=== PATIENT | male | born 1955 | race Caucasian/White ===

== ENCOUNTER 2019-09-07 09:48 | Outpatient (CLI) | payer MEDICARE, MEDICAID, SELFPAY ==
--- NOTE | ~2019-09-07 | XR_ITS ---
EXAMINATION: XR chest 2V DATE: 09/07/2019 10:15 INDICATION: Chronic obstructive pulmonary disease. Shortness of breath. TECHNIQUE: Frontal and lateral views of the chest were obtained. COMPARISON: Chest 2 views 03/23/2017, chest CT 02/17/2018 FINDINGS: Calcified pulmonary nodules are consistent with old granulomatous disease. There is chronic blunting of the posterior costophrenic angles, likely scarring. There is mild atelectasis in the rig ht mid and lower lung zones and left lower lung zone. No pleural effusion or pneumothorax. The heart size is normal. There is a left chest pacer with leads in right atrium, right ventricle, and coronary sinus. There is chronic height loss of multiple thoracic vertebral bodies. IMPRESSION: 1. Mild atelectasis in right mid and lower lung zones and left lower lung zone. Reviewed, dictated and finalized at location A. 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
[2019-09-07 11:20] LABS: Alanine Aminotransferase 28 U/L (4-50); Albumin Level 3.9 g/dL (3.5-5.1); Alkaline Phosphatase 94 U/L (38-126); Aspartate Amino Transferase 48 U/L (17-59); Bilirubin,Total 0.4 mg/dL (0.2-1.3); Blood Urea Nitrogen 14 mg/dL (9-20); Calcium 9.3 mg/dL (8.4-10.2); Carbon Dioxide 31 mmol/L (22-30); Chloride 95 mmol/L (98-107); Estimated Glomerular Filt Rate > 60; Glucose 122 mg/dL (75-110); Potassium 3.7 mmol/L (3.4-5.0); Sodium 137 mmol/L (137-145)
== END 2019-09-07 09:49 | disposition home or self-care (01) ==
LOC: ANHLAB 09:54
PROVIDERS: PCP Internal Medicine; Visit Provider Internal Medicine
DX: K76.9 Liver disease, unspecified (principal); I10 Essential (primary) hypertension; E03.9 Hypothyroidism, unspecified; J44.9 Chronic obstructive pulmonary disease, unspecified; J98.11 Atelectasis
CPT/HCPCS: 36415; 71046; 80053; 84443

== ENCOUNTER 2019-12-20 22:51 | Emergency (ER) | payer MEDICARE, MEDICAID, SELFPAY ==
--- NOTE | ~2019-12-20 | XR_ITS ---
EXAMINATION: XR chest 1V portable EXAM DATE: 12/20/2019 23:57 INDICATION: Shortness of breath. TECHNIQUE: Portable AP frontal chest x-ray was obtained. Comparison is made to prior examination from 05/08/2020. FINDINGS: There is a dual lead pacemaker/AICD seen with leads projecting over the expected locations of the right atrial appendage and right ventricle. There are some scattered linear right perihilar op acities likely chronic regions of scarring unchanged. No confluent consolidation, pneumothorax or ple ural effusion suspected. Cardiac silhouette is stable in size compared to prior exam. There are mild bony degenerative changes. IMPRESSION: No acute cardiopulmonary findings. Reviewed, dictated and finalized at location G.
--- NOTE | ~2019-12-20 | CT_ITS ---
EXAMINATION: CTA chest PE protocol DATE: 12/21/2019 01:33 INDICATION: Shortness of breath. Fever. Cough. TECHNIQUE: Computed tomography angiography (CTA) of the chest was performed with 100 mL Omnipaque-350 intravenous contrast timed to evaluate the pulmonary arteries. Coronal maximum intensity projection 3D-reconstructions were created by the technologist. Automated exposure control and iterative reconst ruction technique were employed. The dose-length product was 797.99 mGy-cm. COMPARISON: Chest CT 02/17/2018 FINDINGS: There is moderate emphysema. Calcified pulmonary nodules are consistent with old granulomat ous disease. There is mild peripheral atelectasis and scarring in the inferior lungs, worst in right lower lobe. No pleural effusion. There is left atrial enlargement of the heart. There are coronary ar tank calcifications. There is a left chest pacer with leads in right atrium, right ventricle, and cor onary sinus. There is no pulmonary embolus. The liver demonstrates surface nodularity, consistent wit h cirrhosis. There is a small sliding hiatal hernia. There are old healed left rib fractures. Thoraci c kyphosis is noted. There are multiple chronic compression fractures and burst fractures in thoracic spine. IMPRESSION: 1. No pulmonary embolus. 2. Moderate emphysema. Mild atelectasis and scarring in the inferior lungs. 3. Cirrhosis of the liver. Reviewed, dictated and finalized at location A.
[2019-12-20 22:50] VITALS: BP 133/88; PULSE 92; RESP 22; TEMP 37.8; O2SAT 98
--- NOTE | 2019-12-20 23:20 | ECG_ITS ---
Measurements Intervals [place] Rate: 87 P: 20 NE: 137 QRS: -61 QRSD: 82 T: 56 QT: 359 QTc: 434 Interpretive Statements ELECTRONIC VENTRICULAR PACEMAKER NO FURTHER INTERPRETATION IS POSSIBLE ATYPICAL ECG Electronically Signed On 12-21-2019 7:09:59 CDT by Rg Feng D.O.
[2019-12-20 23:54] LABS: Basophils Absolute Auto 0.1 K/mm3 (0.0-0.1); Basophils Percent Auto 0.3 % (0.2-1.2); Eosinophils Percent Auto 0.2 % (0-4.4); Hematocrit 37.6 % (42.0-52.0); Hemoglobin 11.9 g/dL (14.0-18.0); Immature Granulocyte Absolute 0.12 K/mm3 (0.00-0.031); Immature Granulocyte Percent A 0.6 % (0-0.5); Lymphocytes Absolute Auto 1.02 K/mm3 (0.9-3.2); Lymphocytes Percent Auto 5.3 % (18.3-44.2); Mean Corpuscular HGB Conc 31.6 g/dl (32-36); Mean Corpuscular Hemoglobin 27.7 pg (26-34); Mean Corpuscular Volume 87.4 fl (80-100); Mean Platelet Volume 9.5 fl (7.4-10.4); Monocytes Absolute Auto 1.7 K/mm3 (0.1-0.6); Monocytes Percent Auto 8.7 % (2.6-8.5); Neutrophils Absolute Auto 16.3 K/mm3 (1.3-6.7); Neutrophils Percent Auto 84.9 % (45.5-73.1); Platelet Count Result 127 k/mm3 (150-375); Red Cell Distribution Width 15.8 % (11.5-14.5); White Blood Count 19.2 K/mm3 (4.5-10.0)
[2019-12-21] VITALS: BP 138/87; PULSE 85; RESP 19; O2SAT 100
[2019-12-21 00:15] LABS: Blood Urea Nitrogen 19 mg/dL (9-20); Carbon Dioxide 35 mmol/L (22-30); Chloride 94 mmol/L (98-107); Estimated CRCL calculation 120 ml/min; Estimated Glomerular Filt Rate > 60; Glucose 141 mg/dL (75-110); Potassium 3.7 mmol/L (3.4-5.0); Sodium 133 mmol/L (137-145)
--- NOTE | 2019-12-21 00:43 | ED.SOB ---
HPI - SOB/Dyspnea General Chief Complaint: Shortness of Breath/Dyspnea Stated Complaint: flu like sx Time Seen by Provider: 12/21/19 00:42 History of Present Illness HPI Narrative: Patient arrives via EMS from home for increasing shortness of breath. He has known COPD and is on 4 L of oxygen at home. He required 6 L in route. He had pneumonia recently, and was discharged on antibiotics and steroids. He has been staying home since then. Now he has fever, chills and sweats, left chest pain, slightly productive cough, and increasing dyspnea. Related Data Home Medications Medication Instructions Recorded Confirmed albuterol sulfate 90 mcg/actuation 1 inhalation INHALATION Q4H 07/17/19 09/07/19 aerosol inhaler amiodarone 200 mg tablet 200 mg PO DAILY 09/07/19 09/07/19 Allergies Allergy/AdvReac Type Severity Reaction Status Date / Time venom-wasp Allergy Unknown Unknown Verified 12/12/19 10:50 Review of Systems Review of Systems: Narrative: CONSTITUTIONAL: He has fever, chills, and sweats. EYES: Denies visual changes, redness, or discharge. ENT: Denies rhinorrhea, congestion, sore throat, or otalgia. CARDIOVASCULAR: He has chest pain, but no palpitations, or edema. RESPIRATORY: He has cough and dyspnea. GASTROINTESTINAL: Denies abdominal pain, nausea, vomiting, or diarrhea. GENITOURINARY: Denies dysuria or hematuria. SKIN: Denies rash or itching. MUSCULOSKELETAL: Denies back pain, joint pain, or myalgia. NEUROLOGIC: Denies headache, numbness, or weakness. PSYCHIATRIC: Denies anxiety or depression. All systems reviewed & are unremarkable except as noted in HPI and below PMFSH Past Medical History Medical History Acute recurrent sinusitis Acute respiratory failure with hypoxia Chronic liver disease and cirrhosis Chronic respiratory failure, unspecified whether with hypoxia or hypercapnia COPD exacerbation Cor pulmonale (chronic) Essential (primary) hypertension Former tobacco use Hypotension, unspecified Hypoxemia Liver disease, unspecified Oxygen dependent Personal history of other venous thrombosis and embolism Pneumonia due to infectious organism Family History Family History Father Hypertension Family history of diabetes mellitus in first degree relative Family history of chronic obstructive pulmonary disease Sibling Patient's sister is in good health Patient's brother is in good health Mother Patient's mother is Other Family history of arthritis Social History Social History Smoking status: Former smoker (quit 1 month ago) Smoking end date: 08/09/18 Alcohol intake: current Exam Narrative: Exam Narrative: GENERAL: Well-appearing, well-nourished, and in no acute distress. Morbid obesity, poorly stringy long hair, unkempt colon. HEAD: Normocephalic, atraumatic. EYES: PERRLA and EOMI. ENT: Nares clear, no rhinorrhea or epistaxis. Mucous membranes moist. NECK: Supple. CHEST: Normal wheezes, prolonged expiration, no crackles or rales. No retractions. HEART: Regular rate and rhythm. No murmur heard. Normal peripheral pulses. ABDOMEN: Soft, nontender, nondistended, normal active bowel sounds. EXTREMITIES: Normal range of motion. No edema. Missing the tips of a couple of the left hand fingers. SKIN: Warm, dry, no rash. NEURO: No focal deficits. Alert and oriented x3. PSYCH: Normal mood and affect. Course Reevaluation(s) Reevaluation #1: Patient says he does not feel any better, but he has no retractions, his prolonged expirations are better, he has not been coughing, and I keep turning his oxygen down because his saturations are in the 99 to 100% range, and he does not needed to be higher than 95%. He came by ambulance, and does not know how he intends to get home. Told him I would send him home on some more antib
[2019-12-21 01:00] VITALS: BP 142/83; PULSE 93; RESP 20; O2SAT 94
[2019-12-21] MEDS: ALBUTEROL SULFATE (*SP) INHALER 1 PUFF (01:11)
[2019-12-21 01:13] VITALS: PULSE 81; RESP 33
[2019-12-21] MEDS: ACETAMINOPHEN 500 MG TABLET 1000 MG PO (01:13)
[2019-12-21] MEDS: MORPHINE SULFATE 2 MG/ML INJ IV PUSH (01:13)
[2019-12-21] MEDS: methylPREDNISolone SOD SUCC 125 MG VIAL IV PUSH (01:13)
[2019-12-21 01:20] LABS: INR 1.8; Prothrombin Time 20.2 Seconds (11.1-14.7)
[2019-12-21 01:39] LABS: Lactic Acid 1.4 mmol/L (0.7-2.1)
[2019-12-21 02:04] VITALS: BP 110/67; PULSE 80; RESP 19; O2SAT 98
[2019-12-21 02:59] VITALS: BP 110/80; PULSE 74; RESP 22; O2SAT 100
--- NOTE | 2019-12-21 03:35 | PC.NURSE ---
[id number] Called [facility] to transport patient. ETA [phone] [facility] here
[2019-12-21 03:52] VITALS: BP 113/76; PULSE 84; RESP 25; TEMP 37.2; O2SAT 97
== END 2019-12-21 03:53 | disposition home or self-care (01) ==
PROVIDERS: Emergency Provider Emergency Medicine; PCP Internal Medicine
DX: J44.9 Chronic obstructive pulmonary disease, unspecified (principal); D72.829 Elevated white blood cell count, unspecified; D64.9 Anemia, unspecified; E66.01 Morbid (severe) obesity due to excess calories; Z68.41 Body mass index [BMI] 40.0-44.9, adult; D69.6 Thrombocytopenia, unspecified; Z95.0 Presence of cardiac pacemaker; Z99.81 Dependence on supplemental oxygen; K74.60 Unspecified cirrhosis of liver; I10 Essential (primary) hypertension; Z87.891 Personal history of nicotine dependence; Z86.718 Personal history of other venous thrombosis and embolism; Z86.711 Personal history of pulmonary embolism
CPT/HCPCS: 36415; 71045; 71275; 80048; 83605; 85025; 85610; 87040; 87077; 87186; 93005; 96365; 96367; 96375; 99284; A9270; J0456; J0696; J2270; J2930; Q9967

== ENCOUNTER 2020-07-16 11:34 | Outpatient (CLI) | payer MEDICARE, MEDICAID, SELFPAY ==
[2020-07-16 12:09] LABS: Alanine Aminotransferase 18 U/L (4-50); Albumin Level 3.7 g/dL (3.5-5.1); Alkaline Phosphatase 92 U/L (38-126); Anion Gap 6 mmol/L (8-16); Aspartate Amino Transferase 27 U/L (17-59); Bilirubin,Total 0.4 mg/dL (0.2-1.3); Blood Urea Nitrogen 17 mg/dL (9-20); Calcium 9.3 mg/dL (8.4-10.2); Carbon Dioxide 32 mmol/L (22-30); Chloride 99 mmol/L (98-107); Cholesterol 143 mg/dL (0-200); Estimated Glomerular Filt Rate > 60; Glucose 143 mg/dL (75-110); HDL Direct 34 mg/dL; Potassium 4.6 mmol/L (3.4-5.0); Sodium 137 mmol/L (137-145); Triglycerides 94 mg/dL (<150)
[2020-07-16 12:20] LABS: LDL Cholesterol Direct 90 mg/dL
[2020-07-16 13:40] LABS: Free T4 Free Thyroxine 1.38 ng/mL (0.78-2.19)
== END 2020-07-16 11:35 | disposition home or self-care (01) ==
PROVIDERS: PCP Internal Medicine; Visit Provider Internal Medicine
DX: E03.9 Hypothyroidism, unspecified (principal); I10 Essential (primary) hypertension; Z51.81 Encounter for therapeutic drug level monitoring; Z79.899 Other long term (current) drug therapy
CPT/HCPCS: 36415; 80053; 80061; 84439; 84443

== ENCOUNTER 2020-07-17 10:40 | Emergency (ER) | payer MEDICARE, MEDICAID, SELFPAY ==
[2020-07-17] VITALS (17 sets, daily range): BP systolic 128–144; BP diastolic 73–86; PULSE 80–96; RESP 18–27; O2SAT 97–100
--- NOTE | ~2020-07-17 | XR_ITS ---
XR chest 1V portable DATE: 07/17/2020 11:16 INDICATION: Congestive heart failure, shortness of breath TECHNIQUE: Portable AP chest on 07/17/2020 1105 hours COMPARISON: 12/20/2019 portable AP chest 12/21/2019 CT pulmonary scan FINDINGS: There are right mid lung and bibasilar infiltrates and/or atelectasis. Heart size is not optimally evaluated on AP projection because of magnification. Thoracic aortic calc ification and ectasia and tortuosity. Pulmonary vascularity appears within normal limits. There is mi nimal if any pleural effusion. No pneumothorax. Left triple lead pacemaker device with leads overlying right atrium, right ventricle and coronary sin us. Prominent diffuse osteopenia. IMPRESSION: Right mid lung and bibasilar infiltrate and/atelectasis Reviewed, dictated and finalized at location A. 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
--- NOTE | 2020-07-17 10:50 | ECG_ITS ---
Measurements Intervals [place] Rate: 80 P: 242 NV: 203 QRS: -45 QRSD: 93 T: -3 QT: 379 QTc: 438 Interpretive Statements ELECTRONIC ATRIAL PACEMAKER ELECTRONIC VENTRICULAR PACEMAKER FUSION COMPLEXES BASELINE ARTIFACT- I, III, AVL, AVF, V4-V6 NO FURTHER INTERPRETATION IS POSSIBLE ATYPICAL ECG Electronically Signed On 07-17-2020 11:01:10 [facility] [employer] [employer] by Rg Feng D.O.
[2020-07-17 11:06] LABS: Basophils Absolute Auto 0.1 K/mm3 (0.0-0.1); Basophils Percent Auto 0.9 % (0.2-1.2); Eosinophils Absolute Auto 0.2 K/mm3 (0-0.3); Eosinophils Percent Auto 2.7 % (0-4.4); Hematocrit 35.4 % (42.0-52.0); Hemoglobin 10.3 g/dL (14.0-18.0); Immature Granulocyte Absolute 0.03 K/mm3 (0.00-0.031); Immature Granulocyte Percent A 0.4 % (0-0.5); Lymphocytes Percent Auto 15.7 % (18.3-44.2); Mean Corpuscular HGB Conc 29.1 g/dl (32-36); Mean Corpuscular Hemoglobin 24.8 pg (26-34); Mean Corpuscular Volume 85.3 fl (80-100); Mean Platelet Volume 9.1 fl (7.4-10.4); Monocytes Absolute Auto 0.7 K/mm3 (0.1-0.6); Monocytes Percent Auto 9.3 % (2.6-8.5); Platelet Count Result 183 k/mm3 (150-375); Red Blood Count 4.15 M/mm3 (4.6-6.20); Red Cell Distribution Width 18.1 % (11.5-14.5)
[2020-07-17 11:15] LABS: INR 1.2
[2020-07-17 11:16] LABS: Partial Thromboplastin Time 29.7 SECONDS (22.3-36.8)
[2020-07-17 11:19] LABS: Anion Gap 4 mmol/L (8-16); Blood Urea Nitrogen 16 mg/dL (9-20); Calcium 9.2 mg/dL (8.4-10.2); Carbon Dioxide 35 mmol/L (22-30); Chloride 100 mmol/L (98-107); Estimated CRCL calculation 102 ml/min; Estimated Glomerular Filt Rate > 60; Glucose 120 mg/dL (75-110); Potassium 5.1 mmol/L (3.4-5.0); Sodium 139 mmol/L (137-145)
[2020-07-17 11:27] LABS: Anisocytosis 1+ (NORMAL); Platelet Estimate Adequate (Adequate); Target Cells 1+ (NORMAL)
[2020-07-17 11:29] LABS: NT Pro B Type Natriuretic Pept 375 PG/ML (5-100); Troponin I < 0.012 ng/mL (0.000-0.034)
--- NOTE | 2020-07-17 11:32 | ED.SOB ---
HPI - SOB/Dyspnea General Chief Complaint: Shortness of Breath/Dyspnea Stated Complaint: SOB Time Seen by Provider: 07/17/20 11:05 History of Present Illness HPI Narrative: Increased SOB for the past 3 days. Associated with fatigue and REEDER. He has been out of lasix for the past few days and does report increased BLE edema. He also reports anxiety and depression around COVID-19 and not being able to take care of himself. Related Data Home Medications Medication Instructions Recorded Confirmed albuterol sulfate 90 mcg/actuation 1 inhalation INHALATION Q4H 07/17/19 07/17/20 aerosol inhaler amiodarone 200 mg tablet 200 mg PO DAILY 09/07/19 07/17/20 Allergies Allergy/AdvReac Type Severity Reaction Status Date / Time venom-wasp Allergy Unknown Swelling Verified 07/17/20 11:01 Review of Systems Review of Systems: All systems reviewed & are unremarkable except as noted in HPI and below Constitutional: Constitutional: Denies chills, Reports fatigue, Denies fever(s) and Denies weakness Cardiovascular: Cardiovascular: Denies chest pain Respiratory: Respiratory: Reports chest congestion, Reports cough and Reports dyspnea Gastrointestinal: Gastrointestinal: Denies abdominal pain, Denies nausea and Denies vomiting Genitourinary: Genitourinary: Denies dysuria Neurologic: Denies dizziness and Denies weakness Psychiatric: Psychiatric: Reports anxiety and Reports depression Endocrine: Endocrine: Reports fatigue PMFSH Past Medical History Medical History Acute recurrent sinusitis Acute respiratory failure with hypoxia Chronic liver disease and cirrhosis Chronic respiratory failure, unspecified whether with hypoxia or hypercapnia COPD exacerbation Cor pulmonale (chronic) Essential (primary) hypertension Former tobacco use Hypotension, unspecified Hypothyroidism Hypoxemia Liver disease, unspecified Oxygen dependent Personal history of other venous thrombosis and embolism Pneumonia due to infectious organism Family History Family History Father Hypertension Family history of diabetes mellitus in first degree relative Family history of chronic obstructive pulmonary disease Sibling Patient's sister is in good health Patient's brother is in good health Mother Patient's mother is Other Family history of arthritis Social History Social History Smoking status: Current every day smoker Smoking end date: 08/09/18 Alcohol intake: current Exam Const: General: no acute distress, alert and ill appearing chronically Nutritional Appearance: obese Orientation/consciousness: patient oriented x3 HENMT: Head: normal to inspection Neck: Neck: normal visual inspection Chest: Chest palpation & inspection: normal inspection of the chest Resp: Effort & Inspection: normal respiratory effort Auscultation: no crackles and wheezes Cardio: Rate: regular rate Rhythm: regular rhythm GI: GI Palp: Yes Soft to palpation and No Tenderness to palpation present (GI) Skin: General skin exam: normal color Neuro: General: patient oriented x3, moves all extremities, no focal motor deficits and CN's II-XI intact bilaterally Speech: normal speech Extrem: General: edema bilateral (2+) Course Vital Signs Vital signs: Vital Signs Pulse Rate 96 07/17/20 10:43 Respiratory Rate 21 H 07/17/20 10:43 Blood Pressure 144/79 H 07/17/20 10:43 Pulse Oximetry 100 07/17/20 10:43 Pulse Rate 88 07/17/20 14:43 Respiratory Rate 18 07/17/20 14:43 Blood Pressure 135/77 07/17/20 14:43 Pulse Oximetry 97 07/17/20 14:43 MDM - SOB/Dyspnea MDM Narrative Medical decision making narrative: Maintaining O2 saturation with ambulation. Atelectasis versus infiltrate on X-ray, no symptoms to suggest pneumonia, no white count
[2020-07-17] MEDS: methylPREDNISolone SOD SUCC 125 MG VIAL IV PUSH (11:38)
[2020-07-17] MEDS: FUROSEMIDE INJ 40 MG/4 ML VIAL IV PUSH (11:39)
[2020-07-17] MEDS: IPRATROPIUM BR 0.02% INH SOLN 0.5 MG/2.5 ML VIAL 1 MG INHALATION (12:14)
[2020-07-17] MEDS: ALBUTEROL SULFATE NEB 2.5 MG/0.5 ML INH 10 MG INHALATION (12:14)
== END 2020-07-17 15:10 | disposition home or self-care (01) ==
PROVIDERS: Emergency Medicine; Emergency Provider Emergency Medicine; PCP Internal Medicine
DX: J44.1 Chronic obstructive pulmonary disease with (acute) exacerbation (principal); K74.60 Unspecified cirrhosis of liver; I10 Essential (primary) hypertension; Z87.891 Personal history of nicotine dependence; E03.9 Hypothyroidism, unspecified; Z99.81 Dependence on supplemental oxygen
CPT/HCPCS: 36415; 71045; 80048; 83880; 84484; 85025; 85610; 85730; 93005; 94640; 96374; 96375; 99284; J1940; J2930

== ENCOUNTER 2021-02-05 09:23 | Outpatient (CLI) | payer MEDICARE, MEDICAID, SELFPAY ==
[2021-02-05 13:13] LABS: Hemoglobin A1C 7.2 % (<5.7)
[2021-02-05 13:35] LABS: Creatinine Urine 21.7 mg/dL
[2021-02-05 13:37] LABS: MALB Creatinine Ratio 30.4 mg/g (0-30); Microalbumin Urine Random 6.6 mg/L (0-16.7)
== END 2021-02-05 09:24 | disposition home or self-care (01) ==
PROVIDERS: PCP Internal Medicine; Visit Provider Internal Medicine
DX: D50.9 Iron deficiency anemia, unspecified (principal); Z51.81 Encounter for therapeutic drug level monitoring; Z79.899 Other long term (current) drug therapy
CPT/HCPCS: 36415; 82043; 83036

== ENCOUNTER 2021-06-26 10:35 | Outpatient (CLI) | payer MEDICARE, MEDICAID, SELFPAY ==
[2021-06-26 11:40] LABS: Hemoglobin A1C 5.6 % (<5.7)
[2021-06-26 11:42] LABS: Alanine Aminotransferase 21 U/L (4-50); Albumin Level 3.8 g/dL (3.5-5.1); Alkaline Phosphatase 99 U/L (38-126); Anion Gap 5 mmol/L (8-16); Aspartate Amino Transferase 31 U/L (17-59); Bilirubin,Total 0.4 mg/dL (0.2-1.3); Blood Urea Nitrogen 18 mg/dL (9-20); Calcium 8.8 mg/dL (8.4-10.2); Carbon Dioxide 39 mmol/L (22-30); Chloride 90 mmol/L (98-107); Cholesterol 139 mg/dL (0-200); Estimated Glomerular Filt Rate > 60; Glucose 117 mg/dL (65-110); HDL Direct 43 mg/dL; Potassium 3.7 mmol/L (3.4-5.0); Sodium 134 mmol/L (137-145); Triglycerides 68 mg/dL (<150)
[2021-06-26 11:53] LABS: LDL Cholesterol Direct 80 mg/dL
[2021-06-26 12:19] LABS: Vitamin D 25 Hydroxy 13.1 ng/mL
== END 2021-06-26 10:36 | disposition home or self-care (01) ==
LOC: ANHLAB 10:40
PROVIDERS: PCP Internal Medicine; Visit Provider Internal Medicine
DX: E78.5 Hyperlipidemia, unspecified (principal); E03.9 Hypothyroidism, unspecified; E53.8 Deficiency of other specified B group vitamins; E55.9 Vitamin D deficiency, unspecified; E11.9 Type 2 diabetes mellitus without complications; B18.1 Chronic viral hepatitis B without delta-agent
CPT/HCPCS: 36415; 80053; 80061; 82306; 82607; 83036; 84443

== ENCOUNTER 2021-08-22 16:37 | Inpatient (IN) | payer MEDICARE, MEDICAID, SELFPAY ==
[2021-08-22] VITALS (11 sets, daily range): BP systolic 107–132; BP diastolic 66–78; PULSE 92–136; RESP 22–32; TEMP 36.8; O2SAT 93–98
--- NOTE | ~2021-08-22 | XR_ITS ---
EXAMINATION: XR shoulder LT min 2V DATE: 08/27/2021 13:29 INDICATION: Left shoulder pain post fall TECHNIQUE: AP internally and externally rotated, AP oblique externally rotated and transscapular Y vi ews of the left shoulder were obtained. COMPARISON: Chest radiograph dated 12/20/2019 FINDINGS: There is chronic widening of the left acromioclavicular joint which could be related to either prior trauma or acromioplasty. Correlate with clinical history. Alignment is otherwise normal. No fracture. Mild osteoarthritis at the left glenohumeral joint. Opacities in the left lower lung zone consistent with small left pleural effusion and associated basilar atelectasis, pneumonia, pulmonary edema or s ome combination thereof. Partially visualized left pectoral 3 the cardiac pacemaker with leads extend ing into the left brachiocephalic vein and beyond the right side of the field of imaging. IMPRESSION: Chronic widening of the left acromioclavicular joint which could be related to either prior trauma or surgery. Correlate with clinical history. 2. Mild left glenohumeral osteoarthritis. No acute osseous abnormality. 3. Opacities in the left lower lung zone which could represent small left pleural effusion, atelectas is, pneumonia, pulmonary edema or some combination thereof. Reviewed, dictated and finalized at location A. 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 Correlate with clinical history. 2. Mild left glenohumeral osteoarthritis. No acute osseous abnormality. 3. Opacities in the left lower lung zone which could represent small left pleur al effusion, atelectasis, pneumonia, pulmonary edema or some combination essie hernández
--- NOTE | ~2021-08-22 | US_ITS ---
EXAMINATION:US venous doppler LE BI INDICATION:Thigh swelling and pain TECHNIQUE: Multiple grayscale, color flow and Doppler images of the right and left lower extremity de ep venous systems were obtained and reviewed. COMPARISON:No prior studies for comparison. FINDINGS: The common femoral, superficial femoral and popliteal veins demonstrate normal respiratory variation, augmentation and compressibility. Color flow is also seen within the posterior tibial, pe roneal, greater saphenous and profunda veins. IMPRESSION: 1: No lower extremity deep venous thrombosis. Reviewed, dictated and finalized at location A. [facility]
--- NOTE | ~2021-08-22 | XR_ITS ---
EXAMINATION: XR chest 2V DATE: 09/06/2021 08:46 INDICATION: Shortness of breath. Pulmonary edema. TECHNIQUE: Frontal and lateral views of the chest were obtained on 3 radiographs. COMPARISON: Chest 2 views 08/27/2021, chest CT 12/21/2019 FINDINGS: There are small right and moderate-sized left pleural effusions. There are airspace opaciti es in right lower lung zone and left mid and lower lung zones. Calcified pulmonary nodules are consis tent with old granulomatous disease. No pneumothorax. Cardiomegaly is noted. There is a left chest wa ll pacer with leads in the right atrium, right ventricle, and coronary sinus. IMPRESSION: 1. Small right and moderate-sized left pleural effusions with worsening on the left. 2. Airspace opacities in right lower lung zone and left mid and lower lung zones with worsening on th e left, consistent with atelectasis versus pneumonia. 3. Cardiomegaly. Reviewed, dictated and finalized at location A. UNICATIONS ADVISOR IMPRESSION: 1. Small right and moderate-sized left pleural effusions with worsening on the left. 2. Airspace opacities in right lower lung zone and left mid and lower lung zone s with worsening on the left, consistent with atelectasis versus pneumonia. 3. Cardiomegaly.
--- NOTE | ~2021-08-22 | CT_ITS ---
EXAMINATION: CT lumbar spine wo [facility] EXAM DATE: 08/24/2021 15:01 INDICATION: Bilateral leg weakness and back pain. TECHNIQUE: Spiral CT of the lumbar spine was performed without contrast. Axial, coronal and sagittal images lumbar spine were reviewed. The dose-length product (DLP) for this examination was 1275.45 m Gy-cm. The exposure was tailored according to patient size (auto mA exposure control), and iterativ e reconstruction (ASIR) was used as additional dose reduction technique. There is no prior study for comparison. FINDINGS: Loss of all vertebral body heights from T12 through L5, with mild to moderate anterior wedg ing of T12, L2, mild to moderate diffuse loss of L4 vertebral body height without retropulsion. Mild loss of the L3 and L5 vertebral body height, minimal at L1. These appear most likely chronic, althoug h difficult to exclude acute component. No acute fracture line is identified. There is an IVC filter. The vertebral bodies are aligned in the AP dimension. Sacroiliac joints unremarkable. Punctate bilat eral nephrolithiasis. Mild sigmoid diverticulosis. Level by level evaluation: T12-L1: Disc does not extend beyond the endplate margin. Facet arthropathy: None. Neural foraminal stenosis: No stenosis. Central canal stenosis: No stenosis. L1-L2: There is a minimal diffuse disc bulge. Facet arthropathy: Minimal. Neural foraminal stenosis: No stenosis. Central canal stenosis: No stenosis. L2-L3: There is a mild diffuse disc bulge. Facet arthropathy: Mild. Neural foraminal stenosis: Mild bilateral. Central canal stenosis: Mild. L3-L4: There is a mild to moderate diffuse disc bulge. Facet arthropathy: Mild to moderate. Neural foraminal stenosis: Moderate right, mild to moderate left. Central canal stenosis: Moderate. L4-L5: There is a moderate diffuse disc bulge. Facet arthropathy: Moderate to severe. Neural foraminal stenosis: Moderate bilateral. Central canal stenosis: Moderate to severe. L5-S1: There is a moderate diffuse disc bulge. Facet arthropathy: Moderate. Neural foraminal stenosis: Mild to moderate bilateral. Central canal stenosis: Mild to moderate. IMPRESSION: 1. L4-5 moderate to severe central canal stenosis. 2. L4 burst fracture without retropulsion, other lumbar compression fractures. No acute fracture lesley e identified. Reviewed, dictated and finalized at location G. AIMER IMPRESSION: 1. L4-5 moderate to severe central canal stenosis. 2. L4 burst fracture without retropulsion, other lumbar compression fractures. No acute fracture line identified.
--- NOTE | ~2021-08-22 | XR_ITS ---
EXAMINATION: XR chest 2V EXAM DATE: 08/22/2021 17:17 INDICATION: Since Jul. SOB lower leg weakness,hx pacemaker and COPD. TECHNIQUE: Frontal and lateral projections of the chest obtained and reviewed. 07/17/2020 FINDINGS: Cardiomegaly and pulmonary vascular congestion. There is indistinct reticulation with a bi basal predominance which may indicate pulmonary edema. Additional superimposed basilar atelectasis. Pneumonia not excludable. Multi lead pacemaker/AICD device. No pneumothorax. Small left pleural effu luis. No pneumothorax. IMPRESSION: 1. Findings consistent with CHF exacerbation. 2. Bibasilar segmental atelectasis. Pneumonia not excludable. Reviewed, dictated and finalized at location A. GING OPERATOR
--- NOTE | ~2021-08-22 | US_ITS ---
EXAMINATION: US arterial ankle brachial ind EXAM DATE: 08/23/2021 14:33 INDICATION: Intermittent claudication, poor cap refill intermittent claudication. poor cap refill. Le g and feet tingling and numbness. TECHNIQUE: Segmental pressures and plethysmographic and Doppler waveforms of the brachial and lower e xtremity arteries were obtained. There is no prior study for comparison. FINDINGS: Right and left brachial artery pressures of 117 mm Hg and 115 mm Hg, respectively, are concordant (no rmal difference <= 30 mmHg). RIGHT LEG: The ankle-brachial index (ALONSO) is 1.35 (normal >= 0.9-1). The great toe-brachial index (TBI) is 1.17 (normal >= 0.65). The lower extremity ratios, segmental pressure gradients as follows; Dorsalis pedis: 1.21 (141 mmHg). Posterior tibial: 1.35 (158 mmHg). (Normal gradients <= 20-30 mmHg between adjacent levels on the same leg or the same levels on the two legs). Arterial waveforms are biphasic. LEFT LEG: The ankle-brachial index (ALONSO) is 1.27 (normal >= 0.9-1). The great toe-brachial index (TBI) is 1.17 (normal >= 0.65). The lower extremity ratios, segmental pressure gradients as follows; Dorsalis pedis: 1.23 (144 mmHg). Posterior tibial: 1.27 (149 mmHg). (Normal gradients <= 20-30 mmHg between adjacent levels on the same leg or the same levels on the two legs). Arterial waveforms are biphasic. IMPRESSION: 1. Right ankle-brachial index 1.35, normal. 2. Left ankle-brachial index 1.27, normal. 3. Segmental pressures as above. Reviewed, dictated and finalized at location G. SHABLE FRUIT INSPECTOR
--- NOTE | ~2021-08-22 | XR_ITS ---
EXAMINATION: XR chest 2V EXAM DATE: 08/27/2021 13:28 INDICATION: Dyspnea, CHF TECHNIQUE: Portable AP frontal chest x-ray was obtained. Comparison is made to prior examination from 08/22/2021. FINDINGS: Multi lead pacemaker/AICD device. Severe cardiomegaly. Small to moderate left, small pleura l effusions. Adjacent subsegmental atelectasis. Moderate amount of basilar edema or pneumonia. No pne umothorax or pleural effusion. There are no osseous abnormalities identified. IMPRESSION: 1. Findings consistent with CHF exacerbation. 2. Small to moderate left, small right pleural effusions. 3. Pneumonia not excludable. Reviewed, dictated and finalized at location G. MACHINE OPERATOR
--- NOTE | 2021-08-22 16:43 | ECG_ITS ---
Measurements Intervals [place] Rate: 125 P: -34 VT: 136 QRS: 116 QRSD: 126 T: 147 QT: 345 QTc: 498 Interpretive Statements ELECTRONIC VENTRICULAR PACEMAKER UNDERLYING ATRIAL FIBRILLATION BASELINE WANDER- II, AVR, AVF NO FURTHER INTERPRETATION IS POSSIBLE ABNORMAL ECG Electronically Signed On 08-22-2021 20:23:21 CLAIM APPROVER by Rg Feng D.O.
--- NOTE | 2021-08-22 17:52 | ED.GENADULT ---
HPI - General Adult General Chief complaint: Shortness of Breath/Dyspnea Stated complaint: sob Time Seen by Provider: 08/22/21 17:13 Source: patient, EMS and RN notes reviewed Limitations: no limitations History of Present Illness HPI narrative: 66-year-old male with history of COPD and CHF presents to the emergency department complaining of worsening shortness of breath and exertional fatigue. Patient states that on July 21 he was discharged from [facility]. Patient had been admitted for COPD and pneumonia. Prior to admission patient had been on 2 L of oxygen by nasal cannula but since discharge she has been on 4 L. Patient states since he was discharged she has had worsening exertional shortness of breath. Patient denies any fevers. Related Data Home Medications Medication Instructions Recorded Confirmed albuterol sulfate 90 mcg/actuation 1 inhalation INHALATION Q4H 07/17/19 08/23/21 aerosol inhaler spironolactone 25 mg tablet 25 mg PO DAILY 01/23/21 08/23/21 amiodarone 200 mg PO BID 08/23/21 08/23/21 levothyroxine 50 mcg PO DAILY 08/23/21 08/23/21 Allergies Allergy/AdvReac Type Severity Reaction Status Date / Time venom-wasp Allergy Unknown Swelling Verified 08/23/21 02:12 Review of Systems Review of Systems: CONSTITUTIONAL: Low-grade fever and increased generalized weakness EYES: Denies visual changes, redness, or discharge. ENT: Denies rhinorrhea, congestion, sore throat, or otalgia. CARDIOVASCULAR: Denies any chest pain. Patient does have worsening lower extremity edema. RESPIRATORY: Reports worsening shortness of breath GASTROINTESTINAL: Denies abdominal pain, nausea, vomiting, or diarrhea. GENITOURINARY: Denies dysuria or hematuria. SKIN: Denies rash or itching. MUSCULOSKELETAL: Denies back pain, joint pain, or myalgia. NEUROLOGIC: Denies headache, numbness, or weakness. PSYCHIATRIC: Denies anxiety or depression. [facility] Past Medical History Medical History (Updated 08/23/21 @ 15:44 by Isaac Wiseman MD) Afib On Xarelto Age-related cataract of both eyes Alcoholic polyneuropathy Anxiety BPH associated with nocturia CHF (congestive heart failure) Echocardiogram 07/2019: EF 35-42% with repeat echocardiogram January 2021 difficult study. Normal left ventricular systolic function with EF of 50%, LVH with moderate left atrial enlargement. [id number] pulmonary hypertension RVSP of 41. Right ventricular and right atrial enlarged Chronic kidney disease, stage 3 (moderate) (02/14/16) Chronic liver disease and cirrhosis Chronic respiratory failure with hypoxia and hypercapnia Chronic viral hepatitis B without delta-agent Chronic viral hepatitis C COPD (chronic obstructive pulmonary disease) PFTs 06/2018: Severe obstructive ventilatory defect with some but not significant bronchodilator response FEV1 0.94 Cor pulmonale (chronic) Echocardiogram 01/2021: With EF of 58 %. LVH with moderate left atrial enlargement. [id number] pulmonary hypertension RVSP of 41 and right ventricular and right atrial enlargement Coronary artery disease involving inupiat coronary artery of inupiat heart Endocarditis (02/2020) Right atrial and right ventricular leads Essential (primary) hypertension Gastroesophageal reflux disease Hypothyroidism Iron deficiency anemia Obstructive sleep apnea Osteoporosis Oxygen dependent Personal history of other venous thrombosis and embolism Pneumonia due to infectious organism Pulmonary hypertension PVD (peripheral vascular disease) Recurrent sinusitis Tobacco use Type II diabetes mellitus Vitamin B12 deficiency Vitamin D deficiency Surgical History Surgical History (Updated 08/23/21 @ 05:28 by Mariana Gómez DO) Biventricular cardiac pacemaker in situ Biotronik S/P insertion of IVC (inferior vena caval) filter (~2014) Status post open reduction with internal fixation of fracture Jared in the left femur, platelet left knee, reconstruction of left ankle Family History
[2021-08-22 17:58] LABS: Basophils Absolute Auto 0.1 K/mm3 (0.0-0.1); Eosinophils Percent Auto 0.2 % (0-4.4); Hematocrit 31.9 % (42.0-52.0); Hemoglobin 8.6 g/dL (14.0-18.0); Immature Granulocyte Absolute 0.04 K/mm3 (0.00-0.031); Immature Granulocyte Percent A 0.4 % (0-0.5); Lymphocytes Absolute Auto 1.66 K/mm3 (0.9-3.2); Lymphocytes Percent Auto 17.2 % (18.3-44.2); Mean Corpuscular Hemoglobin 20.4 pg (26-34); Mean Corpuscular Volume 75.8 fl (80-100); Mean Platelet Volume 9.9 fl (7.4-10.4); Monocytes Absolute Auto 1.1 K/mm3 (0.1-0.6); Monocytes Percent Auto 11.1 % (2.6-8.5); Neutrophils Absolute Auto 6.7 K/mm3 (1.3-6.7); Neutrophils Percent Auto 70.1 % (45.5-73.1); Platelet Count Result 226 k/mm3 (150-375); Red Blood Count 4.21 M/mm3 (4.6-6.20); Red Cell Distribution Width 20.9 % (11.5-14.5); White Blood Count 9.6 K/mm3 (4.5-10.0)
[2021-08-22] MEDS: FUROSEMIDE INJ 100 MG/10 ML VIAL 80 MG IV PUSH (18:06)
[2021-08-22 18:08] LABS: INR 2.1; Partial Thromboplastin Time 35.2 SECONDS (22.3-36.8); Prothrombin Time 22.9 Seconds (11.1-14.7)
[2021-08-22 18:37] LABS: Hypochromasia 1+ (NORMAL); Platelet Estimate Adequate (Adequate)
[2021-08-22 18:38] LABS: Anisocytosis 3+ (NORMAL)
[2021-08-22 19:42] LABS: Alanine Aminotransferase 20 U/L (4-50); Alkaline Phosphatase 117 U/L (38-126); Aspartate Amino Transferase 48 U/L (17-59); Bilirubin,Total 0.4 mg/dL (0.2-1.3); Blood Urea Nitrogen 15 mg/dL (9-20); Calcium 9.2 mg/dL (8.4-10.2); Carbon Dioxide > 40 mmol/L (22-30); Chloride 90 mmol/L (98-107); Estimated CRCL calculation 110 ml/min; Estimated Glomerular Filt Rate > 60; Glucose 125 mg/dL (65-110); Potassium 3.4 mmol/L (3.4-5.0); Sodium 137 mmol/L (137-145)
[2021-08-22 19:47] LABS: NT Pro B Type Natriuretic Pept 364 pg/mL (5-100); Troponin I < 0.012 ng/mL (0.000-0.034)
[2021-08-22 20:53] LABS: SARS-CoV-2 RNA PCR Negative
--- NOTE | 2021-08-22 21:02 | PM.IMHP ---
H&P: HPI History of Present Illness Date/Time: 08/22/21 21:02 Chief Complaint: Shortness of breath Narrative: 66-year-old male with past medical history of CHF, pulmonary hypertension, BPH and end-stage COPD on chronic home O2 and trilogy who presented to the ER via EMS from home due to increased weakness for last several days, shortness of breath and fatigue for the last several days. Patient is in chronic poor health and is dependent upon his friend the help provide cares but his friend is also in poor health. The patient cannot perform a lot of ADLs. He was recently hospitalized in June and in July at [facility] due to COPD and pneumonia. Patient used to be on 2 L nasal cannula chronically but after his most recent hospitalization July 21 was discharged on 4-5 L nasal cannula. He reports that he did not want a return to [facility] since he feels they cannot treat his pneumonia since his shortness of breath continues to come back. He also felt the [facility] send him home without physical therapy and he has not been able to ambulate and do as much activity as he used to. He reports that he fell last week while ambulating to the bathroom. He thinks that he passed out in this resulted in his fall. He has a bruise to his left upper posterior ribs. He reports that over the last week his bilateral lower extremities have become so weak that he could not even get up with a walker. He has resorted to using his urinal all day instead of just at night. He reports that he chronically sleeps on the couch in most the time has to sit up straight to sleep. Over the last 3 days he has become so short of breath at when he puts on his trilogy he feels panicked and cannot breathe at all. Historically the patient is not the most compliant with his trilogy. At the time of my evaluation the patient was satting 96% on 4 L nasal cannula and was still telling me he could not breathe. His shortness of breath is worse with exertion. He denies any increased lower extremity swelling. In fact he reports a 25 lb weight loss over the last week or so. He attributes this to having watery diarrhea for about 5 days. He was having a couple of stools a day. He denies any black stools or bloody stools. His diarrhea resolved couple of days ago. He reports his abdomen feels generally tender but is not any more distended. About a week ago he did have some significant nausea. One day he did have some vomiting after eating. After several days of decreased appetite his appetite has now improved but is not back to baseline. He denied any hematemesis. He denies any chest pain or palpitations. He denies any recent ill contacts. He did receive his COVID booster. He reports that usually his morning urine is quite dark and almost orange in color. However after he takes his Lasix during the day as urine becomes quite clear. He denies any dysuria and states he has been emptying his bladder completely. He has been compliant with his home inhalers. He reports he has been using his nebulizer 4 times a day without relief in symptoms. Review of Systems Review of Systems: 12 systems were reviewed with pertinent positives and negatives per HPI. Except as documented in the HPI, all other systems were reviewed and are negative. [facility] Past Medical History Medical History (Updated 08/23/21 @ 05:28 by Mariana Gómez, ) Afib On Xarelto Age-related cataract of both eyes Alcoholic polyneuropathy Anxiety BPH associated with nocturia CHF (congestive heart failure) Echocardiogram 07/2019: EF 35-42% with repeat echocardiogram January 2021 difficult study. Normal left ventricular systolic function with EF of 50%, LVH with moderate left atrial enlargement. [id number] pulmonary hypertension RVSP of 41. Right ventricular and right atrial enlarged Chronic kidney disease, stage 3 (moderate) (02/14/16) Chronic liver disease and cirrhosis Chronic respiratory failure with hypoxia and hypercapnia
[2021-08-22] MEDS: methylPREDNISolone SOD SUCC 40 MG VIAL IV PUSH (23:44)
[2021-08-23] VITALS (21 sets, daily range): BP systolic 125–139; BP diastolic 72–76; PULSE 46–101; RESP 17–22; TEMP 35.5–36; O2SAT 92–98
--- NOTE | 2021-08-23 00:42 | ADMGEN ---
This patient, Navneet Astorga, was admitted to Medical Room 344-01. Patient/family oriented to hospital policies and general routines including ID bracelet, bed and alarms, visiting hours, pain management, procedures, bathroom and other care routines, personal items, smoking policy, room service/diet, and visiting hours. Information on how to activate the Rapid Response Team has been discussed. Patient/Family are encouraged to report perceived risks to care and to ask questions if they do not understand what they are told or what they should do.
[2021-08-23] MEDS: ALBUTEROL SULFATE NEB 2.5 MG/0.5 ML INH 5 MG INHALATION ×2 (01:27→09:06)
[2021-08-23] MEDS: IPRATROPIUM BR 0.02% INH SOLN 0.5 MG/2.5 ML VIAL INHALATION ×5 (01:27→23:01)
[2021-08-23 06:00] LABS: Basophils Absolute Auto 0.1 K/mm3 (0.0-0.1); Eosinophils Absolute Auto 0.2 K/mm3 (0-0.3); Eosinophils Percent Auto 2.2 % (0-4.4); Hematocrit 31.3 % (42.0-52.0); Hemoglobin 8.6 g/dL (14.0-18.0); Immature Granulocyte Absolute 0.07 K/mm3 (0.00-0.031); Immature Granulocyte Percent A 0.8 % (0-0.5); Lymphocytes Percent Auto 4.8 % (18.3-44.2); Mean Corpuscular HGB Conc 27.5 g/dl (32-36); Mean Corpuscular Hemoglobin 20.5 pg (26-34); Mean Corpuscular Volume 74.5 fl (80-100); Mean Platelet Volume 9.8 fl (7.4-10.4); Monocytes Absolute Auto 0.1 K/mm3 (0.1-0.6); Neutrophils Absolute Auto 7.5 K/mm3 (1.3-6.7); Neutrophils Percent Auto 90.2 % (45.5-73.1); Platelet Count Result 261 k/mm3 (150-375); White Blood Count 8.3 K/mm3 (4.5-10.0)
[2021-08-23 06:14] LABS: Anion Gap 9 mmol/L (8-16); Blood Urea Nitrogen 14 mg/dL (9-20); Calcium 9.1 mg/dL (8.4-10.2); Carbon Dioxide 37 mmol/L (22-30); Chloride 91 mmol/L (98-107); Estimated CRCL calculation 110 ml/min; Estimated Glomerular Filt Rate > 60; Glucose 218 mg/dL (65-110); Potassium 4.1 mmol/L (3.4-5.0); Sodium 137 mmol/L (137-145)
[2021-08-23] MEDS: LEVOTHYROXINE SODIUM 50 MCG TABLET PO (06:44)
[2021-08-23] MEDS: methylPREDNISolone SOD SUCC 40 MG VIAL IV PUSH (06:44)
[2021-08-23 08:28] LABS: Glucose Point of Care 164 mg/dl (65-105)
[2021-08-23] MEDS: BUDESONIDE RESPULE NEB 0.5 MG/2 ML AMP INHALATION (09:05)
[2021-08-23] MEDS: FUROSEMIDE INJ 40 MG/4 ML VIAL IV PUSH ×2 (09:40→16:41)
[2021-08-23] MEDS: SILDENAFIL CITRATE 20 MG TABLET PO ×2 (09:40→21:07)
[2021-08-23] MEDS: dilTIAZem HCL 30 MG TABLET PO ×3 (09:41→16:41)
[2021-08-23] MEDS: AMIODARONE HCL 200 MG TABLET PO ×2 (09:41→16:41)
[2021-08-23] MEDS: SERTRALINE HCL 50 MG TABLET PO (09:41)
[2021-08-23] MEDS: ROFLUMILAST 500 MCG TABLET PO (09:41)
[2021-08-23] MEDS: PANTOPRAZOLE 40 MG TABLET PO ×2 (09:41→16:42)
[2021-08-23] MEDS: ASPIRIN 81 MG ENTERIC TABLET PO (09:41)
[2021-08-23] MEDS: SPIRONOLACTONE 25 MG TABLET PO (09:41)
[2021-08-23] MEDS: TAMSULOSIN HCL 0.4 MG CAPSULE PO (09:41)
[2021-08-23] MEDS: FOLIC ACID 1 MG TABLET PO (09:41)
[2021-08-23] MEDS: metFORMIN HCL 500 MG TABLET PO ×2 (09:42→16:41)
[2021-08-23] MEDS: CYANOCOBALAMIN 500 MCG TABLET PO (09:42)
[2021-08-23] MEDS: CHOLECALCIFEROL 1,000 UNITS TABLET 2000 UNITS PO (09:42)
--- NOTE | 2021-08-23 11:41 | P.PNIM_ITS ---
Progress Note: A&P Assessment and Plan (1) CHF exacerbation: Qualifiers: Heart failure type: systolic Qualified Code(s): I50.23 - Acute on chronic systolic (congestive) heart failure Code(s): I50.9 - Heart failure, unspecified Status: Acute Assessment and Plan: * Prior echocardiogram with normal ejection fraction * Continue furosemide for diuresis (2) Leg weakness: Qualifiers: Laterality: bilateral Qualified Code(s): R29.898 - Other symptoms and signs involving the musculoskeletal system Code(s): R29.898 - Other symptoms and signs involving the musculoskeletal system Status: Acute Assessment and Plan: * Suspect a combination of anemia, vascular insufficiency, diabetic neuropathy, hypoxemia, and pneumonia * Consider neurogenic claudication due to spinal stenosis * Check ankle-brachial index for peripheral arterial disease * Check venous Doppler for possible hematoma left thigh * Consider CT LS spine (3) COPD exacerbation: Code(s): J44.1 - Chronic obstructive pulmonary disease with (acute) exacerbation Status: Acute Assessment and Plan: * Possible pneumonia * Continue steroids, aithromycin, ceftriaxone, bronchodilators (4) Anemia: Qualifiers: Anemia type: unspecified type Qualified Code(s): D64.9 - Anemia, unspecified Code(s): D64.9 - Anemia, unspecified Status: Acute Assessment and Plan: * Recent onset of microcytosis as well as trend platelet count increasing are were some for iron deficiency * He is on anticoagulation which would increase his risk for blood loss * 08/23 Anemia parameters ordered including stool for occult blood * Monitor H&H (5) Type II diabetes mellitus: Qualifiers: Diabetes mellitus snf insulin use: without ad terminal makeup operator use Diabetes mellitus complication status: with other specified complication Qualified Code(s): E11.69 - Type 2 diabetes mellitus with other specified complication Code(s): E11.9 - Type 2 diabetes mellitus without complications Status: Acute Assessment and Plan: * Mildly hyperglycemic on 08/23 at 218 fasting * Steroids likely contributing to hyperglycemia * 08/23 continued sliding scale and metformin and added basal glargine 24 U (6) Obstructive sleep apnea: Code(s): G47.33 - Obstructive sleep apnea (adult) (pediatric) Status: Acute Assessment and Plan: * As he does not have his home trilogy with him, BiPAP is substituted (7) Persistent atrial fibrillation: Code(s): I48.19 - Other persistent atrial fibrillation Status: Acute Assessment and Plan: * Continue diltiazem, amiodarone, rivaroxaban (8) 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 (11) Pulmonary hypertension: Code(s): I27.20 - Pulmonary hypertension, unspecified Status: Inactive Assessment and Plan: * Continue sildenafil Subjective Date/time seen: 08/23/21 11:41 Inte
--- NOTE | 2021-08-23 11:41 | PM.IMPN ---
Progress Note: A&P Assessment and Plan (1) CHF exacerbation: Qualifiers: Heart failure type: systolic Qualified Code(s): I50.23 - Acute on chronic systolic (congestive) heart failure Code(s): I50.9 - Heart failure, unspecified Status: Acute Assessment and Plan: Prior echocardiogram with normal ejection fraction Continue furosemide for diuresis (2) Leg weakness: Qualifiers: Laterality: bilateral Qualified Code(s): R29.898 - Other symptoms and signs involving the musculoskeletal system Code(s): R29.898 - Other symptoms and signs involving the musculoskeletal system Status: Acute Assessment and Plan: Suspect a combination of anemia, vascular insufficiency, diabetic neuropathy, hypoxemia, and pneumonia Consider neurogenic claudication due to spinal stenosis Check ankle-brachial index for peripheral arterial disease Check venous Doppler for possible hematoma left thigh Consider CT LS spine (3) COPD exacerbation: Code(s): J44.1 - Chronic obstructive pulmonary disease with (acute) exacerbation Status: Acute Assessment and Plan: Possible pneumonia Continue steroids, aithromycin, ceftriaxone, bronchodilators (4) Anemia: Qualifiers: Anemia type: unspecified type Qualified Code(s): D64.9 - Anemia, unspecified Code(s): D64.9 - Anemia, unspecified Status: Acute Assessment and Plan: Recent onset of microcytosis as well as trend platelet count increasing are were some for iron deficiency He is on anticoagulation which would increase his risk for blood loss 08/23 Anemia parameters ordered including stool for occult blood Monitor H&H (5) Type II diabetes mellitus: Qualifiers: Diabetes mellitus prison insulin use: without prison use Diabetes mellitus complication status: with other specified complication Qualified Code(s): E11.69 - Type 2 diabetes mellitus with other specified complication Code(s): E11.9 - Type 2 diabetes mellitus without complications Status: Acute Assessment and Plan: Mildly hyperglycemic on 08/23 at 218 fasting Steroids likely contributing to hyperglycemia 08/23 continued sliding scale and metformin and added basal glargine 24 U (6) Obstructive sleep apnea: Code(s): G47.33 - Obstructive sleep apnea (adult) (pediatric) Status: Acute Assessment and Plan: As he does not have his home trilogy with him, BiPAP is substituted (7) Persistent atrial fibrillation: Code(s): I48.19 - Other persistent atrial fibrillation Status: Acute Assessment and Plan: Continue diltiazem, amiodarone, rivaroxaban (8) 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 (11) Pulmonary hypertension: Code(s): I27.20 - Pulmonary hypertension, unspecified Status: Inactive Assessment and Plan: Continue sildenafil Subjective Date/time seen: 08/23/21 11:41 Interval history: Admitted August 22 due to increased dyspnea, generalized weakness, falling to the leg weakness 08/23 visit. Short of breath with any exertion. Denied cough or chest pain. Describes leg weakness when he walks. Feels as if muscles get tight. Notes left thigh is more swollen and somewhat tender than right. Denied back pain. Denied chest pain. Denied GI or changes. Denied abnormal bleeding. Denied rash. Does
[2021-08-23 12:09] LABS: Glucose Point of Care 181 mg/dl (65-105)
--- NOTE | 2021-08-23 12:39 | PM.CNPUL ---
Assessment and Plan Assessment and plan (1) COPD exacerbation: Code(s): J44.1 - Chronic obstructive pulmonary disease with (acute) exacerbation Status: Acute Assessment and Plan: Patient with GOLD grade 4 group D COPD. He is followed in the Pulmonary Clinic with last visit on 06/26/2021. He was on 3-4 L 24/, noninvasive ventilation with an AVAPS-AE mode (compliance at > 4/night at 11.3%, taking triple inhalers (aformoterol, budesonide, ipratroprium), Daliresp and sildenifil with an FEV1 of 0.94 L (25th percent predicted), air trapping and hyperinflation on latest PFTs from 06/2018, centrilobular emphysema with lower lobe fibrosis on CT scan of the chest on latest 03/07/2021, pulmonary hypertension with an RVSP of 41 on sildenafil by echocardiogram 01/07/2021. on a good day he can walk from his couch to the bathroom. He quit smoking on 07/21/2021. Currently patient with increased shortness of breath, wheezing, increased cough and phlegm production for 1 day. I will treat him for COPD exacerbation. Will change his Solu-Medrol to 20 mg IV q.6 hours, I will increase his albuterol and ipratropium nebulizers to q.4 hours. I will continue his Daliresp 500 mg q.day. At this time I will continue ceftriaxone and azithromycin and follow his blood cultures and deescalate accordingly. His COVID RT PCR test is negative and I will send influenza swab. On xarelto making PE unlikely. He has a history of pulmonary hypertension on sildenafil 20 mg p.o. q.12 hours and I will continue this. He wears a noninvasive ventilator with AVAPS-AE mode and a complete face mask at home. In the chart there is a download from 04/23/21 through 06/14/2021. The patient is on AVAPS-AE mode. Respiratory rate is auto, tidal volume 540, minimum EPAP 5, maximum EPAP 16, minimal inspiratory pressure 5, maximal inspiratory pressure 20. as mentioned above his compliance with use of greater than or equal to 4 hours a night is 11.3% of nights (very poor). Average usage on days used is 5 hours and 35 minutes. His average EPAP setting is 5. His average IPAP ranges from 12 to 15 and his breaths per minute average is 18-22. He is unable to bring this machine into the hospital and he said he would be willing to try our hospital's fullface mask. I will order him AVAPS rate of 20, tidal volume 550, EPAP 5, minimal inspiratory pressure 6, maximal inspiratory pressure 25, FIO2 32%. I will check an ABG in the morning prior to removal of the machine and an overnight oximetry to assess his ventilation and oxygenation. Agree with diuresis per the hospitalist team as tolerated by his cardiac and renal systems. Currently he is on Lasix 40 mg IV b.i.d.. Will follow with you History of Present Illness History of Present Illness Consult date: 08/23/21 Requesting physician: Isaac Wiseman MD Reason for consult: COPD and hypoxemia Chief complaint: chf,copd,pneumonia Narrative: 08/23/2021: This is a new pulmonary consult for COPD exacerbation with chronic hypercarbic and hypoxemic respiratory failure. 66-year-old man with a history of hypertension, congestive heart failure, hepatitis-B and C with cirrhosis, peripheral vascular disease, hypothyroidism, permanent pacemaker, Afib on xarelto and amiodarone, GOLD grade for group D COPD. He is followed in the Pulmonary Clinic in last had a visit on 06/26/2021. He was on 3-4 L 24/, noninvasive ventilation with an AVAPS-AE mode (compliance at > 4/night at 11/3%, taking triple inhalers (aformoterol, budesonide, ipratroprium), Daliresp and sildenifil with an FEV1 of 0.94 L (25th percent predicted), air trapping and hyperinflation on latest PFTs from 06/2018, centrilobular emphysema with lower lobe fibrosis on CT scan of the chest on latest 03/07/2021, pulmonary hypertension with an RVSP of 41 on sildenafil by echocardiogram 01/07/2021. on a good day he can walk from his couch to the bathroom. He quit smoking on
[2021-08-23] MEDS: ALBUTEROL SULFATE NEB 2.5 MG/0.5 ML INH INHALATION ×3 (15:50→23:00)
[2021-08-23 15:57] LABS: Influenza Control Positive
[2021-08-23] MEDS: RIVAROXABAN 20 MG TABLET PO (16:42)
[2021-08-23] MEDS: methylPREDNISolone SOD SUCC 40 MG VIAL 20 MG IV PUSH (17:40)
[2021-08-23] MEDS: ACETAMINOPHEN 500 MG TABLET 1000 MG PO (17:52)
[2021-08-23 20:23] LABS: Glucose Point of Care 136 mg/dl (65-105)
[2021-08-23] MEDS: INSULIN GLARGINE (*BKC) 100 UNITS/ML 24 UNITS SUB-Q (21:08)
[2021-08-23 21:55] LABS: Glucose Point of Care 164 mg/dl (65-105)
[2021-08-24] VITALS (22 sets, daily range): BP systolic 127–146; BP diastolic 69–78; PULSE 80–98; RESP 16–23; TEMP 35.9–36.5; O2SAT 95–100
[2021-08-24] MEDS: methylPREDNISolone SOD SUCC 40 MG VIAL 20 MG IV PUSH ×2 (03:17→05:58)
[2021-08-24] MEDS: LEVOTHYROXINE SODIUM 50 MCG TABLET PO (05:58)
[2021-08-24] MEDS: ACETAMINOPHEN 500 MG TABLET 1000 MG PO ×3 (06:00→23:33)
[2021-08-24 06:08] LABS: Alveolar/Arterial O2 Gradient 43.8 mmHg; Base Excess ABG 11.1 mEq/l (+/-2.0); Fractional Inspired Oxygen 35 %; HCO3 ABG 35.5 mEq/l (22.0-26.0); Oxygen Content ABG 12.8 %vol (16.0-22.0); Oxygen Saturation ABG 99.1 % (95.0-100.0); Oxyhemoglobin 97.5 % THb (90.0-100.0); PCO2 ABG 46.9 mmHg (35.0-45.0); PO2 ABG 151.2 mmHg (80.0-100.0); PO2 FiO2 Ratio Arterial Blood 4.32 %; Total Hemoglobin 9.1 g/dL (12.0-18.0); pH ABG 7.497 (7.350-7.450)
[2021-08-24 06:24] LABS: Modified Allen's Test Pass; Site Drawn RIGHT RADIAL
[2021-08-24 07:08] LABS: Hemoglobin 8.5 g/dL (14.0-18.0); Immature Platelet Fraction Pct 3.4 % (0.9-11.2); Immature Reticulocyte Fraction 38.1 % (3.0-15.9); Mean Corpuscular HGB Conc 26.6 g/dl (32-36); Mean Corpuscular Hemoglobin 20.2 pg (26-34); Mean Platelet Volume 9.4 fl (7.4-10.4); Platelet Count Result 258 k/mm3 (150-375); Red Blood Count 4.21 M/mm3 (4.6-6.20); Red Cell Distribution Width 20.4 % (11.5-14.5); Reticulocyte Percent 2.14 % (0.7-4.3); Reticulocytes Absolute 0.09 B/L (32.2-175.7); White Blood Count 9.9 K/mm3 (4.5-10.0)
[2021-08-24 07:32] LABS: Blood Urea Nitrogen 19 mg/dL (9-20); Calcium 9.3 mg/dL (8.4-10.2); Carbon Dioxide > 40 mmol/L (22-30); Chloride 85 mmol/L (98-107); Estimated CRCL calculation 124 ml/min; Estimated Glomerular Filt Rate > 60; Glucose 153 mg/dL (65-110); Potassium 4.7 mmol/L (3.4-5.0); Sodium 133 mmol/L (137-145)
[2021-08-24] MEDS: FUROSEMIDE INJ 40 MG/4 ML VIAL IV PUSH ×2 (08:02→17:39)
[2021-08-24] MEDS: CYANOCOBALAMIN 500 MCG TABLET PO (08:03)
[2021-08-24] MEDS: SPIRONOLACTONE 25 MG TABLET PO (08:03)
[2021-08-24] MEDS: SERTRALINE HCL 50 MG TABLET PO (08:03)
[2021-08-24] MEDS: TAMSULOSIN HCL 0.4 MG CAPSULE PO (08:03)
[2021-08-24] MEDS: metFORMIN HCL 500 MG TABLET PO ×2 (08:03→17:38)
[2021-08-24] MEDS: SILDENAFIL CITRATE 20 MG TABLET PO ×2 (08:03→21:47)
[2021-08-24] MEDS: AMIODARONE HCL 200 MG TABLET PO ×2 (08:03→17:39)
[2021-08-24] MEDS: FOLIC ACID 1 MG TABLET PO (08:03)
[2021-08-24] MEDS: CHOLECALCIFEROL 1,000 UNITS TABLET 2000 UNITS PO (08:03)
[2021-08-24] MEDS: dilTIAZem HCL 30 MG TABLET PO ×3 (08:03→17:39)
[2021-08-24] MEDS: PANTOPRAZOLE 40 MG TABLET PO ×2 (08:03→17:38)
[2021-08-24] MEDS: ASPIRIN 81 MG ENTERIC TABLET PO (08:03)
[2021-08-24] MEDS: ROFLUMILAST 500 MCG TABLET PO (08:04)
[2021-08-24 08:15] LABS: Glucose Point of Care 154 mg/dl (65-105)
[2021-08-24 08:16] LABS: Iron 26 ug/dL (49-181)
[2021-08-24] MEDS: IPRATROPIUM BR 0.02% INH SOLN 0.5 MG/2.5 ML VIAL INHALATION ×5 (08:24→23:40)
[2021-08-24] MEDS: ALBUTEROL SULFATE NEB 2.5 MG/0.5 ML INH INHALATION ×5 (08:24→23:40)
[2021-08-24 08:27] LABS: Percent Iron Saturation 6 % (20-50)
[2021-08-24 08:51] LABS: Folic Acid 12.2 ng/mL (2.76->20); Vitamin B12 > 1000.0 pg/mL (239-931)
--- NOTE | 2021-08-24 11:27 | P.PNIM_ITS ---
Progress Note: A&P Assessment and Plan (1) CHF exacerbation: Qualifiers: Heart failure type: systolic Qualified Code(s): I50.23 - Acute on chronic systolic (congestive) heart failure Code(s): I50.9 - Heart failure, unspecified Status: Acute Assessment and Plan: * Prior echocardiogram with normal ejection fraction * Continue furosemide for diuresis (2) Leg weakness: Qualifiers: Laterality: bilateral Qualified Code(s): R29.898 - Other symptoms and signs involving the musculoskeletal system Code(s): R29.898 - Other symptoms and signs involving the musculoskeletal system Status: Acute Assessment and Plan: * Suspect a combination of anemia, vascular insufficiency, diabetic neuropathy, hypoxemia, and pneumonia * Consider neurogenic claudication due to spinal stenosis * Ankle-brachial index for peripheral arterial disease 08/23 WNL * Venous Doppler for possible hematoma left thigh 08/24 NEGATIVE * CT LS spine to evaluate for spinal stenosis PENDING (3) COPD exacerbation: Code(s): J44.1 - Chronic obstructive pulmonary disease with (acute) exacerbation Status: Acute Assessment and Plan: * Possible pneumonia * Continue steroids, aithromycin, ceftriaxone, bronchodilators (4) Anemia: Qualifiers: Anemia type: unspecified type Qualified Code(s): D64.9 - Anemia, unspecified Code(s): D64.9 - Anemia, unspecified Status: Acute Assessment and Plan: * Recent onset of microcytosis as well as trend platelet count increasing are were some for iron deficiency * He is on anticoagulation which would increase his risk for blood loss * 08/23 Anemia parameters c/w iron deficiency * 08/24 GI consulted and colonoscopy planned * Monitor H&H (5) Type II diabetes mellitus: Qualifiers: 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: without shelter use Diabetes mellitus complication status: with other specified complication Qualified Code(s): E11.69 - Type 2 diabetes mellitus with other specified complication Code(s): E11.9 - Type 2 diabetes mellitus without complications Status: Acute Assessment and Plan: * Mildly hyperglycemic on 08/23 at 218 fasting * Steroids likely contributing to hyperglycemia * 08/23 continued sliding scale and metformin and added basal glargine 24 U * 08/24 FBS 153 (6) Obstructive sleep apnea: Code(s): G47.33 - Obstructive sleep apnea (adult) (pediatric) Status: Acute Assessment and Plan: * As he does not have his home trilogy with him, BiPAP is substituted * D/w Dr. Jarrett 08/24 and he will tweak settings to improve patient comfort (7) Persistent atrial fibrillation: Code(s): I48.19 - Other persistent atrial fibrillation Status: Acute Assessment and Plan: * Continue diltiazem, amiodarone, rivaroxaban (8) HX: shelter anticoagulant use: Code(s): Z92.29 - Personal history of other drug therapy Status: Acute Assessment and Plan: * Continue rivaroxaban for history of atrial fibrillation as well as venous thromboembolism (9) Essential (primary) hypertension: Code(s): I10 - Essential (primary) hypertension Status: Acute Assessment and Plan: * 08/24 control adequate * Continue home regimen (10) Hypoxemia: Code(s): R09.02 - Hypoxemia Status: Acute Assessment and Plan: * Oxygen dependent at home with 2-4 L * Uses NIV at night and p.r.n. (11) Pulmonary hypertension: Code(s): I27.20 - Pulmonary hypertension,
--- NOTE | 2021-08-24 11:27 | PM.IMPN ---
Progress Note: A&P Assessment and Plan (1) CHF exacerbation: Qualifiers: Heart failure type: systolic Qualified Code(s): I50.23 - Acute on chronic systolic (congestive) heart failure Code(s): I50.9 - Heart failure, unspecified Status: Acute Assessment and Plan: Prior echocardiogram with normal ejection fraction Continue furosemide for diuresis (2) Leg weakness: Qualifiers: Laterality: bilateral Qualified Code(s): R29.898 - Other symptoms and signs involving the musculoskeletal system Code(s): R29.898 - Other symptoms and signs involving the musculoskeletal system Status: Acute Assessment and Plan: Suspect a combination of anemia, vascular insufficiency, diabetic neuropathy, hypoxemia, and pneumonia Consider neurogenic claudication due to spinal stenosis Ankle-brachial index for peripheral arterial disease 08/23 WNL Venous Doppler for possible hematoma left thigh 08/[address] LS spine to evaluate for spinal stenosis PENDING (3) COPD exacerbation: Code(s): J44.1 - Chronic obstructive pulmonary disease with (acute) exacerbation Status: Acute Assessment and Plan: Possible pneumonia Continue steroids, aithromycin, ceftriaxone, bronchodilators (4) Anemia: Qualifiers: Anemia type: unspecified type Qualified Code(s): D64.9 - Anemia, unspecified Code(s): D64.9 - Anemia, unspecified Status: Acute Assessment and Plan: Recent onset of microcytosis as well as trend platelet count increasing are were some for iron deficiency He is on anticoagulation which would increase his risk for blood loss 08/23 Anemia parameters c/w iron deficiency 08/24 GI consulted and colonoscopy planned Monitor H&H (5) Type II diabetes mellitus: Qualifiers: Diabetes mellitus long-term insulin use: without integrity analyst use Diabetes mellitus complication status: with other specified complication Qualified Code(s): E11.69 - Type 2 diabetes mellitus with other specified complication Code(s): E11.9 - Type 2 diabetes mellitus without complications Status: Acute Assessment and Plan: Mildly hyperglycemic on 08/23 at 218 fasting Steroids likely contributing to hyperglycemia 08/23 continued sliding scale and metformin and added basal glargine 24 U 08/24 FBS 153 (6) Obstructive sleep apnea: Code(s): G47.33 - Obstructive sleep apnea (adult) (pediatric) Status: Acute Assessment and Plan: As he does not have his home trilogy with him, BiPAP is substituted D/w Dr. 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 (11) Pulmonary hypertension: Code(s): I27.20 - Pulmonary hypertension, unspecified Status: Inactive Assessment and Plan: Continue sildenafil Subjective Date/time seen: 08/24/21 11:27 Interval history: Admitted August 22 due to increased dyspnea, generalized weakness, falling due to the leg weakness 08/24 visit. Short of breath with any exertion. Denied cough or chest pain. Describes leg weakness when he walks. Feels as if muscles get tight. Notes left thigh i
[2021-08-24 12:13] LABS: Glucose Point of Care 158 mg/dl (65-105)
--- NOTE | 2021-08-24 12:48 | PM.PNPUL ---
Progress Note: A&P Assessment and Plan (1) COPD exacerbation: Code(s): J44.1 - Chronic obstructive pulmonary disease with (acute) exacerbation Status: Acute Assessment and Plan: Patient with GOLD grade 4 group D COPD. He is followed in the Pulmonary Clinic with last visit on 06/26/2021. He was on 3-4 L /, noninvasive ventilation with an AVAPS-AE mode (compliance at > 4/night at 11.3%, taking triple inhalers (aformoterol, budesonide, ipratroprium), Daliresp and sildenifil with an FEV1 of 0.94 L (25th percent predicted), air trapping and hyperinflation on latest PFTs from 06/2018, centrilobular emphysema with lower lobe fibrosis on CT scan of the chest on latest 03/07/2021, pulmonary hypertension with an RVSP of 41 on sildenafil by echocardiogram 01/07/2021. on a good day he can walk from his couch to the bathroom. He quit smoking on 07/21/2021. 08/23 Currently patient with increased shortness of breath, wheezing, increased cough and phlegm production for 1 day. I will treat him for COPD exacerbation. Will change his Solu-Medrol to 20 mg IV q.6 hours, I will increase his albuterol and ipratropium nebulizers to q.4 hours. I will continue his Daliresp 500 mg q.day. At this time I will continue ceftriaxone and azithromycin and follow his blood cultures and deescalate accordingly. His COVID RT PCR test is negative and I will send influenza swab. On xarelto making PE unlikely. He has a history of pulmonary hypertension on sildenafil 20 mg p.o. q.12 hours and I will continue this. He wears a noninvasive ventilator with AVAPS-AE mode and a complete face mask at home. In the chart there is a download from 04/23/21 through 06/14/2021. The patient is on AVAPS-AE mode. Respiratory rate is auto, tidal volume 540, minimum EPAP 5, maximum EPAP 16, minimal inspiratory pressure 5, maximal inspiratory pressure 20. as mentioned above his compliance with use of greater than or equal to 4 hours a night is 11.3% of nights (very poor). Average usage on days used is 5 hours and 35 minutes. His average EPAP setting is 5. His average IPAP ranges from 12 to 15 and his breaths per minute average is 18-22. He is unable to bring this machine into the hospital and he said he would be willing to try our hospital's fullface mask. I will order him AVAPS rate of 20, tidal volume 550, EPAP 5, minimal inspiratory pressure 6, maximal inspiratory pressure 25, FIO2 32%. I will check an ABG in the morning prior to removal of the machine and an overnight oximetry to assess his ventilation and oxygenation. Agree with diuresis per the hospitalist team as tolerated by his cardiac and renal systems. Currently he is on Lasix 40 mg IV b.i.d.. 08/24 Patient tells me that he is slightly improved. He has less cough, less sputum production but continued shortness of breath and dyspnea on exertion that her note different. He has no wheezes on exam today. Last night the patient wore noninvasive ventilation with an Marii ABS mode with an attempt to mimic his home trilogy settings. He was on AVAPS rate of 20, tidal volume 540, EPAP of 5, minimal inspiratory pressure 6, maximal inspiratory pressure 25, FiO2 35%. He had an ABG prior to removal on the settings of 7.49/47/151. He had an overnight oximetry on these settings with an average saturation of 99%, and time with saturation less than or equal to 88% was 0 minutes. He said he did sleep with this but he needed more time to . At the bedside I decreased his inspiratory time to 0.85 sec and increased his rise to 1 which is our fast this and he said these settings were perfect . I will change it to prednisone 40 p.o. today. The current noninvasive ventilation with AVAPS mode settings are adequate regarding his ventilation and I will decrease his FiO2 at night to 30%. Will follow with you Subjective Date/time seen: 08/24/21 12:48 Interval history: 08/23/2021: This is a new pulmonary consult
--- NOTE | 2021-08-24 13:01 | WPDGICN ---
Assessment and Plan Assessment and plan (1) Anemia: Qualifiers: Anemia type: unspecified type Qualified Code(s): D64.9 - Anemia, unspecified Code(s): D64.9 - Anemia, unspecified Status: Acute Assessment and Plan: His hemoglobin as I mentioned has been gradually dropping over the last couple of years. Serum iron is low at 26, with 6% saturation. In view of his COPD, his hemoglobin is remarkably low (2) COPD exacerbation: Code(s): J44.1 - Chronic obstructive pulmonary disease with (acute) exacerbation Status: Acute Assessment and Plan: he is followed by Pulmonary and has been started on steroids, as well as ceftriaxone and azathioprine. He is also on 3 different inhalers. (3) Persistent atrial fibrillation: Code(s): I48.19 - Other persistent atrial fibrillation Status: Acute Assessment and Plan: As noted above, he attempted cardioversion was unsuccessful he now has a pacemaker. While I was in the room with him he coughed and stated that he had pain at the site of his pacemaker but this is not something he usually experiences (4) Epigastric pain: Code(s): R10.13 - Epigastric pain Status: Acute Assessment and Plan: he was tender on exam in this area. He does take ibuprofen , raising suspicion of possible peptic ulcer disease (5) Personal history of colonic polyps: Code(s): Z86.010 - Personal history of colonic polyps Status: Acute Assessment and Plan: as he noted he is overdue for colonoscopy having had 2 polyps removed about 7, almost 8 years ago. We would need to hold his Xarelto for 36 hours and of course would need clearance from Pulmonary to proceed with endoscopy and sedation. GI Consult Note Consult date/time: 08/24/21 13:01 HPI: Navneet Astorga is a 66 year old male Was admitted here 2 days ago with increasing shortness of breath. He has past history of congestive heart failure, chronic lung disease for which she uses home O2 and trilogy. He states he has been more more short of breath over the past week. A COVID test was negative. He apparently spends much time lying down or sitting at home. He in fact cannot sleep flat. He recently was hospitalized a [facility] due to pneumonia and a COPD exacerbation. He has been found to be anemic. His hemoglobin a year so ago was over 13. It was then down to 10.3 about 13 months ago and now down to 8.5. He states that he occasionally sees red blood in his stool which he attributes to hemorrhoids. On a couple of occasions he had been constipated and passed black stools. He did not see any red blood when it hit the water. He does take ibuprofen but also is on omeprazole. Because of atrial fibrillation he is on Xarelto chronically. He states that he was tried on Coumadin initially but they could not regulated. He had attempted cardioversion multiple times ultimately resulting in placement of a pacemaker. he states that recently he has been tender in left lower quadrant but today it is better. He states that he is due for colonoscopy; his last 1 which was done here was 7 years ago at which time 2 polyps were removed. Review of Systems Review of Systems: All systems reviewed & are unremarkable except as noted in HPI and below PMFSH Past Medical History Medical History Afib On Xarelto Age-related cataract of both eyes Alcoholic polyneuropathy Anxiety BPH associated with nocturia CHF (congestive heart failure) Echocardiogram 07/2019: EF 35-42% with repeat echocardiogram January 2021 difficult study. Normal left ventricular systolic function with EF of 50%, LVH with moderate left atrial enlargement. [id number] pulmonary hypertension RVSP of 41. Right ventricular and right atrial enlarged Chronic kidney disease, stage 3 (moderate) (02/14/16) Chronic liver disease and cirrhosis Chronic re
[2021-08-24] MEDS: predniSONE 20 MG TABLET 40 MG PO (13:12)
[2021-08-24 17:08] LABS: Glucose Point of Care 343 mg/dl (65-105)
[2021-08-24] MEDS: FERROUS SULFATE 324 MG TABLET PO (17:39)
[2021-08-24] MEDS: RIVAROXABAN 20 MG TABLET PO (17:39)
[2021-08-24] MEDS: INSULIN ASPART (*BKC) 100 UNITS/ML SUB-Q (17:41)
[2021-08-24] MEDS: INSULIN GLARGINE (*BKC) 100 UNITS/ML 24 UNITS SUB-Q (21:46)
[2021-08-24] MEDS: LORazepam (*CRX) 1 MG TABLET PO (21:48)
[2021-08-24 23:50] LABS: Glucose Point of Care 231 mg/dl (65-105)
[2021-08-24 23:50] LABS: Glucose Point of Care 140 mg/dl (65-105)
[2021-08-25] VITALS (26 sets, daily range): BP systolic 127–144; BP diastolic 69–83; PULSE 80–91; RESP 16–26; TEMP 35.6–36.6; O2SAT 95–100
[2021-08-25] MEDS: IPRATROPIUM BR 0.02% INH SOLN 0.5 MG/2.5 ML VIAL INHALATION ×6 (03:39→23:17)
[2021-08-25] MEDS: ALBUTEROL SULFATE NEB 2.5 MG/0.5 ML INH INHALATION ×6 (03:39→23:17)
[2021-08-25 06:06] LABS: Hematocrit 29.5 % (42.0-52.0); Hemoglobin 8.1 g/dL (14.0-18.0); Mean Corpuscular HGB Conc 27.5 g/dl (32-36); Mean Corpuscular Hemoglobin 20.5 pg (26-34); Mean Corpuscular Volume 74.7 fl (80-100); Mean Platelet Volume 9.4 fl (7.4-10.4); Platelet Count Result 217 k/mm3 (150-375); Red Blood Count 3.95 M/mm3 (4.6-6.20); Red Cell Distribution Width 20.1 % (11.5-14.5)
[2021-08-25 06:22] LABS: Anion Gap 9 mmol/L (8-16); Blood Urea Nitrogen 22 mg/dL (9-20); Calcium 9.1 mg/dL (8.4-10.2); Carbon Dioxide 38 mmol/L (22-30); Chloride 87 mmol/L (98-107); Estimated CRCL calculation 125 ml/min; Estimated Glomerular Filt Rate > 60; Glucose 127 mg/dL (65-110); Potassium 4.2 mmol/L (3.4-5.0); Sodium 134 mmol/L (137-145)
[2021-08-25] MEDS: LEVOTHYROXINE SODIUM 50 MCG TABLET PO (06:27)
[2021-08-25] MEDS: ACETAMINOPHEN 500 MG TABLET 1000 MG PO (06:27)
[2021-08-25 08:11] LABS: Glucose Point of Care 110 mg/dl (65-105)
[2021-08-25] MEDS: ASPIRIN 81 MG ENTERIC TABLET PO (08:28)
[2021-08-25] MEDS: metFORMIN HCL 500 MG TABLET PO ×2 (08:28→16:50)
[2021-08-25] MEDS: CHOLECALCIFEROL 1,000 UNITS TABLET 2000 UNITS PO (08:28)
[2021-08-25] MEDS: predniSONE 20 MG TABLET 40 MG PO (08:28)
[2021-08-25] MEDS: FOLIC ACID 1 MG TABLET PO (08:28)
[2021-08-25] MEDS: FERROUS SULFATE 324 MG TABLET PO ×2 (08:29→16:51)
[2021-08-25] MEDS: TAMSULOSIN HCL 0.4 MG CAPSULE PO (08:29)
[2021-08-25] MEDS: SPIRONOLACTONE 25 MG TABLET PO (08:29)
[2021-08-25] MEDS: CYANOCOBALAMIN 500 MCG TABLET PO (08:29)
[2021-08-25] MEDS: ROFLUMILAST 500 MCG TABLET PO (08:29)
[2021-08-25] MEDS: SERTRALINE HCL 50 MG TABLET PO (08:29)
[2021-08-25] MEDS: dilTIAZem HCL 30 MG TABLET PO ×3 (08:29→16:51)
[2021-08-25] MEDS: PANTOPRAZOLE 40 MG TABLET PO ×2 (08:29→16:50)
[2021-08-25] MEDS: AMIODARONE HCL 200 MG TABLET PO ×2 (08:29→16:50)
[2021-08-25] MEDS: SILDENAFIL CITRATE 20 MG TABLET PO ×2 (08:30→20:20)
[2021-08-25] MEDS: FUROSEMIDE INJ 40 MG/4 ML VIAL IV PUSH ×2 (08:30→16:52)
[2021-08-25] MEDS: HYDROcodone/acetaminophen (*CRX) 5-325 MG TABLET 1 TAB PO ×2 (09:31→18:37)
[2021-08-25 09:45] LABS: Device NON-INVASIVE VENT
[2021-08-25 11:41] LABS: Glucose Point of Care 132 mg/dl (65-105)
[2021-08-25 16:43] LABS: Glucose Point of Care 129 mg/dl (65-105)
[2021-08-25] MEDS: RIVAROXABAN 20 MG TABLET PO (16:50)
--- NOTE | 2021-08-25 16:59 | P.PNIM_ITS ---
Progress Note: A&P Assessment and Plan (1) CHF exacerbation: Qualifiers: Heart failure type: systolic Qualified Code(s): I50.23 - Acute on chronic systolic (congestive) heart failure Code(s): I50.9 - Heart failure, unspecified Status: Acute Assessment and Plan: CXR shows findings consistent with CHF exacerbation. * Continue furosemide 40 mg IV b.i.d. for diuresis * Prior echocardiogram with normal ejection fraction. * Monitor intake and output and daily weights (2) Leg weakness: Qualifiers: Laterality: bilateral Qualified Code(s): R29.898 - Other symptoms and s igns involving the musculoskeletal system Code(s): R29.898 - Other symptoms and signs involving the musculoskeletal system Status: Acute Assessment and Plan: Suspect a combination of anemia, vascular insufficiency, diabetic neuropathy, neurogenic claudication due to spinal stenosis * Ankle-brachial index for peripheral arterial disease 08/23 WNL * Venous Doppler for possible hematoma left thigh 08/24 NEGATIVE * CT lumbar spine showed L4-L5 moderate to severe central canal stenosis. unable to obtain follow-up MRI due to pacemaker * B12 and folate within normal limits. Check RPR * outpatient nerve conduction study and neurology vs neurosurgery follow up (3) COPD exacerbation: Code(s): J44.1 - Chronic obstructive pulmonary disease with (acute) exacerbation Status: Acute Assessment and Plan: Diffuse wheezes on exam. He does have chronic respiratory failure and is on 4L supplemental O2 * appreciate pulmonology consultation * Continue prednisone 40 mg daily * continue azithromycin, ceftriaxone * bronchodilators (4) Anemia: Qualifiers: Anemia type: unspecified type Qualified Code(s): D64.9 - Anemia, unspecified Code(s): D64.9 - Anemia, unspecified Status: Acute Assessment and Plan: Recent onset of microcytosis as well as trend platelet count increasing concerning for iron deficiency * He is on anticoagulation which would increase his risk for blood loss * 08/23 Anemia parameters c/w iron deficiency * 08/24 GI consulted and colonoscopy planned but will need to hold xarelto and await pulmonology clearance * Monitor H&H-remaining stable today (5) Type II diabetes mellitus: Qualifiers: Diabetes mellitus product safety technician insulin use: without detention use Diabetes mellitus complication status: with other specified complication Qualified Code(s): E11.69 - Type 2 diabetes mellitus with other specified complication Code(s): E11.9 - Type 2 diabetes mellitus without complications Status: Acute Assessment and Plan: Blood sugars stable today but have been somewhat elevated secondary to steroids. 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
--- NOTE | 2021-08-25 16:59 | PM.IMPN ---
Progress Note: A&P Assessment and Plan (1) CHF exacerbation: Qualifiers: Heart failure type: systolic Qualified Code(s): I50.23 - Acute on chronic systolic (congestive) heart failure Code(s): I50.9 - Heart failure, unspecified Status: Acute Assessment and Plan: CXR shows findings consistent with CHF exacerbation. Continue furosemide 40 mg IV b.i.d. for diuresis Prior echocardiogram with normal ejection fraction. Monitor intake and output and daily weights (2) Leg weakness: Qualifiers: Laterality: bilateral Qualified Code(s): R29.898 - Other symptoms and signs involving the musculoskeletal system Code(s): R29.898 - Other symptoms and signs involving the musculoskeletal system Status: Acute Assessment and Plan: Suspect a combination of anemia, vascular insufficiency, diabetic neuropathy, neurogenic claudication due to spinal stenosis Ankle-brachial index for peripheral arterial disease 08/23 WNL Venous Doppler for possible hematoma left thigh 08/[address] lumbar spine showed L4-L5 moderate to severe central canal stenosis. unable to obtain follow-up MRI due to pacemaker B12 and folate within normal limits. Check RPR outpatient nerve conduction study and neurology vs neurosurgery follow up (3) COPD exacerbation: Code(s): J44.1 - Chronic obstructive pulmonary disease with (acute) exacerbation Status: Acute Assessment and Plan: Diffuse wheezes on exam. He does have chronic respiratory failure and is on 4L supplemental O2 appreciate pulmonology consultation Continue prednisone 40 mg daily continue azithromycin, ceftriaxone bronchodilators (4) Anemia: Qualifiers: Anemia type: unspecified type Qualified Code(s): D64.9 - Anemia, unspecified Code(s): D64.9 - Anemia, unspecified Status: Acute Assessment and Plan: Recent onset of microcytosis as well as trend platelet count increasing concerning for iron deficiency He is on anticoagulation which would increase his risk for blood loss 08/23 Anemia parameters c/w iron deficiency 08/24 GI consulted and colonoscopy planned but will need to hold xarelto and await pulmonology clearance Monitor H&H-remaining stable today (5) Type II diabetes mellitus: Qualifiers: Diabetes mellitus glass engraver insulin use: without glass engraver use Diabetes mellitus complication status: with other specified complication Qualified Code(s): E11.69 - Type 2 diabetes mellitus with other specified complication Code(s): E11.9 - Type 2 diabetes mellitus without complications Status: Acute Assessment and Plan: Blood sugars stable today but have been somewhat elevated secondary to steroids. Last A1c 5.6 in June continue Accu-Cheks, sliding scale, hypoglycemic protocol continue metformin basal glargine 24 U monitor glucose trends adjust medication regimen as needed (6) Obstructive sleep apnea: Code(s): G47.33 - Obstructive sleep apnea (adult) (pediatric) Status: Acute Assessment and Plan: As he does not have his home trilogy with him, BiPAP is substituted pulmonology following (7) Persistent atrial fibrillation: Code(s): I48.19 - Other persistent atrial fibrillation Status: Acute Assessment and Plan: rate is controlled Continue diltiazem, amiodarone, rivaroxaban (8) HX: assisted anticoagulant use: Code(s): Z92.29 - Personal history of other drug therapy Status: Acute Assessment and Plan: Continue rivaroxaban for history of atrial fibrillation as well as venous thromboembolism (9) Essential (primary) hypertension: Code(s): I10 - Essential (primary) hypertension Status: Acute Assessment and Plan: blood pressure reviewed and has been well controlled. Last BP 131/70 Continue home regimen (10) Hypoxemia: Code(s): R09.02 -
[2021-08-25 20:17] LABS: Glucose Point of Care 163 mg/dl (65-105)
[2021-08-25] MEDS: INSULIN GLARGINE (*BKC) 100 UNITS/ML 24 UNITS SUB-Q (20:25)
[2021-08-25] MEDS: FLUTICASONE PROPIONATE 0.05% NA SPR 16 GM BTL (*BKC) 1 SPRAY NASAL (20:26)
[2021-08-25] MEDS: DORNASE ALFA INH SOLN 1 MG/ML 2.5 ML AMP 2.5 MG INHALATION (23:17)
[2021-08-26] VITALS (17 sets, daily range): BP systolic 119–153; BP diastolic 61–76; PULSE 80–110; RESP 18–22; TEMP 36–37.7; O2SAT 93–100
[2021-08-26] MEDS: IPRATROPIUM BR 0.02% INH SOLN 0.5 MG/2.5 ML VIAL INHALATION ×5 (04:12→20:09)
[2021-08-26] MEDS: ALBUTEROL SULFATE NEB 2.5 MG/0.5 ML INH INHALATION ×5 (04:13→20:09)
[2021-08-26 06:10] LABS: Hematocrit 29.2 % (42.0-52.0); Hemoglobin 7.9 g/dL (14.0-18.0); Mean Corpuscular HGB Conc 27.1 g/dl (32-36); Mean Corpuscular Hemoglobin 20.4 pg (26-34); Mean Corpuscular Volume 75.5 fl (80-100); Mean Platelet Volume 9.9 fl (7.4-10.4); Platelet Count Result 208 k/mm3 (150-375); Red Blood Count 3.87 M/mm3 (4.6-6.20); Red Cell Distribution Width 20.6 % (11.5-14.5)
[2021-08-26 06:31] LABS: Blood Urea Nitrogen 21 mg/dL (9-20); Carbon Dioxide > 40 mmol/L (22-30); Chloride 84 mmol/L (98-107); Estimated CRCL calculation 110 ml/min; Estimated Glomerular Filt Rate > 60; Glucose 105 mg/dL (65-110); Potassium 3.8 mmol/L (3.4-5.0); Sodium 132 mmol/L (137-145)
[2021-08-26] MEDS: LEVOTHYROXINE SODIUM 50 MCG TABLET PO (06:37)
[2021-08-26 07:29] LABS: Rapid Plasma Reagin Non-Reactive (NonReactive)
[2021-08-26] MEDS: predniSONE 20 MG TABLET 40 MG PO (07:54)
[2021-08-26] MEDS: ROFLUMILAST 500 MCG TABLET PO (07:54)
[2021-08-26] MEDS: ASPIRIN 81 MG ENTERIC TABLET PO (07:54)
[2021-08-26] MEDS: PANTOPRAZOLE 40 MG TABLET PO ×2 (07:55→17:09)
[2021-08-26] MEDS: CHOLECALCIFEROL 1,000 UNITS TABLET 2000 UNITS PO (07:55)
[2021-08-26] MEDS: TAMSULOSIN HCL 0.4 MG CAPSULE PO (07:55)
[2021-08-26] MEDS: FERROUS SULFATE 324 MG TABLET PO ×2 (07:55→17:08)
[2021-08-26] MEDS: CYANOCOBALAMIN 500 MCG TABLET PO (07:55)
[2021-08-26] MEDS: metFORMIN HCL 500 MG TABLET PO ×2 (07:55→17:08)
[2021-08-26] MEDS: dilTIAZem HCL 30 MG TABLET PO ×3 (07:56→17:09)
[2021-08-26] MEDS: FLUTICASONE PROPIONATE 0.05% NA SPR 16 GM BTL (*BKC) 1 SPRAY NASAL ×2 (07:56→20:23)
[2021-08-26] MEDS: FOLIC ACID 1 MG TABLET PO (07:56)
[2021-08-26] MEDS: SERTRALINE HCL 50 MG TABLET PO (07:57)
[2021-08-26] MEDS: SPIRONOLACTONE 25 MG TABLET PO (07:57)
[2021-08-26] MEDS: SILDENAFIL CITRATE 20 MG TABLET PO ×2 (07:57→20:23)
[2021-08-26] MEDS: AMIODARONE HCL 200 MG TABLET PO ×2 (07:57→17:08)
[2021-08-26] MEDS: FUROSEMIDE INJ 40 MG/4 ML VIAL IV PUSH (07:58)
[2021-08-26 08:07] LABS: Glucose Point of Care 113 mg/dl (65-105)
[2021-08-26] MEDS: DORNASE ALFA INH SOLN 1 MG/ML 2.5 ML AMP 2.5 MG INHALATION ×2 (08:16→20:09)
[2021-08-26] MEDS: HYDROcodone/acetaminophen (*CRX) 5-325 MG TABLET 1 TAB PO ×2 (09:21→17:11)
[2021-08-26 11:56] LABS: Glucose Point of Care 148 mg/dl (65-105)
--- NOTE | 2021-08-26 14:43 | P.PNIM_ITS ---
Progress Note: A&P Assessment and Plan (1) CHF exacerbation: Qualifiers: Heart failure type: systolic Qualified Code(s): I50.23 - Acute on chronic systolic (congestive) heart failure Code(s): I50.9 - Heart failure, unspecified Status: Acute Assessment and Plan: CXR showed findings consistent with CHF exacerbation. * Appears euvolemic on exam * Transition to PO lasix 40 mg BID, his home dose * Prior echocardiogram with normal ejection fraction. * Monitor intake and output and daily weights (2) Leg weakness: Qualifiers: Laterality: bilateral Qualified Code(s): R29.898 - Other symptoms and signs involving the musculoskeletal system Code(s): R29.898 - Other symptoms and signs involving the musculoskeletal system Status: Acute Assessment and Plan: Suspect a combination of anemia, vascular insufficiency, diabetic neuropathy, neurogenic claudication due to spinal stenosis * Ankle-brachial index for peripheral arterial disease 08/23 normal * Venous Doppler for possible hematoma left thigh 08/24 NEGATIVE * CT lumbar spine showed L4-L5 moderate to severe central canal stenosis. unable to obtain follow-up MRI due to pacemaker * B12 and folate within normal limits. RPR nonreactive. * outpatient nerve conduction study and neurology vs neurosurgery follow up (3) COPD exacerbation: Code(s): J44.1 - Chronic obstructive pulmonary disease with (acute) exacerbation Status: Acute Assessment and Plan: Diffuse wheezes on exam. He does have chronic respiratory failure and is on 4L supplemental O2 * appreciate pulmonology consultation * Continue prednisone 40 mg daily * continue azithromycin, ceftriaxone * Scheduled nebulized breathing treatments (4) Anemia: Qualifiers: Anemia type: unspecified type Qualified Code(s): D64.9 - Anemia, unspecified Code(s): D64.9 - Anemia, unspecified Status: Acute Assessment and Plan: Recent onset of microcytosis concerning for iron deficiency * He is on anticoagulation which would increase his risk for blood loss * 08/23 Anemia parameters consistent with iron deficiency * 08/24 GI consulted and recommended colonoscopy and EGD but will need to hold xarelto and await pulmonology clearance. He did complain of epigastric pain at one point and uses NSAIDs. Continue protonix. * Monitor H&H-remaining stable but with gradual decrease (5) Type II diabetes mellitus: Qualifiers: Diabetes mellitus deposit refund clerk insulin use: without detention use Diabetes mellitus complication status: with other specified complication Qualified Code(s): E11.69 - Type 2 diabetes mellitus with other specified complication Code(s): E11.9 - Type 2 diabetes mellitus without complications Status: Acute Assessment and Plan: Blood sugars stable today. Last A1c 5.6 in June * continue Accu-Cheks, sliding scale, hypoglycemic protocol * continue metformin * basal glargine 24 U * monitor glucose trends and adjust medication regimen as needed (6) Obstructive sleep apnea: Code(s): G47.33 - Obstructive sleep apnea (adult) (pediatric) Status: Acute Assessment and Plan: As he does not have his home trilogy with him, BiPAP is substituted * pulmonology following (7) Persistent atrial fibrillation: Code(s): I48.19 - Other persistent atrial fibrillation Status: Acute Assessment and Plan: rate is controlled * Continue diltiazem, amiodarone, rivaroxaban (8) HX: detention anti
--- NOTE | 2021-08-26 14:43 | PM.IMPN ---
Progress Note: A&P Assessment and Plan (1) CHF exacerbation: Qualifiers: Heart failure type: systolic Qualified Code(s): I50.23 - Acute on chronic systolic (congestive) heart failure Code(s): I50.9 - Heart failure, unspecified Status: Acute Assessment and Plan: CXR showed findings consistent with CHF exacerbation. Appears euvolemic on exam Transition to PO lasix 40 mg BID, his home dose Prior echocardiogram with normal ejection fraction. Monitor intake and output and daily weights (2) Leg weakness: Qualifiers: Laterality: bilateral Qualified Code(s): R29.898 - Other symptoms and signs involving the musculoskeletal system Code(s): R29.898 - Other symptoms and signs involving the musculoskeletal system Status: Acute Assessment and Plan: Suspect a combination of anemia, vascular insufficiency, diabetic neuropathy, neurogenic claudication due to spinal stenosis Ankle-brachial index for peripheral arterial disease 08/23 normal Venous Doppler for possible hematoma left thigh 08/[address] lumbar spine showed L4-L5 moderate to severe central canal stenosis. unable to obtain follow-up MRI due to pacemaker B12 and folate within normal limits. RPR nonreactive. outpatient nerve conduction study and neurology vs neurosurgery follow up (3) COPD exacerbation: Code(s): J44.1 - Chronic obstructive pulmonary disease with (acute) exacerbation Status: Acute Assessment and Plan: Diffuse wheezes on exam. He does have chronic respiratory failure and is on 4L supplemental O2 appreciate pulmonology consultation Continue prednisone 40 mg daily continue azithromycin, ceftriaxone Scheduled nebulized breathing treatments (4) Anemia: Qualifiers: Anemia type: unspecified type Qualified Code(s): D64.9 - Anemia, unspecified Code(s): D64.9 - Anemia, unspecified Status: Acute Assessment and Plan: Recent onset of microcytosis concerning for iron deficiency He is on anticoagulation which would increase his risk for blood loss 08/23 Anemia parameters consistent with iron deficiency 08/24 GI consulted and recommended colonoscopy and EGD but will need to hold xarelto and await pulmonology clearance. He did complain of epigastric pain at one point and uses NSAIDs. Continue protonix. Monitor H&H-remaining stable but with gradual decrease (5) Type II diabetes mellitus: Qualifiers: Diabetes mellitus halfway insulin use: without intermediate designer use Diabetes mellitus complication status: with other specified complication Qualified Code(s): E11.69 - Type 2 diabetes mellitus with other specified complication Code(s): E11.9 - Type 2 diabetes mellitus without complications Status: Acute Assessment and Plan: Blood sugars stable today. Last A1c 5.6 in June continue Accu-Cheks, sliding scale, hypoglycemic protocol continue metformin basal glargine 24 U monitor glucose trends and adjust medication regimen as needed (6) Obstructive sleep apnea: Code(s): G47.33 - Obstructive sleep apnea (adult) (pediatric) Status: Acute Assessment and Plan: As he does not have his home trilogy with him, BiPAP is substituted pulmonology following (7) Persistent atrial fibrillation: Code(s): I48.19 - Other persistent atrial fibrillation Status: Acute Assessment and Plan: rate is controlled Continue diltiazem, amiodarone, rivaroxaban (8) HX: intermediate designer anticoagulant use: Code(s): Z92.29 - Personal history of other drug therapy Status: Acute Assessment and Plan: Continue rivaroxaban for history of atrial fibrillation as well as venous thromboembolism Hold if endoscopy is planned (9) Essential (primary) hypertension: Code(s): I10 - Essential (primary) hypertension Status: Acute Assessment and Plan: blood pressur
--- NOTE | 2021-08-26 16:02 | PC.NURSE ---
On 08/26/21, the student, Anna Martinez, provided care and completed [facility] documentation on this patient. I have reviewed the student's documentation and agree with the findings.
[2021-08-26 16:06] LABS: Glucose Point of Care 146 mg/dl (65-105)
--- NOTE | 2021-08-26 16:24 | PM.PNPUL ---
Progress Note: A&P Assessment and Plan (1) COPD exacerbation: Code(s): J44.1 - Chronic obstructive pulmonary disease with (acute) exacerbation Status: Acute Assessment and Plan: Patient with GOLD grade 4 group D COPD. He is followed in the [facility] with last visit on 06/26/2021. He was on 3-4 L /, noninvasive ventilation with an AVAPS-AE mode (compliance at > 4/night at 11.3%, taking triple inhalers (aformoterol, budesonide, ipratroprium), Daliresp and sildenifil with an FEV1 of 0.94 L (25th percent predicted), air trapping and hyperinflation on latest PFTs from 06/2018, centrilobular emphysema with lower lobe fibrosis on CT scan of the chest on latest 03/07/2021, pulmonary hypertension with an RVSP of 41 on sildenafil by echocardiogram 01/07/2021. on a good day he can walk from his couch to the bathroom. He quit smoking on 07/21/2021. 08/23 Currently patient with increased shortness of breath, wheezing, increased cough and phlegm production for 1 day. I will treat him for COPD exacerbation. Will change his Solu-Medrol to 20 mg IV q.6 hours, I will increase his albuterol and ipratropium nebulizers to q.4 hours. I will continue his Daliresp 500 mg q.day. At this time I will continue ceftriaxone and azithromycin and follow his blood cultures and deescalate accordingly. His COVID RT PCR test is negative and I will send influenza swab. On xarelto making PE unlikely. He has a history of pulmonary hypertension on sildenafil 20 mg p.o. q.12 hours and I will continue this. He wears a noninvasive ventilator with AVAPS-AE mode and a complete face mask at home. In the chart there is a download from 04/23/21 through 06/14/2021. The patient is on AVAPS-AE mode. Respiratory rate is auto, tidal volume 540, minimum EPAP 5, maximum EPAP 16, minimal inspiratory pressure 5, maximal inspiratory pressure 20. as mentioned above his compliance with use of greater than or equal to 4 hours a night is 11.3% of nights (very poor). Average usage on days used is 5 hours and 35 minutes. His average EPAP setting is 5. His average IPAP ranges from 12 to 15 and his breaths per minute average is 18-22. He is unable to bring this machine into the hospital and he said he would be willing to try our hospital's fullface mask. I will order him AVAPS rate of 20, tidal volume 550, EPAP 5, minimal inspiratory pressure 6, maximal inspiratory pressure 25, FIO2 32%. I will check an ABG in the morning prior to removal of the machine and an overnight oximetry to assess his ventilation and oxygenation. Agree with diuresis per the hospitalist team as tolerated by his cardiac and renal systems. Currently he is on Lasix 40 mg IV b.i.d.. 08/24 Patient tells me that he is slightly improved. He has less cough, less sputum production but continued shortness of breath and dyspnea on exertion that her note different. He has no wheezes on exam today. Last night the patient wore noninvasive ventilation with an Marii ABS mode with an attempt to mimic his home trilogy settings. He was on AVAPS rate of 20, tidal volume 540, EPAP of 5, minimal inspiratory pressure 6, maximal inspiratory pressure 25, FiO2 35%. He had an ABG prior to removal on the settings of 7.49/47/151. He had an overnight oximetry on these settings with an average saturation of 99%, and time with saturation less than or equal to 88% was 0 minutes. He said he did sleep with this but he needed more time to . At the bedside I decreased his inspiratory time to 0.85 sec and increased his rise to 1 which is our fast this and he said these settings were perfect . Changed to prednisone 40 p.o. today. The current noninvasive ventilation with AVAPS mode settings are adequate regarding his ventilation and I will decrease his FiO2 at night to 30%. 08/25 He says that he is still struggling to use our AVAPS device, feels that he is not getting enough pressure. He also says that his Trilogy devic
[2021-08-26] MEDS: FUROSEMIDE 40 MG TABLET PO (17:08)
[2021-08-26] MEDS: polyethylene glycoL 3350 17 GM POWD.PACK PO (17:09)
[2021-08-26] MEDS: RIVAROXABAN 20 MG TABLET PO (17:10)
[2021-08-26] MEDS: DOCUSATE SODIUM 100 MG CAPSULE PO (20:23)
[2021-08-26] MEDS: INSULIN GLARGINE (*BKC) 100 UNITS/ML 24 UNITS SUB-Q (20:30)
[2021-08-26 20:54] LABS: Glucose Point of Care 131 mg/dl (65-105)
[2021-08-27] VITALS (18 sets, daily range): BP systolic 134–147; BP diastolic 67–77; PULSE 54–84; RESP 16–21; TEMP 36.1–36.2; O2SAT 92–99
[2021-08-27] MEDS: ALBUTEROL SULFATE NEB 2.5 MG/0.5 ML INH INHALATION ×5 (00:03→19:25)
[2021-08-27] MEDS: IPRATROPIUM BR 0.02% INH SOLN 0.5 MG/2.5 ML VIAL INHALATION ×5 (00:03→19:25)
[2021-08-27 05:17] LABS: Hematocrit 28.3 % (42.0-52.0); Hemoglobin 7.8 g/dL (14.0-18.0); Mean Corpuscular HGB Conc 27.6 g/dl (32-36); Mean Corpuscular Hemoglobin 20.9 pg (26-34); Mean Corpuscular Volume 75.7 fl (80-100); Mean Platelet Volume 10.1 fl (7.4-10.4); Platelet Count Result 198 k/mm3 (150-375); Red Blood Count 3.74 M/mm3 (4.6-6.20); Red Cell Distribution Width 20.8 % (11.5-14.5); White Blood Count 13.1 K/mm3 (4.5-10.0)
[2021-08-27 05:43] LABS: Blood Urea Nitrogen 20 mg/dL (9-20); Calcium 8.9 mg/dL (8.4-10.2); Carbon Dioxide > 40 mmol/L (22-30); Chloride 84 mmol/L (98-107); Estimated CRCL calculation 125 ml/min; Estimated Glomerular Filt Rate > 60; Glucose 83 mg/dL (65-110); Potassium 3.9 mmol/L (3.4-5.0); Sodium 129 mmol/L (137-145)
[2021-08-27] MEDS: LEVOTHYROXINE SODIUM 50 MCG TABLET PO (06:26)
[2021-08-27 07:42] LABS: Glucose Point of Care 101 mg/dl (65-105)
[2021-08-27] MEDS: DORNASE ALFA INH SOLN 1 MG/ML 2.5 ML AMP 2.5 MG INHALATION ×2 (08:10→19:25)
[2021-08-27] MEDS: PANTOPRAZOLE 40 MG TABLET PO (09:04)
[2021-08-27] MEDS: FERROUS SULFATE 324 MG TABLET PO (09:04)
[2021-08-27] MEDS: ASPIRIN 81 MG ENTERIC TABLET PO (09:04)
[2021-08-27] MEDS: TAMSULOSIN HCL 0.4 MG CAPSULE PO (09:04)
[2021-08-27] MEDS: ROFLUMILAST 500 MCG TABLET PO (09:04)
[2021-08-27] MEDS: FUROSEMIDE 40 MG TABLET PO (09:04)
[2021-08-27] MEDS: dilTIAZem HCL 30 MG TABLET PO (09:04)
[2021-08-27] MEDS: CHOLECALCIFEROL 1,000 UNITS TABLET 2000 UNITS PO (09:04)
[2021-08-27] MEDS: metFORMIN HCL 500 MG TABLET PO (09:05)
[2021-08-27] MEDS: predniSONE 20 MG TABLET 40 MG PO (09:05)
[2021-08-27] MEDS: FOLIC ACID 1 MG TABLET PO (09:05)
[2021-08-27] MEDS: SERTRALINE HCL 50 MG TABLET PO (09:05)
[2021-08-27] MEDS: SILDENAFIL CITRATE 20 MG TABLET PO ×2 (09:06→21:22)
[2021-08-27] MEDS: AMIODARONE HCL 200 MG TABLET PO (09:06)
[2021-08-27] MEDS: SPIRONOLACTONE 25 MG TABLET PO (09:06)
[2021-08-27] MEDS: FLUTICASONE PROPIONATE 0.05% NA SPR 16 GM BTL (*BKC) 1 SPRAY NASAL ×2 (09:07→21:22)
[2021-08-27] MEDS: DOCUSATE SODIUM 100 MG CAPSULE PO ×2 (09:08→21:22)
[2021-08-27] MEDS: CYANOCOBALAMIN 500 MCG TABLET PO (09:08)
[2021-08-27] MEDS: HYDROcodone/acetaminophen (*CRX) 5-325 MG TABLET 1 TAB PO ×2 (09:10→18:18)
[2021-08-27 09:59] LABS: IFOB Positive Control Positive; Immunochemical Fecal Occult Bl Negative (N)
--- NOTE | 2021-08-27 11:02 | P.PNIM_ITS ---
Progress Note: A&P Assessment and Plan (1) CHF exacerbation: Qualifiers: Heart failure type: systolic Qualified Code(s): I50.23 - Acute on chronic systolic (congestive) heart failure Code(s): I50.9 - Heart failure, unspecified Status: Acute Assessment and Plan: CXR showed findings consistent with CHF exacerbation. * Appears euvolemic on exam * Continue PO lasix 40 mg BID, his home dose * Prior echocardiogram with normal ejection fraction. * Monitor intake and output and daily weights * Repeat CXR today to reassess (2) Leg weakness: Qualifiers: Laterality: bilateral Qualified Code(s): R29.898 - Other symptoms and signs involving the musculoskeletal system Code(s): R29.898 - Other symptoms and signs involving the musculoskeletal system Status: Acute Assessment and Plan: Suspect a combination of anemia, vascular insufficiency, diabetic neuropathy, neurogenic claudication due to spinal stenosis * Ankle-brachial index for peripheral arterial disease 08/23 normal * Venous Doppler for possible hematoma left thigh 08/24 NEGATIVE * CT lumbar spine showed L4-L5 moderate to severe central canal stenosis. unable to obtain follow-up MRI due to pacemaker. No signs/symptoms to suggest cord compression. Neurovascularly intact. * B12 and folate within normal limits. RPR nonreactive. * outpatient nerve conduction study and neurology vs neurosurgery follow up (3) COPD exacerbation: Code(s): J44.1 - Chronic obstructive pulmonary disease with (acute) exacerbation Status: Acute Assessment and Plan: Diffuse wheezes on exam. He does have chronic respiratory failure and is on 4L supplemental O2 * appreciate pulmonology consultation * Continue prednisone 40 mg daily * continue azithromycin, ceftriaxone * Scheduled nebulized breathing treatments (4) Anemia: Qualifiers: Anemia type: unspecified type Qualified Code(s): D64.9 - Anemia, unspecified Code(s): D64.9 - Anemia, unspecified Status: Acute Assessment and Plan: Recent onset of microcytosis concerning for iron deficiency * He is on anticoagulation which would increase his risk for blood loss * 08/23 Anemia parameters consistent with iron deficiency. Continue PO ferrous sulfate * 08/24 GI consulted and recommended colonoscopy and EGD given his prior complain ts of epigastric pain and hx of NSAID use. Deferring at this time due to respiratory illness. Continue protonix. * Monitor H&H-remaining stable but with gradual decrease (5) Type II diabetes mellitus: Qualifiers: Diabetes mellitus long chain beamer insulin use: without skilled nursing use Diabetes mellitus complication status: with other specified complication Qualified Code(s): E11.69 - Type 2 diabetes mellitus with other specified complication Code(s): E11.9 - Type 2 diabetes mellitus without complications Status: Acute Assessment and Plan: Blood sugars stable today. Last A1c 5.6 in June * continue Accu-Cheks, sliding scale, hypoglycemic protocol * continue metformin * basal glargine 24 U * monitor glucose trends and adjust medication regimen as needed (6) Obstructive sleep apnea: Code(s): G47.33 - Obstructive sleep apnea (adult) (pediatric) Status: Acute Assessment and Plan: As he does not have his home trilogy with him, BiPAP is substituted * pulmonology following (7) Persistent atrial fibrillation: Code(s): I48.19 - Other persistent atrial fibrillation Status: Acute
--- NOTE | 2021-08-27 11:02 | PM.IMPN ---
Progress Note: A&P Assessment and Plan (1) CHF exacerbation: Qualifiers: Heart failure type: systolic Qualified Code(s): I50.23 - Acute on chronic systolic (congestive) heart failure Code(s): I50.9 - Heart failure, unspecified Status: Acute Assessment and Plan: CXR showed findings consistent with CHF exacerbation. Appears euvolemic on exam Continue PO lasix 40 mg BID, his home dose Prior echocardiogram with normal ejection fraction. Monitor intake and output and daily weights Repeat CXR today to reassess (2) Leg weakness: Qualifiers: Laterality: bilateral Qualified Code(s): R29.898 - Other symptoms and signs involving the musculoskeletal system Code(s): R29.898 - Other symptoms and signs involving the musculoskeletal system Status: Acute Assessment and Plan: Suspect a combination of anemia, vascular insufficiency, diabetic neuropathy, neurogenic claudication due to spinal stenosis Ankle-brachial index for peripheral arterial disease 08/23 normal Venous Doppler for possible hematoma left thigh 08/[address] lumbar spine showed L4-L5 moderate to severe central canal stenosis. unable to obtain follow-up MRI due to pacemaker. No signs/symptoms to suggest cord compression. Neurovascularly intact. B12 and folate within normal limits. RPR nonreactive. outpatient nerve conduction study and neurology vs neurosurgery follow up (3) COPD exacerbation: Code(s): J44.1 - Chronic obstructive pulmonary disease with (acute) exacerbation Status: Acute Assessment and Plan: Diffuse wheezes on exam. He does have chronic respiratory failure and is on 4L supplemental O2 appreciate pulmonology consultation Continue prednisone 40 mg daily continue azithromycin, ceftriaxone Scheduled nebulized breathing treatments (4) Anemia: Qualifiers: Anemia type: unspecified type Qualified Code(s): D64.9 - Anemia, unspecified Code(s): D64.9 - Anemia, unspecified Status: Acute Assessment and Plan: Recent onset of microcytosis concerning for iron deficiency He is on anticoagulation which would increase his risk for blood loss 08/23 Anemia parameters consistent with iron deficiency. Continue PO ferrous sulfate 08/24 GI consulted and recommended colonoscopy and EGD given his prior complaints of epigastric pain and hx of NSAID use. Deferring at this time due to respiratory illness. Continue protonix. Monitor H&H-remaining stable but with gradual decrease (5) Type II diabetes mellitus: Qualifiers: Diabetes mellitus termite technician insulin use: without termite technician use Diabetes mellitus complication status: with other specified complication Qualified Code(s): E11.69 - Type 2 diabetes mellitus with other specified complication Code(s): E11.9 - Type 2 diabetes mellitus without complications Status: Acute Assessment and Plan: Blood sugars stable today. Last A1c 5.6 in June continue Accu-Cheks, sliding scale, hypoglycemic protocol continue metformin basal glargine 24 U monitor glucose trends and adjust medication regimen as needed (6) Obstructive sleep apnea: Code(s): G47.33 - Obstructive sleep apnea (adult) (pediatric) Status: Acute Assessment and Plan: As he does not have his home trilogy with him, BiPAP is substituted pulmonology following (7) Persistent atrial fibrillation: Code(s): I48.19 - Other persistent atrial fibrillation Status: Acute Assessment and Plan: rate is controlled Continue diltiazem, amiodarone, rivaroxaban (8) HX: shelter anticoagulant use: Code(s): Z92.29 - Personal history of other drug therapy Status: Acute Assessment and Plan: Continue rivaroxaban for history of atrial fibrillation as well as venous thromboembolism (9) Essential (primary) hypertension: Code(s): I10 - Essential
--- NOTE | 2021-08-27 11:42 | PCPTNOTE ---
Patient refused treatment this session due to not feeling well this date.
[2021-08-27 12:23] LABS: Glucose Point of Care 139 mg/dl (65-105)
[2021-08-27 12:46] LABS: Sodium 129 mmol/L (137-145)
--- NOTE | 2021-08-27 14:41 | PCPTNOTE ---
Patient refused treatment this session due to just getting back from X-ray and too worn out.
[2021-08-27 16:19] LABS: Glucose Point of Care 190 mg/dl (65-105)
[2021-08-27] MEDS: INSULIN GLARGINE (*BKC) 100 UNITS/ML 24 UNITS SUB-Q (21:23)
[2021-08-27 22:33] LABS: Glucose Point of Care 155 mg/dl (65-105)
[2021-08-28] VITALS (22 sets, daily range): BP systolic 114–145; BP diastolic 68–77; PULSE 76–90; RESP 18–22; TEMP 36.6; O2SAT 95–99
[2021-08-28] MEDS: ALBUTEROL SULFATE NEB 2.5 MG/0.5 ML INH INHALATION ×7 (00:17→23:56)
[2021-08-28] MEDS: IPRATROPIUM BR 0.02% INH SOLN 0.5 MG/2.5 ML VIAL INHALATION ×7 (00:17→23:56)
[2021-08-28 03:14] LABS: Creatinine Urine 101.2 mg/dL
[2021-08-28 03:19] LABS: Sodium Urine Random 40 meq/L
[2021-08-28 06:41] LABS: Hematocrit 30.6 % (42.0-52.0); Hemoglobin 8.5 g/dL (14.0-18.0); Mean Corpuscular HGB Conc 27.8 g/dl (32-36); Mean Corpuscular Hemoglobin 20.6 pg (26-34); Mean Corpuscular Volume 74.3 fl (80-100); Mean Platelet Volume 9.9 fl (7.4-10.4); Platelet Count Result 217 k/mm3 (150-375); Red Blood Count 4.12 M/mm3 (4.6-6.20); Red Cell Distribution Width 21.3 % (11.5-14.5); White Blood Count 13.4 K/mm3 (4.5-10.0)
[2021-08-28 07:03] LABS: Blood Urea Nitrogen 16 mg/dL (9-20); Calcium 9.1 mg/dL (8.4-10.2); Carbon Dioxide > 40 mmol/L (22-30); Chloride 83 mmol/L (98-107); Estimated CRCL calculation 126 ml/min; Estimated Glomerular Filt Rate > 60; Glucose 100 mg/dL (65-110); Potassium 3.9 mmol/L (3.4-5.0); Sodium 128 mmol/L (137-145)
[2021-08-28] MEDS: DORNASE ALFA INH SOLN 1 MG/ML 2.5 ML AMP 2.5 MG INHALATION ×2 (07:57→19:45)
[2021-08-28 08:04] LABS: Glucose Point of Care 109 mg/dl (65-105)
[2021-08-28] MEDS: dilTIAZem HCL 30 MG TABLET PO ×3 (10:14→16:29)
[2021-08-28] MEDS: AMIODARONE HCL 200 MG TABLET PO ×2 (10:14→16:29)
[2021-08-28] MEDS: metFORMIN HCL 500 MG TABLET PO ×2 (10:14→16:30)
[2021-08-28] MEDS: CHOLECALCIFEROL 1,000 UNITS TABLET 2000 UNITS PO (10:15)
[2021-08-28] MEDS: predniSONE 20 MG TABLET 40 MG PO (10:15)
[2021-08-28] MEDS: SPIRONOLACTONE 25 MG TABLET PO (10:15)
[2021-08-28] MEDS: ROFLUMILAST 500 MCG TABLET PO (10:15)
[2021-08-28] MEDS: FERROUS SULFATE 324 MG TABLET PO ×2 (10:15→16:30)
[2021-08-28] MEDS: TAMSULOSIN HCL 0.4 MG CAPSULE PO (10:16)
[2021-08-28] MEDS: ASPIRIN 81 MG ENTERIC TABLET PO (10:16)
[2021-08-28] MEDS: SILDENAFIL CITRATE 20 MG TABLET PO ×2 (10:16→20:08)
[2021-08-28] MEDS: CYANOCOBALAMIN 500 MCG TABLET PO (10:17)
[2021-08-28] MEDS: FOLIC ACID 1 MG TABLET PO (10:17)
[2021-08-28] MEDS: FLUTICASONE PROPIONATE 0.05% NA SPR 16 GM BTL (*BKC) 1 SPRAY NASAL ×2 (10:17→20:08)
[2021-08-28] MEDS: LEVOTHYROXINE SODIUM 50 MCG TABLET PO (10:17)
[2021-08-28] MEDS: PANTOPRAZOLE 40 MG TABLET PO ×2 (10:17→16:30)
[2021-08-28] MEDS: FUROSEMIDE INJ 40 MG/4 ML VIAL IV PUSH ×3 (10:17→16:29)
[2021-08-28] MEDS: SERTRALINE HCL 50 MG TABLET PO (10:17)
[2021-08-28] MEDS: HYDROcodone/acetaminophen (*CRX) 5-325 MG TABLET 1 TAB PO ×2 (11:13→23:53)
[2021-08-28 11:29] LABS: Glucose Point of Care 125 mg/dl (65-105)
--- NOTE | 2021-08-28 13:42 | P.PNIM_ITS ---
Progress Note: A&P Assessment and Plan (1) CHF exacerbation: Qualifiers: Heart failure type: systolic Qualified Code(s): I50.23 - Acute on chronic systolic (congestive) heart failure Code(s): I50.9 - Heart failure, unspecified Status: Acute Assessment and Plan: CXR showed findings consistent with CHF exacerbation. * Repeat CXR 119 showed findings consistent with persistent CHF exacerbation * Lasix increased to IV 40 mg Q 8 hours * Prior echocardiogram from January 2021 with normal ejection fraction. Will obtain echocardiogram at this facility * Monitor strict intake and output and daily weights (2) Leg weakness: Qualifiers: Laterality: bilateral Qualified Code(s): R29.898 - Other symptoms and signs involving the musculoskeletal system Code(s): R29.898 - Other symptoms and signs involving the musculoskeletal system Status: Acute Assessment and Plan: Suspect a combination of anemia, vascular insufficiency, diabetic neuropathy, neurogenic claudication due to spinal stenosis * Ankle-brachial index for peripheral arterial disease 08/23 normal * Venous Doppler for possible hematoma left thigh 08/24 NEGATIVE * CT lumbar spine showed L4-L5 moderate to severe central canal stenosis. unable to obtain follow-up MRI due to pacemaker. No signs/symptoms to suggest cord compression. Neurovascularly intact. * B12 and folate within normal limits. RPR nonreactive. * outpatient nerve conduction study and neurology vs neurosurgery follow up (3) COPD exacerbation: Code(s): J44.1 - Chronic obstructive pulmonary disease with (acute) exacerbation Status: Acute Assessment and Plan: Diffuse wheezes on exam. He does have chronic respiratory failure and is on 4L supplemental O2 * appreciate pulmonology consultation * Continue prednisone 40 mg daily * continue azithromycin, ceftriaxone * Scheduled nebulized breathing treatments * Continue maintenance inhalers (4) Anemia: Qualifiers: Anemia type: unspecified type Qualified Code(s): D64.9 - Anemia, unspecified Code(s): D64.9 - Anemia, unspecified Status: Acute Assessment and Plan: Recent onset of microcytosis concerning for iron deficiency * He is on anticoagulation which would increase his risk for blood loss * 08/23 Anemia parameters consistent with iron deficiency. Continue PO ferrous sulfate * 08/24 GI consulted and recommended colonoscopy and EGD given his prior complaints of epigastric pain and hx of NSAID use. Deferring at this time due to respiratory illness. Continue protonix. * Monitor H&H-remaining stable with slight improvement today (5) Type II diabetes mellitus: Qualifiers: Diabetes mellitus mcc insulin use: without long wall mining machine tender use Diabetes mellitus complication status: with other specified complication Qualified Code(s): E11.69 - Type 2 diabetes mellitus with other specified complication Code(s): E11.9 - Type 2 diabetes mellitus without complications Status: Acute Assessment and Plan: Blood sugars stable today. Last A1c 5.6 in June * continue Accu-Cheks, sliding scale, hypoglycemic protocol * continue metformin * basal glargine 24 U * monitor glucose trends and adjust medication regimen as needed (6) Obstructive sleep apnea: Code(s): G47.33 - Obstructive sleep apnea (adult) (pediatric) Status: Acute Assessment and Plan: As he does not have his home trilogy with him, BiPAP is substituted * pulmonology following and consultation is appreciated
--- NOTE | 2021-08-28 13:42 | PM.IMPN ---
Progress Note: A&P Assessment and Plan (1) CHF exacerbation: Qualifiers: Heart failure type: systolic Qualified Code(s): I50.23 - Acute on chronic systolic (congestive) heart failure Code(s): I50.9 - Heart failure, unspecified Status: Acute Assessment and Plan: CXR showed findings consistent with CHF exacerbation. Repeat CXR 119 showed findings consistent with persistent CHF exacerbation Lasix increased to IV 40 mg Q 8 hours Prior echocardiogram from January 2021 with normal ejection fraction. Will obtain echocardiogram at this facility Monitor strict intake and output and daily weights (2) Leg weakness: Qualifiers: Laterality: bilateral Qualified Code(s): R29.898 - Other symptoms and signs involving the musculoskeletal system Code(s): R29.898 - Other symptoms and signs involving the musculoskeletal system Status: Acute Assessment and Plan: Suspect a combination of anemia, vascular insufficiency, diabetic neuropathy, neurogenic claudication due to spinal stenosis Ankle-brachial index for peripheral arterial disease 08/23 normal Venous Doppler for possible hematoma left thigh 08/[address] lumbar spine showed L4-L5 moderate to severe central canal stenosis. unable to obtain follow-up MRI due to pacemaker. No signs/symptoms to suggest cord compression. Neurovascularly intact. B12 and folate within normal limits. RPR nonreactive. outpatient nerve conduction study and neurology vs neurosurgery follow up (3) COPD exacerbation: Code(s): J44.1 - Chronic obstructive pulmonary disease with (acute) exacerbation Status: Acute Assessment and Plan: Diffuse wheezes on exam. He does have chronic respiratory failure and is on 4L supplemental O2 appreciate pulmonology consultation Continue prednisone 40 mg daily continue azithromycin, ceftriaxone Scheduled nebulized breathing treatments Continue maintenance inhalers (4) Anemia: Qualifiers: Anemia type: unspecified type Qualified Code(s): D64.9 - Anemia, unspecified Code(s): D64.9 - Anemia, unspecified Status: Acute Assessment and Plan: Recent onset of microcytosis concerning for iron deficiency He is on anticoagulation which would increase his risk for blood loss 08/23 Anemia parameters consistent with iron deficiency. Continue PO ferrous sulfate 08/24 GI consulted and recommended colonoscopy and EGD given his prior complaints of epigastric pain and hx of NSAID use. Deferring at this time due to respiratory illness. Continue protonix. Monitor H&H-remaining stable with slight improvement today (5) Type II diabetes mellitus: Qualifiers: Diabetes mellitus ocean transportation intermediary insulin use: without ocean transportation intermediary use Diabetes mellitus complication status: with other specified complication Qualified Code(s): E11.69 - Type 2 diabetes mellitus with other specified complication Code(s): E11.9 - Type 2 diabetes mellitus without complications Status: Acute Assessment and Plan: Blood sugars stable today. Last A1c 5.6 in June continue Accu-Cheks, sliding scale, hypoglycemic protocol continue metformin basal glargine 24 U monitor glucose trends and adjust medication regimen as needed (6) Obstructive sleep apnea: Code(s): G47.33 - Obstructive sleep apnea (adult) (pediatric) Status: Acute Assessment and Plan: As he does not have his home trilogy with him, BiPAP is substituted pulmonology following and consultation is appreciated (7) Persistent atrial fibrillation: Code(s): I48.19 - Other persistent atrial fibrillation Status: Acute Assessment and Plan: rate is controlled Continue diltiazem, amiodarone, rivaroxaban (8) HX: ocean transportation intermediary anticoagulant use: Code(s): Z92.29 - Personal history of other drug therapy Status: Acute Assessment and Plan: Continue rivaroxaban
[2021-08-28 14:05] LABS: Sodium 126 mmol/L (137-145)
[2021-08-28] MEDS: RIVAROXABAN 20 MG TABLET PO (16:30)
[2021-08-28 17:00] LABS: Glucose Point of Care 141 mg/dl (65-105)
[2021-08-28] MEDS: DOCUSATE SODIUM 100 MG CAPSULE PO (20:08)
[2021-08-28] MEDS: INSULIN GLARGINE (*BKC) 100 UNITS/ML 24 UNITS SUB-Q (20:15)
[2021-08-28 21:07] LABS: Glucose Point of Care 135 mg/dl (65-105)
[2021-08-29] VITALS (19 sets, daily range): BP systolic 120–140; BP diastolic 72–78; PULSE 78–96; RESP 16–24; TEMP 36.1–36.2; O2SAT 94–100
--- NOTE | 2021-08-29 | ECHO_ITS ---
Patient Info Name: Navneet Astorga Age: 66 years : 1955 Gender: Male Ht: 72 in Wt: 273 lbs BSA: 2.55 m2 HR: 78 bpm BP: 140 / 72 mmHg Heart Rhythm: Sinus Arrhythmia Technical Quality: Fair Exam Date: 08/29/2021 4:08 PM Exam Location: [facility] Patient Status: Inpatient Admit Date: 08/24/2021 Staff Ordering Physician: Alfreda Mckeon PA-C Threading Machine Feeder Automatic: Ashly Humphries RDCS Attending Provider: Alfreda Mckeon PA-C Referring Physician: Mike CUMMINS; Exam Type: CA echo dop color flow w con Study Info Indications - chf exacerbation Complete two-dimensional, color flow and Doppler transthoracic echocardiogram is performed. Summary 1. Complete two-dimensional, color flow and Doppler transthoracic echocardiogram is performed. 2. Left ventricular chamber dimension is normal. 3. Left ventricular systolic function is normal, estimated at 60-65%. 4. There is mildly increased left ventricular wall thickness. 5. The left ventricular diastolic function is abnormal. 6. E/e' 12 is mildly elevated. 7. Linear artifact in right ventricle suggestive of catheter(s), pacemaker lead(s), or ICD lead(s). 8. Left atrial chamber dimension is mildly enlarged. 9. Linear artifact in the right atrium suggestive of catheter(s), pacemaker lead(s), or ICD lead(s). 10. Right atrial chamber dimension is mildly enlarged. 11. There is mild aortic valve stenosis based on a peak velocity of 170.18 cm/s, mean gradient of 6 mmHg, and aortic valve area of 1.55 cm2. 12. The mitral valve has mildly calcified annulus. 13. There is trace tricuspid valve regurgitation. 14. Mild pulmonary hypertension, estimated pulmonary arterial systolic pressure is 44 mmHg. 15. The aortic root size at the sinus of Valsalva is borderline dilated at 4.0 cm. Left Ventricle E/e' 12 is mildly elevated. Left ventricular chamber dimension is normal. Left ventricular systolic function is normal, estimated at 60-65%. There is mildly increased left ventricular wall thickness. The left ventricular diastolic function is abnormal. Right Ventricle Linear artifact in right ventricle suggestive of catheter(s), pacemaker lead(s), or ICD lead(s). Right ventricular chamber dimension is normal. Right ventricular systolic function is normal. Left Atria Left atrial chamber dimension is mildly enlarged. Right Atria Linear artifact in the right atrium suggestive of catheter(s), pacemaker lead(s), or ICD lead(s). Right atrial chamber dimension is mildly enlarged. Aortic Valve There is mild aortic valve stenosis based on a peak velocity of 170.18 cm/s, mean gradient of 6 mmHg, and aortic valve area of 1.55 cm2. The aortic valve is not well visualized. Cannot determine number of aortic valve leaflets. There is no aortic valve regurgitation. Pulmonic Valve There is no pulmonic regurgitation. Mitral Valve The mitral valve has mildly calcified annulus. There is no mitral valve stenosis. There is no mitral valve regurgitation. Tricuspid Valve There is trace tricuspid valve regurgitation. Mild pulmonary hypertension, estimated pulmonary arterial systolic pressure is 44 mmHg. Pericardium/Pleural There is no pericardial effusion. Inferior Vena Cava Normal inferior vena cava with >50% collapse upon inspiration consistent with normal right atrial pressure, 5 mmHg. Aorta The aortic root size at the sinus of Valsalva is borderline dilated at 4.0 cm. Left Ventricular Outflow Tract -------
[2021-08-29] MEDS: ALBUTEROL SULFATE NEB 2.5 MG/0.5 ML INH INHALATION ×5 (04:32→20:57)
[2021-08-29] MEDS: IPRATROPIUM BR 0.02% INH SOLN 0.5 MG/2.5 ML VIAL INHALATION ×5 (04:32→20:57)
[2021-08-29 05:42] LABS: Hemoglobin 8.5 g/dL (14.0-18.0); Mean Corpuscular HGB Conc 28.3 g/dl (32-36); Mean Corpuscular Hemoglobin 20.7 pg (26-34); Mean Platelet Volume 9.6 fl (7.4-10.4); Platelet Count Result 195 k/mm3 (150-375); Red Blood Count 4.11 M/mm3 (4.6-6.20); Red Cell Distribution Width 22.1 % (11.5-14.5); White Blood Count 13.5 K/mm3 (4.5-10.0)
[2021-08-29 05:55] LABS: Anion Gap 6 mmol/L (8-16); Blood Urea Nitrogen 17 mg/dL (9-20); Calcium 8.7 mg/dL (8.4-10.2); Carbon Dioxide 39 mmol/L (22-30); Chloride 82 mmol/L (98-107); Estimated CRCL calculation 125 ml/min; Estimated Glomerular Filt Rate > 60; Glucose 103 mg/dL (65-110); Potassium 3.7 mmol/L (3.4-5.0); Sodium 127 mmol/L (137-145)
[2021-08-29] MEDS: LEVOTHYROXINE SODIUM 50 MCG TABLET PO (06:25)
[2021-08-29] MEDS: DORNASE ALFA INH SOLN 1 MG/ML 2.5 ML AMP 2.5 MG INHALATION ×2 (07:55→20:58)
[2021-08-29] MEDS: CYANOCOBALAMIN 500 MCG TABLET PO (08:25)
[2021-08-29] MEDS: DOCUSATE SODIUM 100 MG CAPSULE PO ×2 (08:25→20:29)
[2021-08-29] MEDS: PANTOPRAZOLE 40 MG TABLET PO ×2 (08:25→18:51)
[2021-08-29] MEDS: SPIRONOLACTONE 25 MG TABLET PO (08:25)
[2021-08-29] MEDS: FERROUS SULFATE 324 MG TABLET PO ×2 (08:25→18:51)
[2021-08-29] MEDS: SILDENAFIL CITRATE 20 MG TABLET PO ×2 (08:26→20:29)
[2021-08-29] MEDS: predniSONE 20 MG TABLET 40 MG PO (08:26)
[2021-08-29] MEDS: SERTRALINE HCL 50 MG TABLET PO (08:26)
[2021-08-29] MEDS: ASPIRIN 81 MG ENTERIC TABLET PO (08:26)
[2021-08-29] MEDS: CHOLECALCIFEROL 1,000 UNITS TABLET 2000 UNITS PO (08:26)
[2021-08-29] MEDS: ROFLUMILAST 500 MCG TABLET PO (08:26)
[2021-08-29] MEDS: dilTIAZem HCL 30 MG TABLET PO ×3 (08:26→18:51)
[2021-08-29] MEDS: FOLIC ACID 1 MG TABLET PO (08:26)
[2021-08-29] MEDS: AMIODARONE HCL 200 MG TABLET PO ×2 (08:26→18:51)
[2021-08-29] MEDS: TAMSULOSIN HCL 0.4 MG CAPSULE PO (08:26)
[2021-08-29] MEDS: LIDOCAINE 5% PATCH 1 PATCH TRANSDERM (08:27)
[2021-08-29] MEDS: FLUTICASONE PROPIONATE 0.05% NA SPR 16 GM BTL (*BKC) 1 SPRAY NASAL ×2 (08:28→20:29)
[2021-08-29] MEDS: FUROSEMIDE INJ 40 MG/4 ML VIAL IV PUSH ×3 (08:29→18:51)
[2021-08-29] MEDS: metFORMIN HCL 500 MG TABLET PO ×2 (08:29→18:51)
[2021-08-29 12:17] LABS: Glucose Point of Care 182 mg/dl (65-105)
[2021-08-29] MEDS: HYDROcodone/acetaminophen (*CRX) 5-325 MG TABLET 1 TAB PO ×2 (14:24→20:29)
--- NOTE | 2021-08-29 15:35 | P.PNIM_ITS ---
Progress Note: A&P Assessment and Plan (1) CHF exacerbation: Qualifiers: Heart failure type: systolic Qualified Code(s): I50.23 - Acute on chronic systolic (congestive) heart failure Code(s): I50.9 - Heart failure, unspecified Status: Acute Assessment and Plan: CXR showed findings consistent with CHF exacerbation. * Repeat CXR 08/27 showed findings consistent with persistent CHF exacerbation * Lasix increased to IV 40 mg Q 8 hours * Prior echocardiogram from January 2021 with normal ejection fraction. Repeat echo pending * Monitor strict intake and output and daily weights (2) Leg weakness: Qualifiers: Laterality: bilateral Qualified Code(s): R29.898 - Other symptoms and signs involving the musculoskeletal system Code(s): R29.898 - Other symptoms and signs involving the musculoskeletal system Status: Acute Assessment and Plan: Suspect a combination of anemia, vascular insufficiency, diabetic neuropathy, neurogenic claudication due to spinal stenosis * Ankle-brachial index for peripheral arterial disease 08/23 normal * Venous Doppler for possible hematoma left thigh 08/24 NEGATIVE * CT lumbar spine showed L4-L5 moderate to severe central canal stenosis. unable to obtain follow-up MRI due to pacemaker. No signs/symptoms to suggest cord compression. Neurovascularly intact. * B12 and folate within normal limits. RPR nonreactive. * outpatient nerve conduction study and neurology vs neurosurgery follow up (3) COPD exacerbation: Code(s): J44.1 - Chronic obstructive pulmonary disease with (acute) exacerbation Status: Acute Assessment and Plan: Diffuse wheezes on exam. He does have chronic respiratory failure and is on 4L supplemental O2 * appreciate pulmonology consultation * Continue prednisone 40 mg daily * continue azithromycin, ceftriaxone. Will complete 7 days this evening then will discontinue. * O2 sats are consistent with his baseline * Scheduled nebulized breathing treatments * Continue maintenance inhalers (4) Anemia: Qualifiers: Anemia type: unspecified type Qualified Code(s): D64.9 - Anemia, unspecified Code(s): D64.9 - Anemia, unspecified Status: Acute Assessment and Plan: Recent onset of microcytosis concerning for iron deficiency * He is on anticoagulation which would increase his risk for blood loss * 08/23 Anemia parameters consistent with iron deficiency. Continue PO ferrous sulfate * 08/24 GI consulted and recommended colonoscopy and EGD given his prior complaints of epigastric pain and hx of NSAID use. Deferring at this time due to respiratory illness. Continue protonix. * Monitor H&H-remaining stable with slight improvement (5) Type II diabetes mellitus: Qualifiers: Diabetes mellitus complication status: with other specified complication Diabetes mellitus fpc insulin use: without fpc use Qualified Code(s): E11.69 - Type 2 diabetes mellitus with other specified complication Code(s): E11.9 - Type 2 diabetes mellitus without complications Status: Acute Assessment and Plan: Blood sugars stable today. Last A1c 5.6 in June * continue Accu-Cheks, sliding scale, hypoglycemic protocol * continue metformin * basal glargine 24 U * monitor glucose trends and adjust medication regimen as needed (6) Obstructive sleep apnea: Code(s): G47.33 - Obstructive sleep apnea (adult) (pediatric) Status: Acute Assessment and Plan: As he does not have his home trilogy with him, Joi
--- NOTE | 2021-08-29 15:35 | PM.IMPN ---
Progress Note: A&P Assessment and Plan (1) CHF exacerbation: Qualifiers: Heart failure type: systolic Qualified Code(s): I50.23 - Acute on chronic systolic (congestive) heart failure Code(s): I50.9 - Heart failure, unspecified Status: Acute Assessment and Plan: CXR showed findings consistent with CHF exacerbation. Repeat CXR 08/27 showed findings consistent with persistent CHF exacerbation Lasix increased to IV 40 mg Q 8 hours Prior echocardiogram from January 2021 with normal ejection fraction. Repeat echo pending Monitor strict intake and output and daily weights (2) Leg weakness: Qualifiers: Laterality: bilateral Qualified Code(s): R29.898 - Other symptoms and signs involving the musculoskeletal system Code(s): R29.898 - Other symptoms and signs involving the musculoskeletal system Status: Acute Assessment and Plan: Suspect a combination of anemia, vascular insufficiency, diabetic neuropathy, neurogenic claudication due to spinal stenosis Ankle-brachial index for peripheral arterial disease 08/23 normal Venous Doppler for possible hematoma left thigh 08/[address] lumbar spine showed L4-L5 moderate to severe central canal stenosis. unable to obtain follow-up MRI due to pacemaker. No signs/symptoms to suggest cord compression. Neurovascularly intact. B12 and folate within normal limits. RPR nonreactive. outpatient nerve conduction study and neurology vs neurosurgery follow up (3) COPD exacerbation: Code(s): J44.1 - Chronic obstructive pulmonary disease with (acute) exacerbation Status: Acute Assessment and Plan: Diffuse wheezes on exam. He does have chronic respiratory failure and is on 4L supplemental O2 appreciate pulmonology consultation Continue prednisone 40 mg daily continue azithromycin, ceftriaxone. Will complete 7 days this evening then will discontinue. O2 sats are consistent with his baseline Scheduled nebulized breathing treatments Continue maintenance inhalers (4) Anemia: Qualifiers: Anemia type: unspecified type Qualified Code(s): D64.9 - Anemia, unspecified Code(s): D64.9 - Anemia, unspecified Status: Acute Assessment and Plan: Recent onset of microcytosis concerning for iron deficiency He is on anticoagulation which would increase his risk for blood loss 08/23 Anemia parameters consistent with iron deficiency. Continue PO ferrous sulfate 08/24 GI consulted and recommended colonoscopy and EGD given his prior complaints of epigastric pain and hx of NSAID use. Deferring at this time due to respiratory illness. Continue protonix. 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 Last A1c 5.6 in June continue Accu-Cheks, sliding scale, hypoglycemic protocol continue metformin basal glargine 24 U monitor glucose trends and adjust medication regimen as needed (6) Obstructive sleep apnea: Code(s): G47.33 - Obstructive sleep apnea (adult) (pediatric) Status: Acute Assessment and Plan: As he does not have his home trilogy with him, BiPAP is substituted pulmonology following and consultation is appreciated (7) Persistent atrial fibrillation: Code(s): I48.19 - Other persistent atrial fibrillation Status: Acute Assessment and Plan: rate is controlled Continue diltiazem, amiodarone, rivaroxaban (8) HX: halfway anticoagulant use: Code(s): Z92.29 - Personal history of other drug therapy
[2021-08-29 17:07] LABS: Glucose Point of Care 123 mg/dl (65-105)
[2021-08-29] MEDS: RIVAROXABAN 20 MG TABLET PO (18:51)
[2021-08-29 20:23] LABS: Glucose Point of Care 187 mg/dl (65-105)
[2021-08-29] MEDS: INSULIN GLARGINE (*BKC) 100 UNITS/ML 24 UNITS SUB-Q (20:29)
[2021-08-30] VITALS (26 sets, daily range): BP systolic 107–141; BP diastolic 52–79; PULSE 74–101; RESP 18–24; TEMP 36.2–36.6; O2SAT 95–98
[2021-08-30] MEDS: IPRATROPIUM BR 0.02% INH SOLN 0.5 MG/2.5 ML VIAL INHALATION ×6 (00:11→23:17)
[2021-08-30] MEDS: ALBUTEROL SULFATE NEB 2.5 MG/0.5 ML INH INHALATION ×6 (00:11→23:17)
[2021-08-30] MEDS: LEVOTHYROXINE SODIUM 50 MCG TABLET PO (05:41)
[2021-08-30 06:43] LABS: Hematocrit 29.1 % (42.0-52.0); Hemoglobin 8.3 g/dL (14.0-18.0); Mean Corpuscular HGB Conc 28.5 g/dl (32-36); Mean Corpuscular Hemoglobin 21.1 pg (26-34); Mean Platelet Volume 9.8 fl (7.4-10.4); Platelet Count Result 191 k/mm3 (150-375); Red Blood Count 3.93 M/mm3 (4.6-6.20); Red Cell Distribution Width 23.1 % (11.5-14.5); White Blood Count 12.4 K/mm3 (4.5-10.0)
[2021-08-30 07:00] LABS: Anion Gap 7 mmol/L (8-16); Blood Urea Nitrogen 18 mg/dL (9-20); Calcium 8.8 mg/dL (8.4-10.2); Carbon Dioxide 37 mmol/L (22-30); Chloride 82 mmol/L (98-107); Estimated CRCL calculation 143 ml/min; Estimated Glomerular Filt Rate > 60; Glucose 98 mg/dL (65-110); Potassium 3.5 mmol/L (3.4-5.0); Sodium 126 mmol/L (137-145)
[2021-08-30 08:05] LABS: Glucose Point of Care 101 mg/dl (65-105)
[2021-08-30] MEDS: DORNASE ALFA INH SOLN 1 MG/ML 2.5 ML AMP 2.5 MG INHALATION ×2 (08:05→19:31)
[2021-08-30] MEDS: polyethylene glycoL 3350 17 GM POWD.PACK PO (08:16)
[2021-08-30] MEDS: CHOLECALCIFEROL 1,000 UNITS TABLET 2000 UNITS PO (08:16)
[2021-08-30] MEDS: FLUTICASONE PROPIONATE 0.05% NA SPR 16 GM BTL (*BKC) 1 SPRAY NASAL ×2 (08:16→21:09)
[2021-08-30] MEDS: FUROSEMIDE INJ 40 MG/4 ML VIAL IV PUSH (08:16)
[2021-08-30] MEDS: LIDOCAINE 5% PATCH 1 PATCH TRANSDERM (08:16)
[2021-08-30] MEDS: SPIRONOLACTONE 25 MG TABLET PO (08:17)
[2021-08-30] MEDS: CYANOCOBALAMIN 500 MCG TABLET PO (08:17)
[2021-08-30] MEDS: SERTRALINE HCL 50 MG TABLET PO (08:17)
[2021-08-30] MEDS: TAMSULOSIN HCL 0.4 MG CAPSULE PO (08:17)
[2021-08-30] MEDS: ROFLUMILAST 500 MCG TABLET PO (08:17)
[2021-08-30] MEDS: FERROUS SULFATE 324 MG TABLET PO ×2 (08:17→16:46)
[2021-08-30] MEDS: predniSONE 20 MG TABLET 40 MG PO (08:17)
[2021-08-30] MEDS: DOCUSATE SODIUM 100 MG CAPSULE PO ×2 (08:17→21:08)
[2021-08-30] MEDS: SILDENAFIL CITRATE 20 MG TABLET PO ×2 (08:17→21:08)
[2021-08-30] MEDS: PANTOPRAZOLE 40 MG TABLET PO ×2 (08:18→16:46)
[2021-08-30] MEDS: AMIODARONE HCL 200 MG TABLET PO ×2 (08:18→16:46)
[2021-08-30] MEDS: dilTIAZem HCL 30 MG TABLET PO ×3 (08:18→16:46)
[2021-08-30] MEDS: FOLIC ACID 1 MG TABLET PO (08:18)
[2021-08-30] MEDS: ASPIRIN 81 MG ENTERIC TABLET PO (08:18)
[2021-08-30] MEDS: metFORMIN HCL 500 MG TABLET PO ×2 (08:18→16:46)
[2021-08-30] MEDS: SODIUM CHLORIDE 500 MG TABLET PO (08:19)
[2021-08-30 12:15] LABS: Glucose Point of Care 125 mg/dl (65-105)
[2021-08-30] MEDS: LORazepam (*CRX) 1 MG TABLET PO (12:24)
--- NOTE | 2021-08-30 13:40 | P.PNIM_ITS ---
Progress Note: A&P Assessment and Plan (1) CHF exacerbation: Qualifiers: Heart failure type: systolic Qualified Code(s): I50.23 - Acute on chronic systolic (congestive) heart failure Code(s): I50.9 - Heart failure, unspecified Status: Acute Assessment and Plan: CXR showed findings consistent with CHF exacerbation. * Repeat CXR 08/27 showed findings consistent with persistent CHF exacerbation * Continue IV Lasix. Decrease to 40 mg IV bid. * Echo 08/29/21 showed normal EF 60-65% with abnroaml diastolic function. * Monitor strict intake and output and daily weights (2) Leg weakness: Qualifiers: Laterality: bilateral Qualified Code(s): R29.898 - Other symptoms and signs involving the musculoskeletal system Code(s): R29.898 - Other symptoms and signs involving the musculoskeletal system Status: Acute Assessment and Plan: Suspect a combination of anemia, vascular insufficiency, diabetic neuropathy, neurogenic claudication due to spinal stenosis * Ankle-brachial index for peripheral arterial disease 08/23 normal * Venous Doppler for possible hematoma left thigh 08/24 NEGATIVE * CT lumbar spine showed L4-L5 moderate to severe central canal stenosis. unable to obtain follow-up MRI due to pacemaker. No signs/symptoms to suggest cord compression. Neurovascularly intact. * B12 and folate within normal limits. RPR nonreactive. * outpatient nerve conduction study and neurology vs neurosurgery follow up (3) COPD exacerbation: Code(s): J44.1 - Chronic obstructive pulmonary disease with (acute) exacerbation Status: Acute Assessment and Plan: Diffuse wheezes on exam. He does have chronic respiratory failure and is on 2-4L supplemental O2 * appreciate pulmonology consultation * Continue prednisone 40 mg daily * Completed 7 days of IV ceftriaxone and azithromycin 08/29 * O2 sats are consistent with his baseline. Currently maintaining adequate O2 sats on 2 L per nasal cannula * Scheduled nebulized breathing treatments * Continue maintenance inhalers. * Continue Cornet valve to mobilize secretions (4) Anemia: Qualifiers: Anemia type: unspecified type Qualified Code(s): D64.9 - Anemia, unspecified Code(s): D64.9 - Anemia, unspecified Status: Acute Assessment and Plan: Recent onset of microcytosis * He is on anticoagulation which would increase his risk for blood loss * 08/23 Anemia parameters consistent with iron deficiency. Continue PO ferrous sulfate * 08/24 GI consulted and recommended colonoscopy and EGD given his prior complaints of epigastric pain and hx of NSAID use. Deferring at this time due to respiratory illness. Continue protonix. Avoid NSAIDs. * Monitor H&H-remaining stable with slight improvement (5) Type II diabetes mellitus: Qualifiers: Diabetes mellitus intermediate school teacher insulin use: without intermediate school teacher use Diabetes mellitus complication status: with other specified complication Qualified Code(s): E11.69 - Type 2 diabetes mellitus with other specified complication Code(s): E11.9 - Type 2 diabetes mellitus without complications Status: Acute Assessment and Plan: Blood sugars stable today. Last A1c 5.6 in June. Fasting glucose 101 today * continue Accu-Cheks, sliding scale, hypoglycemic protocol * continue metformin * basal glargine 24 U * monitor glucose trends and adjust medication regimen as needed (6) Obstructive sleep apnea: Code(s): G47.33 - Obstructive sleep apnea (adult) (pediatric) Status: Acute
--- NOTE | 2021-08-30 13:40 | PM.IMPN ---
Progress Note: A&P Assessment and Plan (1) CHF exacerbation: Qualifiers: Heart failure type: systolic Qualified Code(s): I50.23 - Acute on chronic systolic (congestive) heart failure Code(s): I50.9 - Heart failure, unspecified Status: Acute Assessment and Plan: CXR showed findings consistent with CHF exacerbation. Repeat CXR 08/27 showed findings consistent with persistent CHF exacerbation Continue IV Lasix. Decrease to 40 mg IV bid. Echo 08/29/21 showed normal EF 60-65% with abnroaml diastolic function. Monitor strict intake and output and daily weights (2) Leg weakness: Qualifiers: Laterality: bilateral Qualified Code(s): R29.898 - Other symptoms and signs involving the musculoskeletal system Code(s): R29.898 - Other symptoms and signs involving the musculoskeletal system Status: Acute Assessment and Plan: Suspect a combination of anemia, vascular insufficiency, diabetic neuropathy, neurogenic claudication due to spinal stenosis Ankle-brachial index for peripheral arterial disease 08/23 normal Venous Doppler for possible hematoma left thigh 08/[address] lumbar spine showed L4-L5 moderate to severe central canal stenosis. unable to obtain follow-up MRI due to pacemaker. No signs/symptoms to suggest cord compression. Neurovascularly intact. B12 and folate within normal limits. RPR nonreactive. outpatient nerve conduction study and neurology vs neurosurgery follow up (3) COPD exacerbation: Code(s): J44.1 - Chronic obstructive pulmonary disease with (acute) exacerbation Status: Acute Assessment and Plan: Diffuse wheezes on exam. He does have chronic respiratory failure and is on 2-4L supplemental O2 appreciate pulmonology consultation Continue prednisone 40 mg daily Completed 7 days of IV ceftriaxone and azithromycin 08/29 O2 sats are consistent with his baseline. Currently maintaining adequate O2 sats on 2 L per nasal cannula Scheduled nebulized breathing treatments Continue maintenance inhalers. Continue Cornet valve to mobilize secretions (4) Anemia: Qualifiers: Anemia type: unspecified type Qualified Code(s): D64.9 - Anemia, unspecified Code(s): D64.9 - Anemia, unspecified Status: Acute Assessment and Plan: Recent onset of microcytosis He is on anticoagulation which would increase his risk for blood loss 08/23 Anemia parameters consistent with iron deficiency. Continue PO ferrous sulfate 08/24 GI consulted and recommended colonoscopy and EGD given his prior complaints of epigastric pain and hx of NSAID use. Deferring at this time due to respiratory illness. Continue protonix. Avoid NSAIDs. Monitor H&H-remaining stable with slight improvement (5) Type II diabetes mellitus: Qualifiers: Diabetes mellitus watermelon inspector insulin use: without watermelon inspector use Diabetes mellitus complication status: with other specified complication Qualified Code(s): E11.69 - Type 2 diabetes mellitus with other specified complication Code(s): E11.9 - Type 2 diabetes mellitus without complications Status: Acute Assessment and Plan: Blood sugars stable today. Last A1c 5.6 in June. Fasting glucose 101 today continue Accu-Cheks, sliding scale, hypoglycemic protocol continue metformin basal glargine 24 U monitor glucose trends and adjust medication regimen as needed (6) Obstructive sleep apnea: Code(s): G47.33 - Obstructive sleep apnea (adult) (pediatric) Status: Acute Assessment and Plan: As he does not have his home trilogy with him, BiPAP is substituted pulmonology following and consultation is appreciated (7) Persistent atrial fibrillation: Code(s): I48.19 - Other persistent atrial fibrillation Status: Acute Assessment and Plan: rate is controlled Continue diltiazem, amiodarone, rivaroxaban (8) HX: mcfp a
[2021-08-30 14:44] LABS: Sodium 123 mmol/L (137-145)
[2021-08-30] MEDS: HYDROcodone/acetaminophen (*CRX) 5-325 MG TABLET 1 TAB PO ×2 (14:49→21:08)
[2021-08-30 16:43] LABS: Glucose Point of Care 148 mg/dl (65-105)
[2021-08-30] MEDS: RIVAROXABAN 20 MG TABLET PO (16:46)
[2021-08-30 18:05] LABS: Creatinine Urine 104.5 mg/dL; Urea Random Urine 985 MG/DL
[2021-08-30] MEDS: INSULIN GLARGINE (*BKC) 100 UNITS/ML 24 UNITS SUB-Q (21:09)
[2021-08-30 22:09] LABS: Sodium 122 mmol/L (137-145)
[2021-08-31] VITALS (16 sets, daily range): BP systolic 136–145; BP diastolic 69–73; PULSE 68–84; RESP 18–22; TEMP 36.6–37.2; O2SAT 95–98
[2021-08-31 01:09] LABS: Glucose Point of Care 114 mg/dl (65-105)
[2021-08-31] MEDS: ALBUTEROL SULFATE NEB 2.5 MG/0.5 ML INH INHALATION ×5 (04:02→20:02)
[2021-08-31] MEDS: IPRATROPIUM BR 0.02% INH SOLN 0.5 MG/2.5 ML VIAL INHALATION ×5 (04:02→20:02)
[2021-08-31] MEDS: LEVOTHYROXINE SODIUM 50 MCG TABLET PO (06:27)
[2021-08-31 07:07] LABS: Hematocrit 29.8 % (42.0-52.0); Hemoglobin 8.6 g/dL (14.0-18.0); Mean Corpuscular HGB Conc 28.9 g/dl (32-36); Mean Corpuscular Hemoglobin 21.4 pg (26-34); Mean Corpuscular Volume 74.3 fl (80-100); Platelet Count Result 196 k/mm3 (150-375); Red Blood Count 4.01 M/mm3 (4.6-6.20); Red Cell Distribution Width 23.7 % (11.5-14.5); White Blood Count 12.5 K/mm3 (4.5-10.0)
[2021-08-31 07:23] LABS: Anion Gap 8 mmol/L (8-16); Blood Urea Nitrogen 18 mg/dL (9-20); Calcium 9.1 mg/dL (8.4-10.2); Carbon Dioxide 34 mmol/L (22-30); Chloride 83 mmol/L (98-107); Estimated CRCL calculation 125 ml/min; Estimated Glomerular Filt Rate > 60; Glucose 103 mg/dL (65-110); Potassium 3.8 mmol/L (3.4-5.0); Sodium 125 mmol/L (137-145)
[2021-08-31] MEDS: DORNASE ALFA INH SOLN 1 MG/ML 2.5 ML AMP 2.5 MG INHALATION ×2 (07:45→20:02)
[2021-08-31] MEDS: LIDOCAINE 5% PATCH 1 PATCH TRANSDERM (08:05)
[2021-08-31] MEDS: FLUTICASONE PROPIONATE 0.05% NA SPR 16 GM BTL (*BKC) 1 SPRAY NASAL ×2 (08:05→22:34)
[2021-08-31] MEDS: dilTIAZem HCL 30 MG TABLET PO ×3 (08:06→17:54)
[2021-08-31] MEDS: predniSONE 20 MG TABLET 40 MG PO (08:06)
[2021-08-31] MEDS: ROFLUMILAST 500 MCG TABLET PO (08:06)
[2021-08-31] MEDS: SPIRONOLACTONE 25 MG TABLET PO (08:06)
[2021-08-31] MEDS: CYANOCOBALAMIN 500 MCG TABLET PO (08:06)
[2021-08-31] MEDS: SERTRALINE HCL 50 MG TABLET PO (08:06)
[2021-08-31] MEDS: SILDENAFIL CITRATE 20 MG TABLET PO ×2 (08:06→22:35)
[2021-08-31] MEDS: polyethylene glycoL 3350 17 GM POWD.PACK PO (08:06)
[2021-08-31] MEDS: PANTOPRAZOLE 40 MG TABLET PO ×2 (08:06→17:55)
[2021-08-31] MEDS: DOCUSATE SODIUM 100 MG CAPSULE PO ×2 (08:06→22:35)
[2021-08-31] MEDS: FOLIC ACID 1 MG TABLET PO (08:06)
[2021-08-31] MEDS: FERROUS SULFATE 324 MG TABLET PO ×2 (08:06→17:54)
[2021-08-31] MEDS: CHOLECALCIFEROL 1,000 UNITS TABLET 2000 UNITS PO (08:06)
[2021-08-31] MEDS: AMIODARONE HCL 200 MG TABLET PO ×2 (08:06→17:54)
[2021-08-31] MEDS: ASPIRIN 81 MG ENTERIC TABLET PO (08:06)
[2021-08-31] MEDS: metFORMIN HCL 500 MG TABLET PO ×2 (08:06→17:55)
[2021-08-31] MEDS: TAMSULOSIN HCL 0.4 MG CAPSULE PO (08:07)
[2021-08-31] MEDS: HYDROcodone/acetaminophen (*CRX) 5-325 MG TABLET 1 TAB PO ×3 (08:09→22:41)
[2021-08-31 08:11] LABS: Glucose Point of Care 107 mg/dl (65-105)
[2021-08-31 12:09] LABS: Glucose Point of Care 144 mg/dl (65-105)
--- NOTE | 2021-08-31 15:05 | P.PNIM_ITS ---
Progress Note: A&P Assessment and Plan (1) CHF exacerbation: Qualifiers: Heart failure type: systolic Qualified Code(s): I50.23 - Acute on chronic systolic (congestive) heart failure Code(s): I50.9 - Heart failure, unspecified Status: Acute Assessment and Plan: CXR showed findings consistent with CHF exacerbation. * Repeat CXR 08/27 showed findings consistent with persistent CHF exacerbation * Started on IV Lasix which has now been held given volume depletion. * Echo 08/29/21 showed normal EF 60-65% with abnormal diastolic function. * Monitor strict intake and output and daily weights (2) Leg weakness: Qualifiers: Laterality: bilateral Qualified Code(s): R29.898 - Other symptoms and signs involving the musculoskeletal system Code(s): R29.898 - Other symptoms and signs involving the musculoskeletal system Status: Acute Assessment and Plan: Suspect a combination of anemia, vascular insufficiency, diabetic neuropathy, neurogenic claudication due to spinal stenosis * Ankle-brachial index for peripheral arterial disease 08/23 normal * Venous Doppler for possible hematoma left thigh 08/24 NEGATIVE * CT lumbar spine showed L4-L5 moderate to severe central canal stenosis. unable to obtain follow-up MRI due to pacemaker. No signs/symptoms to suggest cord compression. Neurovascularly intact. * B12 and folate within normal limits. RPR nonreactive. * outpatient nerve conduction study and neurology vs neurosurgery follow up (3) COPD exacerbation: Code(s): J44.1 - Chronic obstructive pulmonary disease with (acute) exacerbation Status: Acute Assessment and Plan: Diffuse wheezes on exam. He does have chronic respiratory failure and is on 2-4L supplemental O2 * appreciate pulmonology consultation * Completed 7 days of p.o. prednisone. Discontinued 08/31 * Completed 7 days of IV ceftriaxone and azithromycin 08/29 * O2 sats are consistent with his baseline. Currently maintaining adequate O2 sats on 2 L per nasal cannula * Scheduled nebulized breathing treatments * Continue maintenance inhalers. * Cornet valve to mobilize secretions (4) Anemia: Qualifiers: Anemia type: unspecified type Qualified Code(s): D64.9 - Anemia, unspecified Code(s): D64.9 - Anemia, unspecified Status: Acute Assessment and Plan: Recent onset of microcytosis * He is on anticoagulation which would increase his risk for blood loss * 08/23 Anemia parameters consistent with iron deficiency. Continue PO ferrous sulfate * 08/24 GI consulted and recommended colonoscopy and EGD given his prior complaints of epigastric pain and hx of NSAID use. Deferring at this time due to respiratory illness. Continue protonix. Avoid NSAIDs. 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 Last A1c 5.6 in June. Fasting glucose 103 today * continue Accu-Cheks, sliding scale, hypoglycemic protocol * continue metformin * basal glargine 24 U * monitor glucose trends and adjust medication regimen as needed (6) Obstructive sleep apnea: Code(s): G47.33 - Obstructive sleep apnea (adult) (pediatr
--- NOTE | 2021-08-31 15:05 | PM.IMPN ---
Progress Note: A&P Assessment and Plan (1) CHF exacerbation: Qualifiers: Heart failure type: systolic Qualified Code(s): I50.23 - Acute on chronic systolic (congestive) heart failure Code(s): I50.9 - Heart failure, unspecified Status: Acute Assessment and Plan: CXR showed findings consistent with CHF exacerbation. Repeat CXR 08/27 showed findings consistent with persistent CHF exacerbation Started on IV Lasix which has now been held given volume depletion. Echo 08/29/21 showed normal EF 60-65% with abnormal diastolic function. Monitor strict intake and output and daily weights (2) Leg weakness: Qualifiers: Laterality: bilateral Qualified Code(s): R29.898 - Other symptoms and signs involving the musculoskeletal system Code(s): R29.898 - Other symptoms and signs involving the musculoskeletal system Status: Acute Assessment and Plan: Suspect a combination of anemia, vascular insufficiency, diabetic neuropathy, neurogenic claudication due to spinal stenosis Ankle-brachial index for peripheral arterial disease 08/23 normal Venous Doppler for possible hematoma left thigh 08/[address] lumbar spine showed L4-L5 moderate to severe central canal stenosis. unable to obtain follow-up MRI due to pacemaker. No signs/symptoms to suggest cord compression. Neurovascularly intact. B12 and folate within normal limits. RPR nonreactive. outpatient nerve conduction study and neurology vs neurosurgery follow up (3) COPD exacerbation: Code(s): J44.1 - Chronic obstructive pulmonary disease with (acute) exacerbation Status: Acute Assessment and Plan: Diffuse wheezes on exam. He does have chronic respiratory failure and is on 2-4L supplemental O2 appreciate pulmonology consultation Completed 7 days of p.o. prednisone. Discontinued 08/31 Completed 7 days of IV ceftriaxone and azithromycin 08/29 O2 sats are consistent with his baseline. Currently maintaining adequate O2 sats on 2 L per nasal cannula Scheduled nebulized breathing treatments Continue maintenance inhalers. Cornet valve to mobilize secretions (4) Anemia: Qualifiers: Anemia type: unspecified type Qualified Code(s): D64.9 - Anemia, unspecified Code(s): D64.9 - Anemia, unspecified Status: Acute Assessment and Plan: Recent onset of microcytosis He is on anticoagulation which would increase his risk for blood loss 08/23 Anemia parameters consistent with iron deficiency. Continue PO ferrous sulfate 08/24 GI consulted and recommended colonoscopy and EGD given his prior complaints of epigastric pain and hx of NSAID use. Deferring at this time due to respiratory illness. Continue protonix. Avoid NSAIDs. Monitor H&H-remaining stable with slight improvement (5) Type II diabetes mellitus: Qualifiers: Diabetes mellitus long term care administrator insulin use: without prison use Diabetes mellitus complication status: with other specified complication Qualified Code(s): E11.69 - Type 2 diabetes mellitus with other specified complication Code(s): E11.9 - Type 2 diabetes mellitus without complications Status: Acute Assessment and Plan: Blood sugars stable today. Last A1c 5.6 in June. Fasting glucose 103 today continue Accu-Cheks, sliding scale, hypoglycemic protocol continue metformin basal glargine 24 U monitor glucose trends and adjust medication regimen as needed (6) Obstructive sleep apnea: Code(s): G47.33 - Obstructive sleep apnea (adult) (pediatric) Status: Acute Assessment and Plan: As he does not have his home trilogy with him, BiPAP is substituted pulmonology following and consultation is appreciated (7) Persistent atrial fibrillation: Code(s): I48.19 - Other persistent atrial fibrillation Status: Acute Assessment and Plan: rate is controlled Continue diltiazem, amiodarone,
[2021-08-31 15:22] LABS: Sodium 123 mmol/L (137-145)
[2021-08-31 16:35] LABS: Glucose Point of Care 159 mg/dl (65-105)
[2021-08-31] MEDS: SODIUM CHLORIDE 0.9% IV 500 ML 100 ML IV CONT (17:54)
[2021-08-31] MEDS: RIVAROXABAN 20 MG TABLET PO (17:54)
[2021-08-31 21:25] LABS: Sodium 125 mmol/L (137-145)
[2021-08-31] MEDS: INSULIN GLARGINE (*BKC) 100 UNITS/ML 24 UNITS SUB-Q (23:00)
[2021-08-31 23:52] LABS: Glucose Point of Care 105 mg/dl (65-105)
[2021-09-01] VITALS (23 sets, daily range): BP systolic 120–150; BP diastolic 65–80; PULSE 60–86; RESP 16–28; TEMP 36–36.5; O2SAT 95–100
[2021-09-01] MEDS: ALBUTEROL SULFATE NEB 2.5 MG/0.5 ML INH INHALATION ×7 (01:01→23:51)
[2021-09-01] MEDS: IPRATROPIUM BR 0.02% INH SOLN 0.5 MG/2.5 ML VIAL INHALATION ×7 (01:01→23:51)
[2021-09-01] MEDS: LEVOTHYROXINE SODIUM 50 MCG TABLET PO (06:37)
[2021-09-01 06:46] LABS: Hematocrit 30.6 % (42.0-52.0); Hemoglobin 8.5 g/dL (14.0-18.0); Mean Corpuscular HGB Conc 27.8 g/dl (32-36); Mean Corpuscular Hemoglobin 21.4 pg (26-34); Mean Corpuscular Volume 76.9 fl (80-100); Mean Platelet Volume 9.6 fl (7.4-10.4); Platelet Count Result 177 k/mm3 (150-375); Red Blood Count 3.98 M/mm3 (4.6-6.20); Red Cell Distribution Width 24.1 % (11.5-14.5); White Blood Count 12.8 K/mm3 (4.5-10.0)
[2021-09-01 07:14] LABS: Anion Gap 8 mmol/L (8-16); Blood Urea Nitrogen 15 mg/dL (9-20); Calcium 8.9 mg/dL (8.4-10.2); Carbon Dioxide 32 mmol/L (22-30); Chloride 86 mmol/L (98-107); Estimated CRCL calculation 125 ml/min; Estimated Glomerular Filt Rate > 60; Glucose 98 mg/dL (65-110); Potassium 4.2 mmol/L (3.4-5.0); Sodium 126 mmol/L (137-145)
[2021-09-01 08:01] LABS: Glucose Point of Care 101 mg/dl (65-105)
[2021-09-01] MEDS: DORNASE ALFA INH SOLN 1 MG/ML 2.5 ML AMP 2.5 MG INHALATION (08:20)
--- NOTE | 2021-09-01 08:49 | PCRCNOTE ---
Pt is sob with increased wob this morning. Pt states that he often struggles with sob coming off of the bipap transitioning to a NC. Encouraged pt to let RN and specification writer know should he cont. to have sob and increased WOB and we will evaluated further at that point.
[2021-09-01] MEDS: LIDOCAINE 5% PATCH 1 PATCH TRANSDERM (09:55)
[2021-09-01] MEDS: HYDROcodone/acetaminophen (*CRX) 5-325 MG TABLET 1 TAB PO ×2 (09:56→18:59)
[2021-09-01] MEDS: CHOLECALCIFEROL 1,000 UNITS TABLET 2000 UNITS PO (09:57)
[2021-09-01] MEDS: SILDENAFIL CITRATE 20 MG TABLET PO ×2 (09:57→21:00)
[2021-09-01] MEDS: SERTRALINE HCL 50 MG TABLET PO (09:57)
[2021-09-01] MEDS: SPIRONOLACTONE 25 MG TABLET PO (09:57)
[2021-09-01] MEDS: CYANOCOBALAMIN 500 MCG TABLET PO (09:57)
[2021-09-01] MEDS: dilTIAZem HCL 30 MG TABLET PO ×3 (09:57→18:58)
[2021-09-01] MEDS: ASPIRIN 81 MG ENTERIC TABLET PO (09:57)
[2021-09-01] MEDS: TAMSULOSIN HCL 0.4 MG CAPSULE PO (09:57)
[2021-09-01] MEDS: FOLIC ACID 1 MG TABLET PO (09:58)
[2021-09-01] MEDS: metFORMIN HCL 500 MG TABLET PO ×2 (09:58→18:58)
[2021-09-01] MEDS: polyethylene glycoL 3350 17 GM POWD.PACK PO (09:58)
[2021-09-01] MEDS: ROFLUMILAST 500 MCG TABLET PO (09:58)
[2021-09-01] MEDS: DOCUSATE SODIUM 100 MG CAPSULE PO ×2 (09:58→21:00)
[2021-09-01] MEDS: PANTOPRAZOLE 40 MG TABLET PO ×2 (09:58→18:58)
[2021-09-01] MEDS: FERROUS SULFATE 324 MG TABLET PO ×2 (09:58→18:58)
[2021-09-01] MEDS: AMIODARONE HCL 200 MG TABLET PO ×2 (09:58→18:58)
[2021-09-01] MEDS: FLUTICASONE PROPIONATE 0.05% NA SPR 16 GM BTL (*BKC) 1 SPRAY NASAL ×2 (09:59→21:00)
[2021-09-01] MEDS: LORazepam (*CRX) 1 MG TABLET PO ×2 (10:04→19:02)
--- NOTE | 2021-09-01 11:16 | PCNWS ---
Weekly nutritional screen. Patient is tolerating current diet with adequate intake. No weight loss reported. No nutritional needs at this time.
[2021-09-01 11:55] LABS: Glucose Point of Care 95 mg/dl (65-105)
[2021-09-01 16:29] LABS: Glucose Point of Care 95 mg/dl (65-105)
[2021-09-01 16:33] LABS: Sodium 124 mmol/L (137-145)
--- NOTE | 2021-09-01 17:28 | P.PNIM_ITS ---
Progress Note: A&P Assessment and Plan (1) CHF exacerbation: Qualifiers: Heart failure type: systolic Qualified Code(s): I50.23 - Acute on chronic systolic (congestive) heart failure Code(s): I50.9 - Heart failure, unspecified Status: Acute Assessment and Plan: CXR showed findings consistent with CHF exacerbation. * Repeat CXR 08/27 showed findings consistent with persistent CHF exacerbation * Started on IV Lasix which has been discontinued given volume depletion. * Echo 08/29/21 showed normal EF 60-65% with abnormal diastolic function. * Monitor strict intake and output and daily weights (2) Leg weakness: Qualifiers: Laterality: bilateral Qualified Code(s): R29.898 - Other symptoms and signs involving the musculoskeletal system Code(s): R29.898 - Other symptoms and signs involving the musculoskeletal system Status: Acute Assessment and Plan: Suspect a combination of anemia, vascular insufficiency, diabetic neuropathy, neurogenic claudication due to spinal stenosis * Ankle-brachial index for peripheral arterial disease 08/23 normal * Venous Doppler for possible hematoma left thigh 08/24 NEGATIVE * CT lumbar spine showed L4-L5 moderate to severe central canal stenosis. unable to obtain follow-up MRI due to pacemaker. No signs/symptoms to suggest cord compression. Neurovascularly intact. * B12 and folate within normal limits. RPR nonreactive. * outpatient nerve conduction study and neurology vs neurosurgery follow up (3) COPD exacerbation: Code(s): J44.1 - Chronic obstructive pulmonary disease with (acute) exacerbation Status: Acute Assessment and Plan: Diffuse wheezes on exam. He does have chronic respiratory failure and is on 2-4L supplemental O2 * appreciate pulmonology consultation * Completed 7 days of p.o. prednisone. Discontinued 08/31 * Completed 7 days of IV ceftriaxone and azithromycin 08/29 * O2 sats are consistent with his baseline. Currently maintaining adequate O2 sats on 2 L per nasal cannula * Scheduled nebulized breathing treatments * Continue maintenance inhalers. * Cornet valve to mobilize secretions (4) Anemia: Qualifiers: Anemia type: unspecified type Qualified Code(s): D64.9 - Anemia, unspecified Code(s): D64.9 - Anemia, unspecified Status: Acute Assessment and Plan: Recent onset of microcytosis * He is on anticoagulation which would increase his risk for blood loss * 08/23 Anemia parameters consistent with iron deficiency. Continue PO ferrous sulfate * 08/24 GI consulted and recommended colonoscopy and EGD given his prior complaints of epigastric pain and hx of NSAID use. Deferred due to respiratory disease. Now patient clinically improving and pulmonology feels patient would be stable to proceed with procedure. Will contact GI. Continue protonix. Avoid NSAIDs. * Monitor H&H-remaining stable (5) Type II diabetes mellitus: Qualifiers: Diabetes mellitus fpc insulin use: without director long term care use Diabetes mellitus complication status: with other specified complication Qualified Code(s): E11.69 - Type 2 diabetes mellitus with other specified complication Code(s): E11.9 - Type 2 diabetes mellitus without complications Status: Acute Assessment and Plan: Blood sugars stable today. Last A1c 5.6 in June. Fasting glucose 98 today * continue Accu-Cheks, sliding scale, hypoglycemic protocol * continue metformin * basal glargine 24 U * monitor glucose trends and adjust medication regimen as needed (6) Ob
--- NOTE | 2021-09-01 17:28 | PM.IMPN ---
Progress Note: A&P Assessment and Plan (1) CHF exacerbation: Qualifiers: Heart failure type: systolic Qualified Code(s): I50.23 - Acute on chronic systolic (congestive) heart failure Code(s): I50.9 - Heart failure, unspecified Status: Acute Assessment and Plan: CXR showed findings consistent with CHF exacerbation. Repeat CXR 08/27 showed findings consistent with persistent CHF exacerbation Started on IV Lasix which has been discontinued given volume depletion. Echo 08/29/21 showed normal EF 60-65% with abnormal diastolic function. Monitor strict intake and output and daily weights (2) Leg weakness: Qualifiers: Laterality: bilateral Qualified Code(s): R29.898 - Other symptoms and signs involving the musculoskeletal system Code(s): R29.898 - Other symptoms and signs involving the musculoskeletal system Status: Acute Assessment and Plan: Suspect a combination of anemia, vascular insufficiency, diabetic neuropathy, neurogenic claudication due to spinal stenosis Ankle-brachial index for peripheral arterial disease 08/23 normal Venous Doppler for possible hematoma left thigh 08/[address] lumbar spine showed L4-L5 moderate to severe central canal stenosis. unable to obtain follow-up MRI due to pacemaker. No signs/symptoms to suggest cord compression. Neurovascularly intact. B12 and folate within normal limits. RPR nonreactive. outpatient nerve conduction study and neurology vs neurosurgery follow up (3) COPD exacerbation: Code(s): J44.1 - Chronic obstructive pulmonary disease with (acute) exacerbation Status: Acute Assessment and Plan: Diffuse wheezes on exam. He does have chronic respiratory failure and is on 2-4L supplemental O2 appreciate pulmonology consultation Completed 7 days of p.o. prednisone. Discontinued 08/31 Completed 7 days of IV ceftriaxone and azithromycin 08/29 O2 sats are consistent with his baseline. Currently maintaining adequate O2 sats on 2 L per nasal cannula Scheduled nebulized breathing treatments Continue maintenance inhalers. Cornet valve to mobilize secretions (4) Anemia: Qualifiers: Anemia type: unspecified type Qualified Code(s): D64.9 - Anemia, unspecified Code(s): D64.9 - Anemia, unspecified Status: Acute Assessment and Plan: Recent onset of microcytosis He is on anticoagulation which would increase his risk for blood loss 08/23 Anemia parameters consistent with iron deficiency. Continue PO ferrous sulfate 08/24 GI consulted and recommended colonoscopy and EGD given his prior complaints of epigastric pain and hx of NSAID use. Deferred due to respiratory disease. Now patient clinically improving and pulmonology feels patient would be stable to proceed with procedure. Will contact GI. Continue protonix. Avoid NSAIDs. Monitor H&H-remaining stable (5) Type II diabetes mellitus: Qualifiers: Diabetes mellitus fpc insulin use: without termite control representative use Diabetes mellitus complication status: with other specified complication Qualified Code(s): E11.69 - Type 2 diabetes mellitus with other specified complication Code(s): E11.9 - Type 2 diabetes mellitus without complications Status: Acute Assessment and Plan: Blood sugars stable today. Last A1c 5.6 in June. Fasting glucose 98 today continue Accu-Cheks, sliding scale, hypoglycemic protocol continue metformin basal glargine 24 U monitor glucose trends and adjust medication regimen as needed (6) Obstructive sleep apnea: Code(s): G47.33 - Obstructive sleep apnea (adult) (pediatric) Status: Acute Assessment and Plan: As he does not have his home trilogy with him, BiPAP is substituted pulmonology following and consultation is appreciated (7) Persistent atrial fibrillation: Code(s): I48.19 - Other persistent atrial fibrillation Status:
[2021-09-01] MEDS: SODIUM CHLORIDE 500 MG TABLET PO (18:58)
[2021-09-01] MEDS: RIVAROXABAN 20 MG TABLET PO (18:58)
[2021-09-01] MEDS: INSULIN GLARGINE (*BKC) 100 UNITS/ML 24 UNITS SUB-Q (21:03)
[2021-09-01 21:37] LABS: Glucose Point of Care 95 mg/dl (65-105)
[2021-09-02] VITALS (23 sets, daily range): BP systolic 114–139; BP diastolic 59–73; PULSE 74–88; RESP 18–27; TEMP 36.1–36.6; O2SAT 95–100
[2021-09-02] MEDS: ALBUTEROL SULFATE NEB 2.5 MG/0.5 ML INH INHALATION ×5 (03:54→20:11)
[2021-09-02] MEDS: IPRATROPIUM BR 0.02% INH SOLN 0.5 MG/2.5 ML VIAL INHALATION ×5 (03:54→20:11)
[2021-09-02] MEDS: LEVOTHYROXINE SODIUM 50 MCG TABLET PO (05:47)
[2021-09-02] MEDS: HYDROcodone/acetaminophen (*CRX) 5-325 MG TABLET 1 TAB PO ×2 (05:49→10:05)
[2021-09-02 06:18] LABS: Hematocrit 31.4 % (42.0-52.0); Mean Corpuscular HGB Conc 28.7 g/dl (32-36); Mean Corpuscular Hemoglobin 21.7 pg (26-34); Mean Corpuscular Volume 75.8 fl (80-100); Mean Platelet Volume 9.6 fl (7.4-10.4); Platelet Count Result 166 k/mm3 (150-375); Red Blood Count 4.14 M/mm3 (4.6-6.20); Red Cell Distribution Width 24.9 % (11.5-14.5); White Blood Count 12.7 K/mm3 (4.5-10.0)
[2021-09-02 06:43] LABS: Anion Gap 6 mmol/L (8-16); Blood Urea Nitrogen 14 mg/dL (9-20); Calcium 9.1 mg/dL (8.4-10.2); Carbon Dioxide 30 mmol/L (22-30); Chloride 87 mmol/L (98-107); Estimated CRCL calculation 125 ml/min; Estimated Glomerular Filt Rate > 60; Glucose 90 mg/dL (65-110); Potassium 4.4 mmol/L (3.4-5.0); Sodium 123 mmol/L (137-145)
[2021-09-02 07:40] LABS: Glucose Point of Care 90 mg/dl (65-105)
[2021-09-02] MEDS: AMIODARONE HCL 200 MG TABLET PO ×2 (08:22→16:25)
[2021-09-02] MEDS: metFORMIN HCL 500 MG TABLET PO ×2 (08:23→16:24)
[2021-09-02] MEDS: FERROUS SULFATE 324 MG TABLET PO (08:25)
[2021-09-02] MEDS: ASPIRIN 81 MG ENTERIC TABLET PO (09:57)
[2021-09-02] MEDS: SPIRONOLACTONE 25 MG TABLET PO (09:57)
[2021-09-02] MEDS: PANTOPRAZOLE 40 MG TABLET PO ×2 (09:57→16:25)
[2021-09-02] MEDS: DOCUSATE SODIUM 100 MG CAPSULE PO ×2 (09:57→20:06)
[2021-09-02] MEDS: SERTRALINE HCL 50 MG TABLET PO (09:57)
[2021-09-02] MEDS: TAMSULOSIN HCL 0.4 MG CAPSULE PO (09:58)
[2021-09-02] MEDS: CYANOCOBALAMIN 500 MCG TABLET PO (09:58)
[2021-09-02] MEDS: dilTIAZem HCL 30 MG TABLET PO ×3 (09:58→16:25)
[2021-09-02] MEDS: ROFLUMILAST 500 MCG TABLET PO (09:59)
[2021-09-02] MEDS: SODIUM CHLORIDE 500 MG TABLET PO ×2 (09:59→16:25)
[2021-09-02] MEDS: CHOLECALCIFEROL 1,000 UNITS TABLET 2000 UNITS PO (09:59)
[2021-09-02] MEDS: SILDENAFIL CITRATE 20 MG TABLET PO ×2 (09:59→20:06)
[2021-09-02] MEDS: FOLIC ACID 1 MG TABLET PO (09:59)
[2021-09-02] MEDS: FLUTICASONE PROPIONATE 0.05% NA SPR 16 GM BTL (*BKC) 1 SPRAY NASAL ×2 (10:00→20:06)
[2021-09-02] MEDS: LIDOCAINE 5% PATCH 1 PATCH TRANSDERM (10:06)
--- NOTE | 2021-09-02 10:26 | P.CONNP_ITS ---
Assessment and Plan Assessment and plan (1) Hyponatremia: Code(s): E87.1 - Hypo-osmolality and hyponatremia Status: Acute Assessment and Plan: * normal sodium on admission (137) * however, on further review of previous sodiums, he has been as low as 134 * progressive decline in sodium levels noted on 08/24/21 * this appears correlates with IV diuresis for his CHF * check urine electrolytes, SPEP, UPEP, cortisol, and TSH * risk factors for low sodium: * COPD/lung disease * SSRI use (sertraline) * steroid use * liver cirrhosis * off diuretics and started on salt tabs * follow trend of repeat sodiums (2) CHF exacerbation: Qualifiers: Heart failure type: systolic Qualified Code(s): I50.23 - Acute on chronic systolic (congestive) heart failure Code(s): I50.9 - Heart failure, unspecified Status: Acute Assessment and Plan: * better compensated at this time * diuretics on hold given #1 * follow respiratory/volume status (3) COPD exacerbation: Code(s): J44.1 - Chronic obstructive pulmonary disease with (acute) exacerbation Status: Acute Assessment and Plan: * doing somewhat better at this time * continue inhalers, steroids, and supplemental oxygen * Pulmonary following (4) Anemia: Qualifiers: Anemia type: unspecified type Qualified Code(s): D64.9 - Anemia, unspecified Code(s): D64.9 - Anemia, unspecified Status: Acute Assessment and Plan: * GI evaluation underway * follow H/H (5) Essential (primary) hypertension: Code(s): I10 - Essential (primary) hypertension Status: Acute Assessment and Plan: * reasonable control * follow trend of hemodynamics (6) Type II diabetes mellitus: Qualifiers: Diabetes mellitus assisted insulin use: without termite exterminator use Diabetes mellitus complication status: with other specified complication Qualified Code(s): E11.69 - Type 2 diabetes mellitus with other specified complication Code(s): E11.9 - Type 2 diabetes mellitus without complications Status: Acute Assessment and Plan: * follow accuchecks * glycemic control Will continue to follow. History of Present Illness Reason for Consult Consult date: 09/02/21 Reason for consult: hyponatremia Chief Complaint Chief complaint: chf,copd,pneumonia History of Present Illness Narrative: The patient is a 66-year-old male with a past medical history as outlined below who presented to [facility] Emergency room via EMS for multiple complaints including shortness of breath, fatigue, and generalized weakness. He states the above symptoms had been going on for last several days but seemed to be getting worse on the day prior to admission. The patient has been in a the hospital in the last several months with his most recent 1 being at [facility] for COPD and pneumonia. He did not feel that [facility] appropriately addressed his complaints/medical issues and did not want to go back there when his symptoms recurred. Along with his shortness of breath and fatigue, he has noticed increased bilateral lower extremity swelling that makes it difficult to ambulate. As is difficult for him to ambulate he uses his urinal whenever he has to use the restroom. For all these reasons, he presented to the hospital emergency room for further evaluation. Workup and evaluation emergency room demonstrated the patient requiring 4 L of supplemental oxygen to maintain his saturations at 96%. Despite this, h
--- NOTE | 2021-09-02 10:26 | PM.CNNEP ---
Assessment and Plan Assessment and plan (1) Hyponatremia: Code(s): E87.1 - Hypo-osmolality and hyponatremia Status: Acute Assessment and Plan: normal sodium on admission (137) however, on further review of previous sodiums, he has been as low as 134 progressive decline in sodium levels noted on 08/24/21 this appears correlates with IV diuresis for his CHF check urine electrolytes, SPEP, UPEP, cortisol, and TSH risk factors for low sodium: COPD/lung disease SSRI use (sertraline) steroid use liver cirrhosis off diuretics and started on salt tabs follow trend of repeat sodiums (2) CHF exacerbation: Qualifiers: Heart failure type: systolic Qualified Code(s): I50.23 - Acute on chronic systolic (congestive) heart failure Code(s): I50.9 - Heart failure, unspecified Status: Acute Assessment and Plan: better compensated at this time diuretics on hold given #1 follow respiratory/volume status (3) COPD exacerbation: Code(s): J44.1 - Chronic obstructive pulmonary disease with (acute) exacerbation Status: Acute Assessment and Plan: doing somewhat better at this time continue inhalers, steroids, and supplemental oxygen Pulmonary following (4) Anemia: Qualifiers: Anemia type: unspecified type Qualified Code(s): D64.9 - Anemia, unspecified Code(s): D64.9 - Anemia, unspecified Status: Acute Assessment and Plan: GI evaluation underway follow H/H (5) Essential (primary) hypertension: Code(s): I10 - Essential (primary) hypertension Status: Acute Assessment and Plan: reasonable control follow trend of hemodynamics (6) Type II diabetes mellitus: Qualifiers: Diabetes mellitus chcf insulin use: without buttermaker continuous churn use Diabetes mellitus complication status: with other specified complication Qualified Code(s): E11.69 - Type 2 diabetes mellitus with other specified complication Code(s): E11.9 - Type 2 diabetes mellitus without complications Status: Acute Assessment and Plan: follow accuchecks glycemic control Will continue to follow. History of Present Illness Reason for Consult Consult date: 09/02/21 Reason for consult: hyponatremia Chief Complaint Chief complaint: chf,copd,pneumonia History of Present Illness Narrative: The patient is a 66-year-old male with a past medical history as outlined below who [facility] for multiple complaints including shortness of breath, fatigue, and generalized weakness. He states the above symptoms had been going on for last several days but seemed to be getting worse on the day prior to admission. The patient has been in a the hospital in the last several months with his most recent 1 being at [facility] for COPD and pneumonia. He did not feel that [facility] appropriately addressed his complaints/medical issues and did not want to go back there when his symptoms recurred. Along with his shortness of breath and fatigue, he has noticed increased bilateral lower extremity swelling that makes it difficult to ambulate. As is difficult for him to ambulate he uses his urinal whenever he has to use the restroom. For all these reasons, he presented to the hospital emergency room for further evaluation. Workup and evaluation emergency room demonstrated the patient requiring 4 L of supplemental oxygen to maintain his saturations at 96%. Despite this, he still felt short of breath and gave the complaint that he could not breathe. His shortness of breath is present both at rest as well as at exertion although seems much more significant with exertional activities. He reports a 25 lb weight loss over the last week or so as well as having some issues and problems with diarrhea for the last several days as well. Workup and evaluation demonstrated the patient be hemo
[2021-09-02] MEDS: LORazepam (*CRX) 1 MG TABLET PO (11:15)
[2021-09-02 11:50] LABS: Glucose Point of Care 114 mg/dl (65-105)
[2021-09-02 13:09] LABS: Creatinine Urine 120.4 mg/dL; Total Protein Urine Random 12 mg/dL
[2021-09-02 13:14] LABS: Sodium Urine Random 35 meq/L
--- NOTE | 2021-09-02 14:09 | PC.NURSE ---
On 09/02/21, the student, Doris Cobos, provided care and completed [facility] documentation on this patient. I have reviewed the student's documentation and agree with the findings.
[2021-09-02 14:57] LABS: Sodium 122 mmol/L (137-145)
--- NOTE | 2021-09-02 15:26 | P.PNIM_ITS ---
Progress Note: A&P Assessment and Plan (1) CHF exacerbation: Qualifiers: Heart failure type: systolic Qualified Code(s): I50.23 - Acute on chronic systolic (congestive) heart failure Code(s): I50.9 - Heart failure, unspecified Status: Acute Assessment and Plan: CXR showed findings consistent with CHF exacerbation. * Repeat CXR 08/27 showed findings consistent with persistent CHF exacerbation * Started on IV Lasix which has been discontinued given volume depletion. * Echo 08/29/21 showed normal EF 60-65% with abnormal diastolic function. * Monitor strict intake and output and daily weights (2) Leg weakness: Qualifiers: Laterality: bilateral Qualified Code(s): R29.898 - Other symptoms and signs involving the musculoskeletal system Code(s): R29.898 - Other symptoms and signs involving the musculoskeletal system Status: Acute Assessment and Plan: Suspect a combination of anemia, vascular insufficiency, diabetic neuropathy, neurogenic claudication due to spinal stenosis * Ankle-brachial index for peripheral arterial disease 08/23 normal * Venous Doppler for possible hematoma left thigh 08/24 NEGATIVE * CT lumbar spine showed L4-L5 moderate to severe central canal stenosis. unable to obtain follow-up MRI due to pacemaker. No signs/symptoms to suggest cord compression. Neurovascularly intact. * B12 and folate within normal limits. RPR nonreactive. * outpatient nerve conduction study and neurology vs neurosurgery follow up (3) COPD exacerbation: Code(s): J44.1 - Chronic obstructive pulmonary disease with (acute) exacerbation Status: Acute Assessment and Plan: He does have chronic respiratory failure and is on 2-4L supplemental O2 * appreciate pulmonology consultation * Completed 7 days of p.o. prednisone. Discontinued 08/31 * Completed 7 days of IV ceftriaxone and azithromycin 08/29 * O2 sats are consistent with his baseline. Currently maintaining adequate O2 sats on 2 L per nasal cannula * Scheduled nebulized breathing treatments * Continue maintenance inhalers. * Cornet valve to mobilize secretions (4) Anemia: Qualifiers: Anemia type: unspecified type Qualified Code(s): D64.9 - Anemia, unspecified Code(s): D64.9 - Anemia, unspecified Status: Acute Assessment and Plan: Recent onset of microcytosis * He is on anticoagulation which would increase his risk for blood loss * 08/23 Anemia parameters consistent with iron deficiency. Continue PO ferrous sulfate * 08/24 GI consulted and recommended colonoscopy and EGD given his prior complaints of epigastric pain and hx of NSAID use. Deferred due to respiratory disease. Now patient clinically improving and pulmonology feels patient would be stable to proceed with procedure. Continue protonix. Avoid NSAIDs. * Monitor H&H-remaining stable * Spoke w/ GI Dr. Grier who requests we stop his Xaralto to plan on EGD and colonoscopy on 09/04 (5) Type II diabetes mellitus: Qualifiers: Diabetes mellitus laser beam machine operator insulin use: without laser beam machine operator use Diabetes mellitus complication status: with other specified complication Qualified Code(s): E11.69 - Type 2 diabetes mellitus with other specified complication Code(s): E11.9 - Type 2 diabetes mellitus without complications Status: Acute Assessment and Plan: Blood sugars stable today. Last A1c 5.6 in June. Fasting glucose 90 today * continue Accu-Cheks, sliding scale, hypoglycemic protocol * continue metformin * basal glargine 24 U * monitor glucose trends and ad
--- NOTE | 2021-09-02 15:26 | PM.IMPN ---
Progress Note: A&P Assessment and Plan (1) CHF exacerbation: Qualifiers: Heart failure type: systolic Qualified Code(s): I50.23 - Acute on chronic systolic (congestive) heart failure Code(s): I50.9 - Heart failure, unspecified Status: Acute Assessment and Plan: CXR showed findings consistent with CHF exacerbation. Repeat CXR 08/27 showed findings consistent with persistent CHF exacerbation Started on IV Lasix which has been discontinued given volume depletion. Echo 08/29/21 showed normal EF 60-65% with abnormal diastolic function. Monitor strict intake and output and daily weights (2) Leg weakness: Qualifiers: Laterality: bilateral Qualified Code(s): R29.898 - Other symptoms and signs involving the musculoskeletal system Code(s): R29.898 - Other symptoms and signs involving the musculoskeletal system Status: Acute Assessment and Plan: Suspect a combination of anemia, vascular insufficiency, diabetic neuropathy, neurogenic claudication due to spinal stenosis Ankle-brachial index for peripheral arterial disease 08/23 normal Venous Doppler for possible hematoma left thigh 08/[address] lumbar spine showed L4-L5 moderate to severe central canal stenosis. unable to obtain follow-up MRI due to pacemaker. No signs/symptoms to suggest cord compression. Neurovascularly intact. B12 and folate within normal limits. RPR nonreactive. outpatient nerve conduction study and neurology vs neurosurgery follow up (3) COPD exacerbation: Code(s): J44.1 - Chronic obstructive pulmonary disease with (acute) exacerbation Status: Acute Assessment and Plan: He does have chronic respiratory failure and is on 2-4L supplemental O2 appreciate pulmonology consultation Completed 7 days of p.o. prednisone. Discontinued 08/31 Completed 7 days of IV ceftriaxone and azithromycin 08/29 O2 sats are consistent with his baseline. Currently maintaining adequate O2 sats on 2 L per nasal cannula Scheduled nebulized breathing treatments Continue maintenance inhalers. Cornet valve to mobilize secretions (4) Anemia: Qualifiers: Anemia type: unspecified type Qualified Code(s): D64.9 - Anemia, unspecified Code(s): D64.9 - Anemia, unspecified Status: Acute Assessment and Plan: Recent onset of microcytosis He is on anticoagulation which would increase his risk for blood loss 08/23 Anemia parameters consistent with iron deficiency. Continue PO ferrous sulfate 08/24 GI consulted and recommended colonoscopy and EGD given his prior complaints of epigastric pain and hx of NSAID use. Deferred due to respiratory disease. Now patient clinically improving and pulmonology feels patient would be stable to proceed with procedure. Continue protonix. Avoid NSAIDs. Monitor H&H-remaining stable Spoke w/ GI Dr. Grier who requests we stop his Xaralto to plan on EGD and colonoscopy on 09/04 (5) Type II diabetes mellitus: Qualifiers: Diabetes mellitus ferry terminal agent insulin use: without ferry terminal agent use Diabetes mellitus complication status: with other specified complication Qualified Code(s): E11.69 - Type 2 diabetes mellitus with other specified complication Code(s): E11.9 - Type 2 diabetes mellitus without complications Status: Acute Assessment and Plan: Blood sugars stable today. Last A1c 5.6 in June. Fasting glucose 90 today continue Accu-Cheks, sliding scale, hypoglycemic protocol continue metformin basal glargine 24 U monitor glucose trends and adjust medication regimen as needed (6) Obstructive sleep apnea: Code(s): G47.33 - Obstructive sleep apnea (adult) (pediatric) Status: Acute Assessment and Plan: As he does not have his home trilogy with him, BiPAP is substituted pulmonology following and consultation is appreciated (7) Persistent atrial fibrillation: Code(s): I48.19
--- NOTE | 2021-09-02 15:59 | WPDGIPROGNO ---
Progress Note: A&P Assessment and Plan (1) Anemia: Qualifiers: Anemia type: unspecified type Qualified Code(s): D64.9 - Anemia, unspecified Code(s): D64.9 - Anemia, unspecified Status: Acute Assessment and Plan: His hemoglobin as I mentioned has been gradually dropping over the last couple of years. Serum iron is low at 26, with 6% saturation. In view of his COPD, his hemoglobin is remarkably low (2) COPD exacerbation: Code(s): J44.1 - Chronic obstructive pulmonary disease with (acute) exacerbation Status: Acute Assessment and Plan: he is followed by Pulmonary and had been started on steroids, as well as ceftriaxone and azathioprine. He is also on inhalers. He states he is adjusting better to his CPAP (3) Persistent atrial fibrillation: Code(s): I48.19 - Other persistent atrial fibrillation Status: Acute Assessment and Plan: As noted above, he attempted cardioversion was unsuccessful he now has a pacemaker. While I was in the room with him he coughed and stated that he had pain at the site of his pacemaker but this is not something he usually experiences (4) Epigastric pain: Code(s): R10.13 - Epigastric pain Status: Acute Assessment and Plan: he was tender on exam in this area. He does take ibuprofen , raising suspicion of possible peptic ulcer disease (5) Personal history of colonic polyps: Code(s): Z86.010 - Personal history of colonic polyps Status: Acute Assessment and Plan: as he noted he is overdue for colonoscopy having had 2 polyps removed about 7, almost 8 years ago. We would need to hold his Xarelto for 36 hours and of course would need clearance from Pulmonary to proceed with endoscopy and sedation. I spoke with Letty today she states that respiratory feels now he can handle it, therefore I will schedule him for morning with the prep to be given tomorrow. Xarelto has been held. Subjective Date/time seen: 09/02/21 15:59 He Was admitted here 9 days ago with increasing shortness of breath. He has past history of congestive heart failure, chronic lung disease for which she uses home O2 and trilogy. He states he has been more more short of breath over the past week. A COVID test was negative. He apparently spends much time lying down or sitting at home. He in fact cannot sleep flat. He recently was hospitalized a [facility] due to pneumonia and a COPD exacerbation. He has been found to be anemic. His hemoglobin a year so ago was over 13. It was then down to 10.3 about 13 months ago and now down to 8.5. He states that he occasionally sees red blood in his stool which he attributes to hemorrhoids. On a couple of occasions he had been constipated and passed black stools. He did not see any red blood when it hit the water. He does take ibuprofen but also is on omeprazole. Because of atrial fibrillation he is on Xarelto chronically. He states that he was tried on Coumadin initially but they could not regulated. He had attempted cardioversion multiple times ultimately resulting in placement of a pacemaker. He had polyps removed about 7 years ago and is overdue for colonoscopy. Because of his respiratory distress, pulmonary felt he was not in satisfactory shape to undergo sedation for procedures last week. Now they feel that he can tolerate propofol and endoscopy. He also states he feels he is breathing better although I notice he still sits up when he talks to me. Review of Systems Review of Systems: All systems reviewed & are unremarkable except as noted in HPI and below Exam Const: General: alert Orientation/consciousness: patient oriented x3 Resp: Effort & Inspection: able to speak in complete sentences ( But only short sentences) Cardio: Rhythm: abnormal rhythm irregularly irregular GI: Inspection: normal to inspection GI Palp: Yes Soft to palpation
[2021-09-02 16:19] LABS: Glucose Point of Care 109 mg/dl (65-105)
--- NOTE | 2021-09-02 16:24 | PCSTNOTE ---
The patient's Speech Therapy evaluation will be completed in the morning.
[2021-09-02] MEDS: INSULIN GLARGINE (*BKC) 100 UNITS/ML 24 UNITS SUB-Q (20:11)
[2021-09-02 21:17] LABS: Glucose Point of Care 124 mg/dl (65-105)
[2021-09-03] VITALS (20 sets, daily range): BP systolic 116–156; BP diastolic 62–78; PULSE 72–106; RESP 18–25; TEMP 35.8–36.4; O2SAT 96–100
[2021-09-03] MEDS: ALBUTEROL SULFATE NEB 2.5 MG/0.5 ML INH INHALATION ×5 (05:51→20:39)
[2021-09-03] MEDS: IPRATROPIUM BR 0.02% INH SOLN 0.5 MG/2.5 ML VIAL INHALATION ×7 (05:51→20:39)
[2021-09-03] MEDS: LEVOTHYROXINE SODIUM 50 MCG TABLET PO (05:53)
[2021-09-03 06:32] LABS: Basophils Absolute Auto 0.2 K/mm3 (0.0-0.1); Basophils Percent Auto 1.5 % (0.2-1.2); Eosinophils Percent Auto 0.2 % (0-4.4); Hematocrit 31.1 % (42.0-52.0); Hemoglobin 8.9 g/dL (14.0-18.0); Immature Granulocyte Absolute 0.15 K/mm3 (0.00-0.031); Immature Granulocyte Percent A 1.1 % (0-0.5); Lymphocytes Absolute Auto 1.24 K/mm3 (0.9-3.2); Lymphocytes Percent Auto 9.5 % (18.3-44.2); Mean Corpuscular HGB Conc 28.6 g/dl (32-36); Mean Corpuscular Hemoglobin 21.8 pg (26-34); Mean Platelet Volume 9.9 fl (7.4-10.4); Monocytes Absolute Auto 1.2 K/mm3 (0.1-0.6); Monocytes Percent Auto 8.9 % (2.6-8.5); Neutrophils Absolute Auto 10.3 K/mm3 (1.3-6.7); Neutrophils Percent Auto 78.8 % (45.5-73.1); Platelet Count Result 171 k/mm3 (150-375); Red Blood Count 4.09 M/mm3 (4.6-6.20); Red Cell Distribution Width 25.1 % (11.5-14.5); White Blood Count 13.1 K/mm3 (4.5-10.0)
[2021-09-03 06:50] LABS: Alanine Aminotransferase 49 U/L (4-50); Albumin Level 3.6 g/dL (3.5-5.1); Alkaline Phosphatase 147 U/L (38-126); Anion Gap 6 mmol/L (8-16); Aspartate Amino Transferase 60 U/L (17-59); Bilirubin,Total 0.4 mg/dL (0.2-1.3); Blood Urea Nitrogen 13 mg/dL (9-20); Carbon Dioxide 32 mmol/L (22-30); Chloride 87 mmol/L (98-107); Estimated CRCL calculation 128 ml/min; Estimated Glomerular Filt Rate > 60; Glucose 91 mg/dL (65-110); Potassium 4.4 mmol/L (3.4-5.0); Sodium 125 mmol/L (137-145)
[2021-09-03 07:42] LABS: Glucose Point of Care 91 mg/dl (65-105)
[2021-09-03 07:47] LABS: Platelet Estimate Adequate (Adequate)
[2021-09-03 07:48] LABS: Anisocytosis 1+ (NORMAL); Hypochromasia 1+ (NORMAL); Ovalocytes 1+ (NORMAL)
--- NOTE | 2021-09-03 08:51 | PHAR ---
Notified nurse that Kelsey is expiring tomorrow AM. RN to contact provider for renewal
[2021-09-03] MEDS: FLUTICASONE PROPIONATE 0.05% NA SPR 16 GM BTL (*BKC) 1 SPRAY NASAL ×2 (09:48→20:42)
[2021-09-03] MEDS: AMIODARONE HCL 200 MG TABLET PO ×2 (09:49→17:08)
[2021-09-03] MEDS: PANTOPRAZOLE 40 MG TABLET PO ×2 (09:50→17:08)
[2021-09-03] MEDS: TAMSULOSIN HCL 0.4 MG CAPSULE PO (09:50)
[2021-09-03] MEDS: CHOLECALCIFEROL 1,000 UNITS TABLET 2000 UNITS PO (09:50)
[2021-09-03] MEDS: CYANOCOBALAMIN 500 MCG TABLET PO (09:50)
[2021-09-03] MEDS: metFORMIN HCL 500 MG TABLET PO ×2 (09:50→17:08)
[2021-09-03] MEDS: SPIRONOLACTONE 25 MG TABLET PO (09:50)
[2021-09-03] MEDS: SERTRALINE HCL 50 MG TABLET PO (09:50)
[2021-09-03] MEDS: DOCUSATE SODIUM 100 MG CAPSULE PO ×2 (09:50→20:42)
[2021-09-03] MEDS: ASPIRIN 81 MG ENTERIC TABLET PO (09:50)
[2021-09-03] MEDS: SILDENAFIL CITRATE 20 MG TABLET PO ×2 (09:50→20:43)
[2021-09-03] MEDS: ROFLUMILAST 500 MCG TABLET PO (09:51)
[2021-09-03] MEDS: dilTIAZem HCL 30 MG TABLET PO ×3 (09:51→17:08)
[2021-09-03] MEDS: FOLIC ACID 1 MG TABLET PO (09:51)
[2021-09-03] MEDS: SODIUM CHLORIDE 1 GM TABLET PO ×2 (09:52→17:11)
--- NOTE | 2021-09-03 10:15 | PCSTNOTE ---
Please refer to the Bedside Swallow Evaluation in the EMR. Please note, silent aspiration cannot be ruled out at bedside.
[2021-09-03] MEDS: HYDROcodone/acetaminophen (*CRX) 5-325 MG TABLET 1 TAB PO ×2 (10:45→17:10)
[2021-09-03 11:19] LABS: Free T4 Free Thyroxine Reflex 1.55 ng/dL (0.78-2.19)
[2021-09-03 11:44] LABS: Glucose Point of Care 83 mg/dl (65-105)
[2021-09-03 12:08] LABS: Total Triiodothyronine (T3) 1.16 NG/ML (0.97-1.69)
[2021-09-03] MEDS: BISACODYL 5 MG TABLET EC 10 MG PO ×3 (12:45→20:44)
--- NOTE | 2021-09-03 13:57 | P.PNIM_ITS ---
Progress Note: A&P Assessment and Plan (1) CHF exacerbation: Qualifiers: Heart failure type: systolic Qualified Code(s): I50.23 - Acute on chronic systolic (congestive) heart failure Code(s): I50.9 - Heart failure, unspecified Status: Acute Assessment and Plan: CXR showed findings consistent with CHF exacerbation. * Repeat CXR 08/27 showed findings consistent with persistent CHF exacerbation * Started on IV Lasix which has been discontinued given volume depletion. * Echo 08/29/21 showed normal EF 60-65% with abnormal diastolic function. * Monitor strict intake and output and daily weights (2) Leg weakness: Qualifiers: Laterality: bilateral Qualified Code(s): R29.898 - Other symptoms and signs involving the musculoskeletal system Code(s): R29.898 - Other symptoms and signs involving the musculoskeletal system Status: Acute Assessment and Plan: Suspect a combination of anemia, vascular insufficiency, diabetic neuropathy, neurogenic claudication due to spinal stenosis * Ankle-brachial index for peripheral arterial disease 08/23 normal * Venous Doppler for possible hematoma left thigh 08/24 NEGATIVE * CT lumbar spine showed L4-L5 moderate to severe central canal stenosis. unable to obtain follow-up MRI due to pacemaker. No signs/symptoms to suggest cord compression. Neurovascularly intact. * B12 and folate within normal limits. RPR nonreactive. * outpatient nerve conduction study and neurology vs neurosurgery follow up (3) COPD exacerbation: Code(s): J44.1 - Chronic obstructive pulmonary disease with (acute) exacerbation Status: Acute Assessment and Plan: He does have chronic respiratory failure and is on 2-4L supplemental O2 * appreciate pulmonology consultation * Completed 7 days of p.o. prednisone. Discontinued 08/31 * Completed 7 days of IV ceftriaxone and azithromycin 08/29 * O2 sats are consistent with his baseline. Currently maintaining adequate O2 sats on 2 L per nasal cannula * Scheduled nebulized breathing treatments * Continue maintenance inhalers. * Cornet valve to mobilize secretions (4) Anemia: Qualifiers: Anemia type: unspecified type Qualified Code(s): D64.9 - Anemia, unspecified Code(s): D64.9 - Anemia, unspecified Status: Acute Assessment and Plan: Recent onset of microcytosis * He is on anticoagulation which would increase his risk for blood loss * 08/23 Anemia parameters consistent with iron deficiency. Continue PO ferrous sulfate * 08/24 GI consulted and recommended colonoscopy and EGD given his prior complaints of epigastric pain and hx of NSAID use. Deferred due to respiratory disease. Now patient clinically improved and pulmonology feels patient would be stable to proceed with procedure. * Continue protonix. Avoid NSAIDs. * Monitor H&H-remaining stable * Planning for EGD and colonoscopy tomorrow. Fiorella held 09/02 (5) Type II diabetes mellitus: Qualifiers: Diabetes mellitus intermodal customer service insulin use: without intermodal customer service use Diabetes mellitus complication status: with other specified complication Qualified Code(s): E11.69 - Type 2 diabetes mellitus with other specified complication Code(s): E11.9 - Type 2 diabetes mellitus without complications Status: Acute Assessment and Plan: Blood sugars stable today. Last A1c 5.6 in June. Fasting glucose 91 today * continue Accu-Cheks, sliding scale, hypoglycemic protocol * continue metformin * basal glargine 24 U * monitor glucose trends and adjust medication regimen as need
--- NOTE | 2021-09-03 13:57 | PM.IMPN ---
Progress Note: A&P Assessment and Plan (1) CHF exacerbation: Qualifiers: Heart failure type: systolic Qualified Code(s): I50.23 - Acute on chronic systolic (congestive) heart failure Code(s): I50.9 - Heart failure, unspecified Status: Acute Assessment and Plan: CXR showed findings consistent with CHF exacerbation. Repeat CXR 08/27 showed findings consistent with persistent CHF exacerbation Started on IV Lasix which has been discontinued given volume depletion. Echo 08/29/21 showed normal EF 60-65% with abnormal diastolic function. Monitor strict intake and output and daily weights (2) Leg weakness: Qualifiers: Laterality: bilateral Qualified Code(s): R29.898 - Other symptoms and signs involving the musculoskeletal system Code(s): R29.898 - Other symptoms and signs involving the musculoskeletal system Status: Acute Assessment and Plan: Suspect a combination of anemia, vascular insufficiency, diabetic neuropathy, neurogenic claudication due to spinal stenosis Ankle-brachial index for peripheral arterial disease 08/23 normal Venous Doppler for possible hematoma left thigh 08/[address] lumbar spine showed L4-L5 moderate to severe central canal stenosis. unable to obtain follow-up MRI due to pacemaker. No signs/symptoms to suggest cord compression. Neurovascularly intact. B12 and folate within normal limits. RPR nonreactive. outpatient nerve conduction study and neurology vs neurosurgery follow up (3) COPD exacerbation: Code(s): J44.1 - Chronic obstructive pulmonary disease with (acute) exacerbation Status: Acute Assessment and Plan: He does have chronic respiratory failure and is on 2-4L supplemental O2 appreciate pulmonology consultation Completed 7 days of p.o. prednisone. Discontinued 08/31 Completed 7 days of IV ceftriaxone and azithromycin 08/29 O2 sats are consistent with his baseline. Currently maintaining adequate O2 sats on 2 L per nasal cannula Scheduled nebulized breathing treatments Continue maintenance inhalers. Cornet valve to mobilize secretions (4) Anemia: Qualifiers: Anemia type: unspecified type Qualified Code(s): D64.9 - Anemia, unspecified Code(s): D64.9 - Anemia, unspecified Status: Acute Assessment and Plan: Recent onset of microcytosis He is on anticoagulation which would increase his risk for blood loss 08/23 Anemia parameters consistent with iron deficiency. Continue PO ferrous sulfate 08/24 GI consulted and recommended colonoscopy and EGD given his prior complaints of epigastric pain and hx of NSAID use. Deferred due to respiratory disease. Now patient clinically improved and pulmonology feels patient would be stable to proceed with procedure. Continue protonix. Avoid NSAIDs. Monitor H&H-remaining stable Planning for EGD and colonoscopy tomorrow. Fiorella held 09/02 (5) Type II diabetes mellitus: Qualifiers: Diabetes mellitus long term care social worker insulin use: without long term care social worker use Diabetes mellitus complication status: with other specified complication Qualified Code(s): E11.69 - Type 2 diabetes mellitus with other specified complication Code(s): E11.9 - Type 2 diabetes mellitus without complications Status: Acute Assessment and Plan: Blood sugars stable today. Last A1c 5.6 in June. Fasting glucose 91 today continue Accu-Cheks, sliding scale, hypoglycemic protocol continue metformin basal glargine 24 U monitor glucose trends and adjust medication regimen as needed (6) Obstructive sleep apnea: Code(s): G47.33 - Obstructive sleep apnea (adult) (pediatric) Status: Acute Assessment and Plan: As he does not have his home trilogy with him, BiPAP is substituted pulmonology following and consultation is appreciated (7) Persistent atrial fibrillation: Code(s): I48.19 - Other persistent atrial fib
--- NOTE | 2021-09-03 14:50 | PM.PNNEP ---
Progress Note: A&P Assessment and Plan (1) Hyponatremia: Code(s): E87.1 - Hypo-osmolality and hyponatremia Status: Acute Assessment and Plan: normal sodium on admission (137) however, on further review of previous sodiums, he has been as low as 134 progressive decline in sodium levels noted on 08/24/21 this appears correlates with IV diuresis for his CHF urine electrolytes suggest prerenal azotemia TSH elevated but on supplementation; cortisol okay but on steroids recently serum/urine osmolality and SPEP/UPEP pending risk factors for low sodium: COPD/lung disease SSRI use (sertraline) steroid use liver cirrhosis off diuretics and started on salt tabs started on fluid restriction as well follow trend of repeat sodiums (2) CHF exacerbation: Qualifiers: Heart failure type: systolic Qualified Code(s): I50.23 - Acute on chronic systolic (congestive) heart failure Code(s): I50.9 - Heart failure, unspecified Status: Acute Assessment and Plan: better compensated at this time diuretics on hold given #1 follow respiratory/volume status (3) COPD exacerbation: Code(s): J44.1 - Chronic obstructive pulmonary disease with (acute) exacerbation Status: Acute Assessment and Plan: doing somewhat better at this time continue inhalers, steroids, and supplemental oxygen Pulmonary following (4) Anemia: Qualifiers: Anemia type: unspecified type Qualified Code(s): D64.9 - Anemia, unspecified Code(s): D64.9 - Anemia, unspecified Status: Acute Assessment and Plan: GI evaluation underway follow H/H (5) Essential (primary) hypertension: Code(s): I10 - Essential (primary) hypertension Status: Acute Assessment and Plan: reasonable control follow trend of hemodynamics (6) Type II diabetes mellitus: Qualifiers: Diabetes mellitus terminal block assembler insulin use: without terminal block assembler use Diabetes mellitus complication status: with other specified complication Qualified Code(s): E11.69 - Type 2 diabetes mellitus with other specified complication Code(s): E11.9 - Type 2 diabetes mellitus without complications Status: Acute Assessment and Plan: follow accuchecks glycemic control Will continue to follow. Subjective Date/time seen: 09/03/21 14:50 Major complaint is that of ongoing shortness of breath despite all therapy/interventions to date; reports weakness as well but this seems to be improving some; no other issues to report at this time. Exam Narrative: General: ill appearing male in NAD Heart: normal S1 and S2; no rub Lungs: decreased with few expiratory wheezes Abdomen: soft, nontender, nondistended, positive bowel sounds Extremities: no cyanosis or clubbing; no edema Skin: warm and dry Objective Data Vital Signs Vital Signs: Vital Signs Temp Pulse Resp BP Pulse Ox 09/03/21 13:51 121/62 09/03/21 13:49 116/67 09/03/21 12:41 78 20 09/03/21 12:30 78 20 09/03/21 09:49 80 09/03/21 08:14 74 20 09/03/21 08:10 98 09/03/21 08:07 72 20 09/03/21 08:00 98 09/03/21 05:47 36.2 C L 80 18 156/78 H 100 09/03/21 00:21 83 25 H 96 09/02/21 20:25 88 27 H 95 09/02/21 20:21 77 20 09/02/21 20:15 98 09/02/21 20:11 74 20 09/02/21 20:04 36.6 C 81 24 H 139/73 96 09/02/21 20:00 88 27 H 95 Intake/Output Intake/Output: Intake & Output 08/31/21 09/01/21 09/02/21 09/03/21 23:59 23:59 23:59 23:59 Intake Total 1080 730 938 510 Output Total 1075 1250 1300 550 Balance 5 -520 -362 -40 Meds/Results Medications: Active Medications Generic Name Dose Route Start Last Admin Trade Name Uri PRN Reason Stop Dose Admin Acetaminophen 1,000 mg 08/23/21 17:38 08/25/21 06:27 Acetaminophen 500 Mg Tablet PO 1,000 mg Q6H PRN Administration M
--- NOTE | 2021-09-03 14:50 | P.PNNP_ITS ---
Progress Note: A&P Assessment and Plan (1) Hyponatremia: Code(s): E87.1 - Hypo-osmolality and hyponatremia Status: Acute Assessment and Plan: * normal sodium on admission (137) * however, on further review of previous sodiums, he has been as low as 134 * progressive decline in sodium levels noted on 08/24/21 * this appears correlates with IV diuresis for his CHF * urine electrolytes suggest prerenal azotemia * TSH elevated but on supplementation; cortisol okay but on steroids recently * serum/urine osmolality and SPEP/UPEP pending * risk factors for low sodium: * COPD/lung disease * SSRI use (sertraline) * steroid use * liver cirrhosis * off diuretics and started on salt tabs * started on fluid restriction as well * follow trend of repeat sodiums (2) CHF exacerbation: Qualifiers: Heart failure type: systolic Qualified Code(s): I50.23 - Acute on chronic systolic (congestive) heart failure Code(s): I50.9 - Heart failure, unspecified Status: Acute Assessment and Plan: * better compensated at this time * diuretics on hold given #1 * follow respiratory/volume status (3) COPD exacerbation: Code(s): J44.1 - Chronic obstructive pulmonary disease with (acute) exacerbation Status: Acute Assessment and Plan: * doing somewhat better at this time * continue inhalers, steroids, and supplemental oxygen * Pulmonary following (4) Anemia: Qualifiers: Anemia type: unspecified type Qualified Code(s): D64.9 - Anemia, unspecified Code(s): D64.9 - Anemia, unspecified Status: Acute Assessment and Plan: * GI evaluation underway * follow H/H (5) Essential (primary) hypertension: Code(s): I10 - Essential (primary) hypertension Status: Acute Assessment and Plan: * reasonable control * follow trend of hemodynamics (6) Type II diabetes mellitus: Qualifiers: Diabetes mellitus ferry terminal agent insulin use: without mcfp use Diabetes mellitus complication status: with other specified complication Qualified Code(s): E11.69 - Type 2 diabetes mellitus with other specified complication Code(s): E11.9 - Type 2 diabetes mellitus without complications Status: Acute Assessment and Plan: * follow accuchecks * glycemic control Will continue to follow. Subjective Date/time seen: 09/03/21 14:50 Major complaint is that of ongoing shortness of breath despite all therapy/interventions to date; reports weakness as well but this seems to be improving some; no other issues to report at this time. Exam Narrative: General: ill appearing male in NAD Heart: normal S1 and S2; no rub Lungs: decreased with few expiratory wheezes Abdomen: soft, nontender, nondistended, positive bowel sounds Extremities: no cyanosis or clubbing; no edema Skin: warm and dry Objective Data Vital Signs Vital Signs: Vital Signs Temp Pulse Resp BP Pulse Ox 09/03/21 13:51 121/62 09/03/21 13:49 116/67 09/03/21 12:41 78 20 09/03/21 12:30 78 20 09/03/21 09:49 80 09/03/21 08:14 74 20 09/03/21 08:10 98 09/03/21 08:07 72 20 09/03/21 08:00 98 09/03/21 05:47 36.2 C L 80 18 156/78 H 100 09/03/21 00:21 83 25 H 96 09/02/21 20:25
[2021-09-03] MEDS: PEG (High)/E-LYTE SOLN 4,000 ML BTL 3000 ML PO (15:24)
[2021-09-03 15:56] LABS: Sodium 122 mmol/L (137-145)
[2021-09-03 16:35] LABS: Glucose Point of Care 100 mg/dl (65-105)
[2021-09-03 18:40] LABS: Sodium 123 mmol/L (137-145)
[2021-09-03] MEDS: LORazepam (*CRX) 0.5 MG TABLET PO (18:47)
[2021-09-03 20:50] LABS: Glucose Point of Care 100 mg/dl (65-105)
[2021-09-03 22:13] LABS: Sodium 122 mmol/L (137-145)
[2021-09-04] VITALS (27 sets, daily range): BP systolic 90–129; BP diastolic 53–79; PULSE 80–100; RESP 16–29; TEMP 36.1–37; O2SAT 93–98
[2021-09-04] MEDS: ALBUTEROL SULFATE NEB 2.5 MG/0.5 ML INH INHALATION ×6 (01:16→21:15)
[2021-09-04] MEDS: IPRATROPIUM BR 0.02% INH SOLN 0.5 MG/2.5 ML VIAL INHALATION ×6 (01:16→21:15)
[2021-09-04] MEDS: LEVOTHYROXINE SODIUM 50 MCG TABLET PO (05:40)
[2021-09-04 06:59] LABS: Hematocrit 32.6 % (42.0-52.0); Hemoglobin 9.2 g/dL (14.0-18.0); Mean Corpuscular HGB Conc 28.2 g/dl (32-36); Mean Platelet Volume 9.6 fl (7.4-10.4); Platelet Count Result 148 k/mm3 (150-375); Red Blood Count 4.18 M/mm3 (4.6-6.20); Red Cell Distribution Width 26.3 % (11.5-14.5); White Blood Count 11.6 K/mm3 (4.5-10.0)
[2021-09-04 07:10] LABS: Potassium 3.8 mmol/L (3.4-5.0)
[2021-09-04 07:19] LABS: Anion Gap 8 mmol/L (8-16); Blood Urea Nitrogen 9 mg/dL (9-20); Calcium 8.4 mg/dL (8.4-10.2); Carbon Dioxide 27 mmol/L (22-30); Chloride 87 mmol/L (98-107); Estimated CRCL calculation 149 ml/min; Estimated Glomerular Filt Rate > 60; Glucose 110 mg/dL (65-110); Sodium 122 mmol/L (137-145)
[2021-09-04 07:46] LABS: Glucose Point of Care 110 mg/dl (65-105)
[2021-09-04] MEDS: dilTIAZem HCL 30 MG TABLET PO ×3 (09:44→17:45)
[2021-09-04] MEDS: AMIODARONE HCL 200 MG TABLET PO ×2 (09:44→17:45)
[2021-09-04] MEDS: LACTATED RINGERS 1,000 ML 150 ML IV CONT (10:21)
[2021-09-04 10:29] LABS: Glucose Point of Care 112 mg/dl (65-105)
--- NOTE | 2021-09-04 10:31 | WPDANESEPPF ---
Anes - Initial Pre Proc Eval Procedure: Operation Date: 09/04/21 11:00 Proposed Procedures p Esophagogastroduodenoscopy & Colonoscopy - José Grier MD Date/Time: 09/04/21 10:31 Surgeon: Alfreda Mckeon PA-C Pre Op Diagnosis: chf,copd,pneumonia Patient Data Age: 66 Gender: M Height: 1.83 m Weight: 131.9 kg Last Vital Signs Temp 98.6 F 09/04/21 10:18 Pulse 100 09/04/21 10:18 Resp 20 09/04/21 10:18 BP 129/76 09/04/21 10:18 Pulse Ox 98 09/04/21 10:18 Allergies Allergy/AdvReac Type Severity Reaction Status Date / Time venom-wasp Allergy Unknown Swelling Verified 08/23/21 02:12 Home Medications Medication Instructions Recorded Confirmed Type albuterol sulfate 90 mcg/actuation 1 inhalation INHALATION Q4H 07/17/19 08/23/21 History aerosol inhaler rivaroxaban 20 mg tablet See Rx Instructions .ROUTE 12/21/19 08/23/21 Rx .COMPLEX #28 tablet cyanocobalamin (vitamin B-12) 500 See Rx Instructions .ROUTE 07/11/20 08/23/21 Rx mcg tablet .COMPLEX #90 tablet spironolactone 25 mg tablet 25 mg PO DAILY 01/23/21 08/23/21 History aspirin 81 mg tablet,delayed See Rx Instructions .ROUTE 04/15/21 08/23/21 Rx release .COMPLEX #90 tablet diltiazem HCl 30 mg tablet 30 mg PO TID #180 tablet 04/15/21 08/23/21 Rx furosemide 40 mg tablet 40 mg PO BID #180 tablet 04/15/21 08/23/21 Rx omeprazole 40 mg capsule,delayed See Rx Instructions .ROUTE 04/15/21 08/23/21 Rx release .COMPLEX #90 cap sildenafil (pulm.hypertension) 20 20 mg PO Q12H #60 tablet 06/17/21 08/23/21 Rx mg tablet lorazepam 1 mg tablet 1 mg PO BID PRN #60 tablet 06/23/21 08/23/21 Rx albuterol sulfate 2.5 mg INHALATION DAILY PRN #90 ml 06/26/21 08/23/21 Rx arformoterol 15 mcg/2 mL solution 2 ml INHALATION BID #120 ml 06/26/21 08/23/21 Rx for nebulization budesonide 0.5 mg/2 mL suspension 0.5 mg INHALATION BID #120 ml 06/26/21 08/23/21 Rx for nebulization roflumilast 500 mcg tablet See Rx Instructions .ROUTE 06/26/21 08/23/21 Rx .COMPLEX #30 tablet folic acid 1 mg tablet 1 mg PO DAILY #90 tablet 07/07/21 08/23/21 Rx metformin 500 mg tablet 500 mg PO BID #60 tablet 07/07/21 08/23/21 Rx cholecalciferol (vitamin D3) 50 50 mcg PO DAILY #30 tablet 07/29/21 08/23/21 Rx mcg (2,000 unit) tablet sertraline 50 mg tablet See Rx Instructions .ROUTE 08/20/21 08/23/21 Rx .COMPLEX #30 tablet tamsulosin 0.4 mg capsule See Rx Instructions .ROUTE 08/20/21 08/23/21 Rx .COMPLEX #90 cap amiodarone 200 mg PO BID 08/23/21 08/23/21 History ipratropium bromide 0.5 mg INHALATION Q6H 08/23/21 08/23/21 History levothyroxine 50 mcg PO DAILY 08/23/21 08/23/21 History Laboratory Tests 09/03/21 09/03/21 09/03/21 05:55 05:55 11:38 WBC RBC Hgb Hct MCV MCH MCHC RDW Plt Count MPV Sodium Potassium Chloride Carbon Dioxide Anion Gap BUN Creatinine Estim Creat Clear Calc Estimated GFR Glucose POC Capillary Glucose 83 mg/dl mg/dl (65-105) Calcium Free T4 1.55 ng/dL ng/dL (0.78-2.19) Total T3 1.16 NG/ML NG/ML (0.97-1.69) 09/03/21 09/03/21 09/03/21 14:46 16:31 18:26 WBC RBC Hgb Hct MCV MCH MCHC RDW Plt Count MPV Sodium 122 mmol/L L mmol/L 123 mmol/L L mmol/L (137-145) (137-145) Potassium Chloride Carbon Dioxide Anion Gap BUN Creatinine Estim Creat Clear Calc Estimated GFR Glucose POC Capillary Glucose 100 mg/dl mg/dl (65-105) Calcium Free T4 Total T3
[2021-09-04] MEDS: GENTAMICIN 80MG/SOD CHL 50 ML 80 MG/50 ML BAG 100 MG IVPB (10:45)
[2021-09-04] MEDS: AMPICILLIN 2 GM/NS 100 ML 2 GM/100 ML BAG IVPB (10:45)
--- NOTE | 2021-09-04 11:17 | SUR.OPER ---
EGD START 1048, END 1055 COLONOSCOPY START 1101, END 1116
--- NOTE | 2021-09-04 11:25 | SUR.PHASEII ---
Report called to floor nurse, Isabela, by Kaley George RN
[2021-09-04] MEDS: CHOLECALCIFEROL 1,000 UNITS TABLET 2000 UNITS PO (13:17)
[2021-09-04] MEDS: metFORMIN HCL 500 MG TABLET PO ×2 (13:17→17:45)
[2021-09-04] MEDS: FLUTICASONE PROPIONATE 0.05% NA SPR 16 GM BTL (*BKC) 1 SPRAY NASAL ×2 (13:17→20:52)
[2021-09-04] MEDS: SODIUM CHLORIDE 1 GM TABLET PO ×2 (13:18→17:46)
[2021-09-04] MEDS: FOLIC ACID 1 MG TABLET PO (13:18)
[2021-09-04] MEDS: SERTRALINE HCL 50 MG TABLET PO (13:18)
[2021-09-04] MEDS: CYANOCOBALAMIN 500 MCG TABLET PO (13:18)
[2021-09-04] MEDS: PANTOPRAZOLE 40 MG TABLET PO ×2 (13:18→17:44)
[2021-09-04] MEDS: SILDENAFIL CITRATE 20 MG TABLET PO ×2 (13:18→20:52)
[2021-09-04] MEDS: SPIRONOLACTONE 25 MG TABLET PO (13:19)
[2021-09-04] MEDS: ROFLUMILAST 500 MCG TABLET PO (13:19)
[2021-09-04] MEDS: ASPIRIN 81 MG ENTERIC TABLET PO (13:19)
[2021-09-04] MEDS: LIDOCAINE 5% PATCH 1 PATCH TRANSDERM (13:19)
[2021-09-04] MEDS: TAMSULOSIN HCL 0.4 MG CAPSULE PO (13:19)
[2021-09-04] MEDS: HYDROcodone/acetaminophen (*CRX) 5-325 MG TABLET 1 TAB PO ×2 (13:21→17:43)
[2021-09-04 16:02] LABS: Sodium 125 mmol/L (137-145)
--- NOTE | 2021-09-04 16:22 | P.PNIM_ITS ---
Progress Note: A&P Assessment and Plan (1) CHF exacerbation: Qualifiers: Heart failure type: systolic Qualified Code(s): I50.23 - Acute on chronic systolic (congestive) heart failure Code(s): I50.9 - Heart failure, unspecified Status: Acute Assessment and Plan: CXR showed findings consistent with CHF exacerbation. * Repeat CXR 08/27 showed findings consistent with persistent CHF exacerbation * Started on IV Lasix which has been discontinued given volume depletion. * Continue spironolactone * Echo 08/29/21 showed normal EF 60-65% with abnormal diastolic function. * Monitor strict intake and output and daily weights (2) Leg weakness: Qualifiers: Laterality: bilateral Qualified Code(s): R29.898 - Other symptoms and signs involving the musculoskeletal system Code(s): R29.898 - Other symptoms and signs involving the musculoskeletal system Status: Acute Assessment and Plan: Suspect a combination of anemia, vascular insufficiency, diabetic neuropathy, neurogenic claudication due to spinal stenosis * Ankle-brachial index for peripheral arterial disease 08/23 normal * Venous Doppler for possible hematoma left thigh 08/24 NEGATIVE * CT lumbar spine showed L4-L5 moderate to severe central canal stenosis. unable to obtain follow-up MRI due to pacemaker. No signs/symptoms to suggest cord compression. Neurovascularly intact. * B12 and folate within normal limits. RPR nonreactive. * outpatient nerve conduction study and neurology vs neurosurgery follow up (3) COPD exacerbation: Code(s): J44.1 - Chronic obstructive pulmonary disease with (acute) exacerbation Status: Acute Assessment and Plan: He does have chronic respiratory failure and is on 2-4L supplemental O2 * appreciate pulmonology consultation * Completed 7 days of p.o. prednisone. Discontinued 08/31 * Completed 7 days of IV ceftriaxone and azithromycin 08/29 * O2 sats are consistent with his baseline. Currently maintaining adequate O2 sats on 4 L per nasal cannula * Scheduled nebulized breathing treatments * Continue maintenance inhalers. * Cornet valve to mobilize secretions (4) Anemia: Qualifiers: Anemia type: unspecified type Qualified Code(s): D64.9 - Anemia, unspecified Code(s): D64.9 - Anemia, unspecified Status: Acute Assessment and Plan: Recent onset of microcytosis * He is on anticoagulation which would increase his risk for blood loss * 08/23 Anemia parameters consistent with iron deficiency. Continue PO ferrous sulfate * 08/24 GI consulted recommended EGD and colonoscopy which was delayed due to respiratory illness * 09/04 EGD and colonoscopy performed today without evidence of bleeding. Polypectomy performed therefore will resume Xarelto in 2-3 days * Continue protonix. Avoid NSAIDs. * Monitor H&H-remaining stable (5) Type II diabetes mellitus: Qualifiers: Diabetes mellitus fdc insulin use: without terminologist use Diabetes mellitus complication status: with other specified complication Qualified Code(s): E11.69 - Type 2 diabetes mellitus with other specified complication Code(s): E11.9 - Type 2 diabetes mellitus without complications Status: Acute Assessment and Plan: Blood sugars stable today. Last A1c 5.6 in June. Fasting glucose 110 today * continue Accu-Cheks, sliding scale, hypoglycemic protocol * continue metformin * basal glargine 24 U * monitor glucose trends and adjust medication regimen as needed (6) Obstructive sleep apnea: Code(s)
--- NOTE | 2021-09-04 16:22 | PM.IMPN ---
Progress Note: A&P Assessment and Plan (1) CHF exacerbation: Qualifiers: Heart failure type: systolic Qualified Code(s): I50.23 - Acute on chronic systolic (congestive) heart failure Code(s): I50.9 - Heart failure, unspecified Status: Acute Assessment and Plan: CXR showed findings consistent with CHF exacerbation. Repeat CXR 08/27 showed findings consistent with persistent CHF exacerbation Started on IV Lasix which has been discontinued given volume depletion. Continue spironolactone Echo 08/29/21 showed normal EF 60-65% with abnormal diastolic function. Monitor strict intake and output and daily weights (2) Leg weakness: Qualifiers: Laterality: bilateral Qualified Code(s): R29.898 - Other symptoms and signs involving the musculoskeletal system Code(s): R29.898 - Other symptoms and signs involving the musculoskeletal system Status: Acute Assessment and Plan: Suspect a combination of anemia, vascular insufficiency, diabetic neuropathy, neurogenic claudication due to spinal stenosis Ankle-brachial index for peripheral arterial disease 08/23 normal Venous Doppler for possible hematoma left thigh 08/[address] lumbar spine showed L4-L5 moderate to severe central canal stenosis. unable to obtain follow-up MRI due to pacemaker. No signs/symptoms to suggest cord compression. Neurovascularly intact. B12 and folate within normal limits. RPR nonreactive. outpatient nerve conduction study and neurology vs neurosurgery follow up (3) COPD exacerbation: Code(s): J44.1 - Chronic obstructive pulmonary disease with (acute) exacerbation Status: Acute Assessment and Plan: He does have chronic respiratory failure and is on 2-4L supplemental O2 appreciate pulmonology consultation Completed 7 days of p.o. prednisone. Discontinued 08/31 Completed 7 days of IV ceftriaxone and azithromycin 08/29 O2 sats are consistent with his baseline. Currently maintaining adequate O2 sats on 4 L per nasal cannula Scheduled nebulized breathing treatments Continue maintenance inhalers. Cornet valve to mobilize secretions (4) Anemia: Qualifiers: Anemia type: unspecified type Qualified Code(s): D64.9 - Anemia, unspecified Code(s): D64.9 - Anemia, unspecified Status: Acute Assessment and Plan: Recent onset of microcytosis He is on anticoagulation which would increase his risk for blood loss 08/23 Anemia parameters consistent with iron deficiency. Continue PO ferrous sulfate 08/24 GI consulted recommended EGD and colonoscopy which was delayed due to respiratory illness 09/04 EGD and colonoscopy performed today without evidence of bleeding. Polypectomy performed therefore will resume Xarelto in 2-3 days Continue protonix. Avoid NSAIDs. Monitor H&H-remaining stable (5) Type II diabetes mellitus: Qualifiers: Diabetes mellitus correction insulin use: without correction use Diabetes mellitus complication status: with other specified complication Qualified Code(s): E11.69 - Type 2 diabetes mellitus with other specified complication Code(s): E11.9 - Type 2 diabetes mellitus without complications Status: Acute Assessment and Plan: Blood sugars stable today. Last A1c 5.6 in June. Fasting glucose 110 today continue Accu-Cheks, sliding scale, hypoglycemic protocol continue metformin basal glargine 24 U monitor glucose trends and adjust medication regimen as needed (6) Obstructive sleep apnea: Code(s): G47.33 - Obstructive sleep apnea (adult) (pediatric) Status: Acute Assessment and Plan: As he does not have his home trilogy with him, BiPAP is substituted pulmonology following and consultation is appreciated (7) Persistent atrial fibrillation: Code(s): I48.19 - Other persistent atrial fibrillation Status: Acute Assessment and Plan: rate is
[2021-09-04 16:43] LABS: Glucose Point of Care 109 mg/dl (65-105)
[2021-09-04] MEDS: FERROUS SULFATE 324 MG TABLET PO (17:45)
[2021-09-04] MEDS: DOCUSATE SODIUM 100 MG CAPSULE PO (20:52)
[2021-09-04] MEDS: INSULIN GLARGINE (*BKC) 100 UNITS/ML 24 UNITS SUB-Q (20:52)
[2021-09-04 22:53] LABS: Glucose Point of Care 107 mg/dl (65-105)
[2021-09-05] VITALS (19 sets, daily range): BP systolic 116–126; BP diastolic 68–76; PULSE 80–102; RESP 16–24; TEMP 35.7–36.8; O2SAT 96–99
[2021-09-05] MEDS: ALBUTEROL SULFATE NEB 2.5 MG/0.5 ML INH INHALATION ×5 (00:19→15:08)
[2021-09-05] MEDS: IPRATROPIUM BR 0.02% INH SOLN 0.5 MG/2.5 ML VIAL INHALATION ×6 (00:19→21:27)
[2021-09-05] MEDS: LEVOTHYROXINE SODIUM 50 MCG TABLET PO (06:29)
[2021-09-05 07:52] LABS: Hematocrit 30.4 % (42.0-52.0); Hemoglobin 8.9 g/dL (14.0-18.0)
[2021-09-05 08:10] LABS: Glucose Point of Care 94 mg/dl (65-105)
[2021-09-05 08:27] LABS: Anion Gap 5 mmol/L (8-16); Blood Urea Nitrogen 9 mg/dL (9-20); Calcium 8.6 mg/dL (8.4-10.2); Carbon Dioxide 28 mmol/L (22-30); Chloride 90 mmol/L (98-107); Estimated CRCL calculation 148 ml/min; Estimated Glomerular Filt Rate > 60; Glucose 90 mg/dL (65-110); Potassium 3.7 mmol/L (3.4-5.0); Sodium 123 mmol/L (137-145)
[2021-09-05] MEDS: LIDOCAINE 5% PATCH 1 PATCH TRANSDERM (09:07)
[2021-09-05] MEDS: FOLIC ACID 1 MG TABLET PO (09:08)
[2021-09-05] MEDS: TAMSULOSIN HCL 0.4 MG CAPSULE PO (09:08)
[2021-09-05] MEDS: ASPIRIN 81 MG ENTERIC TABLET PO (09:08)
[2021-09-05] MEDS: FLUTICASONE PROPIONATE 0.05% NA SPR 16 GM BTL (*BKC) 1 SPRAY NASAL ×2 (09:08→22:13)
[2021-09-05] MEDS: SODIUM CHLORIDE 1 GM TABLET PO ×2 (09:09→16:43)
[2021-09-05] MEDS: SILDENAFIL CITRATE 20 MG TABLET PO ×2 (09:09→22:12)
[2021-09-05] MEDS: ROFLUMILAST 500 MCG TABLET PO (09:09)
[2021-09-05] MEDS: dilTIAZem HCL 30 MG TABLET PO ×3 (09:09→16:44)
[2021-09-05] MEDS: metFORMIN HCL 500 MG TABLET PO ×2 (09:09→16:44)
[2021-09-05] MEDS: SPIRONOLACTONE 25 MG TABLET PO (09:09)
[2021-09-05] MEDS: AMIODARONE HCL 200 MG TABLET PO ×2 (09:09→16:43)
[2021-09-05] MEDS: SERTRALINE HCL 50 MG TABLET PO (09:09)
[2021-09-05] MEDS: PANTOPRAZOLE 40 MG TABLET PO ×2 (09:09→16:43)
[2021-09-05] MEDS: CHOLECALCIFEROL 1,000 UNITS TABLET 2000 UNITS PO (09:10)
[2021-09-05] MEDS: CYANOCOBALAMIN 500 MCG TABLET PO (09:11)
--- NOTE | 2021-09-05 09:58 | PCPTNOTE ---
Patient refused treatment this session due to increased fatigue from colonoscopy the other day and he did not sleep well last night. Explained the importance of therapy to Pt and how he would feel better getting up and moving around in regards to the excess gas he has. Pt agreed he would however said Maybe later. I just don't feel up to it right now. Will continue per POC.
[2021-09-05] MEDS: FERROUS SULFATE 324 MG TABLET PO ×2 (10:41→16:43)
--- NOTE | 2021-09-05 11:38 | P.PNIM_ITS ---
Progress Note: A&P Assessment and Plan (1) CHF exacerbation: Qualifiers: Heart failure type: systolic Qualified Code(s): I50.23 - Acute on chronic systolic (congestive) heart failure Code(s): I50.9 - Heart failure, unspecified Status: Acute Assessment and Plan: CXR showed findings consistent with CHF exacerbation. * Repeat CXR 08/27 showed findings consistent with persistent CHF exacerbation, * pulmonology repeating chest x-ray again in the morning on the * initially was started on IV Lasix which was discontinued given volume depletion. * Continue spironolactone * Echo 08/29/21 showed normal EF 60-65% with abnormal diastolic function. * Monitor strict intake and output and daily weights * starting diuretics today, and noted that [employer] Dr. Mckee had done so. * Agree with the daily low dose Lasix dosing; starting small due to his already elevated renal function and significantly low sodium of 123 today. * strict intake and output monitoring, as well as daily weights. * noted to take in around 800-1000 ml daily. He has not been on fluid restriction per se but admits that he usually only gets in 2 water mugs per day (500ml per water mug). (2) Leg weakness: Qualifiers: Laterality: bilateral Qualified Code(s): R29.898 - Other symptoms and signs involving the musculoskeletal system Code(s): R29.898 - Other symptoms and signs involving the musculoskeletal system Status: Acute Assessment and Plan: Suspect a combination of anemia, vascular insufficiency, diabetic neuropathy, neurogenic claudication due to spinal stenosis * Ankle-brachial index for peripheral arterial disease 08/23 normal * Venous Doppler for possible hematoma left thigh 08/24 NEGATIVE * CT lumbar spine showed L4-L5 moderate to severe central canal stenosis. unable to obtain follow-up MRI due to pacemaker. No signs/symptoms to suggest cord compression. Neurovascularly intact. * B12 and folate within normal limits. RPR nonreactive. * outpatient nerve conduction study and neurology vs neurosurgery follow up (3) COPD exacerbation: Code(s): J44.1 - Chronic obstructive pulmonary disease with (acute) exacerbation Status: Acute Assessment and Plan: He does have chronic respiratory failure and is on 2-4L supplemental O2 * appreciate pulmonology consultation - Dr. Solis re-evaluated him today and made changes to his nebulizers, budesonide and salmeterol, checking an iron panel and a chest x-ray. * Completed 7 days of p.o. prednisone. Discontinued 08/31 * Completed 7 days of IV ceftriaxone and azithromycin 08/29 * O2 sats are consistent with his baseline, 2 L O2. Currently maintaining adequate O2 sats on 2 L per nasal cannula * Scheduled nebulized breathing treatments * Continue maintenance inhalers. * Cornet valve to mobilize secretions * continues to feel short of breath today. demonstrate dyspnea during our conversation quite often.noted huffing, increased effort, and pausing during our conversation. unable to ambulate to the bathroom due to his dyspnea. having to use a bedside commode.very limited activity. * end-stage COPD dyspnea? (4) Anemia: Qualifiers: Anemia type: unspecified type Qualified Code(s): D64.9 - Anemia, unspecified Code(s): D64.9 - Anemia, unspecified Status: Acute Assessment and Plan: Recent onset of microcytosis * He is on anticoagulation which would increase his risk for blood loss * 08/23 Anemia parameters consistent with iron deficiency. Continue PO ferrous sulfate * 08/24 GI consulted recommended EGD
--- NOTE | 2021-09-05 11:38 | PM.IMPN ---
Progress Note: A&P Assessment and Plan (1) CHF exacerbation: Qualifiers: Heart failure type: systolic Qualified Code(s): I50.23 - Acute on chronic systolic (congestive) heart failure Code(s): I50.9 - Heart failure, unspecified Status: Acute Assessment and Plan: CXR showed findings consistent with CHF exacerbation. Repeat CXR 08/27 showed findings consistent with persistent CHF exacerbation, pulmonology repeating chest x-ray again in the morning on the initially was started on IV Lasix which was discontinued given volume depletion. Continue spironolactone Echo 08/29/21 showed normal EF 60-65% with abnormal diastolic function. Monitor strict intake and output and daily weights starting diuretics today, and noted that Dentist Attendant Dr. Mckee had done so. Agree with the daily low dose Lasix dosing; starting small due to his already elevated renal function and significantly low sodium of 123 today. strict intake and output monitoring, as well as daily weights. noted to take in around 800-1000 ml daily. He has not been on fluid restriction per se but admits that he usually only gets in 2 water mugs per day (500ml per water mug). (2) Leg weakness: Qualifiers: Laterality: bilateral Qualified Code(s): R29.898 - Other symptoms and signs involving the musculoskeletal system Code(s): R29.898 - Other symptoms and signs involving the musculoskeletal system Status: Acute Assessment and Plan: Suspect a combination of anemia, vascular insufficiency, diabetic neuropathy, neurogenic claudication due to spinal stenosis Ankle-brachial index for peripheral arterial disease 08/23 normal Venous Doppler for possible hematoma left thigh 08/[address] lumbar spine showed L4-L5 moderate to severe central canal stenosis. unable to obtain follow-up MRI due to pacemaker. No signs/symptoms to suggest cord compression. Neurovascularly intact. B12 and folate within normal limits. RPR nonreactive. outpatient nerve conduction study and neurology vs neurosurgery follow up (3) COPD exacerbation: Code(s): J44.1 - Chronic obstructive pulmonary disease with (acute) exacerbation Status: Acute Assessment and Plan: He does have chronic respiratory failure and is on 2-4L supplemental O2 appreciate pulmonology consultation - Dr. Solis re-evaluated him today and made changes to his nebulizers, budesonide and salmeterol, checking an iron panel and a chest x-ray. Completed 7 days of p.o. prednisone. Discontinued 08/31 Completed 7 days of IV ceftriaxone and azithromycin 08/29 O2 sats are consistent with his baseline, 2 L O2. Currently maintaining adequate O2 sats on 2 L per nasal cannula Scheduled nebulized breathing treatments Continue maintenance inhalers. Cornet valve to mobilize secretions continues to feel short of breath today. demonstrate dyspnea during our conversation quite often.noted huffing, increased effort, and pausing during our conversation. unable to ambulate to the bathroom due to his dyspnea. having to use a bedside commode.very limited activity. end-stage COPD dyspnea? (4) Anemia: Qualifiers: Anemia type: unspecified type Qualified Code(s): D64.9 - Anemia, unspecified Code(s): D64.9 - Anemia, unspecified Status: Acute Assessment and Plan: Recent onset of microcytosis He is on anticoagulation which would increase his risk for blood loss 08/23 Anemia parameters consistent with iron deficiency. Continue PO ferrous sulfate 08/24 GI consulted recommended EGD and colonoscopy which was delayed due to respiratory illness 08/24/21 -iron panel and folate checked. Iron level found to be mildly low. Patient now on daily iron b.i.d. orally. 09/04 EGD and colonoscopy performed today without evidence of bleeding. Polypectomy performed therefore will resume Xarelto in 2-3 days Tolerated EGD and colonoscopy yesterday; was noted
[2021-09-05 11:49] LABS: Glucose Point of Care 100 mg/dl (65-105)
--- NOTE | 2021-09-05 11:59 | PCOTNOTE ---
Attempted to see pt for occupational therapy tx this AM, however, pt declined to participate in therapy due to increased fatigue, SOB, and increase anxiety. Pt reports that he just finished a breathing treatment and is feeling very anxious. Pt was educated on the importance of getting out of bed to decrease dizziness. RN was notified of pt's refusal and c/o increase anxiety. Will continue per POC duration/frequency tomorrow.
[2021-09-05] MEDS: LORazepam (*CRX) 0.5 MG TABLET PO (12:55)
[2021-09-05] MEDS: HYDROcodone/acetaminophen (*CRX) 5-325 MG TABLET 1 TAB PO ×2 (12:57→22:14)
--- NOTE | 2021-09-05 13:06 | PC.NURSE ---
Saludclemente message for Dr. Solis who is colorectal surgeon to see patient for c/o sob.
--- NOTE | 2021-09-05 13:13 | P.PNNP_ITS ---
Progress Note: A&P Assessment and Plan (1) Hyponatremia: Code(s): E87.1 - Hypo-osmolality and hyponatremia Status: Acute Assessment and Plan: * normal sodium on admission (137) but sodium low off and on over the years. * serum sodium dropped gradually until the and has been stable in the low 120s since then. * urine electrolytes suggest prerenal azotemia * TSH elevated but on supplementation; cortisol okay but on steroids recently * serum/urine osmolality Do not seem to have been drawn. SPEP/UPEP pending * risk factors for low sodium: * COPD/lung disease * SSRI use (sertraline) * steroid use * liver cirrhosis * He restricts himself to about 800 to a 1000cc per day per intake/output. * He is on salt tablets. Will add Lasix to help excrete the free water. * Check another sodium tomorrow. (2) CHF exacerbation: Qualifiers: Heart failure type: systolic Qualified Code(s): I50.23 - Acute on chronic systolic (congestive) heart failure Code(s): I50.9 - Heart failure, unspecified Status: Acute Assessment and Plan: * better compensated at this time * diuretics on hold given #1 * follow respiratory/volume status (3) COPD exacerbation: Code(s): J44.1 - Chronic obstructive pulmonary disease with (acute) exacerbation Status: Acute Assessment and Plan: * doing somewhat better at this time * continue inhalers, steroids, and supplemental oxygen * Still has some wheezes * Pulmonary following (4) Anemia: Qualifiers: Anemia type: unspecified type Qualified Code(s): D64.9 - Anemia, unspecified Code(s): D64.9 - Anemia, unspecified Status: Acute Assessment and Plan: * GI evaluation underway * follow H/H (5) Essential (primary) hypertension: Code(s): I10 - Essential (primary) hypertension Status: Acute Assessment and Plan: * reasonable control * follow trend of hemodynamics (6) Type II diabetes mellitus: Qualifiers: Diabetes mellitus mcc insulin use: without mcc use Diabetes mellitus complication status: with other specified complication Qualified Code(s): E11.69 - Type 2 diabetes mellitus with other specified complication Code(s): E11.9 - Type 2 diabetes mellitus without complications Status: Acute Assessment and Plan: * follow accuchecks * glycemic control Will continue to follow. Subjective Date/time seen: 09/05/21 13:13 Interval history: Patient is feeling about the same. He continues to have problems breathing due to reversible airways disease. No chest pain. He did need very much launch because he was busy with visitors and physical therapy. Exam Narrative: General: ill appearing male in NAD Heart: normal S1 and S2; no rub Or gallop Lungs: decreased with few expiratory wheezes bilaterally Abdomen: soft, nontender, nondistended, positive bowel sounds Extremities: no cyanosis or clubbing; no edema Skin: no rash Objective Data Vital Signs Vital Signs: Vital Signs - 24 hr 09/04/21 15:33 09/04/21 17:18 09/04/21 17:26 Temperature 36.8 C Pulse Rate 99 92 94 Respiratory Rate 16 20 20 Blood Pressure 128/66 Pulse Oximetry 93 09/04/21 17:45 09/04/21 20:00 09/04/21 20:43 Temperature 36.1 C L Pulse Rate 96 97 97
--- NOTE | 2021-09-05 13:13 | PM.PNNEP ---
Progress Note: A&P Assessment and Plan (1) Hyponatremia: Code(s): E87.1 - Hypo-osmolality and hyponatremia Status: Acute Assessment and Plan: normal sodium on admission (137) but sodium low off and on over the years. serum sodium dropped gradually until the and has been stable in the low 120s since then. urine electrolytes suggest prerenal azotemia TSH elevated but on supplementation; cortisol okay but on steroids recently serum/urine osmolality Do not seem to have been drawn. SPEP/UPEP pending risk factors for low sodium: COPD/lung disease SSRI use (sertraline) steroid use liver cirrhosis He restricts himself to about 800 to a 1000cc per day per intake/output. He is on salt tablets. Will add Lasix to help excrete the free water. Check another sodium tomorrow. (2) CHF exacerbation: Qualifiers: Heart failure type: systolic Qualified Code(s): I50.23 - Acute on chronic systolic (congestive) heart failure Code(s): I50.9 - Heart failure, unspecified Status: Acute Assessment and Plan: better compensated at this time diuretics on hold given #1 follow respiratory/volume status (3) COPD exacerbation: Code(s): J44.1 - Chronic obstructive pulmonary disease with (acute) exacerbation Status: Acute Assessment and Plan: doing somewhat better at this time continue inhalers, steroids, and supplemental oxygen Still has some wheezes Pulmonary following (4) Anemia: Qualifiers: Anemia type: unspecified type Qualified Code(s): D64.9 - Anemia, unspecified Code(s): D64.9 - Anemia, unspecified Status: Acute Assessment and Plan: GI evaluation underway follow H/H (5) Essential (primary) hypertension: Code(s): I10 - Essential (primary) hypertension Status: Acute Assessment and Plan: reasonable control follow trend of hemodynamics (6) Type II diabetes mellitus: Qualifiers: Diabetes mellitus extermination inspector insulin use: without chcf use Diabetes mellitus complication status: with other specified complication Qualified Code(s): E11.69 - Type 2 diabetes mellitus with other specified complication Code(s): E11.9 - Type 2 diabetes mellitus without complications Status: Acute Assessment and Plan: follow accuchecks glycemic control Will continue to follow. Subjective Date/time seen: 09/05/21 13:13 Interval history: Patient is feeling about the same. He continues to have problems breathing due to reversible airways disease. No chest pain. He did need very much launch because he was busy with visitors and physical therapy. Exam Narrative: General: ill appearing male in NAD Heart: normal S1 and S2; no rub Or gallop Lungs: decreased with few expiratory wheezes bilaterally Abdomen: soft, nontender, nondistended, positive bowel sounds Extremities: no cyanosis or clubbing; no edema Skin: no rash Objective Data Vital Signs Vital Signs: Vital Signs - 24 hr 09/04/21 15:33 09/04/21 17:18 09/04/21 17:26 Temperature 36.8 C Pulse Rate 99 92 94 Respiratory Rate 16 20 20 Blood Pressure 128/66 Pulse Oximetry 93 09/04/21 17:45 09/04/21 20:00 09/04/21 20:43 Temperature 36.1 C L Pulse Rate 96 97 97 Respiratory Rate 22 H 18 Blood Pressure 117/70 Pulse Oximetry 96 97 09/04/21 20:45 09/04/21 21:16 09/04/21 21:26 Temperature Pulse Rate 97 95 Respiratory Rate 22 H 22 H Blood Pressure 119/64 Pulse Oximetry 96 09/04/21 23:59 09/05/21 00:19 09/05/21 00:35 Temperature Pulse Rate 99 98 99 Respiratory Rate 21 H 22 H 21 H Blood Pressure Pulse Oximetry 97 09/05/21 05:05 09/05/21 05:12 09/05/21 05:51 Temperature 36.8 C Pulse Rate 98 97 98 Respiratory Rate 20 20 20 Blood Pressure 116/68 Pulse Oximetry 98 98 09/05/21 08:40 09/05/21 08:48 09/05/21 09:09 Tem
[2021-09-05] MEDS: FUROSEMIDE 20 MG TABLET PO (16:43)
[2021-09-05 17:24] LABS: Glucose Point of Care 128 mg/dl (65-105)
[2021-09-05] MEDS: BUDESONIDE RESPULE NEB 0.5 MG/2 ML AMP INHALATION (21:27)
[2021-09-05] MEDS: SALMETEROL XINAFOATE 50 MCG DISKUS 1 PUFF INHALATION (21:27)
[2021-09-05] MEDS: INSULIN GLARGINE (*BKC) 100 UNITS/ML 24 UNITS SUB-Q (22:09)
[2021-09-05] MEDS: DOCUSATE SODIUM 100 MG CAPSULE PO (22:12)
[2021-09-05 22:35] LABS: Glucose Point of Care 124 mg/dl (65-105)
[2021-09-06] VITALS (23 sets, daily range): BP systolic 100–132; BP diastolic 62–75; PULSE 72–100; RESP 18–22; TEMP 36.1–37.5; O2SAT 94–96
[2021-09-06] MEDS: IPRATROPIUM BR 0.02% INH SOLN 0.5 MG/2.5 ML VIAL INHALATION ×6 (01:35→21:38)
[2021-09-06] MEDS: LEVOTHYROXINE SODIUM 50 MCG TABLET PO (05:32)
[2021-09-06 06:20] LABS: Basophils Absolute Auto 0.2 K/mm3 (0.0-0.1); Basophils Percent Auto 2.3 % (0.2-1.2); Eosinophils Percent Auto 0.2 % (0-4.4); Hematocrit 29.8 % (42.0-52.0); Hemoglobin 8.8 g/dL (14.0-18.0); Immature Granulocyte Absolute 0.06 K/mm3 (0.00-0.031); Immature Granulocyte Percent A 0.6 % (0-0.5); Lymphocytes Absolute Auto 1.07 K/mm3 (0.9-3.2); Lymphocytes Percent Auto 11.4 % (18.3-44.2); Mean Corpuscular HGB Conc 29.5 g/dl (32-36); Mean Corpuscular Hemoglobin 22.7 pg (26-34); Mean Platelet Volume 9.5 fl (7.4-10.4); Monocytes Absolute Auto 1.1 K/mm3 (0.1-0.6); Monocytes Percent Auto 11.4 % (2.6-8.5); Neutrophils Absolute Auto 6.9 K/mm3 (1.3-6.7); Neutrophils Percent Auto 74.1 % (45.5-73.1); Platelet Count Result 146 k/mm3 (150-375); Red Blood Count 3.87 M/mm3 (4.6-6.20); White Blood Count 9.4 K/mm3 (4.5-10.0)
[2021-09-06 06:38] LABS: Alanine Aminotransferase 35 U/L (4-50); Albumin Level 3.3 g/dL (3.5-5.1); Alkaline Phosphatase 154 U/L (38-126); Anion Gap 3 mmol/L (8-16); Aspartate Amino Transferase 43 U/L (17-59); Bilirubin,Total 0.5 mg/dL (0.2-1.3); Blood Urea Nitrogen 7 mg/dL (9-20); Calcium 8.6 mg/dL (8.4-10.2); Carbon Dioxide 30 mmol/L (22-30); Chloride 89 mmol/L (98-107); Estimated CRCL calculation 148 ml/min; Estimated Glomerular Filt Rate > 60; Glucose 93 mg/dL (65-110); Potassium 3.6 mmol/L (3.4-5.0); Sodium 122 mmol/L (137-145)
[2021-09-06 07:13] LABS: Platelet Estimate Adequate (Adequate)
[2021-09-06 07:14] LABS: Anisocytosis 2+ (NORMAL); Hypochromasia 1+ (NORMAL); Ovalocytes 1+ (NORMAL)
[2021-09-06] MEDS: ALBUTEROL SULFATE NEB 2.5 MG/0.5 ML INH INHALATION ×2 (08:05→21:39)
[2021-09-06] MEDS: BUDESONIDE RESPULE NEB 0.5 MG/2 ML AMP INHALATION ×2 (08:05→21:39)
[2021-09-06] MEDS: SALMETEROL XINAFOATE 50 MCG DISKUS 1 PUFF INHALATION ×2 (08:15→21:40)
[2021-09-06 08:45] LABS: Glucose Point of Care 99 mg/dl (65-105)
[2021-09-06] MEDS: metFORMIN HCL 500 MG TABLET PO ×2 (09:04→17:01)
[2021-09-06] MEDS: SPIRONOLACTONE 25 MG TABLET PO (09:04)
[2021-09-06] MEDS: CYANOCOBALAMIN 500 MCG TABLET PO (09:04)
[2021-09-06] MEDS: DOCUSATE SODIUM 100 MG CAPSULE PO ×2 (09:04→20:01)
[2021-09-06] MEDS: PANTOPRAZOLE 40 MG TABLET PO ×2 (09:04→17:00)
[2021-09-06] MEDS: SILDENAFIL CITRATE 20 MG TABLET PO ×2 (09:04→20:01)
[2021-09-06] MEDS: SODIUM CHLORIDE 1 GM TABLET PO ×2 (09:05→17:01)
[2021-09-06] MEDS: FERROUS SULFATE 324 MG TABLET PO (09:05)
[2021-09-06] MEDS: ASPIRIN 81 MG ENTERIC TABLET PO (09:05)
[2021-09-06] MEDS: FOLIC ACID 1 MG TABLET PO (09:05)
[2021-09-06] MEDS: CHOLECALCIFEROL 1,000 UNITS TABLET 2000 UNITS PO (09:05)
[2021-09-06] MEDS: dilTIAZem HCL 30 MG TABLET PO ×3 (09:05→17:01)
[2021-09-06] MEDS: SERTRALINE HCL 50 MG TABLET PO (09:05)
[2021-09-06] MEDS: FUROSEMIDE 20 MG TABLET PO ×2 (09:05→17:00)
[2021-09-06] MEDS: ROFLUMILAST 500 MCG TABLET PO (09:05)
[2021-09-06] MEDS: TAMSULOSIN HCL 0.4 MG CAPSULE PO (09:05)
[2021-09-06] MEDS: AMIODARONE HCL 200 MG TABLET PO ×2 (09:06→17:01)
[2021-09-06] MEDS: FLUTICASONE PROPIONATE 0.05% NA SPR 16 GM BTL (*BKC) 1 SPRAY NASAL ×2 (09:08→20:02)
[2021-09-06 09:38] LABS: Iron 36 ug/dL (49-181)
[2021-09-06 09:58] LABS: Percent Iron Saturation 10 % (20-50)
--- NOTE | 2021-09-06 10:35 | PCPTNOTE ---
Patient refused treatment at this time due to getting a chest x-ray and being up all morning. Will plan to continue treatment per plan of care.
[2021-09-06] MEDS: HYDROcodone/acetaminophen (*CRX) 5-325 MG TABLET 1 TAB PO (11:03)
[2021-09-06] MEDS: LORazepam (*CRX) 0.5 MG TABLET PO (11:03)
--- NOTE | 2021-09-06 11:18 | P.PNNP_ITS ---
Progress Note: A&P Assessment and Plan (1) Hyponatremia: Code(s): E87.1 - Hypo-osmolality and hyponatremia Status: Acute Assessment and Plan: * normal sodium on admission (137) but sodium low off and on over the years. * serum sodium dropped gradually until the and has been stable in the low 120s since then. * urine electrolytes suggest prerenal azotemia * TSH elevated but on supplementation; cortisol okay but on steroids recently * serum/urine osmolality Do not seem to have been drawn. SPEP/UPEP pending * risk factors for low sodium: * COPD/lung disease * SSRI use (sertraline) * steroid use * liver cirrhosis * He drinks about 2L of water per day. Intake/output does not reflect this. I asked him to try to cut back to1L per day. He is very thirsty because of mouth breathing and the oxygen in his nasal passages. But he will try. * He is on salt tablets And Lasix. His sodium is going nowhere. Will add demeclocycline. He does not have a central line so I will not give 3% saline. * Check another sodium tomorrow. (2) CHF exacerbation: Qualifiers: Heart failure type: systolic Qualified Code(s): I50.23 - Acute on chronic systolic (congestive) heart failure Code(s): I50.9 - Heart failure, unspecified Status: Acute Assessment and Plan: * better compensated at this time * diuretics on hold given #1 * follow respiratory/volume status (3) COPD exacerbation: Code(s): J44.1 - Chronic obstructive pulmonary disease with (acute) exacerbation Status: Acute Assessment and Plan: * doing somewhat better at this time * continue inhalers, steroids, and supplemental oxygen * Still has some wheezes * Pulmonary following (4) Anemia: Qualifiers: Anemia type: unspecified type Qualified Code(s): D64.9 - Anemia, unspecified Code(s): D64.9 - Anemia, unspecified Status: Acute Assessment and Plan: * GI evaluation underway * follow H/H (5) Essential (primary) hypertension: Code(s): I10 - Essential (primary) hypertension Status: Acute Assessment and Plan: * reasonable control * follow trend of hemodynamics (6) Type II diabetes mellitus: Qualifiers: Diabetes mellitus supervisor intermediates insulin use: without supervisor intermediates use Diabetes mellitus complication status: with other specified complication Qualified Code(s): E11.69 - Type 2 diabetes mellitus with other specified complication Code(s): E11.9 - Type 2 diabetes mellitus without complications Status: Acute Assessment and Plan: * follow accuchecks * glycemic control Will continue to follow. Subjective Date/time seen: 09/06/21 11:18 Interval history: Patient is feeling about the same. He drinks about 2 of those L jar is of water. No chest pain. Exam Narrative: General: ill appearing male in NAD Heart: normal S1 and S2; no rub Or gallop Lungs: decreased with few expiratory wheezes bilaterally Abdomen: soft, nontender, nondistended, positive bowel sounds Extremities: no cyanosis or clubbing; trace edema and has Reggie hose on Skin: no rash Or subcu nodules Objective Data Vital Signs Vital Signs: Vital Signs - 24 hr 09/05/21 11:40 09/05/21 11:48 09/05/21 12:12 Temperature Pulse Rate 89 93 102 H Respiratory Rate 20 20 22 H Blood Pressure 126/74 Pulse Oximet
--- NOTE | 2021-09-06 11:18 | PM.PNNEP ---
Progress Note: A&P Assessment and Plan (1) Hyponatremia: Code(s): E87.1 - Hypo-osmolality and hyponatremia Status: Acute Assessment and Plan: normal sodium on admission (137) but sodium low off and on over the years. serum sodium dropped gradually until the and has been stable in the low 120s since then. urine electrolytes suggest prerenal azotemia TSH elevated but on supplementation; cortisol okay but on steroids recently serum/urine osmolality Do not seem to have been drawn. SPEP/UPEP pending risk factors for low sodium: COPD/lung disease SSRI use (sertraline) steroid use liver cirrhosis He drinks about 2L of water per day. Intake/output does not reflect this. I asked him to try to cut back to1L per day. He is very thirsty because of mouth breathing and the oxygen in his nasal passages. But he will try. He is on salt tablets And Lasix. His sodium is going nowhere. Will add demeclocycline. He does not have a central line so I will not give 3% saline. Check another sodium tomorrow. (2) CHF exacerbation: Qualifiers: Heart failure type: systolic Qualified Code(s): I50.23 - Acute on chronic systolic (congestive) heart failure Code(s): I50.9 - Heart failure, unspecified Status: Acute Assessment and Plan: better compensated at this time diuretics on hold given #1 follow respiratory/volume status (3) COPD exacerbation: Code(s): J44.1 - Chronic obstructive pulmonary disease with (acute) exacerbation Status: Acute Assessment and Plan: doing somewhat better at this time continue inhalers, steroids, and supplemental oxygen Still has some wheezes Pulmonary following (4) Anemia: Qualifiers: Anemia type: unspecified type Qualified Code(s): D64.9 - Anemia, unspecified Code(s): D64.9 - Anemia, unspecified Status: Acute Assessment and Plan: GI evaluation underway follow H/H (5) Essential (primary) hypertension: Code(s): I10 - Essential (primary) hypertension Status: Acute Assessment and Plan: reasonable control follow trend of hemodynamics (6) Type II diabetes mellitus: Qualifiers: Diabetes mellitus terminologist insulin use: without terminologist use Diabetes mellitus complication status: with other specified complication Qualified Code(s): E11.69 - Type 2 diabetes mellitus with other specified complication Code(s): E11.9 - Type 2 diabetes mellitus without complications Status: Acute Assessment and Plan: follow accuchecks glycemic control Will continue to follow. Subjective Date/time seen: 09/06/21 11:18 Interval history: Patient is feeling about the same. He drinks about 2 of those L jar is of water. No chest pain. Exam Narrative: General: ill appearing male in NAD Heart: normal S1 and S2; no rub Or gallop Lungs: decreased with few expiratory wheezes bilaterally Abdomen: soft, nontender, nondistended, positive bowel sounds Extremities: no cyanosis or clubbing; trace edema and has Reggie hose on Skin: no rash Or subcu nodules Objective Data Vital Signs Vital Signs: Vital Signs - 24 hr 09/05/21 11:40 09/05/21 11:48 09/05/21 12:12 Temperature Pulse Rate 89 93 102 H Respiratory Rate 20 20 22 H Blood Pressure 126/74 Pulse Oximetry 98 09/05/21 15:08 09/05/21 15:17 09/05/21 16:43 Temperature Pulse Rate 90 90 102 H Respiratory Rate 20 20 Blood Pressure Pulse Oximetry 09/05/21 20:00 09/05/21 21:28 09/05/21 21:40 Temperature Pulse Rate 102 H 94 96 Respiratory Rate 24 H 19 21 H Blood Pressure Pulse Oximetry 97 96 09/05/21 22:00 09/05/21 23:37 09/06/21 01:35 Temperature 35.7 C L Pulse Rate 85 102 H 91 Respiratory Rate 16 24 H 18 Blood Pressure 123/76 Pulse Oximetry 99 97 09/06/21 01:39 09/06/21 01:43 09/06/21 04:57 Temperature
[2021-09-06] MEDS: DEMECLOCYCLINE HCL 150 MG TABLET PO ×3 (12:05→20:01)
[2021-09-06 12:17] LABS: Glucose Point of Care 118 mg/dl (65-105)
--- NOTE | 2021-09-06 13:18 | PM.IMPN ---
Progress Note: A&P Assessment and Plan (1) CHF exacerbation: Qualifiers: Heart failure type: systolic Qualified Code(s): I50.23 - Acute on chronic systolic (congestive) heart failure Code(s): I50.9 - Heart failure, unspecified Status: Acute Assessment and Plan: CXR showed findings consistent with CHF exacerbation Repeat CXR 08/27 showed findings consistent with persistent CHF exacerbation Repeat CXR today-->1. Small right and moderate-sized left pleural effusions with worsening on the left. 2. Airspace opacities in right lower lung zone and left mid and lower lung zones with worsening on the left, consistent with atelectasis versus pneumonia. 3. Cardiomegaly. initially was started on IV Lasix which was discontinued given volume depletion. Continue spironolactone Echo 08/29/21 showed normal EF 60-65% with abnormal diastolic function. Monitor strict intake and output and daily weights Continue Aldactone Strict intake and output monitoring, as well as daily weights (2) Leg weakness: Qualifiers: Laterality: bilateral Qualified Code(s): R29.898 - Other symptoms and signs involving the musculoskeletal system Code(s): R29.898 - Other symptoms and signs involving the musculoskeletal system Status: Acute Assessment and Plan: Suspect a combination of anemia, vascular insufficiency, diabetic neuropathy, neurogenic claudication due to spinal stenosis Ankle-brachial index for peripheral arterial disease 08/23 normal Venous Doppler for possible hematoma left thigh 08/[address] lumbar spine showed L4-L5 moderate to severe central canal stenosis. unable to obtain follow-up MRI due to pacemaker. No signs/symptoms to suggest cord compression. Neurovascularly intact. B12 and folate within normal limits. RPR nonreactive. outpatient nerve conduction study and neurology vs neurosurgery follow up (3) COPD exacerbation: Code(s): J44.1 - Chronic obstructive pulmonary disease with (acute) exacerbation Status: Acute Assessment and Plan: He does have chronic respiratory failure and is on 2-4L supplemental O2 appreciate pulmonology consultation Continue with budesonide and dailresp Completed 7 days of p.o. prednisone. Discontinued 08/31 Completed 7 days of IV ceftriaxone and azithromycin 08/29 O2 sats are consistent with his baseline, 2 L O2. Currently maintaining adequate O2 sats on 2 L per nasal cannula Scheduled nebulized breathing treatments Continue maintenance inhalers. Cornet valve to mobilize secretions (4) Anemia: Qualifiers: Anemia type: unspecified type Qualified Code(s): D64.9 - Anemia, unspecified Code(s): D64.9 - Anemia, unspecified Status: Acute Assessment and Plan: H/H 8.8.8 Recent onset of microcytosis He is on anticoagulation which would increase his risk for blood loss 08/23 Anemia parameters consistent with iron deficiency. Continue PO ferrous sulfate 08/24 GI consulted recommended EGD and colonoscopy which was delayed due to respiratory illness 08/24/21 -iron panel and folate checked. Iron level found to be mildly low. Patient now on daily iron b.i.d. orally. 09/04 EGD and colonoscopy performed today without evidence of bleeding. Polypectomy performed therefore will resume Xarelto in 2-3 days Tolerated EGD and colonoscopy yesterday; was noted to have 3 polyps. Denies blood or pain with bowel movements today. And did report a bowel movement earlier this morning. Eating well, denies nausea or vomiting today. Continue protonix. Avoid NSAIDs. Monitor H&H (5) Type II diabetes mellitus: Qualifiers: Diabetes mellitus nursing home insulin use: without medical terminologist use Diabetes mellitus complication status: with other specified complication Qualified Code(s): E11.69 - Type 2 diabetes mellitus with other specified complication Code(s): E11.9 - Type 2 diabetes mellitus without complications Status: Acut
[2021-09-06 17:42] LABS: Glucose Point of Care 95 mg/dl (65-105)
[2021-09-06] MEDS: INSULIN GLARGINE (*BKC) 100 UNITS/ML 24 UNITS SUB-Q (20:01)
[2021-09-06 20:22] LABS: Glucose Point of Care 106 mg/dl (65-105)
[2021-09-07] VITALS (21 sets, daily range): BP systolic 106–136; BP diastolic 64–76; PULSE 94–99; RESP 18–22; TEMP 36.1–36.6; O2SAT 94–96
[2021-09-07] MEDS: IPRATROPIUM BR 0.02% INH SOLN 0.5 MG/2.5 ML VIAL INHALATION ×6 (01:57→20:09)
[2021-09-07] MEDS: ALBUTEROL SULFATE NEB 2.5 MG/0.5 ML INH INHALATION ×3 (01:57→20:09)
[2021-09-07] MEDS: HYDROcodone/acetaminophen (*CRX) 5-325 MG TABLET 1 TAB PO ×4 (03:41→20:29)
[2021-09-07] MEDS: LEVOTHYROXINE SODIUM 50 MCG TABLET PO (05:46)
[2021-09-07 05:54] LABS: Albumin 3.1 g/dL (3.8-4.8); Alpha 1 Globulin 0.3 g/dL (0.2-0.3); Alpha 2 Globulin 0.9 g/dL (0.5-0.9); Beta 1 Globulin 0.5 g/dL (0.4-0.6); Protein, Total 6.3 g/dL (6.1-8.1)
[2021-09-07 06:27] LABS: Hematocrit 31.1 % (42.0-52.0); Mean Corpuscular HGB Conc 28.9 g/dl (32-36); Mean Corpuscular Hemoglobin 22.4 pg (26-34); Mean Corpuscular Volume 77.4 fl (80-100); Mean Platelet Volume 9.4 fl (7.4-10.4); Platelet Count Result 148 k/mm3 (150-375); Red Blood Count 4.02 M/mm3 (4.6-6.20); Red Cell Distribution Width 27.3 % (11.5-14.5); White Blood Count 10.9 K/mm3 (4.5-10.0)
[2021-09-07 06:41] LABS: Anion Gap 4 mmol/L (8-16); Blood Urea Nitrogen 8 mg/dL (9-20); Calcium 8.6 mg/dL (8.4-10.2); Carbon Dioxide 30 mmol/L (22-30); Chloride 87 mmol/L (98-107); Estimated CRCL calculation 148 ml/min; Estimated Glomerular Filt Rate > 60; Glucose 83 mg/dL (65-110); Potassium 3.6 mmol/L (3.4-5.0); Sodium 121 mmol/L (137-145)
[2021-09-07 06:43] LABS: Creatinine, Random Urine 107 mg/dL (20-320); Total Protein/Creatinine Ratio 252 mg/g creat (22-128)
--- NOTE | 2021-09-07 07:54 | P.PNNP_ITS ---
Progress Note: A&P Assessment and Plan (1) Hyponatremia: Code(s): E87.1 - Hypo-osmolality and hyponatremia Status: Acute Assessment and Plan: * normal sodium on admission (137) but sodium low off and on over the years. * serum sodium dropped gradually until the and has been stable in the low 120s since then. * urine electrolytes suggest prerenal azotemia * TSH elevated but on supplementation; cortisol okay but on steroids recently * serum/urine osmolality Do not seem to have been drawn. SPEP/UPEP pending * risk factors for low sodium: * COPD/lung disease * SSRI use (sertraline) * steroid use * liver cirrhosis * Trying to restrict input * Sodium 121 today. * He is on fluid restriction, demeclocycline, Lasix and salt tablets. (2) CHF exacerbation: Qualifiers: Heart failure type: systolic Qualified Code(s): I50.23 - Acute on chronic systolic (congestive) heart failure Code(s): I50.9 - Heart failure, unspecified Status: Acute Assessment and Plan: * better compensated at this time * diuretics on hold given #1 * follow respiratory/volume status (3) COPD exacerbation: Code(s): J44.1 - Chronic obstructive pulmonary disease with (acute) exacerbation Status: Acute Assessment and Plan: * doing somewhat better at this time * continue inhalers, steroids, and supplemental oxygen * A BiPAP is available but he has trouble using it all night * Still has some wheezes * Pulmonary following (4) Anemia: Qualifiers: Anemia type: unspecified type Qualified Code(s): D64.9 - Anemia, unspecified Code(s): D64.9 - Anemia, unspecified Status: Acute Assessment and Plan: * GI evaluation underway * His creatinine is normal (5) Essential (primary) hypertension: Code(s): I10 - Essential (primary) hypertension Status: Acute Assessment and Plan: * Systolic in the 130 * He is on diltiazem. (6) Type II diabetes mellitus: Qualifiers: Diabetes mellitus vermin exterminator insulin use: without mcc use Diabetes mellitus complication status: with other specified complication Qualified Code(s): E11.69 - Type 2 diabetes mellitus with other specified complication Code(s): E11.9 - Type 2 diabetes mellitus without complications Status: Acute Assessment and Plan: * follow accuchecks * glycemic control Will continue to follow. Subjective Date/time seen: 09/07/21 07:55 Interval history: Patient is feeling about the same. Trying to restrict fluid on his own. He is short of breath today as usual. He tried to use the CPAP last night but it did not work out. No chest pain. Exam Narrative: General: Well-developed well-nourished male in no acute distress Heart: normal S1 and S2; no rub Or gallop Lungs: decreased with few expiratory wheezes bilaterally Abdomen: soft, nontender, nondistended, positive bowel sounds Extremities: no cyanosis or clubbing; trace edema and has Reggie hose on Skin: no rash Objective Data Vital Signs Vital Signs: Vital Signs - 24 hr 09/06/21 08:00 09/06/21 08:06 09/06/21 08:16 Temperature Pulse Rate 83 91 Respiratory Rate 18 22 H Blood Pressure Pulse Oximetry 94 94 09/06/21 09:06 09/06/21 11:38 09/06/21 11:48 Temperature Pulse Rat
--- NOTE | 2021-09-07 07:54 | PM.PNNEP ---
Progress Note: A&P Assessment and Plan (1) Hyponatremia: Code(s): E87.1 - Hypo-osmolality and hyponatremia Status: Acute Assessment and Plan: normal sodium on admission (137) but sodium low off and on over the years. serum sodium dropped gradually until the and has been stable in the low 120s since then. urine electrolytes suggest prerenal azotemia TSH elevated but on supplementation; cortisol okay but on steroids recently serum/urine osmolality Do not seem to have been drawn. SPEP/UPEP pending risk factors for low sodium: COPD/lung disease SSRI use (sertraline) steroid use liver cirrhosis Trying to restrict input Sodium 121 today. He is on fluid restriction, demeclocycline, Lasix and salt tablets. (2) CHF exacerbation: Qualifiers: Heart failure type: systolic Qualified Code(s): I50.23 - Acute on chronic systolic (congestive) heart failure Code(s): I50.9 - Heart failure, unspecified Status: Acute Assessment and Plan: better compensated at this time diuretics on hold given #1 follow respiratory/volume status (3) COPD exacerbation: Code(s): J44.1 - Chronic obstructive pulmonary disease with (acute) exacerbation Status: Acute Assessment and Plan: doing somewhat better at this time continue inhalers, steroids, and supplemental oxygen A BiPAP is available but he has trouble using it all night Still has some wheezes Pulmonary following (4) Anemia: Qualifiers: Anemia type: unspecified type Qualified Code(s): D64.9 - Anemia, unspecified Code(s): D64.9 - Anemia, unspecified Status: Acute Assessment and Plan: GI evaluation underway His creatinine is normal (5) Essential (primary) hypertension: Code(s): I10 - Essential (primary) hypertension Status: Acute Assessment and Plan: Systolic in the 130 He is on diltiazem. (6) Type II diabetes mellitus: Qualifiers: Diabetes mellitus snf insulin use: without computer terminal operator use Diabetes mellitus complication status: with other specified complication Qualified Code(s): E11.69 - Type 2 diabetes mellitus with other specified complication Code(s): E11.9 - Type 2 diabetes mellitus without complications Status: Acute Assessment and Plan: follow accuchecks glycemic control Will continue to follow. Subjective Date/time seen: 09/07/21 07:55 Interval history: Patient is feeling about the same. Trying to restrict fluid on his own. He is short of breath today as usual. He tried to use the CPAP last night but it did not work out. No chest pain. Exam Narrative: General: Well-developed well-nourished male in no acute distress Heart: normal S1 and S2; no rub Or gallop Lungs: decreased with few expiratory wheezes bilaterally Abdomen: soft, nontender, nondistended, positive bowel sounds Extremities: no cyanosis or clubbing; trace edema and has Reggie hose on Skin: no rash Objective Data Vital Signs Vital Signs: Vital Signs - 24 hr 09/06/21 08:00 09/06/21 08:06 09/06/21 08:16 Temperature Pulse Rate 83 91 Respiratory Rate 18 22 H Blood Pressure Pulse Oximetry 94 94 09/06/21 09:06 09/06/21 11:38 09/06/21 11:48 Temperature Pulse Rate 72 80 86 Respiratory Rate 20 22 H Blood Pressure Pulse Oximetry 09/06/21 14:00 09/06/21 15:27 09/06/21 15:35 Temperature 36.1 C L Pulse Rate 100 98 96 Respiratory Rate 18 22 H 22 H Blood Pressure 123/73 Pulse Oximetry 96 09/06/21 17:01 09/06/21 18:31 09/06/21 18:34 Temperature Pulse Rate 100 99 99 Respiratory Rate Blood Pressure 123/71 132/75 Pulse Oximetry 09/06/21 18:38 09/06/21 20:59 09/06/21 21:40 Temperature 37.5 C Pulse Rate 100 98 Respiratory Rate 18 Blood Pressure 100/62 114/72 Pulse Oximetry 96 95 09/06/21 21:41 09/06/21 21:54 09/06/21 21:55
[2021-09-07] MEDS: ASPIRIN 81 MG ENTERIC TABLET PO (08:00)
[2021-09-07] MEDS: DOCUSATE SODIUM 100 MG CAPSULE PO ×2 (08:00→20:27)
[2021-09-07] MEDS: SPIRONOLACTONE 25 MG TABLET PO (08:00)
[2021-09-07] MEDS: CHOLECALCIFEROL 1,000 UNITS TABLET 2000 UNITS PO (08:01)
[2021-09-07] MEDS: dilTIAZem HCL 30 MG TABLET PO ×3 (08:01→16:39)
[2021-09-07] MEDS: AMIODARONE HCL 200 MG TABLET PO ×2 (08:01→16:39)
[2021-09-07] MEDS: PANTOPRAZOLE 40 MG TABLET PO ×2 (08:03→16:41)
[2021-09-07] MEDS: SILDENAFIL CITRATE 20 MG TABLET PO ×2 (08:03→20:27)
[2021-09-07] MEDS: SODIUM CHLORIDE 1 GM TABLET PO ×2 (08:03→16:40)
[2021-09-07] MEDS: CYANOCOBALAMIN 500 MCG TABLET PO (08:03)
[2021-09-07] MEDS: DEMECLOCYCLINE HCL 150 MG TABLET PO ×4 (08:03→20:27)
[2021-09-07] MEDS: TAMSULOSIN HCL 0.4 MG CAPSULE PO (08:03)
[2021-09-07] MEDS: ROFLUMILAST 500 MCG TABLET PO (08:03)
[2021-09-07] MEDS: FUROSEMIDE 20 MG TABLET PO ×2 (08:03→16:41)
[2021-09-07] MEDS: FOLIC ACID 1 MG TABLET PO (08:03)
[2021-09-07] MEDS: SERTRALINE HCL 50 MG TABLET PO (08:04)
[2021-09-07] MEDS: metFORMIN HCL 500 MG TABLET PO ×2 (08:04→16:40)
[2021-09-07] MEDS: LORazepam (*CRX) 0.5 MG TABLET PO ×2 (08:08→20:29)
[2021-09-07] MEDS: BUDESONIDE RESPULE NEB 0.5 MG/2 ML AMP INHALATION ×2 (08:08→20:09)
[2021-09-07 08:09] LABS: Glucose Point of Care 79 mg/dl (65-105)
[2021-09-07] MEDS: SALMETEROL XINAFOATE 50 MCG DISKUS 1 PUFF INHALATION ×2 (08:09→20:09)
--- NOTE | 2021-09-07 09:40 | PM.IMPN ---
Progress Note: A&P Assessment and Plan (1) CHF exacerbation: Qualifiers: Heart failure type: systolic Qualified Code(s): I50.23 - Acute on chronic systolic (congestive) heart failure Code(s): I50.9 - Heart failure, unspecified Status: Acute Assessment and Plan: CXR showed findings consistent with CHF exacerbation Repeat CXR 08/27 showed findings consistent with persistent CHF exacerbation Repeat CXR today-->1. Small right and moderate-sized left pleural effusions with worsening on the left. 2. Airspace opacities in right lower lung zone and left mid and lower lung zones with worsening on the left, consistent with atelectasis versus pneumonia. 3. Cardiomegaly. initially was started on IV Lasix which was discontinued given volume depletion. Continue spironolactone Echo 08/29/21 showed normal EF 60-65% with abnormal diastolic function. Monitor strict intake and output and daily weights Continue Aldactone Strict intake and output monitoring, as well as daily weights (2) Leg weakness: Qualifiers: Laterality: bilateral Qualified Code(s): R29.898 - Other symptoms and signs involving the musculoskeletal system Code(s): R29.898 - Other symptoms and signs involving the musculoskeletal system Status: Acute Assessment and Plan: Suspect a combination of anemia, vascular insufficiency, diabetic neuropathy, neurogenic claudication due to spinal stenosis Ankle-brachial index for peripheral arterial disease 08/23 normal Venous Doppler for possible hematoma left thigh 08/[address] lumbar spine showed L4-L5 moderate to severe central canal stenosis. unable to obtain follow-up MRI due to pacemaker. No signs/symptoms to suggest cord compression. Neurovascularly intact. B12 and folate within normal limits. RPR nonreactive. outpatient nerve conduction study and neurology vs neurosurgery follow up (3) COPD exacerbation: Code(s): J44.1 - Chronic obstructive pulmonary disease with (acute) exacerbation Status: Acute Assessment and Plan: He does have chronic respiratory failure and is on 2-4L supplemental O2 appreciate pulmonology consultation Continue with budesonide and dailresp Completed 7 days of p.o. prednisone. Discontinued 08/31 Completed 7 days of IV ceftriaxone and azithromycin 08/29 O2 sats are consistent with his baseline, 2 L O2. Currently maintaining adequate O2 sats on 2 L per nasal cannula Scheduled nebulized breathing treatments Continue maintenance inhalers Cornet valve to mobilize secretions (4) Anemia: Qualifiers: Anemia type: unspecified type Qualified Code(s): D64.9 - Anemia, unspecified Code(s): D64.9 - Anemia, unspecified Status: Acute Assessment and Plan: H/H 8.8/29.8-->.1 Recent onset of microcytosis He is on anticoagulation which would increase his risk for blood loss 08/23 Anemia parameters consistent with iron deficiency. Continue PO ferrous sulfate 08/24 GI consulted recommended EGD and colonoscopy which was delayed due to respiratory illness 08/24/21 -iron panel and folate checked. Iron level found to be mildly low. Patient now on daily iron b.i.d. orally. 09/04 EGD and colonoscopy performed today without evidence of bleeding. Polypectomy performed therefore will resume Xarelto in 2-3 days Tolerated EGD and colonoscopy yesterday; was noted to have 3 polyps. Denies blood or pain with bowel movements today. And did report a bowel movement earlier this morning. Eating well, denies nausea or vomiting today. Continue Protonix. Avoid NSAIDs Monitor H&H (5) Type II diabetes mellitus: Qualifiers: Diabetes mellitus correction insulin use: without correction use Diabetes mellitus complication status: with other specified complication Qualified Code(s): E11.69 - Type 2 diabetes mellitus with other specified complication Code(s): E11.9 - Type 2 diabetes mellitus without complications Status:
[2021-09-07 12:01] LABS: Glucose Point of Care 96 mg/dl (65-105)
[2021-09-07 16:58] LABS: Glucose Point of Care 90 mg/dl (65-105)
[2021-09-07] MEDS: FLUTICASONE PROPIONATE 0.05% NA SPR 16 GM BTL (*BKC) 1 SPRAY NASAL (20:27)
[2021-09-07 21:16] LABS: Glucose Point of Care 86 mg/dl (65-105)
[2021-09-08] VITALS (21 sets, daily range): BP systolic 128–138; BP diastolic 72–81; PULSE 82–100; RESP 16–22; TEMP 36.4–37; O2SAT 95–97
[2021-09-08] MEDS: IPRATROPIUM BR 0.02% INH SOLN 0.5 MG/2.5 ML VIAL INHALATION ×6 (00:13→20:06)
[2021-09-08] MEDS: ALBUTEROL SULFATE NEB 2.5 MG/0.5 ML INH INHALATION ×2 (00:14→04:13)
[2021-09-08] MEDS: LEVOTHYROXINE SODIUM 50 MCG TABLET PO (05:47)
[2021-09-08 06:16] LABS: Hematocrit 31.1 % (42.0-52.0); Hemoglobin 9.2 g/dL (14.0-18.0); Mean Corpuscular HGB Conc 29.6 g/dl (32-36); Mean Corpuscular Hemoglobin 22.6 pg (26-34); Mean Corpuscular Volume 76.4 fl (80-100); Mean Platelet Volume 9.4 fl (7.4-10.4); Platelet Count Result 160 k/mm3 (150-375); Red Blood Count 4.07 M/mm3 (4.6-6.20); Red Cell Distribution Width 27.3 % (11.5-14.5); White Blood Count 10.2 K/mm3 (4.5-10.0)
[2021-09-08 06:27] LABS: Anion Gap 5 mmol/L (8-16); Blood Urea Nitrogen 8 mg/dL (9-20); Calcium 8.7 mg/dL (8.4-10.2); Carbon Dioxide 31 mmol/L (22-30); Chloride 87 mmol/L (98-107); Estimated CRCL calculation 147 ml/min; Estimated Glomerular Filt Rate > 60; Glucose 92 mg/dL (65-110); Potassium 3.5 mmol/L (3.4-5.0); Sodium 123 mmol/L (137-145)
[2021-09-08] MEDS: BUDESONIDE RESPULE NEB 0.5 MG/2 ML AMP INHALATION ×2 (07:18→20:06)
[2021-09-08] MEDS: DEMECLOCYCLINE HCL 150 MG TABLET PO ×4 (09:16→20:55)
[2021-09-08] MEDS: dilTIAZem HCL 30 MG TABLET PO ×3 (09:16→17:24)
[2021-09-08] MEDS: CHOLECALCIFEROL 1,000 UNITS TABLET 2000 UNITS PO (09:16)
[2021-09-08] MEDS: PANTOPRAZOLE 40 MG TABLET PO ×2 (09:16→17:22)
[2021-09-08] MEDS: ROFLUMILAST 500 MCG TABLET PO (09:16)
[2021-09-08] MEDS: metFORMIN HCL 500 MG TABLET PO ×2 (09:16→17:22)
[2021-09-08] MEDS: AMIODARONE HCL 200 MG TABLET PO ×2 (09:16→17:23)
[2021-09-08] MEDS: SODIUM CHLORIDE 1 GM TABLET PO ×2 (09:16→17:23)
[2021-09-08] MEDS: FUROSEMIDE 20 MG TABLET PO ×2 (09:17→17:23)
[2021-09-08] MEDS: SERTRALINE HCL 50 MG TABLET PO (09:17)
[2021-09-08] MEDS: SPIRONOLACTONE 25 MG TABLET PO (09:17)
[2021-09-08] MEDS: SILDENAFIL CITRATE 20 MG TABLET PO ×2 (09:17→20:56)
[2021-09-08] MEDS: FLUTICASONE PROPIONATE 0.05% NA SPR 16 GM BTL (*BKC) 1 SPRAY NASAL ×2 (09:17→20:56)
[2021-09-08] MEDS: ASPIRIN 81 MG ENTERIC TABLET PO (09:17)
[2021-09-08] MEDS: LIDOCAINE 5% PATCH 1 PATCH TRANSDERM (09:18)
[2021-09-08] MEDS: CYANOCOBALAMIN 500 MCG TABLET PO (09:18)
[2021-09-08] MEDS: FOLIC ACID 1 MG TABLET PO (09:18)
[2021-09-08] MEDS: TAMSULOSIN HCL 0.4 MG CAPSULE PO (09:18)
[2021-09-08 09:29] LABS: Glucose Point of Care 107 mg/dl (65-105)
[2021-09-08] MEDS: LORazepam (*CRX) 0.5 MG TABLET PO ×2 (09:32→21:43)
[2021-09-08] MEDS: HYDROcodone/acetaminophen (*CRX) 5-325 MG TABLET 1 TAB PO ×3 (09:32→20:55)
--- NOTE | 2021-09-08 09:40 | PCOTNOTE ---
Attempted OT re-assessment this AM. Patient reports that he's not having a good morning , noting difficulties breathing. Agreeable to trying therapy later. RN notified.
--- NOTE | 2021-09-08 09:52 | P.PNNP_ITS ---
Progress Note: A&P Assessment and Plan (1) Hyponatremia: Code(s): E87.1 - Hypo-osmolality and hyponatremia Status: Acute Assessment and Plan: * normal sodium on admission (137) but sodium low off and on over the years. * urine electrolytes suggest prerenal azotemia * TSH elevated but on supplementation; cortisol okay but on steroids recently * serum/urine osmolality Do not seem to have been drawn. SPEP/UPEP pending * risk factors for low sodium: * COPD/lung disease * SSRI use (sertraline) * steroid use * liver cirrhosis * Trying to restrict input * Sodium 123 this morning. * He is on fluid restriction, demeclocycline, Lasix and salt tablets. (2) CHF exacerbation: Qualifiers: Heart failure type: systolic Qualified Code(s): I50.23 - Acute on chronic systolic (congestive) heart failure Code(s): I50.9 - Heart failure, unspecified Status: Acute Assessment and Plan: * better compensated at this time * diuretics on hold given #1 * follow respiratory/volume status (3) COPD exacerbation: Code(s): J44.1 - Chronic obstructive pulmonary disease with (acute) exacerbation Status: Acute Assessment and Plan: * doing somewhat better at this time * continue inhalers, steroids, and supplemental oxygen * A BiPAP is available but he has trouble using it all night * Still has some wheezes * Pulmonary following (4) Anemia: Qualifiers: Anemia type: unspecified type Qualified Code(s): D64.9 - Anemia, unspecified Code(s): D64.9 - Anemia, unspecified Status: Acute Assessment and Plan: * GI evaluation underway * His creatinine is normal (5) Essential (primary) hypertension: Code(s): I10 - Essential (primary) hypertension Status: Acute Assessment and Plan: * Systolic in the 130s * He is on diltiazem. (6) Type II diabetes mellitus: Qualifiers: Diabetes mellitus senior living insulin use: without ferry terminal agent use Diabetes mellitus complication status: with other specified complication Qualified Code(s): E11.69 - Type 2 diabetes mellitus with other specified complication Code(s): E11.9 - Type 2 diabetes mellitus without complications Status: Acute Assessment and Plan: * On Accu-Cheks and sliding-scale insulin Will continue to follow. Subjective Date/time seen: 09/08/21 09:52 Interval history: Patient is feeling about the same. Trying to restrict fluid on his own. Seen earlier this morning. He had the CPAP mask on and was comfortable. No chest pain. Exam Narrative: General: Well-developed well-nourished male in no acute distress Heart: normal S1 and S2; no rub or gallop Lungs: decreased with few expiratory wheezes bilaterally Abdomen: soft, nontender, nondistended, positive bowel sounds Extremities: no cyanosis or clubbing; trace edema and has Reggie hose on Skin: no rash Objective Data Vital Signs Vital Signs: Vital Signs - 24 hr 09/07/21 12:54 09/07/21 15:42 09/07/21 15:44 Temperature 36.1 C L Pulse Rate 95 98 96 Respiratory Rate 20 18 Blood Pressure 134/72 108/64 Pulse Oximetry 96 09/07/21 15:47 09/07/21 16:10 09/07/21 16:39 Temperature Pulse Rate 98 96 96 Respiratory Rate 20 Blood Pressure 106/64 Pulse Oximetry
--- NOTE | 2021-09-08 09:52 | PM.PNNEP ---
Progress Note: A&P Assessment and Plan (1) Hyponatremia: Code(s): E87.1 - Hypo-osmolality and hyponatremia Status: Acute Assessment and Plan: normal sodium on admission (137) but sodium low off and on over the years. urine electrolytes suggest prerenal azotemia TSH elevated but on supplementation; cortisol okay but on steroids recently serum/urine osmolality Do not seem to have been drawn. SPEP/UPEP pending risk factors for low sodium: COPD/lung disease SSRI use (sertraline) steroid use liver cirrhosis Trying to restrict input Sodium 123 this morning. He is on fluid restriction, demeclocycline, Lasix and salt tablets. (2) CHF exacerbation: Qualifiers: Heart failure type: systolic Qualified Code(s): I50.23 - Acute on chronic systolic (congestive) heart failure Code(s): I50.9 - Heart failure, unspecified Status: Acute Assessment and Plan: better compensated at this time diuretics on hold given #1 follow respiratory/volume status (3) COPD exacerbation: Code(s): J44.1 - Chronic obstructive pulmonary disease with (acute) exacerbation Status: Acute Assessment and Plan: doing somewhat better at this time continue inhalers, steroids, and supplemental oxygen A BiPAP is available but he has trouble using it all night Still has some wheezes Pulmonary following (4) Anemia: Qualifiers: Anemia type: unspecified type Qualified Code(s): D64.9 - Anemia, unspecified Code(s): D64.9 - Anemia, unspecified Status: Acute Assessment and Plan: GI evaluation underway His creatinine is normal (5) Essential (primary) hypertension: Code(s): I10 - Essential (primary) hypertension Status: Acute Assessment and Plan: Systolic in the 130s He is on diltiazem. 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 Subjective Date/time seen: 09/08/21 09:52 Interval history: Patient is feeling about the same. Trying to restrict fluid on his own. Seen earlier this morning. He had the CPAP mask on and was comfortable. No chest pain. Exam Narrative: General: Well-developed well-nourished male in no acute distress Heart: normal S1 and S2; no rub or gallop Lungs: decreased with few expiratory wheezes bilaterally Abdomen: soft, nontender, nondistended, positive bowel sounds Extremities: no cyanosis or clubbing; trace edema and has Reggie hose on Skin: no rash Objective Data Vital Signs Vital Signs: Vital Signs - 24 hr 09/07/21 12:54 09/07/21 15:42 09/07/21 15:44 Temperature 36.1 C L Pulse Rate 95 98 96 Respiratory Rate 20 18 Blood Pressure 134/72 108/64 Pulse Oximetry 96 09/07/21 15:47 09/07/21 16:10 09/07/21 16:39 Temperature Pulse Rate 98 96 96 Respiratory Rate 20 Blood Pressure 106/64 Pulse Oximetry 09/07/21 20:00 09/07/21 20:05 09/07/21 20:15 Temperature Pulse Rate 95 95 Respiratory Rate 20 20 Blood Pressure Pulse Oximetry 96 95 09/07/21 21:16 09/07/21 21:20 09/07/21 22:08 Temperature 36.3 C L Pulse Rate 98 98 Respiratory Rate 20 22 H Blood Pressure 108/66 112/71 Pulse Oximetry 96 95 09/08/21 00:22 09/08/21 00:31 09/08/21 00:32 Temperature Pulse Rate 95 98 95 Respiratory Rate 20 22 H 20 Blood Pressure Pulse Oximetry 95 09/08/21 04:04 09/08/21 04:14 09/08/21 05:40 Temperature 36.5 C Pulse Rate 88 88 95 Respiratory Rate 22 H 22 H 20 Blood Pressure 128/81 Pulse Oxim
--- NOTE | 2021-09-08 10:26 | PCNWS ---
Weekly nutritional screen. Patient is tolerating current diet with adequate intake. No weight loss reported. No nutritional needs at this time.
[2021-09-08 11:43] LABS: Glucose Point of Care 91 mg/dl (65-105)
[2021-09-08] MEDS: SALMETEROL XINAFOATE 50 MCG DISKUS 1 PUFF INHALATION (12:24)
--- NOTE | 2021-09-08 12:59 | PCOTNOTE ---
Attempted OT re-evaluation. Pt stated 9/10 pain at rest in left ribs. Pt attempted to don socks and became tearful due to pain and unable to complete task. Will re-attempt re-evaluation.
--- NOTE | 2021-09-08 13:25 | PM.PNPUL ---
Progress Note: A&P Assessment and Plan (1) COPD exacerbation: Code(s): J44.1 - Chronic obstructive pulmonary disease with (acute) exacerbation Status: Acute Assessment and Plan: Patient with GOLD grade 4 group D COPD. He is followed in the [facility]monary [facility] with last visit on 06/26/2021. He was on 3-4 L /, noninvasive ventilation with an AVAPS-AE mode (compliance at > 4/night at 11.3%, taking triple inhalers (aformoterol, budesonide, ipratroprium), Daliresp and sildenifil with an FEV1 of 0.94 L (25th percent predicted), air trapping and hyperinflation on latest PFTs from 06/2018, centrilobular emphysema with lower lobe fibrosis on CT scan of the chest on latest 03/07/2021, pulmonary hypertension with an RVSP of 41 on sildenafil by echocardiogram 01/07/2021. On a good day he can walk from his couch to the bathroom. He quit smoking on 07/21/2021. 08/23 Currently patient with increased shortness of breath, wheezing, increased cough and phlegm production for 1 day. I will treat him for COPD exacerbation. Will change his Solu-Medrol to 20 mg IV q.6 hours, I will increase his albuterol and ipratropium nebulizers to q.4 hours. I will continue his Daliresp 500 mg q.day. At this time I will continue ceftriaxone and azithromycin and follow his blood cultures and deescalate accordingly. His COVID RT PCR test is negative and I will send influenza swab. On xarelto making PE unlikely. He has a history of pulmonary hypertension on sildenafil 20 mg p.o. q.12 hours and I will continue this. He wears a noninvasive ventilator with AVAPS-AE mode and a complete face mask at home. In the chart there is a download from 04/23/21 through 06/14/2021. The patient is on AVAPS-AE mode. Respiratory rate is auto, tidal volume 540, minimum EPAP 5, maximum EPAP 16, minimal inspiratory pressure 5, maximal inspiratory pressure 20. as mentioned above his compliance with use of greater than or equal to 4 hours a night is 11.3% of nights (very poor). Average usage on days used is 5 hours and 35 minutes. His average EPAP setting is 5. His average IPAP ranges from 12 to 15 and his breaths per minute average is 18-22. He is unable to bring this machine into the hospital and he said he would be willing to try our hospital's fullface mask. 08/24 Patient tells me that he is slightly improved. He has less cough, less sputum production but continued shortness of breath and dyspnea on exertion that her note different. He has no wheezes on exam today. Last night the patient wore noninvasive ventilation with an Marii ABS mode with an attempt to mimic his home trilogy settings. He was on AVAPS rate of 20, tidal volume 540, EPAP of 5, minimal inspiratory pressure 6, maximal inspiratory pressure 25, FiO2 35%. He had an ABG prior to removal on the settings of 7.49/47/151. He had an overnight oximetry on these settings with an average saturation of 99%, and time with saturation less than or equal to 88% was 0 minutes. He said he did sleep with this but he needed more time to . At the bedside I decreased his inspiratory time to 0.85 sec and increased his rise to 1 which is our fast this and he said these settings were perfect . Changed to prednisone 40 p.o. today. The current noninvasive ventilation with AVAPS mode settings are adequate regarding his ventilation and I will decrease his FiO2 at night to 30%. 08/25 He says that he is still struggling to use our AVAPS device, feels that he is not getting enough pressure. He also says that his Trilogy device at home is not easy to use, has low compliance. Will try to make changes in the settings to allow him to breathe with less effort. 08/27 Still short of breath, BUN 20, creat 0.7. No better as far as dyspnea. Needs upper and lower scope but not stable enough yet. May need to wait until he is more stable. 09/04/2021 - completed endoscopies. Not short of breath. Na+ is low and this is his barrier to discharge. Will co
--- NOTE | 2021-09-08 15:39 | P.PNIM_ITS ---
Progress Note: A&P Assessment and Plan (1) CHF exacerbation: Qualifiers: Heart failure type: systolic Qualified Code(s): I50.23 - Acute on chronic systolic (congestive) heart failure Code(s): I50.9 - Heart failure, unspecified Status: Acute Assessment and Plan: CXR showed findings consistent with CHF exacerbation. * Repeat CXR 08/27 showed findings consistent with persistent CHF exacerbation * Continue Lasix 20 mg PO BID * Continue spironolactone * Overall has had improvement with total of 9L output since admission * Echo 08/29/21 showed normal EF 60-65% with abnormal diastolic function. * Monitor strict intake and output and daily weights (2) Leg weakness: Qualifiers: Laterality: bilateral Qualified Code(s): R29.898 - Other symptoms and signs involving the musculoskeletal system Code(s): R29.898 - Other symptoms and signs involving the musculoskeletal system Status: Acute Assessment and Plan: Suspect a combination of anemia, vascular insufficiency, diabetic neuropathy, neurogenic claudication due to spinal stenosis * Ankle-brachial index for peripheral arterial disease 08/23 normal * Venous Doppler for possible hematoma left thigh 08/24 NEGATIVE * CT lumbar spine showed L4-L5 moderate to severe central canal stenosis. unable to obtain follow-up MRI due to pacemaker. No signs/symptoms to suggest cord compression. Neurovascularly intact. * B12 and folate within normal limits. RPR nonreactive. * outpatient nerve conduction study and neurology vs neurosurgery follow up (3) COPD exacerbation: Code(s): J44.1 - Chronic obstructive pulmonary disease with (acute) exacerbation Status: Acute Assessment and Plan: He does have chronic respiratory failure and is on 2-4L supplemental O2 * appreciate pulmonology consultation * Completed 7 days of p.o. prednisone. Discontinued 08/31 * Completed 7 days of IV ceftriaxone and azithromycin 08/29 * O2 sats are consistent with his baseline. Currently maintaining adequate O2 sats on 3L per nasal cannula * Scheduled nebulized breathing treatments. Continue levalbuterol and ipratropium * Continue maintenance inhalers. * Cornet valve to mobilize secretions (4) Anemia: Qualifiers: Anemia type: unspecified type Qualified Code(s): D64.9 - Anemia, unspecified Code(s): D64.9 - Anemia, unspecified Status: Acute Assessment and Plan: Recent onset of microcytosis * He is on anticoagulation which would increase his risk for blood loss * 08/23 Anemia parameters consistent with iron deficiency. Continue PO ferrous sulfate * 08/24 GI consulted recommended EGD and colonoscopy which was delayed due to respiratory illness * 09/04 EGD and colonoscopy performed without evidence of bleeding. Polypectomy performed therefore Xarelto was held. Will resume today since >3 days since polypectomy * Continue protonix. Avoid NSAIDs. * Monitor H&H-remaining stable (5) Type II diabetes mellitus: Qualifiers: Diabetes mellitus buttermaker helper insulin use: without buttermaker helper use Diabetes mellitus complication status: with other specified complication Qualified Code(s): E11.69 - Type 2 diabetes mellitus with other specified complication Code(s): E11.9 - Type 2 diabetes mellitus without complications Status: Acute Assessment and Plan: Blood sugars stable today. Last A1c 5.6 in June. Fasting glucose 91 today * continue Accu-Cheks, sliding scale, hypoglycemic protocol * continue metformin * basal glargine 24 U * monitor glucose t
--- NOTE | 2021-09-08 15:39 | PM.IMPN ---
Progress Note: A&P Assessment and Plan (1) CHF exacerbation: Qualifiers: Heart failure type: systolic Qualified Code(s): I50.23 - Acute on chronic systolic (congestive) heart failure Code(s): I50.9 - Heart failure, unspecified Status: Acute Assessment and Plan: CXR showed findings consistent with CHF exacerbation. Repeat CXR 08/27 showed findings consistent with persistent CHF exacerbation Continue Lasix 20 mg PO BID Continue spironolactone Overall has had improvement with total of 9L output since admission Echo 08/29/21 showed normal EF 60-65% with abnormal diastolic function. Monitor strict intake and output and daily weights (2) Leg weakness: Qualifiers: Laterality: bilateral Qualified Code(s): R29.898 - Other symptoms and signs involving the musculoskeletal system Code(s): R29.898 - Other symptoms and signs involving the musculoskeletal system Status: Acute Assessment and Plan: Suspect a combination of anemia, vascular insufficiency, diabetic neuropathy, neurogenic claudication due to spinal stenosis Ankle-brachial index for peripheral arterial disease 08/23 normal Venous Doppler for possible hematoma left thigh 08/[address] lumbar spine showed L4-L5 moderate to severe central canal stenosis. unable to obtain follow-up MRI due to pacemaker. No signs/symptoms to suggest cord compression. Neurovascularly intact. B12 and folate within normal limits. RPR nonreactive. outpatient nerve conduction study and neurology vs neurosurgery follow up (3) COPD exacerbation: Code(s): J44.1 - Chronic obstructive pulmonary disease with (acute) exacerbation Status: Acute Assessment and Plan: He does have chronic respiratory failure and is on 2-4L supplemental O2 appreciate pulmonology consultation Completed 7 days of p.o. prednisone. Discontinued 08/31 Completed 7 days of IV ceftriaxone and azithromycin 08/29 O2 sats are consistent with his baseline. Currently maintaining adequate O2 sats on 3L per nasal cannula Scheduled nebulized breathing treatments. Continue levalbuterol and ipratropium Continue maintenance inhalers. Cornet valve to mobilize secretions (4) Anemia: Qualifiers: Anemia type: unspecified type Qualified Code(s): D64.9 - Anemia, unspecified Code(s): D64.9 - Anemia, unspecified Status: Acute Assessment and Plan: Recent onset of microcytosis He is on anticoagulation which would increase his risk for blood loss 08/23 Anemia parameters consistent with iron deficiency. Continue PO ferrous sulfate 08/24 GI consulted recommended EGD and colonoscopy which was delayed due to respiratory illness 09/04 EGD and colonoscopy performed without evidence of bleeding. Polypectomy performed therefore Xarelto was held. Will resume today since >3 days since polypectomy Continue protonix. Avoid NSAIDs. 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 Last A1c 5.6 in June. Fasting glucose 91 today continue Accu-Cheks, sliding scale, hypoglycemic protocol continue metformin basal glargine 24 U monitor glucose trends and adjust medication regimen as needed (6) Obstructive sleep apnea: Code(s): G47.33 - Obstructive sleep apnea (adult) (pediatric) Status: Acute Assessment and Plan: As he does not have his home trilogy with him, BiPAP is substituted pulmonology following and consultation is appreciated (7) Persistent atrial fibrillation: Code(s): I48.19 - Oth
--- NOTE | 2021-09-08 16:33 | PCPTNOTE ---
Patient refused in the AM then again in the PM. Patient reporting increase pain and requested therapist to return tomorrow. RN aware.
[2021-09-08 16:36] LABS: Glucose Point of Care 95 mg/dl (65-105)
[2021-09-08] MEDS: RIVAROXABAN 20 MG TABLET PO (17:24)
[2021-09-08 20:47] LABS: Glucose Point of Care 99 mg/dl (65-105)
[2021-09-08] MEDS: INSULIN GLARGINE (*BKC) 100 UNITS/ML 24 UNITS SUB-Q (20:53)
[2021-09-08] MEDS: DOCUSATE SODIUM 100 MG CAPSULE PO (20:56)
[2021-09-09] VITALS (25 sets, daily range): BP systolic 107–137; BP diastolic 62–80; PULSE 87–103; RESP 20–28; TEMP 35.7–36.6; O2SAT 92–99
[2021-09-09] MEDS: IPRATROPIUM BR 0.02% INH SOLN 0.5 MG/2.5 ML VIAL INHALATION ×5 (02:54→23:34)
[2021-09-09 06:01] LABS: Anion Gap 4 mmol/L (8-16); Blood Urea Nitrogen 9 mg/dL (9-20); Calcium 8.5 mg/dL (8.4-10.2); Carbon Dioxide 31 mmol/L (22-30); Chloride 86 mmol/L (98-107); Estimated CRCL calculation 172 ml/min; Estimated Glomerular Filt Rate > 60; Glucose 88 mg/dL (65-110); Potassium 3.3 mmol/L (3.4-5.0); Sodium 121 mmol/L (137-145)
[2021-09-09 06:10] LABS: Hematocrit 30.4 % (42.0-52.0); Hemoglobin 8.9 g/dL (14.0-18.0)
[2021-09-09] MEDS: LEVOTHYROXINE SODIUM 50 MCG TABLET PO (06:20)
[2021-09-09 08:00] LABS: Glucose Point of Care 91 mg/dl (65-105)
[2021-09-09] MEDS: metFORMIN HCL 500 MG TABLET PO ×2 (08:56→17:25)
[2021-09-09] MEDS: ASPIRIN 81 MG ENTERIC TABLET PO (08:56)
[2021-09-09] MEDS: AMIODARONE HCL 200 MG TABLET PO ×2 (08:56→17:25)
[2021-09-09] MEDS: DEMECLOCYCLINE HCL 150 MG TABLET PO ×4 (08:57→21:22)
[2021-09-09] MEDS: CHOLECALCIFEROL 1,000 UNITS TABLET 2000 UNITS PO (08:57)
[2021-09-09] MEDS: dilTIAZem HCL 30 MG TABLET PO ×3 (08:57→17:25)
[2021-09-09] MEDS: CYANOCOBALAMIN 500 MCG TABLET PO (08:57)
[2021-09-09] MEDS: DOCUSATE SODIUM 100 MG CAPSULE PO ×2 (08:57→21:22)
[2021-09-09] MEDS: FLUTICASONE PROPIONATE 0.05% NA SPR 16 GM BTL (*BKC) 1 SPRAY NASAL ×2 (08:58→21:22)
[2021-09-09] MEDS: FUROSEMIDE 20 MG TABLET PO ×2 (08:58→17:25)
[2021-09-09] MEDS: FOLIC ACID 1 MG TABLET PO (08:58)
[2021-09-09] MEDS: ROFLUMILAST 500 MCG TABLET PO (08:59)
[2021-09-09] MEDS: SILDENAFIL CITRATE 20 MG TABLET PO ×2 (08:59→21:22)
[2021-09-09] MEDS: TAMSULOSIN HCL 0.4 MG CAPSULE PO (08:59)
[2021-09-09] MEDS: SODIUM CHLORIDE 1 GM TABLET PO ×2 (08:59→17:26)
[2021-09-09] MEDS: PANTOPRAZOLE 40 MG TABLET PO ×2 (08:59→17:25)
[2021-09-09] MEDS: LORazepam (*CRX) 0.5 MG TABLET PO ×2 (09:04→21:24)
[2021-09-09] MEDS: SERTRALINE HCL 25 MG TABLET PO (09:23)
[2021-09-09] MEDS: HYDROcodone/acetaminophen (*CRX) 5-325 MG TABLET 1 TAB PO ×2 (09:23→23:32)
[2021-09-09] MEDS: BUDESONIDE RESPULE NEB 0.5 MG/2 ML AMP INHALATION ×2 (09:28→21:21)
[2021-09-09 09:56] LABS: Sodium 121 mmol/L (137-145)
--- NOTE | 2021-09-09 09:57 | P.PNNP_ITS ---
Progress Note: A&P Assessment and Plan (1) Hyponatremia: Code(s): E87.1 - Hypo-osmolality and hyponatremia Status: Acute Assessment and Plan: * normal sodium on admission (137) but sodium low off and on over the years. * urine electrolytes suggest prerenal azotemia * TSH elevated but on supplementation; cortisol okay but on steroids recently * serum/urine osmolality Do not seem to have been drawn. SPEP/UPEP pending * risk factors for low sodium: * COPD/lung disease * SSRI use (sertraline) * steroid use * liver cirrhosis * Trying to restrict input * Sodium One hundred twenty-one today.. * He is on fluid restriction, demeclocycline, Lasix and salt tablets. He is just not improving. Will try tolvaptan. Will also decrease sertraline to half the dose and see if that helps as well. I told the patient to go back to the way he was drinking before because of the tolvaptan. (2) CHF exacerbation: Qualifiers: Heart failure type: systolic Qualified Code(s): I50.23 - Acute on chronic systolic (congestive) heart failure Code(s): I50.9 - Heart failure, unspecified Status: Acute Assessment and Plan: * better compensated at this time * diuretics on board due to sodium only * follow respiratory/volume status (3) COPD exacerbation: Code(s): J44.1 - Chronic obstructive pulmonary disease with (acute) exacerbation Status: Acute Assessment and Plan: * doing somewhat better at this time * continue inhalers, steroids, and supplemental oxygen * A BiPAP is available but he has trouble using it all night * Still has some wheezes * Pulmonary following (4) Anemia: Qualifiers: Anemia type: unspecified type Qualified Code(s): D64.9 - Anemia, unspecified Code(s): D64.9 - Anemia, unspecified Status: Acute Assessment and Plan: * GI evaluation underway * His creatinine is normal (5) Essential (primary) hypertension: Code(s): I10 - Essential (primary) hypertension Status: Acute Assessment and Plan: * Systolic is well controlled * He is on diltiazem. (6) Type II diabetes mellitus: Qualifiers: Diabetes mellitus long term acute care registered nurse insulin use: without long term acute care registered nurse use Diabetes mellitus complication status: with other specified complication Qualified Code(s): E11.69 - Type 2 diabetes mellitus with other specified complication Code(s): E11.9 - Type 2 diabetes mellitus without complications Status: Acute Assessment and Plan: * On Accu-Cheks and sliding-scale insulin Subjective Date/time seen: 09/09/21 09:57 Interval history: Patient is feeling about the same. He drinks about a L and a half of fluid yesterday he said but intake /output says only about a L. breathing is about the same. Exam Narrative: General: Well-developed well-nourished male in no acute distress Heart: normal S1 and S2; no rub or gallop Lungs: decreased with few expiratory wheezes bilaterally . He seems to be moving air a little bit better today. Abdomen: soft, nontender, nondistended, positive bowel sounds Extremities: no cyanosis or clubbing; trace edema and has Reggie hose on Skin: no rash Objective Data Vital Signs Vital Signs: Vital Signs - 24 hr 09/08/21 10:00 09/08/21 12:27 09/08/21 14:34 Temperature Pulse Rate 89 Respiratory Rate 20 Blood Pressure 138/75
--- NOTE | 2021-09-09 09:57 | PM.PNNEP ---
Progress Note: A&P Assessment and Plan (1) Hyponatremia: Code(s): E87.1 - Hypo-osmolality and hyponatremia Status: Acute Assessment and Plan: normal sodium on admission (137) but sodium low off and on over the years. urine electrolytes suggest prerenal azotemia TSH elevated but on supplementation; cortisol okay but on steroids recently serum/urine osmolality Do not seem to have been drawn. SPEP/UPEP pending risk factors for low sodium: COPD/lung disease SSRI use (sertraline) steroid use liver cirrhosis Trying to restrict input Sodium One hundred twenty-one today.. He is on fluid restriction, demeclocycline, Lasix and salt tablets. He is just not improving. Will try tolvaptan. Will also decrease sertraline to half the dose and see if that helps as well. I told the patient to go back to the way he was drinking before because of the tolvaptan. (2) CHF exacerbation: Qualifiers: Heart failure type: systolic Qualified Code(s): I50.23 - Acute on chronic systolic (congestive) heart failure Code(s): I50.9 - Heart failure, unspecified Status: Acute Assessment and Plan: better compensated at this time diuretics on board due to sodium only follow respiratory/volume status (3) COPD exacerbation: Code(s): J44.1 - Chronic obstructive pulmonary disease with (acute) exacerbation Status: Acute Assessment and Plan: doing somewhat better at this time continue inhalers, steroids, and supplemental oxygen A BiPAP is available but he has trouble using it all night Still has some wheezes Pulmonary following (4) Anemia: Qualifiers: Anemia type: unspecified type Qualified Code(s): D64.9 - Anemia, unspecified Code(s): D64.9 - Anemia, unspecified Status: Acute Assessment and Plan: GI evaluation underway His creatinine is normal (5) Essential (primary) hypertension: Code(s): I10 - Essential (primary) hypertension Status: Acute Assessment and Plan: Systolic is well controlled He is on diltiazem. (6) Type II diabetes mellitus: Qualifiers: Diabetes mellitus intermediate insulin use: without terminal computer operator use Diabetes mellitus complication status: with other specified complication Qualified Code(s): E11.69 - Type 2 diabetes mellitus with other specified complication Code(s): E11.9 - Type 2 diabetes mellitus without complications Status: Acute Assessment and Plan: On Accu-Cheks and sliding-scale insulin Subjective Date/time seen: 09/09/21 09:57 Interval history: Patient is feeling about the same. He drinks about a L and a half of fluid yesterday he said but intake /output says only about a L. breathing is about the same. Exam Narrative: General: Well-developed well-nourished male in no acute distress Heart: normal S1 and S2; no rub or gallop Lungs: decreased with few expiratory wheezes bilaterally . He seems to be moving air a little bit better today. Abdomen: soft, nontender, nondistended, positive bowel sounds Extremities: no cyanosis or clubbing; trace edema and has Reggie hose on Skin: no rash Objective Data Vital Signs Vital Signs: Vital Signs - 24 hr 09/08/21 10:00 09/08/21 12:27 09/08/21 14:34 Temperature Pulse Rate 89 Respiratory Rate 20 Blood Pressure 138/75 Pulse Oximetry 95 09/08/21 14:35 09/08/21 16:00 09/08/21 17:23 Temperature 37.0 C Pulse Rate 96 88 96 Respiratory Rate 16 20 Blood Pressure 130/72 Pulse Oximetry 96 09/08/21 20:00 09/08/21 20:15 09/08/21 20:25 Temperature Pulse Rate 97 97 Respiratory Rate 20 20 Blood Pressure Pulse Oximetry 95 09/08/21 20:44 09/08/21 20:47 09/08/21 22:23 Temperature 36.4 C Pulse Rate 96 90 Respiratory Rate 20 22 H Blood Pressure 135/80 129/75 Pulse Oximetry 96 95 09/09/21 02:55 09/09/21 03:05 09/09/21 05:22
[2021-09-09 11:54] LABS: Glucose Point of Care 107 mg/dl (65-105)
[2021-09-09] MEDS: POTASSIUM CHLORIDE 20 MEQ TABLET PO (12:11)
[2021-09-09 14:36] LABS: Sodium 121 mmol/L (137-145)
--- NOTE | 2021-09-09 15:47 | PC.NURSE ---
On 09/09/21, the student, Estelle Duran, provided care and completed [facility] documentation on this patient. I have reviewed the student's documentation and agree with the findings.
--- NOTE | 2021-09-09 16:30 | P.PNIM_ITS ---
Progress Note: A&P Assessment and Plan (1) CHF exacerbation: Qualifiers: Heart failure type: systolic Qualified Code(s): I50.23 - Acute on chronic systolic (congestive) heart failure Code(s): I50.9 - Heart failure, unspecified Status: Acute Assessment and Plan: CXR showed findings consistent with CHF exacerbation. * Repeat CXR 08/27 showed findings consistent with persistent CHF exacerbation * Continue Lasix 20 mg PO BID * Continue spironolactone * Overall has had improvement with total of 9L output since admission * Echo 08/29/21 showed normal EF 60-65% with abnormal diastolic function. * Monitor strict intake and output and daily weights (2) Leg weakness: Qualifiers: Laterality: bilateral Qualified Code(s): R29.898 - Other symptoms and signs involving the musculoskeletal system Code(s): R29.898 - Other symptoms and signs involving the musculoskeletal system Status: Acute Assessment and Plan: Suspect a combination of anemia, vascular insufficiency, diabetic neuropathy, neurogenic claudication due to spinal stenosis * Ankle-brachial index for peripheral arterial disease 08/23 normal * Venous Doppler for possible hematoma left thigh 08/24 NEGATIVE * CT lumbar spine showed L4-L5 moderate to severe central canal stenosis. unable to obtain follow-up MRI due to pacemaker. No signs/symptoms to suggest cord compression. Neurovascularly intact. * B12 and folate within normal limits. RPR nonreactive. * outpatient nerve conduction study and neurology vs neurosurgery follow up (3) COPD exacerbation: Code(s): J44.1 - Chronic obstructive pulmonary disease with (acute) exacerbation Status: Acute Assessment and Plan: He does have chronic respiratory failure and is on 2-4L supplemental O2 * appreciate pulmonology consultation * Completed 7 days of p.o. prednisone. Discontinued 08/31 * Completed 7 days of IV ceftriaxone and azithromycin 08/29 * O2 sats are consistent with his baseline. Currently maintaining adequate O2 sats on 3L per nasal cannula * Scheduled nebulized breathing treatments. Continue levalbuterol and ipratropium * Cornet valve to mobilize secretions * Discussed with hurl shaker, Dr. Santana. No further changes from pulmonary standpoint. Follow-up as an outpatient. (4) Anemia: Qualifiers: Anemia type: unspecified type Qualified Code(s): D64.9 - Anemia, unspecified Code(s): D64.9 - Anemia, unspecified Status: Acute Assessment and Plan: Recent onset of microcytosis * He is on anticoagulation which would increase his risk for blood loss * 08/23 Anemia parameters consistent with iron deficiency. Started on ferrous sulfate which was discontinued per Nephrology. * 08/24 GI consulted recommended EGD and colonoscopy which was delayed due to respiratory illness * 09/04 EGD and colonoscopy performed without evidence of bleeding. Polypectomy performed therefore Xarelto was held for 3 days and resumed on 09/08 * Continue protonix. Avoid NSAIDs. * Monitor H&H-remaining stable (5) Type II diabetes mellitus: Qualifiers: Diabetes mellitus long-term insulin use: without long-term use Diabetes mellitus complication status: with other specified complication Qualified Code(s): E11.69 - Type 2 diabetes mellitus with other specified complication Code(s): E11.9 - Type 2 diabetes mellitus without complications Status: Acute Assessment and Plan: Blood sugars stable today. Last A1c 5.6 in June. Fasting glucose 88 today * continue Accu-Cheks, sliding sca
--- NOTE | 2021-09-09 16:30 | PM.IMPN ---
Progress Note: A&P Assessment and Plan (1) CHF exacerbation: Qualifiers: Heart failure type: systolic Qualified Code(s): I50.23 - Acute on chronic systolic (congestive) heart failure Code(s): I50.9 - Heart failure, unspecified Status: Acute Assessment and Plan: CXR showed findings consistent with CHF exacerbation. Repeat CXR 08/27 showed findings consistent with persistent CHF exacerbation Continue Lasix 20 mg PO BID Continue spironolactone Overall has had improvement with total of 9L output since admission Echo 08/29/21 showed normal EF 60-65% with abnormal diastolic function. Monitor strict intake and output and daily weights (2) Leg weakness: Qualifiers: Laterality: bilateral Qualified Code(s): R29.898 - Other symptoms and signs involving the musculoskeletal system Code(s): R29.898 - Other symptoms and signs involving the musculoskeletal system Status: Acute Assessment and Plan: Suspect a combination of anemia, vascular insufficiency, diabetic neuropathy, neurogenic claudication due to spinal stenosis Ankle-brachial index for peripheral arterial disease 08/23 normal Venous Doppler for possible hematoma left thigh 08/[address] lumbar spine showed L4-L5 moderate to severe central canal stenosis. unable to obtain follow-up MRI due to pacemaker. No signs/symptoms to suggest cord compression. Neurovascularly intact. B12 and folate within normal limits. RPR nonreactive. outpatient nerve conduction study and neurology vs neurosurgery follow up (3) COPD exacerbation: Code(s): J44.1 - Chronic obstructive pulmonary disease with (acute) exacerbation Status: Acute Assessment and Plan: He does have chronic respiratory failure and is on 2-4L supplemental O2 appreciate pulmonology consultation Completed 7 days of p.o. prednisone. Discontinued 08/31 Completed 7 days of IV ceftriaxone and azithromycin 08/29 O2 sats are consistent with his baseline. Currently maintaining adequate O2 sats on 3L per nasal cannula Scheduled nebulized breathing treatments. Continue levalbuterol and ipratropium Cornet valve to mobilize secretions Discussed with solar energy system installer, Dr. Santana. No further changes from pulmonary standpoint. Follow-up as an outpatient. (4) Anemia: Qualifiers: Anemia type: unspecified type Qualified Code(s): D64.9 - Anemia, unspecified Code(s): D64.9 - Anemia, unspecified Status: Acute Assessment and Plan: Recent onset of microcytosis He is on anticoagulation which would increase his risk for blood loss 08/23 Anemia parameters consistent with iron deficiency. Started on ferrous sulfate which was discontinued per Nephrology. 08/24 GI consulted recommended EGD and colonoscopy which was delayed due to respiratory illness 09/04 EGD and colonoscopy performed without evidence of bleeding. Polypectomy performed therefore Xarelto was held for 3 days and resumed on 09/08 Continue protonix. Avoid NSAIDs. Monitor H&H-remaining stable (5) Type II diabetes mellitus: Qualifiers: Diabetes mellitus senior care insulin use: without senior care use Diabetes mellitus complication status: with other specified complication Qualified Code(s): E11.69 - Type 2 diabetes mellitus with other specified complication Code(s): E11.9 - Type 2 diabetes mellitus without complications Status: Acute Assessment and Plan: Blood sugars stable today. Last A1c 5.6 in June. Fasting glucose 88 today continue Accu-Cheks, sliding scale, hypoglycemic protocol continue metformin basal glargine 24 U monitor glucose trends and adjust medication regimen as needed (6) Obstructive sleep apnea: Code(s): G47.33 - Obstructive sleep apnea (adult) (pediatric) Status: Acute Assessment and Plan: As he does not have his home trilogy with him, BiPAP is substituted pulmonology follow
[2021-09-09 16:35] LABS: Glucose Point of Care 92 mg/dl (65-105)
[2021-09-09] MEDS: RIVAROXABAN 20 MG TABLET PO (17:26)
[2021-09-09 20:24] LABS: Sodium 130 mmol/L (137-145)
[2021-09-09 21:29] LABS: Glucose Point of Care 108 mg/dl (65-105)
[2021-09-09] MEDS: INSULIN GLARGINE (*BKC) 100 UNITS/ML 24 UNITS SUB-Q (21:30)
[2021-09-10] VITALS (22 sets, daily range): BP systolic 94–124; BP diastolic 54–75; PULSE 84–102; RESP 19–24; TEMP 35.6–36.6; O2SAT 93–100
[2021-09-10] MEDS: IPRATROPIUM BR 0.02% INH SOLN 0.5 MG/2.5 ML VIAL INHALATION ×5 (03:27→20:13)
[2021-09-10 04:55] LABS: Osmolality, Urine 431 mOsm/kg (50-1200)
[2021-09-10] MEDS: LEVOTHYROXINE SODIUM 50 MCG TABLET PO (06:35)
[2021-09-10 06:41] LABS: Anion Gap 3 mmol/L (8-16); Blood Urea Nitrogen 9 mg/dL (9-20); Carbon Dioxide 35 mmol/L (22-30); Chloride 94 mmol/L (98-107); Estimated CRCL calculation 127 ml/min; Estimated Glomerular Filt Rate > 60; Glucose 101 mg/dL (65-110); Potassium 3.3 mmol/L (3.4-5.0); Sodium 132 mmol/L (137-145)
[2021-09-10 07:38] LABS: Sodium 133 mmol/L (137-145)
[2021-09-10 07:50] LABS: Hematocrit 32.8 % (42.0-52.0); Hemoglobin 9.4 g/dL (14.0-18.0)
[2021-09-10] MEDS: BUDESONIDE RESPULE NEB 0.5 MG/2 ML AMP INHALATION ×2 (08:11→20:13)
[2021-09-10 08:58] LABS: Glucose Point of Care 89 mg/dl (65-105)
[2021-09-10] MEDS: CHOLECALCIFEROL 1,000 UNITS TABLET 2000 UNITS PO (09:21)
[2021-09-10] MEDS: ROFLUMILAST 500 MCG TABLET PO (09:21)
[2021-09-10] MEDS: DESMOPRESSIN ACETATE 4 MCG/ML AMP 2 MCG IV PUSH ×2 (09:22→13:44)
[2021-09-10] MEDS: metFORMIN HCL 500 MG TABLET PO ×2 (09:22→16:34)
[2021-09-10] MEDS: DEMECLOCYCLINE HCL 150 MG TABLET PO ×4 (09:22→20:56)
[2021-09-10] MEDS: dilTIAZem HCL 30 MG TABLET PO ×3 (09:23→16:35)
[2021-09-10] MEDS: AMIODARONE HCL 200 MG TABLET PO ×2 (09:23→16:35)
[2021-09-10] MEDS: PANTOPRAZOLE 40 MG TABLET PO ×2 (09:23→16:36)
[2021-09-10] MEDS: DEXTROSE 5% 1,000 ML 1,000 ML 400 ML IV CONT ×4 (09:23→22:27)
[2021-09-10] MEDS: CYANOCOBALAMIN 500 MCG TABLET PO (09:23)
[2021-09-10] MEDS: ASPIRIN 81 MG ENTERIC TABLET PO (09:23)
[2021-09-10] MEDS: FOLIC ACID 1 MG TABLET PO (09:24)
[2021-09-10] MEDS: SILDENAFIL CITRATE 20 MG TABLET PO ×2 (09:25→20:56)
[2021-09-10] MEDS: TAMSULOSIN HCL 0.4 MG CAPSULE PO (09:25)
[2021-09-10] MEDS: FLUTICASONE PROPIONATE 0.05% NA SPR 16 GM BTL (*BKC) 1 SPRAY NASAL ×2 (09:25→20:55)
[2021-09-10] MEDS: SERTRALINE HCL 25 MG TABLET PO (09:25)
[2021-09-10 11:48] LABS: Glucose Point of Care 113 mg/dl (65-105)
[2021-09-10] MEDS: HYDROcodone/acetaminophen (*CRX) 5-325 MG TABLET 1 TAB PO ×2 (11:50→22:11)
[2021-09-10 12:52] LABS: Sodium 132 mmol/L (137-145)
[2021-09-10] MEDS: ACETAMINOPHEN 500 MG TABLET 1000 MG PO (13:55)
--- NOTE | 2021-09-10 14:11 | P.PNNP_ITS ---
Progress Note: A&P Assessment and Plan (1) Hyponatremia: Code(s): E87.1 - Hypo-osmolality and hyponatremia Status: Acute Assessment and Plan: * normal sodium on admission (137) but sodium low off and on over the years. * urine electrolytes suggest prerenal azotemia * TSH elevated but on supplementation; cortisol okay but on steroids recently * serum/urine osmolality Do not seem to have been drawn. SPEP/UPEP pending * risk factors for low sodium: * COPD/lung disease * SSRI use (sertraline) * steroid use * liver cirrhosis * Because of resistant hyponatremia, we added tolvaptan I told the patient to go ahead and drink all the fluid he wants. * 4 hours after the dose his sodium level had not changed at all. I ordered another sodium level for 8:00 p.m. last night and asked them to call the results but the result was not called. * That result was 130. * His sodium had been running 121-123, so that level was borderline. However this morning it was 132 so I ordered DDAVP and D5W 3 ml/kg per hour for 2 hours. After this the sodium level was 132 so I ordered another round of D5W. * I asked the nurse and notably his urine output has dropped off. * Currently stopping the Lasix and salt tablets. Demeclocycline was not stopped because we need this in the long and it does not kick in for several days anyway. (2) CHF exacerbation: Qualifiers: Heart failure type: systolic Qualified Code(s): I50.23 - Acute on chronic systolic (congestive) heart failure Code(s): I50.9 - Heart failure, unspecified Status: Acute Assessment and Plan: * better compensated at this time * diuretics on board due to sodium only * follow respiratory/volume status (3) COPD exacerbation: Code(s): J44.1 - Chronic obstructive pulmonary disease with (acute) exacerbation Status: Acute Assessment and Plan: * doing somewhat better at this time * continue inhalers, steroids, and supplemental oxygen * A BiPAP is available but he has trouble using it all night * Still has some wheezes * Pulmonary following (4) Anemia: Qualifiers: Anemia type: unspecified type Qualified Code(s): D64.9 - Anemia, unspecified Code(s): D64.9 - Anemia, unspecified Status: Acute Assessment and Plan: * GI evaluation underway * His creatinine is normal (5) Essential (primary) hypertension: Code(s): I10 - Essential (primary) hypertension Status: Acute Assessment and Plan: * Systolic is well controlled * He is on diltiazem. (6) Type II diabetes mellitus: Qualifiers: Diabetes mellitus rn long term care insulin use: without rn long term care use Diabetes mellitus complication status: with other specified complication Qualified Code(s): E11.69 - Type 2 diabetes mellitus with other specified complication Code(s): E11.9 - Type 2 diabetes mellitus without complications Status: Acute Assessment and Plan: * On Accu-Cheks and sliding-scale insulin Subjective Date/time seen: 09/10/21 14:11 Interval history: Patient is feeling about the same. breathing the same. No neurologic symptoms Exam Narrative: General: Well-developed well-nourished male in no acute distress Heart: normal S1 and S2; no rub or gallop Lungs: decreased with few expiratory wheezes bilaterally . He seems to be moving air a little bit better today. Abdomen: bowel sounds positive soft nontender. Extremities: no cyanosis or clubbing;
--- NOTE | 2021-09-10 14:11 | PM.PNNEP ---
Progress Note: A&P Assessment and Plan (1) Hyponatremia: Code(s): E87.1 - Hypo-osmolality and hyponatremia Status: Acute Assessment and Plan: normal sodium on admission (137) but sodium low off and on over the years. urine electrolytes suggest prerenal azotemia TSH elevated but on supplementation; cortisol okay but on steroids recently serum/urine osmolality Do not seem to have been drawn. SPEP/UPEP pending risk factors for low sodium: COPD/lung disease SSRI use (sertraline) steroid use liver cirrhosis Because of resistant hyponatremia, we added tolvaptan I told the patient to go ahead and drink all the fluid he wants. 4 hours after the dose his sodium level had not changed at all. I ordered another sodium level for 8:00 p.m. last night and asked them to call the results but the result was not called. That result was 130. His sodium had been running 121-123, so that level was borderline. However this morning it was 132 so I ordered DDAVP and D5W 3 ml/kg per hour for 2 hours. After this the sodium level was 132 so I ordered another round of D5W. I asked the nurse and notably his urine output has dropped off. Currently stopping the Lasix and salt tablets. Demeclocycline was not stopped because we need this in the long and it does not kick in for several days anyway. (2) CHF exacerbation: Qualifiers: Heart failure type: systolic Qualified Code(s): I50.23 - Acute on chronic systolic (congestive) heart failure Code(s): I50.9 - Heart failure, unspecified Status: Acute Assessment and Plan: better compensated at this time diuretics on board due to sodium only follow respiratory/volume status (3) COPD exacerbation: Code(s): J44.1 - Chronic obstructive pulmonary disease with (acute) exacerbation Status: Acute Assessment and Plan: doing somewhat better at this time continue inhalers, steroids, and supplemental oxygen A BiPAP is available but he has trouble using it all night Still has some wheezes Pulmonary following (4) Anemia: Qualifiers: Anemia type: unspecified type Qualified Code(s): D64.9 - Anemia, unspecified Code(s): D64.9 - Anemia, unspecified Status: Acute Assessment and Plan: GI evaluation underway His creatinine is normal (5) Essential (primary) hypertension: Code(s): I10 - Essential (primary) hypertension Status: Acute Assessment and Plan: Systolic is well controlled He is on diltiazem. (6) Type II diabetes mellitus: Qualifiers: Diabetes mellitus long term acute care registered nurse insulin use: without long term acute care registered nurse use Diabetes mellitus complication status: with other specified complication Qualified Code(s): E11.69 - Type 2 diabetes mellitus with other specified complication Code(s): E11.9 - Type 2 diabetes mellitus without complications Status: Acute Assessment and Plan: On Accu-Cheks and sliding-scale insulin Subjective Date/time seen: 09/10/21 14:11 Interval history: Patient is feeling about the same. breathing the same. No neurologic symptoms Exam Narrative: General: Well-developed well-nourished male in no acute distress Heart: normal S1 and S2; no rub or gallop Lungs: decreased with few expiratory wheezes bilaterally . He seems to be moving air a little bit better today. Abdomen: bowel sounds positive soft nontender. Extremities: no cyanosis or clubbing; trace edema and has Reggie hose on Skin: no rash or subcu nodules Objective Data Vital Signs Vital Signs: Vital Signs - 24 hr 09/09/21 14:53 09/09/21 17:25 09/09/21 20:00 Temperature 36.6 C 35.8 C L Pulse Rate 95 87 102 H Respiratory Rate 24 H 22 H Blood Pressure 125/73 126/71 Pulse Oximetry 95 92 09/09/21 21:26 09/09/21 21:38 09/09/21 22:00 Temperature 35.8 C L Pulse Rate 100 102 H 102 H Respiratory Rate 21 H 21 H 22 H Blood
[2021-09-10] MEDS: RIVAROXABAN 20 MG TABLET PO (16:35)
--- NOTE | 2021-09-10 16:58 | P.PNIM_ITS ---
Progress Note: A&P Assessment and Plan (1) CHF exacerbation: Qualifiers: Heart failure type: systolic Qualified Code(s): I50.23 - Acute on chronic systolic (congestive) heart failure Code(s): I50.9 - Heart failure, unspecified Status: Acute Assessment and Plan: CXR showed findings consistent with CHF exacerbation. * Repeat CXR 08/27 showed findings consistent with persistent CHF exacerbation * Lasix held in light of hyponatremia * Continue spironolactone * Overall has had improvement with total of 15L output since admission * Echo 08/29/21 showed normal EF 60-65% with abnormal diastolic function. * Monitor strict intake and output and daily weights (2) Leg weakness: Qualifiers: Laterality: bilateral Qualified Code(s): R29.898 - Other symptoms and signs involving the musculoskeletal system Code(s): R29.898 - Other symptoms and signs involving the musculoskeletal system Status: Acute Assessment and Plan: Suspect a combination of anemia, vascular insufficiency, diabetic neuropathy, neurogenic claudication due to spinal stenosis * Ankle-brachial index for peripheral arterial disease 08/23 normal * Venous Doppler for possible hematoma left thigh 08/24 NEGATIVE * CT lumbar spine showed L4-L5 moderate to severe central canal stenosis. unable to obtain follow-up MRI due to pacemaker. No signs/symptoms to suggest cord compression. Neurovascularly intact. * B12 and folate within normal limits. RPR nonreactive. * outpatient nerve conduction study and neurology vs neurosurgery follow up (3) COPD exacerbation: Code(s): J44.1 - Chronic obstructive pulmonary disease with (acute) exacerbation Status: Acute Assessment and Plan: He does have chronic respiratory failure and is on 2-4L supplemental O2 * appreciate pulmonology consultation * Completed 7 days of p.o. prednisone. Discontinued 08/31 * Completed 7 days of IV ceftriaxone and azithromycin 08/29 * O2 sats are consistent with his baseline. Currently maintaining adequate O2 sats on 3L per nasal cannula * Scheduled nebulized breathing treatments. Continue levalbuterol and ipratropium * Cornet valve to mobilize secretions * Discussed with recording engineer, Dr. Santana. No further changes from pulmonary standpoint. Follow-up as an outpatient. (4) Anemia: Qualifiers: Anemia type: unspecified type Qualified Code(s): D64.9 - Anemia, unspecified Code(s): D64.9 - Anemia, unspecified Status: Acute Assessment and Plan: Recent onset of microcytosis * He is on anticoagulation which would increase his risk for blood loss * 08/23 Anemia parameters consistent with iron deficiency. Started on ferrous sulfate which was discontinued per Nephrology. * 08/24 GI consulted recommended EGD and colonoscopy which was delayed due to respiratory illness * 09/04 EGD and colonoscopy performed without evidence of bleeding. Polypectomy performed therefore Xarelto was held for 3 days and resumed on 09/08 * Continue protonix. Avoid NSAIDs. * Monitor H&H-remaining stable (5) Type II diabetes mellitus: Qualifiers: Diabetes mellitus emt intermediate insulin use: without emt intermediate use Diabetes mellitus complication status: with other specified complication Qualified Code(s): E11.69 - Type 2 diabetes mellitus with other specified complication Code(s): E11.9 - Type 2 diabetes mellitus without complications Status: Acute Assessment and Plan: Blood sugars stable today. Last A1c 5.6 in June. Fasting glucose 101 today * continue Accu-Cheks, s
--- NOTE | 2021-09-10 16:58 | PM.IMPN ---
Progress Note: A&P Assessment and Plan (1) CHF exacerbation: Qualifiers: Heart failure type: systolic Qualified Code(s): I50.23 - Acute on chronic systolic (congestive) heart failure Code(s): I50.9 - Heart failure, unspecified Status: Acute Assessment and Plan: CXR showed findings consistent with CHF exacerbation. Repeat CXR 08/27 showed findings consistent with persistent CHF exacerbation Lasix held in light of hyponatremia Continue spironolactone Overall has had improvement with total of 15L output since admission Echo 08/29/21 showed normal EF 60-65% with abnormal diastolic function. Monitor strict intake and output and daily weights (2) Leg weakness: Qualifiers: Laterality: bilateral Qualified Code(s): R29.898 - Other symptoms and signs involving the musculoskeletal system Code(s): R29.898 - Other symptoms and signs involving the musculoskeletal system Status: Acute Assessment and Plan: Suspect a combination of anemia, vascular insufficiency, diabetic neuropathy, neurogenic claudication due to spinal stenosis Ankle-brachial index for peripheral arterial disease 08/23 normal Venous Doppler for possible hematoma left thigh 08/[address] lumbar spine showed L4-L5 moderate to severe central canal stenosis. unable to obtain follow-up MRI due to pacemaker. No signs/symptoms to suggest cord compression. Neurovascularly intact. B12 and folate within normal limits. RPR nonreactive. outpatient nerve conduction study and neurology vs neurosurgery follow up (3) COPD exacerbation: Code(s): J44.1 - Chronic obstructive pulmonary disease with (acute) exacerbation Status: Acute Assessment and Plan: He does have chronic respiratory failure and is on 2-4L supplemental O2 appreciate pulmonology consultation Completed 7 days of p.o. prednisone. Discontinued 08/31 Completed 7 days of IV ceftriaxone and azithromycin 08/29 O2 sats are consistent with his baseline. Currently maintaining adequate O2 sats on 3L per nasal cannula Scheduled nebulized breathing treatments. Continue levalbuterol and ipratropium Cornet valve to mobilize secretions Discussed with coordinating producer, Dr. Santana. No further changes from pulmonary standpoint. Follow-up as an outpatient. (4) Anemia: Qualifiers: Anemia type: unspecified type Qualified Code(s): D64.9 - Anemia, unspecified Code(s): D64.9 - Anemia, unspecified Status: Acute Assessment and Plan: Recent onset of microcytosis He is on anticoagulation which would increase his risk for blood loss 08/23 Anemia parameters consistent with iron deficiency. Started on ferrous sulfate which was discontinued per Nephrology. 08/24 GI consulted recommended EGD and colonoscopy which was delayed due to respiratory illness 09/04 EGD and colonoscopy performed without evidence of bleeding. Polypectomy performed therefore Xarelto was held for 3 days and resumed on 09/08 Continue protonix. Avoid NSAIDs. Monitor H&H-remaining stable (5) Type II diabetes mellitus: Qualifiers: Diabetes mellitus vermin exterminator insulin use: without vermin exterminator use Diabetes mellitus complication status: with other specified complication Qualified Code(s): E11.69 - Type 2 diabetes mellitus with other specified complication Code(s): E11.9 - Type 2 diabetes mellitus without complications Status: Acute Assessment and Plan: Blood sugars stable today. Last A1c 5.6 in June. Fasting glucose 101 today continue Accu-Cheks, sliding scale, hypoglycemic protocol continue metformin basal glargine decreased to 10 units monitor glucose trends and adjust medication regimen as needed (6) Obstructive sleep apnea: Code(s): G47.33 - Obstructive sleep apnea (adult) (pediatric) Status: Acute Assessment and Plan: As he does not have his home trilogy with him, BiPAP is substi
[2021-09-10 17:09] LABS: Sodium 132 mmol/L (137-145)
[2021-09-10 17:52] LABS: Glucose Point of Care 127 mg/dl (65-105)
[2021-09-10 20:53] LABS: Glucose Point of Care 115 mg/dl (65-105)
[2021-09-10] MEDS: INSULIN GLARGINE (*BKC) 100 UNITS/ML 10 UNITS SUB-Q (21:00)
[2021-09-10 21:01] LABS: Sodium 133 mmol/L (137-145)
[2021-09-10 22:11] LABS: Sodium 134 mmol/L (137-145)
[2021-09-10] MEDS: LORazepam (*CRX) 0.5 MG TABLET PO (22:11)
[2021-09-10] MEDS: DEXTROSE 5% 1,000 ML 1,000 ML 600 ML IV CONT (22:40)
[2021-09-10] MEDS: DESMOPRESSIN ACETATE 4 MCG/ML AMP IV PUSH (23:20)
[2021-09-11] VITALS (18 sets, daily range): BP systolic 135–147; BP diastolic 76–85; PULSE 80–98; RESP 16–24; TEMP 35.9–37.1; O2SAT 95–100
[2021-09-11] MEDS: DEXTROSE 5% 1,000 ML 1,000 ML 600 ML IV CONT (00:17)
[2021-09-11] MEDS: IPRATROPIUM BR 0.02% INH SOLN 0.5 MG/2.5 ML VIAL INHALATION ×6 (00:46→21:43)
[2021-09-11 02:09] LABS: Sodium 129 mmol/L (137-145)
[2021-09-11] MEDS: LEVALBUTEROL NEB 1.25 MG/3 ML 0.63 MG INHALATION ×4 (04:14→21:42)
[2021-09-11 06:23] LABS: Hematocrit 32.7 % (42.0-52.0); Immature Platelet Fraction Pct 2.9 % (0.9-11.2); Mean Corpuscular HGB Conc 27.5 g/dl (32-36); Mean Corpuscular Hemoglobin 22.8 pg (26-34); Mean Platelet Volume 9.3 fl (7.4-10.4); Platelet Count Result 151 k/mm3 (150-375); Red Blood Count 3.94 M/mm3 (4.6-6.20); Red Cell Distribution Width 27.1 % (11.5-14.5); White Blood Count 8.5 K/mm3 (4.5-10.0)
[2021-09-11 06:40] LABS: Albumin Level 3.5 g/dL (3.5-5.1); Anion Gap 2 mmol/L (8-16); Blood Urea Nitrogen 10 mg/dL (9-20); Calcium 8.9 mg/dL (8.4-10.2); Carbon Dioxide 33 mmol/L (22-30); Chloride 95 mmol/L (98-107); Estimated CRCL calculation 146 ml/min; Estimated Glomerular Filt Rate > 60; Glucose 87 mg/dL (65-110); Phosphorus 3.6 mg/dL (2.5-4.5); Potassium 3.7 mmol/L (3.4-5.0); Sodium 130 mmol/L (137-145)
[2021-09-11] MEDS: LEVOTHYROXINE SODIUM 50 MCG TABLET PO (06:50)
[2021-09-11 08:00] LABS: Glucose Point of Care 79 mg/dl (65-105)
--- NOTE | 2021-09-11 08:20 | P.PNNP_ITS ---
Progress Note: A&P Assessment and Plan (1) Hyponatremia: Code(s): E87.1 - Hypo-osmolality and hyponatremia Status: Acute Assessment and Plan: * normal sodium on admission (137) but sodium low off and on over the years. * urine electrolytes suggest prerenal azotemia * TSH elevated but on supplementation; cortisol okay but on steroids recently * serum/urine osmolality Do not seem to have been drawn. SPEP/UPEP pending * risk factors for low sodium: * COPD/lung disease * SSRI use (sertraline) * steroid use * liver cirrhosis * His sodium wasa very difficult to rosa ng down. * He received D5W and encourage p.o. intake of fluids. He got another dose of DDAVP last night. And finally at 2:00 a.m. is sodium was 129. This morning his sodium is 130. This is the goal for bring his sodium back down. * I told and to just drink if he is thirsty not if he is not we will check another sodium in 4hours. (2) CHF exacerbation: Qualifiers: Heart failure type: systolic Qualified Code(s): I50.23 - Acute on chronic systolic (congestive) heart failure Code(s): I50.9 - Heart failure, unspecified Status: Acute Assessment and Plan: * better compensated at this time * diuretics on board due to sodium only * follow respiratory/volume status (3) COPD exacerbation: Code(s): J44.1 - Chronic obstructive pulmonary disease with (acute) exacerbation Status: Acute Assessment and Plan: * Still has some wheezes. * On CPAP at night. * Inhalers and pulmonary supportive care. * Pulmonary following (4) Anemia: Qualifiers: Anemia type: unspecified type Qualified Code(s): D64.9 - Anemia, unspecified Code(s): D64.9 - Anemia, unspecified Status: Acute Assessment and Plan: * GI evaluation underway * Hemoglobin is stable at around 9 (5) Essential (primary) hypertension: Code(s): I10 - Essential (primary) hypertension Status: Acute Assessment and Plan: * Systolic is well controlled * He is on diltiazem. (6) Type II diabetes mellitus: Qualifiers: Diabetes mellitus intermediate school teacher insulin use: without intermediate school teacher use Diabetes mellitus complication status: with other specified complication Qualified Code(s): E11.69 - Type 2 diabetes mellitus with other specified complication Code(s): E11.9 - Type 2 diabetes mellitus without complications Status: Acute Assessment and Plan: * On Accu-Cheks and sliding-scale insulin Subjective Date/time seen: 09/11/21 08:20 Interval history: Patient is feeling about the same. It was a long night because he was getting lots of IV fluids and blood draws. Sleepy today and is going to take a nap. Exam Narrative: General: Well-developed well-nourished male in no acute distress Heart: normal S1 and S2; no rub or gallop Lungs: decreased with few expiratory wheezes bilaterally . He seems to be moving air a little bit better today. Abdomen: bowel sounds positive soft nontender. Extremities: no cyanosis or clubbing; trace edema and has Reggie hose on Skin: no rash or subcu nodules Objective Data Vital Signs Vital Signs: Vital Signs - 24 hr 09/10/21 08:23 09/10/21 08:30 09/10/21 08:45 Temperature Pulse Rate 100 92 Respiratory Rate 20 20 Blood Pressure Pulse Oximetry 93 97 09/10/21 09:23 09/10/21
--- NOTE | 2021-09-11 08:20 | PM.PNNEP ---
Progress Note: A&P Assessment and Plan (1) Hyponatremia: Code(s): E87.1 - Hypo-osmolality and hyponatremia Status: Acute Assessment and Plan: normal sodium on admission (137) but sodium low off and on over the years. urine electrolytes suggest prerenal azotemia TSH elevated but on supplementation; cortisol okay but on steroids recently serum/urine osmolality Do not seem to have been drawn. SPEP/UPEP pending risk factors for low sodium: COPD/lung disease SSRI use (sertraline) steroid use liver cirrhosis His sodium wasa very difficult to rosa ng down. He received D5W and encourage p.o. intake of fluids. He got another dose of DDAVP last night. And finally at 2:00 a.m. is sodium was 129. This morning his sodium is 130. This is the goal for bring his sodium back down. I told and to just drink if he is thirsty not if he is not we will check another sodium in 4hours. (2) CHF exacerbation: Qualifiers: Heart failure type: systolic Qualified Code(s): I50.23 - Acute on chronic systolic (congestive) heart failure Code(s): I50.9 - Heart failure, unspecified Status: Acute Assessment and Plan: better compensated at this time diuretics on board due to sodium only follow respiratory/volume status (3) COPD exacerbation: Code(s): J44.1 - Chronic obstructive pulmonary disease with (acute) exacerbation Status: Acute Assessment and Plan: Still has some wheezes. On CPAP at night. Inhalers and pulmonary supportive care. Pulmonary following (4) Anemia: Qualifiers: Anemia type: unspecified type Qualified Code(s): D64.9 - Anemia, unspecified Code(s): D64.9 - Anemia, unspecified Status: Acute Assessment and Plan: GI evaluation underway Hemoglobin is stable at around 9 (5) Essential (primary) hypertension: Code(s): I10 - Essential (primary) hypertension Status: Acute Assessment and Plan: Systolic is well controlled He is on diltiazem. (6) Type II diabetes mellitus: Qualifiers: Diabetes mellitus supervisor long goods insulin use: without alf use Diabetes mellitus complication status: with other specified complication Qualified Code(s): E11.69 - Type 2 diabetes mellitus with other specified complication Code(s): E11.9 - Type 2 diabetes mellitus without complications Status: Acute Assessment and Plan: On Accu-Cheks and sliding-scale insulin Subjective Date/time seen: 09/11/21 08:20 Interval history: Patient is feeling about the same. It was a long night because he was getting lots of IV fluids and blood draws. Sleepy today and is going to take a nap. Exam Narrative: General: Well-developed well-nourished male in no acute distress Heart: normal S1 and S2; no rub or gallop Lungs: decreased with few expiratory wheezes bilaterally . He seems to be moving air a little bit better today. Abdomen: bowel sounds positive soft nontender. Extremities: no cyanosis or clubbing; trace edema and has Reggie hose on Skin: no rash or subcu nodules Objective Data Vital Signs Vital Signs: Vital Signs - 24 hr 09/10/21 08:23 09/10/21 08:30 09/10/21 08:45 Temperature Pulse Rate 100 92 Respiratory Rate 20 20 Blood Pressure Pulse Oximetry 93 97 09/10/21 09:23 09/10/21 12:10 09/10/21 12:17 Temperature Pulse Rate 100 88 90 Respiratory Rate 20 20 Blood Pressure Pulse Oximetry 09/10/21 14:00 09/10/21 14:09 09/10/21 14:10 Temperature 35.6 C L Pulse Rate 102 H 99 102 H Respiratory Rate 20 Blood Pressure 100/73 107/63 94/54 L Pulse Oximetry 96 09/10/21 16:35 09/10/21 16:45 09/10/21 20:15 Temperature Pulse Rate 84 87 101 H Respiratory Rate 20 20 22 H Blood Pressure Pulse Oximetry 96 09/10/21 20:28 09/10/21 21:00 09/10/21 21:07 Temperature 36.6 C Pulse Rate 93 96 96 Respiratory Rate 20 22
[2021-09-11] MEDS: BUDESONIDE RESPULE NEB 0.5 MG/2 ML AMP INHALATION ×2 (09:55→21:43)
[2021-09-11] MEDS: FLUTICASONE PROPIONATE 0.05% NA SPR 16 GM BTL (*BKC) 1 SPRAY NASAL ×2 (09:59→21:23)
[2021-09-11] MEDS: metFORMIN HCL 500 MG TABLET PO ×2 (09:59→17:05)
[2021-09-11] MEDS: PANTOPRAZOLE 40 MG TABLET PO ×2 (09:59→17:05)
[2021-09-11] MEDS: ROFLUMILAST 500 MCG TABLET PO (09:59)
[2021-09-11] MEDS: ASPIRIN 81 MG ENTERIC TABLET PO (09:59)
[2021-09-11] MEDS: DOCUSATE SODIUM 100 MG CAPSULE PO ×2 (09:59→21:23)
[2021-09-11] MEDS: FOLIC ACID 1 MG TABLET PO (09:59)
[2021-09-11] MEDS: AMIODARONE HCL 200 MG TABLET PO ×2 (09:59→17:04)
[2021-09-11] MEDS: CYANOCOBALAMIN 500 MCG TABLET PO (09:59)
[2021-09-11] MEDS: CHOLECALCIFEROL 1,000 UNITS TABLET 2000 UNITS PO (09:59)
[2021-09-11] MEDS: SERTRALINE HCL 25 MG TABLET PO (10:00)
[2021-09-11] MEDS: HYDROcodone/acetaminophen (*CRX) 5-325 MG TABLET 1 TAB PO ×2 (10:00→21:21)
[2021-09-11] MEDS: TAMSULOSIN HCL 0.4 MG CAPSULE PO (10:00)
[2021-09-11] MEDS: dilTIAZem HCL 30 MG TABLET PO ×3 (10:00→17:04)
[2021-09-11] MEDS: SILDENAFIL CITRATE 20 MG TABLET PO ×2 (10:00→21:23)
--- NOTE | 2021-09-11 10:54 | PCOTNOTE ---
Attempted to see for OT treatment at this time. Patient was resting in bed upon entry to the room. Patient was acknowledged and immediately stated, Damn when am I gonna get some sleep around here, everybody wants to bug me . Patient was educated on the importance of movement and to increase his activity in order to get better to be able to be discharged. Patient refused to participate in any activity at this time.
[2021-09-11 11:31] LABS: Glucose Point of Care 113 mg/dl (65-105)
[2021-09-11 11:52] LABS: Sodium 129 mmol/L (137-145)
[2021-09-11] MEDS: LORazepam (*CRX) 0.5 MG TABLET PO (12:22)
--- NOTE | 2021-09-11 16:16 | P.PNIM_ITS ---
Progress Note: A&P Assessment and Plan (1) CHF exacerbation: Qualifiers: Heart failure type: systolic Qualified Code(s): I50.23 - Acute on chronic systolic (congestive) heart failure Code(s): I50.9 - Heart failure, unspecified Status: Acute Assessment and Plan: CXR showed findings consistent with CHF exacerbation. * Repeat CXR 08/27 showed findings consistent with persistent CHF exacerbation * Lasix held in light of hyponatremia * Continue spironolactone * Overall has had improvement with total of 15L output since admission * Echo 08/29/21 showed normal EF 60-65% with abnormal diastolic function. * Monitor strict intake and output and daily weights (2) Leg weakness: Qualifiers: Laterality: bilateral Qualified Code(s): R29.898 - Other symptoms and signs involving the musculoskeletal system Code(s): R29.898 - Other symptoms and signs involving the musculoskeletal system Status: Acute Assessment and Plan: Suspect a combination of anemia, vascular insufficiency, diabetic neuropathy, neurogenic claudication due to spinal stenosis * Ankle-brachial index for peripheral arterial disease 08/23 normal * Venous Doppler for possible hematoma left thigh 08/24 NEGATIVE * CT lumbar spine showed L4-L5 moderate to severe central canal stenosis. unable to obtain follow-up MRI due to pacemaker. No signs/symptoms to suggest cord compression. Neurovascularly intact. * B12 and folate within normal limits. RPR nonreactive. * outpatient nerve conduction study and neurology vs neurosurgery follow up (3) COPD exacerbation: Code(s): J44.1 - Chronic obstructive pulmonary disease with (acute) exacerbation Status: Acute Assessment and Plan: He does have chronic respiratory failure and is on 2-4L supplemental O2 * appreciate pulmonology consultation * Completed 7 days of p.o. prednisone. Discontinued 08/31 * Completed 7 days of IV ceftriaxone and azithromycin 08/29 * O2 sats are consistent with his baseline. Currently maintaining adequate O2 sats on 3L per nasal cannula * Scheduled nebulized breathing treatments. Continue levalbuterol and ipratropium * Cornet valve to mobilize secretions * Discussed with associate professor, Dr. Santana. No further changes from pulmonary standpoint. Follow-up as an outpatient. (4) Anemia: Qualifiers: Anemia type: unspecified type Qualified Code(s): D64.9 - Anemia, unspecified Code(s): D64.9 - Anemia, unspecified Status: Acute Assessment and Plan: Recent onset of microcytosis * He is on anticoagulation which would increase his risk for blood loss * 08/23 Anemia parameters consistent with iron deficiency. Started on ferrous sulfate which was discontinued per Nephrology. * 08/24 GI consulted recommended EGD and colonoscopy which was delayed due to respiratory illness * 09/04 EGD and colonoscopy performed without evidence of bleeding. Polypectomy performed therefore Xarelto was held for 3 days and resumed on 09/08 * Continue protonix. Avoid NSAIDs. * Monitor H&H-remaining stable (5) Type II diabetes mellitus: Qualifiers: Diabetes mellitus terminal makeup operator insulin use: without terminal makeup operator use Diabetes mellitus complication status: with other specified complication Qualified Code(s): E11.69 - Type 2 diabetes mellitus with other specified complication Code(s): E11.9 - Type 2 diabetes mellitus without complications Status: Acute Assessment and Plan: Blood sugars stable today. Last A1c 5.6 in June. Blood sugars are adequately controlled * cont
--- NOTE | 2021-09-11 16:16 | PM.IMPN ---
Progress Note: A&P Assessment and Plan (1) CHF exacerbation: Qualifiers: Heart failure type: systolic Qualified Code(s): I50.23 - Acute on chronic systolic (congestive) heart failure Code(s): I50.9 - Heart failure, unspecified Status: Acute Assessment and Plan: CXR showed findings consistent with CHF exacerbation. Repeat CXR 08/27 showed findings consistent with persistent CHF exacerbation Lasix held in light of hyponatremia Continue spironolactone Overall has had improvement with total of 15L output since admission Echo 08/29/21 showed normal EF 60-65% with abnormal diastolic function. Monitor strict intake and output and daily weights (2) Leg weakness: Qualifiers: Laterality: bilateral Qualified Code(s): R29.898 - Other symptoms and signs involving the musculoskeletal system Code(s): R29.898 - Other symptoms and signs involving the musculoskeletal system Status: Acute Assessment and Plan: Suspect a combination of anemia, vascular insufficiency, diabetic neuropathy, neurogenic claudication due to spinal stenosis Ankle-brachial index for peripheral arterial disease 08/23 normal Venous Doppler for possible hematoma left thigh 08/[address] lumbar spine showed L4-L5 moderate to severe central canal stenosis. unable to obtain follow-up MRI due to pacemaker. No signs/symptoms to suggest cord compression. Neurovascularly intact. B12 and folate within normal limits. RPR nonreactive. outpatient nerve conduction study and neurology vs neurosurgery follow up (3) COPD exacerbation: Code(s): J44.1 - Chronic obstructive pulmonary disease with (acute) exacerbation Status: Acute Assessment and Plan: He does have chronic respiratory failure and is on 2-4L supplemental O2 appreciate pulmonology consultation Completed 7 days of p.o. prednisone. Discontinued 08/31 Completed 7 days of IV ceftriaxone and azithromycin 08/29 O2 sats are consistent with his baseline. Currently maintaining adequate O2 sats on 3L per nasal cannula Scheduled nebulized breathing treatments. Continue levalbuterol and ipratropium Cornet valve to mobilize secretions Discussed with fitting room inspector, Dr. Santana. No further changes from pulmonary standpoint. Follow-up as an outpatient. (4) Anemia: Qualifiers: Anemia type: unspecified type Qualified Code(s): D64.9 - Anemia, unspecified Code(s): D64.9 - Anemia, unspecified Status: Acute Assessment and Plan: Recent onset of microcytosis He is on anticoagulation which would increase his risk for blood loss 08/23 Anemia parameters consistent with iron deficiency. Started on ferrous sulfate which was discontinued per Nephrology. 08/24 GI consulted recommended EGD and colonoscopy which was delayed due to respiratory illness 09/04 EGD and colonoscopy performed without evidence of bleeding. Polypectomy performed therefore Xarelto was held for 3 days and resumed on 09/08 Continue protonix. Avoid NSAIDs. Monitor H&H-remaining stable (5) Type II diabetes mellitus: Qualifiers: Diabetes mellitus computer terminal operator insulin use: without computer terminal operator use Diabetes mellitus complication status: with other specified complication Qualified Code(s): E11.69 - Type 2 diabetes mellitus with other specified complication Code(s): E11.9 - Type 2 diabetes mellitus without complications Status: Acute Assessment and Plan: Blood sugars stable today. Last A1c 5.6 in June. Blood sugars are adequately controlled continue Accu-Cheks, sliding scale, hypoglycemic protocol continue metformin basal glargine decreased to 10 units monitor glucose trends and adjust medication regimen as needed (6) Obstructive sleep apnea: Code(s): G47.33 - Obstructive sleep apnea (adult) (pediatric) Status: Acute Assessment and Plan: As he does not have his home trilogy with him, [place]
[2021-09-11 16:56] LABS: Glucose Point of Care 98 mg/dl (65-105)
[2021-09-11] MEDS: RIVAROXABAN 20 MG TABLET PO (17:05)
[2021-09-11 21:29] LABS: Glucose Point of Care 97 mg/dl (65-105)
[2021-09-11] MEDS: INSULIN GLARGINE (*BKC) 100 UNITS/ML 10 UNITS SUB-Q (21:29)
[2021-09-12] VITALS (19 sets, daily range): BP systolic 131–148; BP diastolic 79–87; PULSE 90–100; RESP 18–24; TEMP 36–36.2; O2SAT 96–100
[2021-09-12] MEDS: IPRATROPIUM BR 0.02% INH SOLN 0.5 MG/2.5 ML VIAL INHALATION ×5 (00:24→22:06)
[2021-09-12] MEDS: LEVALBUTEROL NEB 1.25 MG/3 ML 0.63 MG INHALATION ×5 (00:25→22:06)
[2021-09-12 06:27] LABS: Hematocrit 32.3 % (42.0-52.0); Hemoglobin 9.2 g/dL (14.0-18.0)
[2021-09-12] MEDS: LEVOTHYROXINE SODIUM 50 MCG TABLET PO (06:35)
[2021-09-12 06:42] LABS: Albumin Level 3.4 g/dL (3.5-5.1); Anion Gap 4 mmol/L (8-16); Blood Urea Nitrogen 10 mg/dL (9-20); Calcium 8.9 mg/dL (8.4-10.2); Carbon Dioxide 30 mmol/L (22-30); Chloride 94 mmol/L (98-107); Estimated CRCL calculation 173 ml/min; Estimated Glomerular Filt Rate > 60; Glucose 98 mg/dL (65-110); Phosphorus 3.8 mg/dL (2.5-4.5); Potassium 3.7 mmol/L (3.4-5.0); Sodium 128 mmol/L (137-145)
[2021-09-12] MEDS: BUDESONIDE RESPULE NEB 0.5 MG/2 ML AMP INHALATION ×2 (08:06→22:06)
[2021-09-12 08:08] LABS: Glucose Point of Care 92 mg/dl (65-105)
--- NOTE | 2021-09-12 09:06 | PHAR ---
Daniella EXPIRING TOMORROW AM - RN TO RENEW ORDER
[2021-09-12] MEDS: dilTIAZem HCL 30 MG TABLET PO ×3 (10:02→16:43)
[2021-09-12] MEDS: SERTRALINE HCL 25 MG TABLET PO (10:02)
[2021-09-12] MEDS: PANTOPRAZOLE 40 MG TABLET PO ×2 (10:02→16:44)
[2021-09-12] MEDS: CHOLECALCIFEROL 1,000 UNITS TABLET 2000 UNITS PO (10:02)
[2021-09-12] MEDS: metFORMIN HCL 500 MG TABLET PO ×2 (10:03→16:44)
[2021-09-12] MEDS: ROFLUMILAST 500 MCG TABLET PO (10:03)
[2021-09-12] MEDS: CYANOCOBALAMIN 500 MCG TABLET PO (10:03)
[2021-09-12] MEDS: FOLIC ACID 1 MG TABLET PO (10:03)
[2021-09-12] MEDS: SILDENAFIL CITRATE 20 MG TABLET PO ×2 (10:03→20:24)
[2021-09-12] MEDS: ASPIRIN 81 MG ENTERIC TABLET PO (10:03)
[2021-09-12] MEDS: AMIODARONE HCL 200 MG TABLET PO ×2 (10:04→16:44)
[2021-09-12] MEDS: FLUTICASONE PROPIONATE 0.05% NA SPR 16 GM BTL (*BKC) 1 SPRAY NASAL ×2 (10:04→20:24)
[2021-09-12] MEDS: TAMSULOSIN HCL 0.4 MG CAPSULE PO (10:05)
[2021-09-12] MEDS: HYDROcodone/acetaminophen (*CRX) 5-325 MG TABLET 1 TAB PO ×2 (10:14→16:52)
[2021-09-12] MEDS: LORazepam (*CRX) 0.5 MG TABLET PO (10:15)
--- NOTE | 2021-09-12 11:36 | P.PNNP_ITS ---
Progress Note: A&P Assessment and Plan (1) Hyponatremia: Code(s): E87.1 - Hypo-osmolality and hyponatremia Status: Acute Assessment and Plan: * normal sodium on admission (137) but sodium low off and on over the years. * urine electrolytes suggest prerenal azotemia * TSH elevated but on supplementation; cortisol okay but on steroids recently * serum/urine osmolality Do not seem to have been drawn. SPEP/UPEP pending * risk factors for low sodium: * COPD/lung disease * SSRI use (sertraline) * steroid use * liver cirrhosis * His sodium wasa very difficult to rosa ng down. * he received 1 dose of tolvaptan and his sodium came up. We use D5W to get it back down to a level appropriate for the rate of improvement. This was that she and his sodium has been in the high 120s since then. * Will continue encouraging patient to fluid restrict on his own. Will restart the meclocycline. (2) CHF exacerbation: Qualifiers: Heart failure type: systolic Qualified Code(s): I50.23 - Acute on chronic systolic (congestive) heart failure Code(s): I50.9 - Heart failure, unspecified Status: Acute Assessment and Plan: * better compensated at this time (3) COPD exacerbation: Code(s): J44.1 - Chronic obstructive pulmonary disease with (acute) exacerbation Status: Acute Assessment and Plan: * Still has some wheezes. * On CPAP at night. * Inhalers and pulmonary supportive care. * Pulmonary following (4) Anemia: Qualifiers: Anemia type: unspecified type Qualified Code(s): D64.9 - Anemia, unspecified Code(s): D64.9 - Anemia, unspecified Status: Acute Assessment and Plan: * GI evaluation underway * Hemoglobin is stable at around 9 (5) Essential (primary) hypertension: Code(s): I10 - Essential (primary) hypertension Status: Acute Assessment and Plan: * Systolic is well controlled * He is on diltiazem. (6) Type II diabetes mellitus: Qualifiers: Diabetes mellitus supervisor intermediates insulin use: without supervisor intermediates use Diabetes mellitus complication status: with other specified complication Qualified Code(s): E11.69 - Type 2 diabetes mellitus with other specified complication Code(s): E11.9 - Type 2 diabetes mellitus without complications Status: Acute Assessment and Plan: * On Accu-Cheks and sliding-scale insulin Subjective Date/time seen: 09/12/21 11:36 Interval history: Patient is feeling better. No chest pain or shortness of breath Exam Narrative: General: Well-developed well-nourished male in no acute distress Heart: normal S1 and S2; no rub Lungs: decreased with few expiratory wheezes bilaterally . He seems to be moving air a little bit better today. Abdomen: bowel sounds positive soft nontender. Extremities: trace a deep Skin: no rash Objective Data Vital Signs Vital Signs: Vital Signs - 24 hr 09/11/21 13:55 09/11/21 13:58 09/11/21 14:00 Temperature 37.1 C Pulse Rate 97 97 97 Respiratory Rate 18 18 16 Blood Pressure 147/84 H 144/76 H 147/84 H Pulse Oximetry 99 100 99 09/11/21 17:04 09/11/21 21:23 09/11/21 21:44 Temperature Pulse Rate 80 Respiratory Rate 18 Blood Pressure 142/83 H Pulse Oximetry 99 98
--- NOTE | 2021-09-12 11:36 | PM.PNNEP ---
Progress Note: A&P Assessment and Plan (1) Hyponatremia: Code(s): E87.1 - Hypo-osmolality and hyponatremia Status: Acute Assessment and Plan: normal sodium on admission (137) but sodium low off and on over the years. urine electrolytes suggest prerenal azotemia TSH elevated but on supplementation; cortisol okay but on steroids recently serum/urine osmolality Do not seem to have been drawn. SPEP/UPEP pending risk factors for low sodium: COPD/lung disease SSRI use (sertraline) steroid use liver cirrhosis His sodium wasa very difficult to rosa ng down. he received 1 dose of tolvaptan and his sodium came up. We use D5W to get it back down to a level appropriate for the rate of improvement. This was that she and his sodium has been in the high 120s since then. Will continue encouraging patient to fluid restrict on his own. Will restart the meclocycline. (2) CHF exacerbation: Qualifiers: Heart failure type: systolic Qualified Code(s): I50.23 - Acute on chronic systolic (congestive) heart failure Code(s): I50.9 - Heart failure, unspecified Status: Acute Assessment and Plan: better compensated at this time (3) COPD exacerbation: Code(s): J44.1 - Chronic obstructive pulmonary disease with (acute) exacerbation Status: Acute Assessment and Plan: Still has some wheezes. On CPAP at night. Inhalers and pulmonary supportive care. Pulmonary following (4) Anemia: Qualifiers: Anemia type: unspecified type Qualified Code(s): D64.9 - Anemia, unspecified Code(s): D64.9 - Anemia, unspecified Status: Acute Assessment and Plan: GI evaluation underway Hemoglobin is stable at around 9 (5) Essential (primary) hypertension: Code(s): I10 - Essential (primary) hypertension Status: Acute Assessment and Plan: Systolic is well controlled He is on diltiazem. (6) Type II diabetes mellitus: Qualifiers: Diabetes mellitus skilled nursing insulin use: without skilled nursing use Diabetes mellitus complication status: with other specified complication Qualified Code(s): E11.69 - Type 2 diabetes mellitus with other specified complication Code(s): E11.9 - Type 2 diabetes mellitus without complications Status: Acute Assessment and Plan: On Accu-Cheks and sliding-scale insulin Subjective Date/time seen: 09/12/21 11:36 Interval history: Patient is feeling better. No chest pain or shortness of breath Exam Narrative: General: Well-developed well-nourished male in no acute distress Heart: normal S1 and S2; no rub Lungs: decreased with few expiratory wheezes bilaterally . He seems to be moving air a little bit better today. Abdomen: bowel sounds positive soft nontender. Extremities: trace a deep Skin: no rash Objective Data Vital Signs Vital Signs: Vital Signs - 24 hr 09/11/21 13:55 09/11/21 13:58 09/11/21 14:00 Temperature 37.1 C Pulse Rate 97 97 97 Respiratory Rate 18 18 16 Blood Pressure 147/84 H 144/76 H 147/84 H Pulse Oximetry 99 100 99 09/11/21 17:04 09/11/21 21:23 09/11/21 21:44 Temperature Pulse Rate 80 Respiratory Rate 18 Blood Pressure 142/83 H Pulse Oximetry 99 98 09/11/21 21:45 09/11/21 22:10 09/12/21 04:35 Temperature 35.9 C L Pulse Rate 97 96 99 Respiratory Rate 20 24 H 22 H Blood Pressure 142/83 H Pulse Oximetry 99 95 09/12/21 04:50 09/12/21 04:55 09/12/21 06:20 Temperature 36.2 C L Pulse Rate 100 100 95 Respiratory Rate 22 H 22 H 20 Blood Pressure 137/87 Pulse Oximetry 96 99 09/12/21 08:07 09/12/21 08:10 09/12/21 08:24 Temperature Pulse Rate 90 90 95 Respiratory Rate 22 H 22 H 22 H Blood Pressure Pulse Oximetry 96 09/12/21 09:45 09/12/21 10:04 Temperature Pulse Rate 100 Respiratory Rate Blood Pressure Pulse Oximetry 100 Intake/Output Intak
[2021-09-12 11:56] LABS: Glucose Point of Care 103 mg/dl (65-105)
--- NOTE | 2021-09-12 13:38 | P.PNIM_ITS ---
Progress Note: A&P Assessment and Plan (1) CHF exacerbation: Qualifiers: Heart failure type: systolic Qualified Code(s): I50.23 - Acute on chronic systolic (congestive) heart failure Code(s): I50.9 - Heart failure, unspecified Status: Acute Assessment and Plan: CXR showed findings consistent with CHF exacerbation. * Lasix held in light of hyponatremia * Continue spironolactone * Overall has had improvement with diuresis * Echo 08/29/21 showed normal EF 60-65% with abnormal diastolic function. * Monitor strict intake and output and daily weights (2) Leg weakness: Qualifiers: Laterality: bilateral Qualified Code(s): R29.898 - Other symptoms and signs involving the musculoskeletal system Code(s): R29.898 - Other symptoms and signs involving the musculoskeletal system Status: Acute Assessment and Plan: Suspect a combination of anemia, vascular insufficiency, diabetic neuropathy, neurogenic claudication due to spinal stenosis * Ankle-brachial index for peripheral arterial disease 08/23 normal * Venous Doppler for possible hematoma left thigh 08/24 NEGATIVE * CT lumbar spine showed L4-L5 moderate to severe central canal stenosis. unable to obtain follow-up MRI due to pacemaker. No signs/symptoms to suggest cord compression. Neurovascularly intact. * B12 and folate within normal limits. RPR nonreactive. * outpatient nerve conduction study and neurology vs neurosurgery follow up (3) COPD exacerbation: Code(s): J44.1 - Chronic obstructive pulmonary disease with (acute) exacerbation Status: Acute Assessment and Plan: He does have chronic respiratory failure and is on 2-4L supplemental O2 * appreciate pulmonology consultation * Completed 7 days of p.o. prednisone. Discontinued 08/31 * Completed 7 days of IV ceftriaxone and azithromycin 08/29 * O2 sats are consistent with his baseline. Currently maintaining adequate O2 sats on 3L per nasal cannula * Scheduled nebulized breathing treatments. Continue xopenex and ipratropium * Cornet valve to mobilize secretions * Discussed with blocker hand, Dr. Santana. No further changes from pulmonary standpoint. Follow-up as an outpatient. (4) Anemia: Qualifiers: Anemia type: unspecified type Qualified Code(s): D64.9 - Anemia, unspecified Code(s): D64.9 - Anemia, unspecified Status: Acute Assessment and Plan: Recent onset of microcytosis * He is on anticoagulation which would increase his risk for blood loss * 08/23 Anemia parameters consistent with iron deficiency. Started on ferrous sulfate which was discontinued per Nephrology. * 08/24 GI consulted recommended EGD and colonoscopy which was delayed due to respiratory illness * 09/04 EGD and colonoscopy performed without evidence of bleeding. Polypectomy performed therefore Xarelto was held for 3 days and resumed on 09/08 * Continue protonix. Avoid NSAIDs. * Monitor H&H-remaining stable (5) Type II diabetes mellitus: Qualifiers: Diabetes mellitus jail insulin use: without jail use Diabetes mellitus complication status: with other specified complication Qualified Code(s): E11.69 - Type 2 diabetes mellitus with other specified complication Code(s): E11.9 - Type 2 diabetes mellitus without complications Status: Acute Assessment and Plan: Blood sugars stable today. Last A1c 5.6 in June. Blood sugars are adequately controlled * continue Accu-Cheks, sliding scale, hypoglycemic protocol * continue metformin * basal glargine decreased to 10
--- NOTE | 2021-09-12 13:38 | PM.IMPN ---
Progress Note: A&P Assessment and Plan (1) CHF exacerbation: Qualifiers: Heart failure type: systolic Qualified Code(s): I50.23 - Acute on chronic systolic (congestive) heart failure Code(s): I50.9 - Heart failure, unspecified Status: Acute Assessment and Plan: CXR showed findings consistent with CHF exacerbation. Lasix held in light of hyponatremia Continue spironolactone Overall has had improvement with diuresis Echo 08/29/21 showed normal EF 60-65% with abnormal diastolic function. Monitor strict intake and output and daily weights (2) Leg weakness: Qualifiers: Laterality: bilateral Qualified Code(s): R29.898 - Other symptoms and signs involving the musculoskeletal system Code(s): R29.898 - Other symptoms and signs involving the musculoskeletal system Status: Acute Assessment and Plan: Suspect a combination of anemia, vascular insufficiency, diabetic neuropathy, neurogenic claudication due to spinal stenosis Ankle-brachial index for peripheral arterial disease 08/23 normal Venous Doppler for possible hematoma left thigh 08/[address] lumbar spine showed L4-L5 moderate to severe central canal stenosis. unable to obtain follow-up MRI due to pacemaker. No signs/symptoms to suggest cord compression. Neurovascularly intact. B12 and folate within normal limits. RPR nonreactive. outpatient nerve conduction study and neurology vs neurosurgery follow up (3) COPD exacerbation: Code(s): J44.1 - Chronic obstructive pulmonary disease with (acute) exacerbation Status: Acute Assessment and Plan: He does have chronic respiratory failure and is on 2-4L supplemental O2 appreciate pulmonology consultation Completed 7 days of p.o. prednisone. Discontinued 08/31 Completed 7 days of IV ceftriaxone and azithromycin 08/29 O2 sats are consistent with his baseline. Currently maintaining adequate O2 sats on 3L per nasal cannula Scheduled nebulized breathing treatments. Continue xopenex and ipratropium Cornet valve to mobilize secretions Discussed with biostatistics manager, Dr. Santana. No further changes from pulmonary standpoint. Follow-up as an outpatient. (4) Anemia: Qualifiers: Anemia type: unspecified type Qualified Code(s): D64.9 - Anemia, unspecified Code(s): D64.9 - Anemia, unspecified Status: Acute Assessment and Plan: Recent onset of microcytosis He is on anticoagulation which would increase his risk for blood loss 08/23 Anemia parameters consistent with iron deficiency. Started on ferrous sulfate which was discontinued per Nephrology. 08/24 GI consulted recommended EGD and colonoscopy which was delayed due to respiratory illness 09/04 EGD and colonoscopy performed without evidence of bleeding. Polypectomy performed therefore Xarelto was held for 3 days and resumed on 09/08 Continue protonix. Avoid NSAIDs. Monitor H&H-remaining stable (5) Type II diabetes mellitus: Qualifiers: Diabetes mellitus snf insulin use: without snf use Diabetes mellitus complication status: with other specified complication Qualified Code(s): E11.69 - Type 2 diabetes mellitus with other specified complication Code(s): E11.9 - Type 2 diabetes mellitus without complications Status: Acute Assessment and Plan: Blood sugars stable today. Last A1c 5.6 in June. Blood sugars are adequately controlled continue Accu-Cheks, sliding scale, hypoglycemic protocol continue metformin basal glargine decreased to 10 units monitor glucose trends and adjust medication regimen as needed (6) Obstructive sleep apnea: Code(s): G47.33 - Obstructive sleep apnea (adult) (pediatric) Status: Acute Assessment and Plan: As he does not have his home trilogy with him, BiPAP is substituted pulmonology following and consultation is appreciated (7) Persistent atrial fibril
[2021-09-12] MEDS: DEMECLOCYCLINE HCL 150 MG TABLET PO ×3 (14:02→20:24)
[2021-09-12 16:39] LABS: Glucose Point of Care 96 mg/dl (65-105)
[2021-09-12] MEDS: RIVAROXABAN 20 MG TABLET PO (16:43)
[2021-09-12 19:42] LABS: Glucose Point of Care 101 mg/dl (65-105)
[2021-09-12] MEDS: DOCUSATE SODIUM 100 MG CAPSULE PO (20:24)
[2021-09-12] MEDS: INSULIN GLARGINE (*BKC) 100 UNITS/ML 10 UNITS SUB-Q (20:26)
[2021-09-13] VITALS (24 sets, daily range): BP systolic 106–139; BP diastolic 62–88; PULSE 78–102; RESP 20–24; TEMP 35.8–37.7; O2SAT 96–100
[2021-09-13] MEDS: LEVALBUTEROL NEB 1.25 MG/3 ML 0.63 MG INHALATION ×6 (00:10→21:45)
[2021-09-13] MEDS: IPRATROPIUM BR 0.02% INH SOLN 0.5 MG/2.5 ML VIAL INHALATION ×6 (00:10→21:45)
[2021-09-13 05:48] LABS: Hematocrit 31.4 % (42.0-52.0); Hemoglobin 8.9 g/dL (14.0-18.0)
[2021-09-13 06:04] LABS: Albumin Level 3.3 g/dL (3.5-5.1); Anion Gap 3 mmol/L (8-16); Blood Urea Nitrogen 10 mg/dL (9-20); Calcium 9.1 mg/dL (8.4-10.2); Carbon Dioxide 31 mmol/L (22-30); Chloride 93 mmol/L (98-107); Estimated CRCL calculation 146 ml/min; Estimated Glomerular Filt Rate > 60; Glucose 98 mg/dL (65-110); Phosphorus 3.5 mg/dL (2.5-4.5); Potassium 3.4 mmol/L (3.4-5.0); Sodium 127 mmol/L (137-145)
[2021-09-13] MEDS: LEVOTHYROXINE SODIUM 50 MCG TABLET PO (06:27)
[2021-09-13 07:58] LABS: Glucose Point of Care 93 mg/dl (65-105)
[2021-09-13] MEDS: BUDESONIDE RESPULE NEB 0.5 MG/2 ML AMP INHALATION ×2 (08:37→21:45)
[2021-09-13] MEDS: dilTIAZem HCL 30 MG TABLET PO ×3 (08:54→18:13)
[2021-09-13] MEDS: FOLIC ACID 1 MG TABLET PO (08:54)
[2021-09-13] MEDS: CHOLECALCIFEROL 1,000 UNITS TABLET 2000 UNITS PO (08:54)
[2021-09-13] MEDS: PANTOPRAZOLE 40 MG TABLET PO ×2 (08:54→18:14)
[2021-09-13] MEDS: ASPIRIN 81 MG ENTERIC TABLET PO (08:54)
[2021-09-13] MEDS: SILDENAFIL CITRATE 20 MG TABLET PO ×2 (08:54→20:50)
[2021-09-13] MEDS: TAMSULOSIN HCL 0.4 MG CAPSULE PO (08:54)
[2021-09-13] MEDS: FLUTICASONE PROPIONATE 0.05% NA SPR 16 GM BTL (*BKC) 1 SPRAY NASAL ×2 (08:55→20:50)
[2021-09-13] MEDS: ROFLUMILAST 500 MCG TABLET PO (08:56)
[2021-09-13] MEDS: metFORMIN HCL 500 MG TABLET PO ×2 (08:56→18:12)
[2021-09-13] MEDS: SERTRALINE HCL 25 MG TABLET PO (08:56)
[2021-09-13] MEDS: CYANOCOBALAMIN 500 MCG TABLET PO (08:56)
[2021-09-13] MEDS: AMIODARONE HCL 200 MG TABLET PO ×2 (08:56→18:13)
[2021-09-13] MEDS: DEMECLOCYCLINE HCL 150 MG TABLET PO ×4 (08:56→20:50)
[2021-09-13] MEDS: HYDROcodone/acetaminophen (*CRX) 5-325 MG TABLET 1 TAB PO ×3 (09:02→18:13)
[2021-09-13] MEDS: LORazepam (*CRX) 0.5 MG TABLET PO (09:02)
--- NOTE | 2021-09-13 11:20 | P.PNNP_ITS ---
Progress Note: A&P Assessment and Plan (1) Hyponatremia: Code(s): E87.1 - Hypo-osmolality and hyponatremia Status: Acute Assessment and Plan: * normal sodium on admission (137) but sodium low off and on over the years. * urine electrolytes suggest prerenal azotemia * TSH elevated but on supplementation; cortisol okay but on steroids recently * serum osmolality low (251) and urine osmolality 431 -- suggestive of SIADH * SPEP/UPEP without evidence of M-spike/paraproteinemia * risk factors for low sodium: * COPD/lung disease * SSRI use (sertraline) * steroid use * liver cirrhosis * sodium recently overcorrected and was very difficult to bring back down * received 1 dose of tolvaptan and his sodium came up pretty fast (121 to 130) -- had to use D5W to get it back down to a level appropriate for the rate of correction which was achieved and his sodium has been in the high 120s since that time * continue encouraging patient to fluid restrict on his own * restarted on demeclocycline * follow trend of repeat sodium levels (2) CHF exacerbation: Qualifiers: Heart failure type: systolic Qualified Code(s): I50.23 - Acute on chronic systolic (congestive) heart failure Code(s): I50.9 - Heart failure, unspecified Status: Acute Assessment and Plan: * better compensated at this time (3) COPD exacerbation: Code(s): J44.1 - Chronic obstructive pulmonary disease with (acute) exacerbation Status: Acute Assessment and Plan: * reportedly end stage * still has some wheezes * on CPAP at night * continue inhalers and pulmonary supportive care. * Pulmonary following (4) Anemia: Qualifiers: Anemia type: unspecified type Qualified Code(s): D64.9 - Anemia, unspecified Code(s): D64.9 - Anemia, unspecified Status: Acute Assessment and Plan: * H/H relatively stable * EGD and colonoscopy performed on 09/04/21 without evidence of bleeding * polypectomy performed * back on xarelto * on protonix * avoiding NSAIDs (5) Essential (primary) hypertension: Code(s): I10 - Essential (primary) hypertension Status: Acute Assessment and Plan: * blood pressure is well controlled * follow trend of hemodynamics (6) Type II diabetes mellitus: Qualifiers: Diabetes mellitus complication status: with other specified complication Diabetes mellitus termite treater helper insulin use: without termite treater helper use Qualified Code(s): E11.69 - Type 2 diabetes mellitus with other specified complication Code(s): E11.9 - Type 2 diabetes mellitus without complications Status: Acute Assessment and Plan: * follow Accu-Cheks * on sliding-scale insulin Will continue to follow. Subjective Date/time seen: 09/13/21 11:20 Chart reviewed since last seen - assuming care from Dr. Mckee; feels about the same but no worse at this time; fluctuations in sodium noted in the last few days with interventions noted; no issues/events overnight or earlier this AM. Exam Narrative: General: WD/WN male in no acute distress Heart: normal S1 and S2; no rub Lungs: decreased throughout with few expiratory wheezes Abdomen: soft, nontender, ND, +BS Extremities: trace edema Skin: warm and dry Objective Data Vital Signs Vital Signs: Vital Signs Temp Pulse Resp BP Pulse Ox 09/13/21 09
--- NOTE | 2021-09-13 11:20 | PM.PNNEP ---
Progress Note: A&P Assessment and Plan (1) Hyponatremia: Code(s): E87.1 - Hypo-osmolality and hyponatremia Status: Acute Assessment and Plan: normal sodium on admission (137) but sodium low off and on over the years. 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 SPEP/UPEP without evidence of M-spike/paraproteinemia risk factors for low sodium: COPD/lung disease SSRI use (sertraline) steroid use liver cirrhosis sodium recently overcorrected and was very difficult to bring back down received 1 dose of tolvaptan and his sodium came up pretty fast (121 to 130) -- had to use D5W to get it back down to a level appropriate for the rate of correction which was achieved and his sodium has been in the high 120s since that time continue encouraging patient to fluid restrict on his own restarted on demeclocycline follow trend of repeat sodium levels (2) CHF exacerbation: Qualifiers: Heart failure type: systolic Qualified Code(s): I50.23 - Acute on chronic systolic (congestive) heart failure Code(s): I50.9 - Heart failure, unspecified Status: Acute Assessment and Plan: better compensated at this time (3) COPD exacerbation: Code(s): J44.1 - Chronic obstructive pulmonary disease with (acute) exacerbation Status: Acute Assessment and Plan: reportedly end stage still has some wheezes on CPAP at night continue inhalers and pulmonary supportive care. Pulmonary following (4) Anemia: Qualifiers: Anemia type: unspecified type Qualified Code(s): D64.9 - Anemia, unspecified Code(s): D64.9 - Anemia, unspecified Status: Acute Assessment and Plan: H/H relatively stable EGD and colonoscopy performed on 09/04/21 without evidence of bleeding polypectomy performed back on xarelto on protonix avoiding NSAIDs (5) Essential (primary) hypertension: Code(s): I10 - Essential (primary) hypertension Status: Acute Assessment and Plan: blood pressure is well controlled follow trend of hemodynamics (6) Type II diabetes mellitus: Qualifiers: Diabetes mellitus complication status: with other specified complication Diabetes mellitus mcc insulin use: without mcc use Qualified Code(s): E11.69 - Type 2 diabetes mellitus with other specified complication Code(s): E11.9 - Type 2 diabetes mellitus without complications Status: Acute Assessment and Plan: follow Accu-Cheks on sliding-scale insulin Will continue to follow. Subjective Date/time seen: 09/13/21 11:20 Chart reviewed since last seen - assuming care from Dr. Mckee; feels about the same but no worse at this time; fluctuations in sodium noted in the last few days with interventions noted; no issues/events overnight or earlier this AM. Exam Narrative: General: WD/WN male in no acute distress Heart: normal S1 and S2; no rub Lungs: decreased throughout with few expiratory wheezes Abdomen: soft, nontender, ND, +BS Extremities: trace edema Skin: warm and dry Objective Data Vital Signs Vital Signs: Vital Signs Temp Pulse Resp BP Pulse Ox 09/13/21 09:00 99 09/13/21 08:56 100 09/13/21 08:48 98 09/13/21 08:38 100 22 H 09/13/21 05:22 35.9 C L 95 20 139/88 99 09/13/21 04:11 101 H 24 H 09/13/21 04:00 99 24 H 09/13/21 00:26 102 H 24 H 09/13/21 00:24 99 24 H 96 09/13/21 00:13 99 24 H 09/12/21 22:19 98 24 H 09/12/21 22:13 98 09/12/21 22:12 96 23 H 98 09/12/21 22:11 96 23 H 09/12/21 21:48 36.0 C L 95 18 148/80 H 99 09/12/21 20:00 95 18 99 09/12/21 16:44 100 09/12/21 14:00 99 24 H 131/79 98 09/12/21 13:28 91 20
[2021-09-13 11:58] LABS: Glucose Point of Care 102 mg/dl (65-105)
--- NOTE | 2021-09-13 12:53 | P.PNIM_ITS ---
Progress Note: A&P Assessment and Plan (1) CHF exacerbation: Qualifiers: Heart failure type: systolic Qualified Code(s): I50.23 - Acute on chronic systolic (congestive) heart failure Code(s): I50.9 - Heart failure, unspecified Status: Acute Assessment and Plan: CXR showed findings consistent with CHF exacerbation. * He is euvolemic at this time * Lasix held in light of hyponatremia * Continue spironolactone * Overall has had improvement with diuresis * Echo 08/29/21 showed normal EF 60-65% with abnormal diastolic function. * Monitor strict intake and output and daily weights (2) Leg weakness: Qualifiers: Laterality: bilateral Qualified Code(s): R29.898 - Other symptoms and signs involving the musculoskeletal system Code(s): R29.898 - Other symptoms and signs involving the musculoskeletal system Status: Acute Assessment and Plan: Suspect a combination of anemia, vascular insufficiency, diabetic neuropathy, neurogenic claudication due to spinal stenosis * Ankle-brachial index for peripheral arterial disease 08/23 normal * Venous Doppler for possible hematoma left thigh 08/24 NEGATIVE * CT lumbar spine showed L4-L5 moderate to severe central canal stenosis. unable to obtain follow-up MRI due to pacemaker. No signs/symptoms to suggest cord compression. Neurovascularly intact. * B12 and folate within normal limits. RPR nonreactive. * outpatient nerve conduction study and neurology vs neurosurgery follow up (3) COPD exacerbation: Code(s): J44.1 - Chronic obstructive pulmonary disease with (acute) exacerbation Status: Acute Assessment and Plan: He does have chronic respiratory failure and is on 2-4L supplemental O2 * appreciate pulmonology consultation * Completed 7 days of p.o. prednisone. Discontinued 08/31 * Completed 7 days of IV ceftriaxone and azithromycin 08/29 * O2 sats are consistent with his baseline. Currently maintaining adequate O2 sats on 3L per nasal cannula * Scheduled nebulized breathing treatments. Continue xopenex and ipratropium * Cornet valve to mobilize secretions * Discussed with concrete rubber, Dr. Santana on 09/09. No further changes from pulmonary standpoint. Follow-up as an outpatient. (4) Anemia: Qualifiers: Anemia type: unspecified type Qualified Code(s): D64.9 - Anemia, unspecified Code(s): D64.9 - Anemia, unspecified Status: Acute Assessment and Plan: Recent onset of microcytosis * He is on anticoagulation which would increase his risk for blood loss * 08/23 Anemia parameters consistent with iron deficiency. Started on ferrous sulfate which was discontinued per Nephrology. * 08/24 GI consulted recommended EGD and colonoscopy which was delayed due to respiratory illness * 09/04 EGD and colonoscopy performed without evidence of bleeding. Polypectomy performed therefore Xarelto was held for 3 days and resumed on 09/08 * Continue protonix. Avoid NSAIDs. * Monitor H&H-remaining stable (5) Type II diabetes mellitus: Qualifiers: Diabetes mellitus fci insulin use: without ferry terminal agent use Diabetes mellitus complication status: with other specified complication Qualified Code(s): E11.69 - Type 2 diabetes mellitus with other specified complication Code(s): E11.9 - Type 2 diabetes mellitus without complications Status: Acute Assessment and Plan: Last A1c 5.6 in June. Blood sugars are adequately controlled * continue Accu-Cheks, sliding scale, hypoglycemic protocol * continue metformin * basal glargine de
--- NOTE | 2021-09-13 12:53 | PM.IMPN ---
Progress Note: A&P Assessment and Plan (1) CHF exacerbation: Qualifiers: Heart failure type: systolic Qualified Code(s): I50.23 - Acute on chronic systolic (congestive) heart failure Code(s): I50.9 - Heart failure, unspecified Status: Acute Assessment and Plan: CXR showed findings consistent with CHF exacerbation. He is euvolemic at this time Lasix held in light of hyponatremia Continue spironolactone Overall has had improvement with diuresis Echo 08/29/21 showed normal EF 60-65% with abnormal diastolic function. Monitor strict intake and output and daily weights (2) Leg weakness: Qualifiers: Laterality: bilateral Qualified Code(s): R29.898 - Other symptoms and signs involving the musculoskeletal system Code(s): R29.898 - Other symptoms and signs involving the musculoskeletal system Status: Acute Assessment and Plan: Suspect a combination of anemia, vascular insufficiency, diabetic neuropathy, neurogenic claudication due to spinal stenosis Ankle-brachial index for peripheral arterial disease 08/23 normal Venous Doppler for possible hematoma left thigh 08/[address] lumbar spine showed L4-L5 moderate to severe central canal stenosis. unable to obtain follow-up MRI due to pacemaker. No signs/symptoms to suggest cord compression. Neurovascularly intact. B12 and folate within normal limits. RPR nonreactive. outpatient nerve conduction study and neurology vs neurosurgery follow up (3) COPD exacerbation: Code(s): J44.1 - Chronic obstructive pulmonary disease with (acute) exacerbation Status: Acute Assessment and Plan: He does have chronic respiratory failure and is on 2-4L supplemental O2 appreciate pulmonology consultation Completed 7 days of p.o. prednisone. Discontinued 08/31 Completed 7 days of IV ceftriaxone and azithromycin 08/29 O2 sats are consistent with his baseline. Currently maintaining adequate O2 sats on 3L per nasal cannula Scheduled nebulized breathing treatments. Continue xopenex and ipratropium Cornet valve to mobilize secretions Discussed with steel post installer, Dr. Santana on 09/09. No further changes from pulmonary standpoint. Follow-up as an outpatient. (4) Anemia: Qualifiers: Anemia type: unspecified type Qualified Code(s): D64.9 - Anemia, unspecified Code(s): D64.9 - Anemia, unspecified Status: Acute Assessment and Plan: Recent onset of microcytosis He is on anticoagulation which would increase his risk for blood loss 08/23 Anemia parameters consistent with iron deficiency. Started on ferrous sulfate which was discontinued per Nephrology. 08/24 GI consulted recommended EGD and colonoscopy which was delayed due to respiratory illness 09/04 EGD and colonoscopy performed without evidence of bleeding. Polypectomy performed therefore Xarelto was held for 3 days and resumed on 09/08 Continue protonix. Avoid NSAIDs. Monitor H&H-remaining stable (5) Type II diabetes mellitus: Qualifiers: Diabetes mellitus lobsterman insulin use: without lobsterman use Diabetes mellitus complication status: with other specified complication Qualified Code(s): E11.69 - Type 2 diabetes mellitus with other specified complication Code(s): E11.9 - Type 2 diabetes mellitus without complications Status: Acute Assessment and Plan: Last A1c 5.6 in June. Blood sugars are adequately controlled continue Accu-Cheks, sliding scale, hypoglycemic protocol continue metformin basal glargine decreased to 10 units monitor glucose trends and adjust medication regimen as needed (6) Obstructive sleep apnea: Code(s): G47.33 - Obstructive sleep apnea (adult) (pediatric) Status: Acute Assessment and Plan: As he does not have his home trilogy with him, BiPAP is substituted pulmonology following and consultation is appreciated (7) Persistent
[2021-09-13] MEDS: ACETAMINOPHEN 500 MG TABLET 1000 MG PO (15:07)
[2021-09-13 16:47] LABS: Glucose Point of Care 88 mg/dl (65-105)
[2021-09-13] MEDS: RIVAROXABAN 20 MG TABLET PO (18:14)
[2021-09-13 20:20] LABS: Glucose Point of Care 103 mg/dl (65-105)
[2021-09-13] MEDS: DOCUSATE SODIUM 100 MG CAPSULE PO (20:50)
[2021-09-13] MEDS: INSULIN GLARGINE (*BKC) 100 UNITS/ML 10 UNITS SUB-Q (20:52)
[2021-09-14] VITALS (28 sets, daily range): BP systolic 123–144; BP diastolic 70–93; PULSE 90–98; RESP 18–24; TEMP 36.1–37; O2SAT 94–99
[2021-09-14] MEDS: LEVALBUTEROL NEB 1.25 MG/3 ML 0.63 MG INHALATION ×6 (00:32→20:02)
[2021-09-14] MEDS: IPRATROPIUM BR 0.02% INH SOLN 0.5 MG/2.5 ML VIAL INHALATION ×6 (00:32→20:02)
--- NOTE | 2021-09-14 04:37 | PC.NURSE ---
Pt called c/o shortness of breath Bipap remains on and spo2 is 99%, Respiratory called for 4 AM treatment.
[2021-09-14] MEDS: HYDROcodone/acetaminophen (*CRX) 5-325 MG TABLET 1 TAB PO ×3 (05:19→17:19)
[2021-09-14] MEDS: LORazepam (*CRX) 0.5 MG TABLET PO ×2 (05:20→17:19)
[2021-09-14] MEDS: LEVOTHYROXINE SODIUM 50 MCG TABLET PO (05:20)
[2021-09-14 06:08] LABS: Hematocrit 31.7 % (42.0-52.0); Hemoglobin 9.1 g/dL (14.0-18.0)
[2021-09-14 06:30] LABS: Anion Gap 5 mmol/L (8-16); Blood Urea Nitrogen 9 mg/dL (9-20); Calcium 9.1 mg/dL (8.4-10.2); Carbon Dioxide 29 mmol/L (22-30); Chloride 93 mmol/L (98-107); Estimated CRCL calculation 146 ml/min; Estimated Glomerular Filt Rate > 60; Glucose 96 mg/dL (65-110); Potassium 3.4 mmol/L (3.4-5.0); Sodium 127 mmol/L (137-145)
[2021-09-14 08:05] LABS: Glucose Point of Care 101 mg/dl (65-105)
[2021-09-14] MEDS: BUDESONIDE RESPULE NEB 0.5 MG/2 ML AMP INHALATION ×2 (08:14→20:02)
[2021-09-14] MEDS: CHOLECALCIFEROL 1,000 UNITS TABLET 2000 UNITS PO (09:51)
[2021-09-14] MEDS: AMIODARONE HCL 200 MG TABLET PO ×2 (09:52→17:19)
[2021-09-14] MEDS: TAMSULOSIN HCL 0.4 MG CAPSULE PO (09:52)
[2021-09-14] MEDS: ROFLUMILAST 500 MCG TABLET PO (09:52)
[2021-09-14] MEDS: CYANOCOBALAMIN 500 MCG TABLET PO (09:52)
[2021-09-14] MEDS: ASPIRIN 81 MG ENTERIC TABLET PO (09:52)
[2021-09-14] MEDS: dilTIAZem HCL 30 MG TABLET PO ×3 (09:52→17:21)
[2021-09-14] MEDS: DEMECLOCYCLINE HCL 150 MG TABLET PO ×4 (09:52→20:34)
[2021-09-14] MEDS: metFORMIN HCL 500 MG TABLET PO ×2 (09:52→17:21)
[2021-09-14] MEDS: SERTRALINE HCL 25 MG TABLET PO (09:52)
[2021-09-14] MEDS: FOLIC ACID 1 MG TABLET PO (09:52)
[2021-09-14] MEDS: PANTOPRAZOLE 40 MG TABLET PO ×2 (09:53→17:22)
[2021-09-14] MEDS: SILDENAFIL CITRATE 20 MG TABLET PO ×2 (09:53→20:34)
[2021-09-14] MEDS: FLUTICASONE PROPIONATE 0.05% NA SPR 16 GM BTL (*BKC) 1 SPRAY NASAL ×2 (09:53→20:34)
--- NOTE | 2021-09-14 11:45 | PCOTNOTE ---
Attempted to see pt for occupational therapy tx, however, pt declined to participate due to increased pain and sob. Pt did state that he just received a breathing treatment and pain medication. Pt was educated on the importance of functional mobility and therapeutic activities for increase independence with daily occupations however, pt still declined to participate. Will continue per poc duration/frequency tomorrow.
[2021-09-14 12:01] LABS: Glucose Point of Care 97 mg/dl (65-105)
--- NOTE | 2021-09-14 12:49 | PCPTNOTE ---
Patient refused therapy at this time due to not being able to breath. Patient became very emotional about his breathing. Patient measure 96% Spo2 level with exiting room. RN in room with exiting.
--- NOTE | 2021-09-14 12:57 | PM.PNNEP ---
Progress Note: A&P Assessment and Plan (1) Hyponatremia: Code(s): E87.1 - Hypo-osmolality and hyponatremia Status: Acute Assessment and Plan: normal sodium on admission (137) but sodium low off and on over the years. 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 SPEP/UPEP without evidence of M-spike/paraproteinemia risk factors for low sodium: COPD/lung disease SSRI use (sertraline) steroid use liver cirrhosis sodium recently overcorrected and was very difficult to bring back down received 1 dose of tolvaptan and his sodium came up pretty fast (121 to 133) -- had to use D5W + DDAVP to get it back down to a level appropriate for the rate of correction which was achieved and his sodium has been in the high 120s since that time continue encouraging patient to fluid restrict on his own on demeclocycline follow trend of repeat sodium levels (2) CHF exacerbation: Qualifiers: Heart failure type: systolic Qualified Code(s): I50.23 - Acute on chronic systolic (congestive) heart failure Code(s): I50.9 - Heart failure, unspecified Status: Acute Assessment and Plan: better compensated at this time (3) COPD exacerbation: Code(s): J44.1 - Chronic obstructive pulmonary disease with (acute) exacerbation Status: Acute Assessment and Plan: reportedly end stage still has some wheezes on CPAP at night continue inhalers and pulmonary supportive care. Pulmonary following (4) Anemia: Qualifiers: Anemia type: unspecified type Qualified Code(s): D64.9 - Anemia, unspecified Code(s): D64.9 - Anemia, unspecified Status: Acute Assessment and Plan: H/H relatively stable EGD and colonoscopy performed on 09/04/21 without evidence of bleeding polypectomy performed back on xarelto on protonix avoiding NSAIDs (5) Essential (primary) hypertension: Code(s): I10 - Essential (primary) hypertension Status: Acute Assessment and Plan: blood pressure is well controlled follow trend of hemodynamics (6) Type II diabetes mellitus: Qualifiers: Diabetes mellitus complication status: with other specified complication Diabetes mellitus fci insulin use: without fci use Qualified Code(s): E11.69 - Type 2 diabetes mellitus with other specified complication Code(s): E11.9 - Type 2 diabetes mellitus without complications Status: Acute Assessment and Plan: follow Accu-Cheks on sliding-scale insulin Will continue to follow. Subjective Date/time seen: 09/14/21 12:57 Continues to have shortness of breath with any type of activity -- this has resulted in him refusing therapy due to this symptom as well; motivation to even get out of bed is lacking as well. Exam Narrative: General: WD/WN male in no acute distress Heart: normal S1 and S2; no rub Lungs: decreased throughout with few expiratory wheezes Abdomen: soft, nontender, ND, +BS Extremities: trace edema Skin: warm and intact Objective Data Vital Signs Vital Signs: Vital Signs Temp Pulse Resp BP Pulse Ox 09/14/21 11:27 94 18 09/14/21 11:17 94 18 09/14/21 09:52 98 09/14/21 09:45 97 09/14/21 08:33 92 18 09/14/21 08:15 94 18 95 09/14/21 06:00 36.1 C L 92 20 139/80 97 09/14/21 04:53 92 09/14/21 04:45 94 21 H 96 09/14/21 04:41 90 09/14/21 04:35 95 20 129/93 H 99 09/14/21 00:41 94 19 09/14/21 00:35 94 22 H 97 09/14/21 00:33 90 19 09/13/21 22:50 97 09/13/21 22:00 35.8 C L 95 20 126/78 98 09/13/21 21:55 84 22 H 09/13/21 21:40 88 22 H 09/13/21 20:00 36.4 C L 84 22 H 106/62 98 09/13/21 18:22 96 106/62 98 09/13/21 18:1
--- NOTE | 2021-09-14 12:57 | P.PNNP_ITS ---
Progress Note: A&P Assessment and Plan (1) Hyponatremia: Code(s): E87.1 - Hypo-osmolality and hyponatremia Status: Acute Assessment and Plan: * normal sodium on admission (137) but sodium low off and on over the years. * urine electrolytes suggest prerenal azotemia * TSH elevated but on supplementation; cortisol okay but on steroids recently * serum osmolality low (251) and urine osmolality 431 -- suggestive of SIADH * SPEP/UPEP without evidence of M-spike/paraproteinemia * risk factors for low sodium: * COPD/lung disease * SSRI use (sertraline) * steroid use * liver cirrhosis * sodium recently overcorrected and was very difficult to bring back down * received 1 dose of tolvaptan and his sodium came up pretty fast (121 to 133) -- had to use D5W + DDAVP to get it back down to a level appropriate for the rate of correction which was achieved and his sodium has been in the high 120s since that time * continue encouraging patient to fluid restrict on his own * on demeclocycline * follow trend of repeat sodium levels (2) CHF exacerbation: Qualifiers: Heart failure type: systolic Qualified Code(s): I50.23 - Acute on chronic systolic (congestive) heart failure Code(s): I50.9 - Heart failure, unspecified Status: Acute Assessment and Plan: * better compensated at this time (3) COPD exacerbation: Code(s): J44.1 - Chronic obstructive pulmonary disease with (acute) exacerbation Status: Acute Assessment and Plan: * reportedly end stage * still has some wheezes * on CPAP at night * continue inhalers and pulmonary supportive care. * Pulmonary following (4) Anemia: Qualifiers: Anemia type: unspecified type Qualified Code(s): D64.9 - Anemia, unspecified Code(s): D64.9 - Anemia, unspecified Status: Acute Assessment and Plan: * H/H relatively stable * EGD and colonoscopy performed on 09/04/21 without evidence of bleeding * polypectomy performed * back on xarelto * on protonix * avoiding NSAIDs (5) Essential (primary) hypertension: Code(s): I10 - Essential (primary) hypertension Status: Acute Assessment and Plan: * blood pressure is well controlled * follow trend of hemodynamics (6) Type II diabetes mellitus: Qualifiers: Diabetes mellitus complication status: with other specified complication Diabetes mellitus termite renewal inspector insulin use: without mcfp use Qualified Code(s): E11.69 - Type 2 diabetes mellitus with other specified complication Code(s): E11.9 - Type 2 diabetes mellitus without complications Status: Acute Assessment and Plan: * follow Accu-Cheks * on sliding-scale insulin Will continue to follow. Subjective Date/time seen: 09/14/21 12:57 Continues to have shortness of breath with any type of activity -- this has resulted in him refusing therapy due to this symptom as well; motivation to even get out of bed is lacking as well. Exam Narrative: General: WD/WN male in no acute distress Heart: normal S1 and S2; no rub Lungs: decreased throughout with few expiratory wheezes Abdomen: soft, nontender, ND, +BS Extremities: trace edema Skin: warm and intact Objective Data Vital Signs Vital Signs: Vital Signs Temp Pulse Resp BP Pulse Ox 09/14/21 11:27 94 18 09/14/21 11:17 94 1
--- NOTE | 2021-09-14 13:00 | P.PNIM_ITS ---
Progress Note: A&P Assessment and Plan (1) CHF exacerbation: Qualifiers: Heart failure type: systolic Qualified Code(s): I50.23 - Acute on chronic systolic (congestive) heart failure Code(s): I50.9 - Heart failure, unspecified Status: Acute Assessment and Plan: CXR showed findings consistent with CHF exacerbation. * He is euvolemic at this time * Lasix held in light of hyponatremia * Continue spironolactone * Overall has had improvement with diuresis * Echo 08/29/21 showed normal EF 60-65% with abnormal diastolic function. * Monitor strict intake and output and daily weights (2) Leg weakness: Qualifiers: Laterality: bilateral Qualified Code(s): R29.898 - Other symptoms and signs involving the musculoskeletal system Code(s): R29.898 - Other symptoms and signs involving the musculoskeletal system Status: Acute Assessment and Plan: Suspect a combination of anemia, vascular insufficiency, diabetic neuropathy, neurogenic claudication due to spinal stenosis * Ankle-brachial index for peripheral arterial disease 08/23 normal * Venous Doppler for possible hematoma left thigh 08/24 NEGATIVE * CT lumbar spine showed L4-L5 moderate to severe central canal stenosis. unable to obtain follow-up MRI due to pacemaker. No signs/symptoms to suggest cord compression. Neurovascularly intact. * B12 and folate within normal limits. RPR nonreactive. * outpatient nerve conduction study and neurology vs neurosurgery follow up (3) COPD exacerbation: Code(s): J44.1 - Chronic obstructive pulmonary disease with (acute) exacerbation Status: Acute Assessment and Plan: He does have chronic respiratory failure and is on 2-4L supplemental O2 * appreciate pulmonology consultation * Completed 7 days of p.o. prednisone. Discontinued 08/31 * Completed 7 days of IV ceftriaxone and azithromycin 08/29 * O2 sats are consistent with his baseline. Currently maintaining adequate O2 sats on 3L per nasal cannula * Scheduled nebulized breathing treatments. Continue xopenex and ipratropium * Cornet valve to mobilize secretions * Hospitalist d/w slitting machine feeder, Dr. Santana on 09/09. No further changes from pulmonary standpoint. Follow-up as an outpatient. * COPD seems to be optimized, except for physical conditioning, but refused to participate in PT/OT 09/13 and 09/14 (4) Anemia: Qualifiers: Anemia type: unspecified type Qualified Code(s): D64.9 - Anemia, unspecified Code(s): D64.9 - Anemia, unspecified Status: Acute Assessment and Plan: Recent onset of microcytosis * He is on anticoagulation which would increase his risk for blood loss * 08/23 Anemia parameters consistent with iron deficiency. Started on ferrous sulfate which was discontinued per Nephrology. * 08/24 GI consulted recommended EGD and colonoscopy which was delayed due to respiratory illness * 09/04 EGD and colonoscopy performed without evidence of bleeding. Polypectomy performed therefore Xarelto was held for 3 days and resumed on 09/08 * Continue protonix. Avoid NSAIDs. * Monitor H&H-remaining stable (5) Type II diabetes mellitus: Qualifiers: Diabetes mellitus prison insulin use: without intermediate school teacher use Diabetes mellitus complication status: with other specified complication Qualified Code(s): E11.69 - Type 2 diabetes mellitus with other specified complication Code(s): E11.9 - Type 2 diabetes mellitus without complications Status: Acute Assessment and Plan: Last A1c 5.6 in June. Blood sugars are adequately contro
--- NOTE | 2021-09-14 13:00 | PM.IMPN ---
Progress Note: A&P Assessment and Plan (1) CHF exacerbation: Qualifiers: Heart failure type: systolic Qualified Code(s): I50.23 - Acute on chronic systolic (congestive) heart failure Code(s): I50.9 - Heart failure, unspecified Status: Acute Assessment and Plan: CXR showed findings consistent with CHF exacerbation. He is euvolemic at this time Lasix held in light of hyponatremia Continue spironolactone Overall has had improvement with diuresis Echo 08/29/21 showed normal EF 60-65% with abnormal diastolic function. Monitor strict intake and output and daily weights (2) Leg weakness: Qualifiers: Laterality: bilateral Qualified Code(s): R29.898 - Other symptoms and signs involving the musculoskeletal system Code(s): R29.898 - Other symptoms and signs involving the musculoskeletal system Status: Acute Assessment and Plan: Suspect a combination of anemia, vascular insufficiency, diabetic neuropathy, neurogenic claudication due to spinal stenosis Ankle-brachial index for peripheral arterial disease 08/23 normal Venous Doppler for possible hematoma left thigh 08/[address] lumbar spine showed L4-L5 moderate to severe central canal stenosis. unable to obtain follow-up MRI due to pacemaker. No signs/symptoms to suggest cord compression. Neurovascularly intact. B12 and folate within normal limits. RPR nonreactive. outpatient nerve conduction study and neurology vs neurosurgery follow up (3) COPD exacerbation: Code(s): J44.1 - Chronic obstructive pulmonary disease with (acute) exacerbation Status: Acute Assessment and Plan: He does have chronic respiratory failure and is on 2-4L supplemental O2 appreciate pulmonology consultation Completed 7 days of p.o. prednisone. Discontinued 08/31 Completed 7 days of IV ceftriaxone and azithromycin 08/29 O2 sats are consistent with his baseline. Currently maintaining adequate O2 sats on 3L per nasal cannula Scheduled nebulized breathing treatments. Continue xopenex and ipratropium Cornet valve to mobilize secretions Hospitalist d/w natural sciences department chair, Dr. Santana on 09/09. No further changes from pulmonary standpoint. Follow-up as an outpatient. COPD seems to be optimized, except for physical conditioning, but refused to participate in PT/OT 09/13 and 09/14 (4) Anemia: Qualifiers: Anemia type: unspecified type Qualified Code(s): D64.9 - Anemia, unspecified Code(s): D64.9 - Anemia, unspecified Status: Acute Assessment and Plan: Recent onset of microcytosis He is on anticoagulation which would increase his risk for blood loss 08/23 Anemia parameters consistent with iron deficiency. Started on ferrous sulfate which was discontinued per Nephrology. 08/24 GI consulted recommended EGD and colonoscopy which was delayed due to respiratory illness 09/04 EGD and colonoscopy performed without evidence of bleeding. Polypectomy performed therefore Xarelto was held for 3 days and resumed on 09/08 Continue protonix. Avoid NSAIDs. Monitor H&H-remaining stable (5) Type II diabetes mellitus: Qualifiers: Diabetes mellitus long wall mining machine tender insulin use: without senior care use Diabetes mellitus complication status: with other specified complication Qualified Code(s): E11.69 - Type 2 diabetes mellitus with other specified complication Code(s): E11.9 - Type 2 diabetes mellitus without complications Status: Acute Assessment and Plan: Last A1c 5.6 in June. Blood sugars are adequately controlled continue Accu-Cheks, sliding scale, hypoglycemic protocol continue metformin basal glargine decreased to 10 units monitor glucose trends and adjust medication regimen as needed (6) Obstructive sleep apnea: Code(s): G47.33 - Obstructive sleep apnea (adult) (pediatric) Status: Acute Assessment and Plan: As he does not have his home tri
[2021-09-14] MEDS: ACETAMINOPHEN 500 MG TABLET 1000 MG PO (14:45)
[2021-09-14 16:37] LABS: Glucose Point of Care 109 mg/dl (65-105)
[2021-09-14] MEDS: RIVAROXABAN 20 MG TABLET PO (17:22)
[2021-09-14] MEDS: INSULIN GLARGINE (*BKC) 100 UNITS/ML 10 UNITS SUB-Q (20:38)
[2021-09-14 20:41] LABS: Glucose Point of Care 103 mg/dl (65-105)
[2021-09-15] VITALS (24 sets, daily range): BP systolic 100–145; BP diastolic 63–78; PULSE 90–100; RESP 18–26; TEMP 35.7–36.6; O2SAT 93–99
[2021-09-15] MEDS: LEVALBUTEROL NEB 1.25 MG/3 ML 0.63 MG INHALATION ×6 (00:30→19:48)
[2021-09-15] MEDS: IPRATROPIUM BR 0.02% INH SOLN 0.5 MG/2.5 ML VIAL INHALATION ×6 (00:30→19:48)
[2021-09-15] MEDS: LEVOTHYROXINE SODIUM 50 MCG TABLET PO (05:18)
[2021-09-15 07:39] LABS: Glucose Point of Care 97 mg/dl (65-105)
[2021-09-15] MEDS: BUDESONIDE RESPULE NEB 0.5 MG/2 ML AMP INHALATION ×2 (08:37→19:48)
[2021-09-15] MEDS: CHOLECALCIFEROL 1,000 UNITS TABLET 2000 UNITS PO (10:06)
[2021-09-15] MEDS: metFORMIN HCL 500 MG TABLET PO ×2 (10:06→16:44)
[2021-09-15] MEDS: ASPIRIN 81 MG ENTERIC TABLET PO (10:06)
[2021-09-15] MEDS: AMIODARONE HCL 200 MG TABLET PO ×2 (10:06→16:44)
[2021-09-15] MEDS: dilTIAZem HCL 30 MG TABLET PO ×3 (10:06→16:43)
[2021-09-15] MEDS: FOLIC ACID 1 MG TABLET PO (10:06)
[2021-09-15] MEDS: TAMSULOSIN HCL 0.4 MG CAPSULE PO (10:06)
[2021-09-15] MEDS: PANTOPRAZOLE 40 MG TABLET PO ×2 (10:07→16:44)
[2021-09-15] MEDS: ROFLUMILAST 500 MCG TABLET PO (10:07)
[2021-09-15] MEDS: SILDENAFIL CITRATE 20 MG TABLET PO ×2 (10:07→20:16)
[2021-09-15] MEDS: CYANOCOBALAMIN 500 MCG TABLET PO (10:07)
[2021-09-15] MEDS: DEMECLOCYCLINE HCL 150 MG TABLET PO ×4 (10:07→20:16)
[2021-09-15] MEDS: SERTRALINE HCL 25 MG TABLET PO (10:07)
[2021-09-15] MEDS: FLUTICASONE PROPIONATE 0.05% NA SPR 16 GM BTL (*BKC) 1 SPRAY NASAL ×2 (10:08→20:16)
[2021-09-15 10:39] LABS: Anion Gap 4 mmol/L (8-16); Blood Urea Nitrogen 8 mg/dL (9-20); Calcium 9.1 mg/dL (8.4-10.2); Carbon Dioxide 28 mmol/L (22-30); Chloride 92 mmol/L (98-107); Estimated CRCL calculation 173 ml/min; Estimated Glomerular Filt Rate > 60; Glucose 118 mg/dL (65-110); Potassium 4.1 mmol/L (3.4-5.0); Sodium 124 mmol/L (137-145)
--- NOTE | 2021-09-15 10:49 | PCNWS ---
Weekly nutritional screen. Patient is tolerating current diet with adequate intake. No weight loss reported. No nutritional needs at this time.
--- NOTE | 2021-09-15 10:58 | P.PNIM_ITS ---
Progress Note: A&P Assessment and Plan (1) CHF exacerbation: Qualifiers: Heart failure type: systolic Qualified Code(s): I50.23 - Acute on chronic systolic (congestive) heart failure Code(s): I50.9 - Heart failure, unspecified Status: Acute Assessment and Plan: CXR showed findings consistent with CHF exacerbation. * He is euvolemic at this time * Lasix and spironolactone held in light of hyponatremia. Discussed with nephrology, will give a one time dose of IV Lasix 40 mg today given his complaints of increased SOB. Monitor symptoms. * Overall had improvement following diuresis * Echo 08/29/21 showed normal EF 60-65% with abnormal diastolic function. * Monitor strict intake and output and daily weights (2) Leg weakness: Qualifiers: Laterality: bilateral Qualified Code(s): R29.898 - Other symptoms and signs involving the musculoskeletal system Code(s): R29.898 - Other symptoms and signs involving the musculoskeletal system Status: Acute Assessment and Plan: Suspect a combination of anemia, vascular insufficiency, diabetic neuropathy, neurogenic claudication due to spinal stenosis * Ankle-brachial index for peripheral arterial disease 08/23 normal * Venous Doppler for possible hematoma left thigh 08/24 NEGATIVE * CT lumbar spine showed L4-L5 moderate to severe central canal stenosis. unable to obtain follow-up MRI due to pacemaker. No signs/symptoms to suggest cord compression. Neurovascularly intact. * B12 and folate within normal limits. RPR nonreactive. * outpatient nerve conduction study and neurology vs neurosurgery follow up (3) COPD exacerbation: Code(s): J44.1 - Chronic obstructive pulmonary disease with (acute) exacerbation Status: Acute Assessment and Plan: He does have chronic respiratory failure and is on 2-4L supplemental O2 * appreciate pulmonology consultation * Completed 7 days of p.o. prednisone. Discontinued 08/31 * Completed 7 days of IV ceftriaxone and azithromycin 08/29 * O2 sats are consistent with his baseline. Currently maintaining adequate O2 sats on 3L per nasal cannula * Scheduled nebulized breathing treatments. Continue xopenex and ipratropium * Cornet valve to mobilize secretions * Discussed case with registration scheduling specialist, Dr. Santana on 09/09. No further changes from pulmonary standpoint. Follow-up as an outpatient. * COPD seems to be optimized, except for physical conditioning, but refused to participate in PT/OT 09/13 and 2/6. Encouraged to partipate today. (4) Anemia: Qualifiers: Anemia type: unspecified type Qualified Code(s): D64.9 - Anemia, unspecified Code(s): D64.9 - Anemia, unspecified Status: Acute Assessment and Plan: Recent onset of microcytosis * He is on anticoagulation which would increase his risk for blood loss * 08/23 Anemia parameters consistent with iron deficiency. Started on ferrous sulfate which was discontinued per Nephrology. * 08/24 GI consulted recommended EGD and colonoscopy which was delayed due to respiratory illness * 09/04 EGD and colonoscopy performed without evidence of bleeding. Polypectomy performed therefore Xarelto was held for 3 days and resumed on 09/08 * Continue protonix. Avoid NSAIDs. * Monitor H&H-remaining stable (5) Type II diabetes mellitus: Qualifiers: Diabetes mellitus complication status: with other specified complication Diabetes mellitus usp insulin use: without termite exterminator use Qualified Code(s): E11.69 - Type 2 diabetes mellitus with other specified complication Code(s): E11.9
--- NOTE | 2021-09-15 10:58 | PM.IMPN ---
Progress Note: A&P Assessment and Plan (1) CHF exacerbation: Qualifiers: Heart failure type: systolic Qualified Code(s): I50.23 - Acute on chronic systolic (congestive) heart failure Code(s): I50.9 - Heart failure, unspecified Status: Acute Assessment and Plan: CXR showed findings consistent with CHF exacerbation. He is euvolemic at this time Lasix and spironolactone held in light of hyponatremia. Discussed with nephrology, will give a one time dose of IV Lasix 40 mg today given his complaints of increased SOB. Monitor symptoms. Overall had improvement following diuresis Echo 08/29/21 showed normal EF 60-65% with abnormal diastolic function. Monitor strict intake and output and daily weights (2) Leg weakness: Qualifiers: Laterality: bilateral Qualified Code(s): R29.898 - Other symptoms and signs involving the musculoskeletal system Code(s): R29.898 - Other symptoms and signs involving the musculoskeletal system Status: Acute Assessment and Plan: Suspect a combination of anemia, vascular insufficiency, diabetic neuropathy, neurogenic claudication due to spinal stenosis Ankle-brachial index for peripheral arterial disease 08/23 normal Venous Doppler for possible hematoma left thigh 08/[address] lumbar spine showed L4-L5 moderate to severe central canal stenosis. unable to obtain follow-up MRI due to pacemaker. No signs/symptoms to suggest cord compression. Neurovascularly intact. B12 and folate within normal limits. RPR nonreactive. outpatient nerve conduction study and neurology vs neurosurgery follow up (3) COPD exacerbation: Code(s): J44.1 - Chronic obstructive pulmonary disease with (acute) exacerbation Status: Acute Assessment and Plan: He does have chronic respiratory failure and is on 2-4L supplemental O2 appreciate pulmonology consultation Completed 7 days of p.o. prednisone. Discontinued 08/31 Completed 7 days of IV ceftriaxone and azithromycin 08/29 O2 sats are consistent with his baseline. Currently maintaining adequate O2 sats on 3L per nasal cannula Scheduled nebulized breathing treatments. Continue xopenex and ipratropium Cornet valve to mobilize secretions Discussed case with inspector missile, Dr. Santana on 09/09. No further changes from pulmonary standpoint. Follow-up as an outpatient. COPD seems to be optimized, except for physical conditioning, but refused to participate in PT/OT 09/13 and 09/14. Encouraged to partipate today. (4) Anemia: Qualifiers: Anemia type: unspecified type Qualified Code(s): D64.9 - Anemia, unspecified Code(s): D64.9 - Anemia, unspecified Status: Acute Assessment and Plan: Recent onset of microcytosis He is on anticoagulation which would increase his risk for blood loss 08/23 Anemia parameters consistent with iron deficiency. Started on ferrous sulfate which was discontinued per Nephrology. 08/24 GI consulted recommended EGD and colonoscopy which was delayed due to respiratory illness 09/04 EGD and colonoscopy performed without evidence of bleeding. Polypectomy performed therefore Xarelto was held for 3 days and resumed on 09/08 Continue protonix. Avoid NSAIDs. Monitor H&H-remaining stable (5) Type II diabetes mellitus: Qualifiers: Diabetes mellitus complication status: with other specified complication Diabetes mellitus long term care pharmacist insulin use: without long term care pharmacist use Qualified Code(s): E11.69 - Type 2 diabetes mellitus with other specified complication Code(s): E11.9 - Type 2 diabetes mellitus without complications Status: Acute Assessment and Plan: Last A1c 5.6 in June. Blood sugars are adequately controlled continue Accu-Cheks, sliding scale, hypoglycemic protocol continue metformin basal glargine decreased to 10 units monitor glucose trends and adjust medication regimen as needed (6) Obstructive
[2021-09-15 11:40] LABS: Glucose Point of Care 103 mg/dl (65-105)
--- NOTE | 2021-09-15 11:53 | P.PNNP_ITS ---
Progress Note: A&P Assessment and Plan (1) Hyponatremia: Code(s): E87.1 - Hypo-osmolality and hyponatremia Status: Acute Assessment and Plan: * normal sodium on admission (137) but sodium low off and on over the years. * urine electrolytes suggest prerenal azotemia * TSH elevated but on supplementation; cortisol okay but on steroids recently * serum osmolality low (251) and urine osmolality 431 -- suggestive of SIADH * SPEP/UPEP without evidence of M-spike/paraproteinemia * risk factors for low sodium: * COPD/lung disease * SSRI use (sertraline) * steroid use * liver cirrhosis * sodium recently overcorrected and was very difficult to bring back down * received 1 dose of tolvaptan and his sodium came up pretty fast (121 to 133) -- had to use D5W + DDAVP to get it back down to a level appropriate for the rate of correction which was achieved and his sodium has been in the high 120s since that time - noted drop in sodium today... * continue encouraging patient to fluid restrict on his own * on demeclocycline * follow trend of repeat sodium levels (2) CHF exacerbation: Qualifiers: Heart failure type: systolic Qualified Code(s): I50.23 - Acute on chronic systolic (congestive) heart failure Code(s): I50.9 - Heart failure, unspecified Status: Acute Assessment and Plan: * better compensated at this time * not opposed to dosing with lasix today (SOB + increased lower extremity edema) (3) COPD exacerbation: Code(s): J44.1 - Chronic obstructive pulmonary disease with (acute) exacerbation Status: Chronic Assessment and Plan: * reportedly end stage * still has some wheezes * on CPAP at night * continue inhalers and pulmonary supportive care * Pulmonary following (4) Anemia: Qualifiers: Anemia type: unspecified type Qualified Code(s): D64.9 - Anemia, unspecified Code(s): D64.9 - Anemia, unspecified Status: Acute Assessment and Plan: * H/H relatively stable * EGD and colonoscopy performed on 09/04/21 without evidence of bleeding * polypectomy performed * back on xarelto * on protonix * avoiding NSAIDs (5) Essential (primary) hypertension: Code(s): I10 - Essential (primary) hypertension Status: Chronic Assessment and Plan: * blood pressure is well controlled * follow trend of hemodynamics (6) Type II diabetes mellitus: Qualifiers: Diabetes mellitus complication status: with other specified complication Diabetes mellitus fpc insulin use: without fpc use Qualified Code(s): E11.69 - Type 2 diabetes mellitus with other specified complication Code(s): E11.9 - Type 2 diabetes mellitus without complications Status: Chronic Assessment and Plan: * follow Accu-Cheks * on sliding-scale insulin Will continue to follow. Subjective Date/time seen: 09/15/21 11:53 No real significant change; sitting up in chair at the time of my visit; states he feels more short of breath today along with increased swelling in his lower extremities; has not been ambulating much or participating with PT/OT in the last day or so; no other issues/events overnight or earlier this AM. Exam Narrative: General: WD/WN male in no acute distress Heart: normal S1 and S2; no rub Lungs: decreased throughout with few expiratory wheezes Abdomen: soft, nontender, ND, +BS Extremities: trace edema Skin: warm and intact Objective Data
--- NOTE | 2021-09-15 11:53 | PM.PNNEP ---
Progress Note: A&P Assessment and Plan (1) Hyponatremia: Code(s): E87.1 - Hypo-osmolality and hyponatremia Status: Acute Assessment and Plan: normal sodium on admission (137) but sodium low off and on over the years. 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 SPEP/UPEP without evidence of M-spike/paraproteinemia risk factors for low sodium: COPD/lung disease SSRI use (sertraline) steroid use liver cirrhosis sodium recently overcorrected and was very difficult to bring back down received 1 dose of tolvaptan and his sodium came up pretty fast (121 to 133) -- had to use D5W + DDAVP to get it back down to a level appropriate for the rate of correction which was achieved and his sodium has been in the high 120s since that time - noted drop in sodium today... continue encouraging patient to fluid restrict on his own on demeclocycline follow trend of repeat sodium levels (2) CHF exacerbation: Qualifiers: Heart failure type: systolic Qualified Code(s): I50.23 - Acute on chronic systolic (congestive) heart failure Code(s): I50.9 - Heart failure, unspecified Status: Acute Assessment and Plan: better compensated at this time not opposed to dosing with lasix today (SOB + increased lower extremity edema) (3) COPD exacerbation: Code(s): J44.1 - Chronic obstructive pulmonary disease with (acute) exacerbation Status: Chronic Assessment and Plan: reportedly end stage still has some wheezes on CPAP at night continue inhalers and pulmonary supportive care Pulmonary following (4) Anemia: Qualifiers: Anemia type: unspecified type Qualified Code(s): D64.9 - Anemia, unspecified Code(s): D64.9 - Anemia, unspecified Status: Acute Assessment and Plan: H/H relatively stable EGD and colonoscopy performed on 09/04/21 without evidence of bleeding polypectomy performed back on xarelto on protonix avoiding NSAIDs (5) Essential (primary) hypertension: Code(s): I10 - Essential (primary) hypertension Status: Chronic Assessment and Plan: blood pressure is well controlled follow trend of hemodynamics (6) Type II diabetes mellitus: Qualifiers: Diabetes mellitus complication status: with other specified complication Diabetes mellitus half-way insulin use: without half-way use Qualified Code(s): E11.69 - Type 2 diabetes mellitus with other specified complication Code(s): E11.9 - Type 2 diabetes mellitus without complications Status: Chronic Assessment and Plan: follow Accu-Cheks on sliding-scale insulin Will continue to follow. Subjective Date/time seen: 09/15/21 11:53 No real significant change; sitting up in chair at the time of my visit; states he feels more short of breath today along with increased swelling in his lower extremities; has not been ambulating much or participating with PT/OT in the last day or so; no other issues/events overnight or earlier this AM. Exam Narrative: General: WD/WN male in no acute distress Heart: normal S1 and S2; no rub Lungs: decreased throughout with few expiratory wheezes Abdomen: soft, nontender, ND, +BS Extremities: trace edema Skin: warm and intact Objective Data Vital Signs Vital Signs: Vital Signs Temp Pulse Resp BP Pulse Ox 09/15/21 10:06 100 09/15/21 09:50 95 09/15/21 08:49 96 20 09/15/21 08:39 93 09/15/21 08:37 94 20 09/15/21 06:00 36.6 C 94 22 H 145/76 H 97 09/15/21 04:35 92 20 09/15/21 04:20 94 23 H 09/15/21 02:10 94 21 H 96 09/15/21 00:45 90 21 H 09/15/21 00:33 91 20 96 09/15/21 00:31 91 22 H 09/14/21 22:18 92 23 H 97 09/14/21 22:00 37.0 C
[2021-09-15] MEDS: FUROSEMIDE INJ 40 MG/4 ML VIAL IV PUSH (12:45)
[2021-09-15 16:13] LABS: Glucose Point of Care 92 mg/dl (65-105)
[2021-09-15] MEDS: HYDROcodone/acetaminophen (*CRX) 5-325 MG TABLET 1 TAB PO (16:42)
[2021-09-15] MEDS: RIVAROXABAN 20 MG TABLET PO (16:43)
[2021-09-15] MEDS: INSULIN GLARGINE (*BKC) 100 UNITS/ML 10 UNITS SUB-Q (20:21)
[2021-09-15 21:16] LABS: Glucose Point of Care 112 mg/dl (65-105)
[2021-09-16] VITALS (23 sets, daily range): BP systolic 111–145; BP diastolic 73–85; PULSE 90–102; RESP 18–26; TEMP 35.8–36.8; O2SAT 94–100
[2021-09-16] MEDS: LEVALBUTEROL NEB 1.25 MG/3 ML 0.63 MG INHALATION ×6 (00:06→19:50)
[2021-09-16] MEDS: IPRATROPIUM BR 0.02% INH SOLN 0.5 MG/2.5 ML VIAL INHALATION ×6 (00:07→19:50)
[2021-09-16] MEDS: LORazepam INJ (*CRX) 2 MG/ML VIAL 1 MG IV PUSH (00:30)
[2021-09-16] MEDS: LEVOTHYROXINE SODIUM 50 MCG TABLET PO (05:34)
[2021-09-16 06:53] LABS: Hematocrit 33.4 % (42.0-52.0); Hemoglobin 9.6 g/dL (14.0-18.0); Immature Platelet Fraction Pct 4.3 % (0.9-11.2); Mean Corpuscular HGB Conc 28.7 g/dl (32-36); Mean Corpuscular Volume 79.9 fl (80-100); Mean Platelet Volume 9.6 fl (7.4-10.4); Platelet Count Result 120 k/mm3 (150-375); Red Blood Count 4.18 M/mm3 (4.6-6.20); Red Cell Distribution Width 26.4 % (11.5-14.5); White Blood Count 6.3 K/mm3 (4.5-10.0)
[2021-09-16 07:01] LABS: Anion Gap 4 mmol/L (8-16); Blood Urea Nitrogen 9 mg/dL (9-20); Calcium 9.2 mg/dL (8.4-10.2); Carbon Dioxide 33 mmol/L (22-30); Chloride 91 mmol/L (98-107); Estimated CRCL calculation 145 ml/min; Estimated Glomerular Filt Rate > 60; Glucose 106 mg/dL (65-110); Potassium 3.3 mmol/L (3.4-5.0); Sodium 128 mmol/L (137-145)
[2021-09-16 07:34] LABS: Glucose Point of Care 101 mg/dl (65-105)
--- NOTE | 2021-09-16 07:57 | P.PNIM_ITS ---
Progress Note: A&P Assessment and Plan (1) CHF exacerbation: Qualifiers: Heart failure type: systolic Qualified Code(s): I50.23 - Acute on chronic systolic (congestive) heart failure Code(s): I50.9 - Heart failure, unspecified Status: Acute Assessment and Plan: CXR showed findings consistent with CHF exacerbation. * He is euvolemic to slightly overloaded at this time * Lasix and spironolactone held in light of hyponatremia. * Discussed with nephrology, IV and p.o. Lasix can only be given on 1 time basis es, when he has complaints increased SOB. * As when we have him on daily scheduled Lasix, his sodium levels drop significantly and concerningly * Overall improvement following 1 time p.r.n. diuresis * Echo 08/29/21 showed normal EF 60-65% with abnormal diastolic function. * Monitor strict intake and output and daily weights * Continue elevating feet legs, daily weights, fluid restriction, diurese as needed. (2) Leg weakness: Qualifiers: Laterality: bilateral Qualified Code(s): R29.898 - Other symptoms and signs involving the musculoskeletal system Code(s): R29.898 - Other symptoms and signs involving the musculoskeletal system Status: Acute Assessment and Plan: Suspect a combination of anemia, vascular insufficiency, diabetic neuropathy, neurogenic claudication due to spinal stenosis * Ankle-brachial index for peripheral arterial disease 08/23 normal * Venous Doppler for possible hematoma left thigh 08/24 NEGATIVE * CT lumbar spine showed L4-L5 moderate to severe central canal stenosis. unable to obtain follow-up MRI due to pacemaker. No signs/symptoms to suggest cord compression. Neurovascularly intact. * B12 and folate within normal limits. RPR nonreactive. * outpatient nerve conduction study and neurology vs neurosurgery follow up * May also be related to sodium fluctuation, significant muscle wasting from lack of use including bed rest and refusal of therapy * replenish electrolytes (potassium given today, monitoring sodium - changed to regular diet) (3) COPD exacerbation: Code(s): J44.1 - Chronic obstructive pulmonary disease with (acute) exacerbation Status: Chronic Assessment and Plan: He does have chronic respiratory failure and is on 2-4L supplemental O2 * appreciate pulmonology consultation * Completed 7 days of p.o. prednisone. Discontinued 08/31 * Completed 7 days of IV ceftriaxone and azithromycin 08/29 * O2 sats are consistent with his baseline. Currently maintaining adequate O2 sats on 3L per nasal cannula * Scheduled nebulized breathing treatments. Continue xopenex and ipratropium * Cornet valve to mobilize secretions * Discussed case with cabbage salter, Dr. Santana on 09/09. No further changes from pulmonary standpoint. Follow-up as an outpatient. * COPD seems to be optimized, except for physical conditioning, but refused to participate in PT/OT on 09/08, 09/13 and 09/14. last participated on 09/15. Encouraged to participate today. * ordered sputum culture today. * Ready for discharge on cabbage salter recommendations and new BIPAP settings. (4) Anemia: Qualifiers: Anemia type: unspecified type Qualified Code(s): D64.9 - Anemia, unspecified Code(s): D64.9 - Anemia, unspecified Status: Acute Assessment and Plan: Recent onset of microcytosis * He is on anticoagulation which would increase his risk for blood loss * 08/23 Anemia parameters consistent with iron deficiency. Started on ferrous sulfate which was discontinued per Nephrology. * 08/24 GI consulted recommended EGD and
--- NOTE | 2021-09-16 07:57 | PM.IMPN ---
Progress Note: A&P Assessment and Plan (1) CHF exacerbation: Qualifiers: Heart failure type: systolic Qualified Code(s): I50.23 - Acute on chronic systolic (congestive) heart failure Code(s): I50.9 - Heart failure, unspecified Status: Acute Assessment and Plan: CXR showed findings consistent with CHF exacerbation. He is euvolemic to slightly overloaded at this time Lasix and spironolactone held in light of hyponatremia. Discussed with nephrology, IV and p.o. Lasix can only be given on 1 time basis es, when he has complaints increased SOB. As when we have him on daily scheduled Lasix, his sodium levels drop significantly and concerningly Overall improvement following 1 time p.r.n. diuresis Echo 08/29/21 showed normal EF 60-65% with abnormal diastolic function. Monitor strict intake and output and daily weights Continue elevating feet legs, daily weights, fluid restriction, diurese as needed. (2) Leg weakness: Qualifiers: Laterality: bilateral Qualified Code(s): R29.898 - Other symptoms and signs involving the musculoskeletal system Code(s): R29.898 - Other symptoms and signs involving the musculoskeletal system Status: Acute Assessment and Plan: Suspect a combination of anemia, vascular insufficiency, diabetic neuropathy, neurogenic claudication due to spinal stenosis Ankle-brachial index for peripheral arterial disease 08/23 normal Venous Doppler for possible hematoma left thigh 08/[address] lumbar spine showed L4-L5 moderate to severe central canal stenosis. unable to obtain follow-up MRI due to pacemaker. No signs/symptoms to suggest cord compression. Neurovascularly intact. B12 and folate within normal limits. RPR nonreactive. outpatient nerve conduction study and neurology vs neurosurgery follow up May also be related to sodium fluctuation, significant muscle wasting from lack of use including bed rest and refusal of therapy replenish electrolytes (potassium given today, monitoring sodium - changed to regular diet) (3) COPD exacerbation: Code(s): J44.1 - Chronic obstructive pulmonary disease with (acute) exacerbation Status: Chronic Assessment and Plan: He does have chronic respiratory failure and is on 2-4L supplemental O2 appreciate pulmonology consultation Completed 7 days of p.o. prednisone. Discontinued 08/31 Completed 7 days of IV ceftriaxone and azithromycin 08/29 O2 sats are consistent with his baseline. Currently maintaining adequate O2 sats on 3L per nasal cannula Scheduled nebulized breathing treatments. Continue xopenex and ipratropium Cornet valve to mobilize secretions Discussed case with surgical brace maker, Dr. Santana on 09/09. No further changes from pulmonary standpoint. Follow-up as an outpatient. COPD seems to be optimized, except for physical conditioning, but refused to participate in PT/OT on 09/08, 09/13 and 09/14. last participated on 09/15. Encouraged to participate today. ordered sputum culture today. Ready for discharge on surgical brace maker recommendations and new BIPAP settings. (4) Anemia: Qualifiers: Anemia type: unspecified type Qualified Code(s): D64.9 - Anemia, unspecified Code(s): D64.9 - Anemia, unspecified Status: Acute Assessment and Plan: Recent onset of microcytosis He is on anticoagulation which would increase his risk for blood loss 08/23 Anemia parameters consistent with iron deficiency. Started on ferrous sulfate which was discontinued per Nephrology. 08/24 GI consulted recommended EGD and colonoscopy which was delayed due to respiratory illness 09/04 EGD and colonoscopy performed without evidence of bleeding. Polypectomy performed therefore Xarelto was held for 3 days and resumed on 09/08 Continue protonix. Avoid NSAIDs. Monitor H&H-remaining stable (5) Type II diabetes mellitus: Qualifiers: Diabetes mellitus complication statu
[2021-09-16] MEDS: DOCUSATE SODIUM 100 MG CAPSULE PO (08:38)
[2021-09-16] MEDS: FLUTICASONE PROPIONATE 0.05% NA SPR 16 GM BTL (*BKC) 1 SPRAY NASAL ×2 (08:38→20:27)
[2021-09-16] MEDS: FOLIC ACID 1 MG TABLET PO (08:38)
[2021-09-16] MEDS: PANTOPRAZOLE 40 MG TABLET PO ×2 (08:38→17:07)
[2021-09-16] MEDS: dilTIAZem HCL 30 MG TABLET PO ×3 (08:38→17:07)
[2021-09-16] MEDS: SILDENAFIL CITRATE 20 MG TABLET PO ×2 (08:38→20:28)
[2021-09-16] MEDS: CYANOCOBALAMIN 500 MCG TABLET PO (08:38)
[2021-09-16] MEDS: metFORMIN HCL 500 MG TABLET PO ×2 (08:38→17:07)
[2021-09-16] MEDS: CHOLECALCIFEROL 1,000 UNITS TABLET 2000 UNITS PO (08:38)
[2021-09-16] MEDS: ROFLUMILAST 500 MCG TABLET PO (08:38)
[2021-09-16] MEDS: TAMSULOSIN HCL 0.4 MG CAPSULE PO (08:38)
[2021-09-16] MEDS: DEMECLOCYCLINE HCL 150 MG TABLET PO ×4 (08:38→20:27)
[2021-09-16] MEDS: ASPIRIN 81 MG ENTERIC TABLET PO (08:38)
[2021-09-16] MEDS: AMIODARONE HCL 200 MG TABLET PO ×2 (08:38→17:07)
[2021-09-16] MEDS: BUDESONIDE RESPULE NEB 0.5 MG/2 ML AMP INHALATION ×2 (09:48→19:49)
--- NOTE | 2021-09-16 09:50 | PCOTNOTE ---
Attempted to see Patient for A.M. treatment session at this time. Patient refused to participate at this time. He stated he just returned to bed after having a bowel movement that wore him out . He verbalized I feel like I'm just starting to get my breath back and is currently having a breathing treatment.
--- NOTE | 2021-09-16 10:20 | P.PNNP_ITS ---
Progress Note: A&P Assessment and Plan (1) Hyponatremia: Code(s): E87.1 - Hypo-osmolality and hyponatremia Status: Acute Assessment and Plan: * normal sodium on admission (137) but sodium low off and on over the years. * urine electrolytes suggest prerenal azotemia * TSH elevated but on supplementation; cortisol okay but on steroids recently * serum osmolality low (251) and urine osmolality 431 -- suggestive of SIADH * SPEP/UPEP without evidence of M-spike/paraproteinemia * risk factors for low sodium: * COPD/lung disease - quite severe * SSRI use (sertraline) - weaned off * steroid use * liver cirrhosis * sodium recently overcorrected and was very difficult to bring back down * received 1 dose of tolvaptan and his sodium came up pretty fast (121 to 133) -- had to use D5W + DDAVP to get it back down to a level appropriate for the rate of correction which was achieved and his sodium has been in the high 120s since that time * continue encouraging patient to fluid restrict on his own * on demeclocycline * follow trend of repeat sodium levels (2) CHF exacerbation: Qualifiers: Heart failure type: systolic Qualified Code(s): I50.23 - Acute on chronic systolic (congestive) heart failure Code(s): I50.9 - Heart failure, unspecified Status: Acute Assessment and Plan: * better compensated at this time * lasix PRN (dosed IV x 1 yesterday) (3) COPD exacerbation: Code(s): J44.1 - Chronic obstructive pulmonary disease with (acute) exacerbation Status: Chronic Assessment and Plan: * reportedly end stage disease * still has some wheezes * on CPAP at night * continue inhalers and pulmonary supportive care * Pulmonary following (4) Anemia: Qualifiers: Anemia type: unspecified type Qualified Code(s): D64.9 - Anemia, unspecified Code(s): D64.9 - Anemia, unspecified Status: Acute Assessment and Plan: * H/H relatively stable * EGD and colonoscopy performed on 09/04/21 without evidence of bleeding * polypectomy performed * back on xarelto * on protonix * avoiding NSAIDs (5) Essential (primary) hypertension: Code(s): I10 - Essential (primary) hypertension Status: Chronic Assessment and Plan: * blood pressure is well controlled * follow trend of hemodynamics (6) Type II diabetes mellitus: Qualifiers: Diabetes mellitus complication status: with other specified complication Diabetes mellitus detention insulin use: without ferry terminal supervisor use Qualified Code(s): E11.69 - Type 2 diabetes mellitus with other specified complication Code(s): E11.9 - Type 2 diabetes mellitus without complications Status: Chronic Assessment and Plan: * follow Accu-Cheks * on sliding-scale insulin Not sure I have much else to offer at this time -- will continue to follow intermittently. Subjective Date/time seen: 09/16/21 10:20 Still reports shortness of breath with rest and with activity at the time of my visit; reasonable diuresis with IV lasix yesterday with noted improvement in sodium level; otherwise, no real significant change noted. Exam Narrative: General: WD/WN male in no acute distress Heart: normal S1 and S2; no rub Lungs: decreased throughout with few expiratory wheezes Abdomen: soft, nontender, ND, +BS Extremities: trace edema Skin: no rash Objective Data Vital Signs Vital Signs:
--- NOTE | 2021-09-16 10:20 | PM.PNNEP ---
Progress Note: A&P Assessment and Plan (1) Hyponatremia: Code(s): E87.1 - Hypo-osmolality and hyponatremia Status: Acute Assessment and Plan: normal sodium on admission (137) but sodium low off and on over the years. 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 SPEP/UPEP without evidence of M-spike/paraproteinemia risk factors for low sodium: COPD/lung disease - quite severe SSRI use (sertraline) - weaned off steroid use liver cirrhosis sodium recently overcorrected and was very difficult to bring back down received 1 dose of tolvaptan and his sodium came up pretty fast (121 to 133) -- had to use D5W + DDAVP to get it back down to a level appropriate for the rate of correction which was achieved and his sodium has been in the high 120s since that time continue encouraging patient to fluid restrict on his own on demeclocycline follow trend of repeat sodium levels (2) CHF exacerbation: Qualifiers: Heart failure type: systolic Qualified Code(s): I50.23 - Acute on chronic systolic (congestive) heart failure Code(s): I50.9 - Heart failure, unspecified Status: Acute Assessment and Plan: better compensated at this time lasix PRN (dosed IV x 1 yesterday) (3) COPD exacerbation: Code(s): J44.1 - Chronic obstructive pulmonary disease with (acute) exacerbation Status: Chronic Assessment and Plan: reportedly end stage disease still has some wheezes on CPAP at night continue inhalers and pulmonary supportive care Pulmonary following (4) Anemia: Qualifiers: Anemia type: unspecified type Qualified Code(s): D64.9 - Anemia, unspecified Code(s): D64.9 - Anemia, unspecified Status: Acute Assessment and Plan: H/H relatively stable EGD and colonoscopy performed on 09/04/21 without evidence of bleeding polypectomy performed back on xarelto on protonix avoiding NSAIDs (5) Essential (primary) hypertension: Code(s): I10 - Essential (primary) hypertension Status: Chronic Assessment and Plan: blood pressure is well controlled follow trend of hemodynamics (6) Type II diabetes mellitus: Qualifiers: Diabetes mellitus complication status: with other specified complication 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 Subjective Date/time seen: 09/16/21 10:20 Still reports shortness of breath with rest and with activity at the time of my visit; reasonable diuresis with IV lasix yesterday with noted improvement in sodium level; otherwise, no real significant change noted. Exam Narrative: General: WD/WN male in no acute distress Heart: normal S1 and S2; no rub Lungs: decreased throughout with few expiratory wheezes Abdomen: soft, nontender, ND, +BS Extremities: trace edema Skin: no rash Objective Data Vital Signs Vital Signs: Vital Signs Temp Pulse Resp BP Pulse Ox 09/16/21 09:52 95 09/16/21 09:51 95 20 09/16/21 08:47 98 09/16/21 08:38 97 09/16/21 08:00 36.8 C 97 26 H 145/85 H 98 09/16/21 05:17 36.4 C 96 18 111/73 99 09/16/21 04:22 99 20 09/16/21 04:15 102 H 20 96 09/16/21 00:18 97 20 09/16/21 00:08 99 23 H 96 09/16/21 00:07 96 20 09/15/21 22:00 92 26 H 96 09/15/21 21:34 35.7 C L 95 18 129/78 99 09/15/21 20:06 97 20 09/15/21 20:00 99 09/15/21 19:5
[2021-09-16 11:56] LABS: Glucose Point of Care 96 mg/dl (65-105)
[2021-09-16] MEDS: HYDROcodone/acetaminophen (*CRX) 5-325 MG TABLET 1 TAB PO ×2 (12:03→20:32)
[2021-09-16 16:26] LABS: Glucose Point of Care 94 mg/dl (65-105)
[2021-09-16] MEDS: POTASSIUM CHLORIDE 20 MEQ TABLET 40 MEQ PO (17:07)
[2021-09-16] MEDS: RIVAROXABAN 20 MG TABLET PO (17:07)
[2021-09-16] MEDS: INSULIN GLARGINE (*BKC) 100 UNITS/ML 10 UNITS SUB-Q (20:38)
[2021-09-16 20:56] LABS: Glucose Point of Care 93 mg/dl (65-105)
[2021-09-17] VITALS (23 sets, daily range): BP systolic 131–143; BP diastolic 78–88; PULSE 89–99; RESP 18–24; TEMP 35.6–37; O2SAT 94–99
[2021-09-17] MEDS: LORazepam (*CRX) 0.5 MG TABLET PO (00:44)
[2021-09-17] MEDS: LEVALBUTEROL NEB 1.25 MG/3 ML 0.63 MG INHALATION ×7 (01:57→23:55)
[2021-09-17] MEDS: IPRATROPIUM BR 0.02% INH SOLN 0.5 MG/2.5 ML VIAL INHALATION ×7 (01:57→23:55)
[2021-09-17] MEDS: LEVOTHYROXINE SODIUM 50 MCG TABLET PO (05:57)
[2021-09-17 07:52] LABS: Glucose Point of Care 95 mg/dl (65-105)
[2021-09-17] MEDS: HYDROcodone/acetaminophen (*CRX) 5-325 MG TABLET 1 TAB PO ×3 (08:53→17:51)
[2021-09-17] MEDS: DEMECLOCYCLINE HCL 150 MG TABLET PO ×4 (08:53→21:07)
[2021-09-17] MEDS: FLUTICASONE PROPIONATE 0.05% NA SPR 16 GM BTL (*BKC) 1 SPRAY NASAL ×2 (08:54→21:07)
[2021-09-17] MEDS: AMIODARONE HCL 200 MG TABLET PO ×2 (08:54→17:51)
[2021-09-17] MEDS: DOCUSATE SODIUM 100 MG CAPSULE PO ×2 (08:54→21:07)
[2021-09-17] MEDS: FOLIC ACID 1 MG TABLET PO (08:54)
[2021-09-17] MEDS: ROFLUMILAST 500 MCG TABLET PO (08:54)
[2021-09-17] MEDS: CYANOCOBALAMIN 500 MCG TABLET PO (08:54)
[2021-09-17] MEDS: dilTIAZem HCL 30 MG TABLET PO ×3 (08:54→17:51)
[2021-09-17] MEDS: CHOLECALCIFEROL 1,000 UNITS TABLET 2000 UNITS PO (08:55)
[2021-09-17] MEDS: SILDENAFIL CITRATE 20 MG TABLET PO ×2 (08:55→21:07)
[2021-09-17] MEDS: metFORMIN HCL 500 MG TABLET PO ×2 (08:55→17:51)
[2021-09-17] MEDS: PANTOPRAZOLE 40 MG TABLET PO ×2 (08:55→17:51)
[2021-09-17] MEDS: TAMSULOSIN HCL 0.4 MG CAPSULE PO (08:55)
[2021-09-17] MEDS: ASPIRIN 81 MG ENTERIC TABLET PO (08:55)
[2021-09-17] MEDS: BUDESONIDE RESPULE NEB 0.5 MG/2 ML AMP INHALATION ×2 (09:10→20:15)
[2021-09-17 11:40] LABS: Glucose Point of Care 117 mg/dl (65-105)
--- NOTE | 2021-09-17 13:45 | P.PNIM_ITS ---
Progress Note: A&P Assessment and Plan (1) CHF exacerbation: Qualifiers: Heart failure type: systolic Qualified Code(s): I50.23 - Acute on chronic systolic (congestive) heart failure Code(s): I50.9 - Heart failure, unspecified Status: Acute Assessment and Plan: CXR showed findings consistent with CHF exacerbation. * He is euvolemic at this time * Lasix held in light of hyponatremia. * Giving Lasix only p.r.n., when he has complaints increased SOB. * when we have him on daily scheduled Lasix, his sodium levels drop significantly and concerningly * Echo 08/29/21 showed normal EF 60-65% with abnormal diastolic function. * Monitor strict intake and output and daily weights * Continue elevating feet legs, daily weights, fluid restriction, diurese as needed. * stable at this time (2) Leg weakness: Qualifiers: Laterality: bilateral Qualified Code(s): R29.898 - Other symptoms and signs involving the musculoskeletal system Code(s): R29.898 - Other symptoms and signs involving the musculoskeletal system Status: Acute Assessment and Plan: Suspect a combination of anemia, vascular insufficiency, diabetic neuropathy, neurogenic claudication due to spinal stenosis * Ankle-brachial index for peripheral arterial disease 08/23 normal * Venous Doppler for possible hematoma left thigh 08/24 NEGATIVE * CT lumbar spine showed L4-L5 moderate to severe central canal stenosis. unable to obtain follow-up MRI due to pacemaker. No signs/symptoms to suggest cord compression. Neurovascularly intact. * B12 and folate within normal limits. RPR nonreactive. * outpatient nerve conduction study and neurology vs neurosurgery follow up * May also be related to sodium fluctuation, significant muscle wasting from lack of use including bed rest and refusal of therapy * replenish electrolytes PRN * Patient has been walking a lot more this past week and tolerating longer distances. * at best level yet during this hospitalization (3) COPD exacerbation: Code(s): J44.1 - Chronic obstructive pulmonary disease with (acute) exacerbation Status: Chronic Assessment and Plan: He does have chronic respiratory failure and is on 2-4L supplemental O2 * appreciate pulmonology consultation * Completed 7 days of p.o. prednisone. Discontinued 08/31 * Completed 7 days of IV ceftriaxone and azithromycin 08/29 * O2 sats are consistent with his baseline. Currently maintaining adequate O2 sats on 3L per nasal cannula * Scheduled nebulized breathing treatments. Continue xopenex and ipratropium * Cornet valve to mobilize secretions * Discussed case with vice president payer, Dr. Santana on 09/09. No further changes from pulmonary standpoint. Follow-up as an outpatient. * COPD seems to be optimized, except for physical conditioning, but refused to participate in PT/OT on 09/08, 09/13 and 09/14. last participated on 09/15. Encouraged to participate * ordered sputum culture * exacerbation resolved. * Ready for discharge on vice president payer recommendations and new BIPAP settings. (4) Anemia: Qualifiers: Anemia type: unspecified type Qualified Code(s): D64.9 - Anemia, unspecified Code(s): D64.9 - Anemia, unspecified Status: Acute Assessment and Plan: Recent onset of microcytosis * He is on anticoagulation which would increase his risk for blood loss * 08/23 Anemia parameters consistent with iron deficiency. Started on ferrous sulfate which was discontinued per Nephrology. * 08/24 GI consulted recommended EGD and colonoscopy which was delayed due to r e
--- NOTE | 2021-09-17 13:45 | PM.IMPN ---
Progress Note: A&P Assessment and Plan (1) CHF exacerbation: Qualifiers: Heart failure type: systolic Qualified Code(s): I50.23 - Acute on chronic systolic (congestive) heart failure Code(s): I50.9 - Heart failure, unspecified Status: Acute Assessment and Plan: CXR showed findings consistent with CHF exacerbation. He is euvolemic at this time Lasix held in light of hyponatremia. Giving Lasix only p.r.n., when he has complaints increased SOB. when we have him on daily scheduled Lasix, his sodium levels drop significantly and concerningly Echo 08/29/21 showed normal EF 60-65% with abnormal diastolic function. Monitor strict intake and output and daily weights Continue elevating feet legs, daily weights, fluid restriction, diurese as needed. stable at this time (2) Leg weakness: Qualifiers: Laterality: bilateral Qualified Code(s): R29.898 - Other symptoms and signs involving the musculoskeletal system Code(s): R29.898 - Other symptoms and signs involving the musculoskeletal system Status: Acute Assessment and Plan: Suspect a combination of anemia, vascular insufficiency, diabetic neuropathy, neurogenic claudication due to spinal stenosis Ankle-brachial index for peripheral arterial disease 08/23 normal Venous Doppler for possible hematoma left thigh 08/[address] lumbar spine showed L4-L5 moderate to severe central canal stenosis. unable to obtain follow-up MRI due to pacemaker. No signs/symptoms to suggest cord compression. Neurovascularly intact. B12 and folate within normal limits. RPR nonreactive. outpatient nerve conduction study and neurology vs neurosurgery follow up May also be related to sodium fluctuation, significant muscle wasting from lack of use including bed rest and refusal of therapy replenish electrolytes PRN Patient has been walking a lot more this past week and tolerating longer distances. at best level yet during this hospitalization (3) COPD exacerbation: Code(s): J44.1 - Chronic obstructive pulmonary disease with (acute) exacerbation Status: Chronic Assessment and Plan: He does have chronic respiratory failure and is on 2-4L supplemental O2 appreciate pulmonology consultation Completed 7 days of p.o. prednisone. Discontinued 08/31 Completed 7 days of IV ceftriaxone and azithromycin 08/29 O2 sats are consistent with his baseline. Currently maintaining adequate O2 sats on 3L per nasal cannula Scheduled nebulized breathing treatments. Continue xopenex and ipratropium Cornet valve to mobilize secretions Discussed case with bean snapper, Dr. Santana on 09/09. No further changes from pulmonary standpoint. Follow-up as an outpatient. COPD seems to be optimized, except for physical conditioning, but refused to participate in PT/OT on 09/08, 09/13 and 09/14. last participated on 09/15. Encouraged to participate ordered sputum culture exacerbation resolved. Ready for discharge on bean snapper recommendations and new BIPAP settings. (4) Anemia: Qualifiers: Anemia type: unspecified type Qualified Code(s): D64.9 - Anemia, unspecified Code(s): D64.9 - Anemia, unspecified Status: Acute Assessment and Plan: Recent onset of microcytosis He is on anticoagulation which would increase his risk for blood loss 08/23 Anemia parameters consistent with iron deficiency. Started on ferrous sulfate which was discontinued per Nephrology. 08/24 GI consulted recommended EGD and colonoscopy which was delayed due to respiratory illness 09/04 EGD and colonoscopy performed without evidence of bleeding. Polypectomy performed therefore Xarelto was held for 3 days and resumed on 09/08 Continue protonix. Avoid NSAIDs. Monitor H&H-remaining stable (5) Type II diabetes mellitus: Qualifiers: Diabetes mellitus custodial insulin use: without buttermilk drier operator use Diabetes mellitus complicat
[2021-09-17 16:28] LABS: Anion Gap 7 mmol/L (8-16); Blood Urea Nitrogen 11 mg/dL (9-20); Calcium 9.2 mg/dL (8.4-10.2); Carbon Dioxide 29 mmol/L (22-30); Chloride 91 mmol/L (98-107); Estimated CRCL calculation 144 ml/min; Estimated Glomerular Filt Rate > 60; Glucose 106 mg/dL (65-110); Potassium 3.7 mmol/L (3.4-5.0); Sodium 127 mmol/L (137-145)
[2021-09-17 16:31] LABS: Glucose Point of Care 99 mg/dl (65-105)
[2021-09-17] MEDS: RIVAROXABAN 20 MG TABLET PO (17:50)
[2021-09-17] MEDS: POTASSIUM CHLORIDE 20 MEQ TABLET PO (17:50)
[2021-09-17] MEDS: INSULIN GLARGINE (*BKC) 100 UNITS/ML 10 UNITS SUB-Q (21:09)
[2021-09-17 21:22] LABS: Glucose Point of Care 101 mg/dl (65-105)
[2021-09-18] VITALS (22 sets, daily range): BP systolic 129–140; BP diastolic 70–84; PULSE 82–111; RESP 16–22; TEMP 36.6; O2SAT 85–99
[2021-09-18] MEDS: LEVALBUTEROL NEB 1.25 MG/3 ML 0.63 MG INHALATION ×4 (04:16→16:07)
[2021-09-18] MEDS: IPRATROPIUM BR 0.02% INH SOLN 0.5 MG/2.5 ML VIAL INHALATION ×4 (04:16→16:06)
[2021-09-18] MEDS: LEVOTHYROXINE SODIUM 50 MCG TABLET PO (05:50)
[2021-09-18 06:22] LABS: Anion Gap 3 mmol/L (8-16); Blood Urea Nitrogen 11 mg/dL (9-20); Calcium 9.7 mg/dL (8.4-10.2); Carbon Dioxide 34 mmol/L (22-30); Chloride 94 mmol/L (98-107); Estimated CRCL calculation 111 ml/min; Estimated Glomerular Filt Rate > 60; Glucose 98 mg/dL (65-110); Potassium 3.8 mmol/L (3.4-5.0); Sodium 131 mmol/L (137-145)
[2021-09-18 07:58] LABS: Glucose Point of Care 98 mg/dl (65-105)
[2021-09-18] MEDS: BUDESONIDE RESPULE NEB 0.5 MG/2 ML AMP INHALATION (08:16)
[2021-09-18] MEDS: CYANOCOBALAMIN 500 MCG TABLET PO (08:41)
[2021-09-18] MEDS: DEMECLOCYCLINE HCL 150 MG TABLET PO ×3 (08:41→16:51)
[2021-09-18] MEDS: PANTOPRAZOLE 40 MG TABLET PO ×2 (08:41→16:52)
[2021-09-18] MEDS: dilTIAZem HCL 30 MG TABLET PO ×3 (08:41→16:51)
[2021-09-18] MEDS: CHOLECALCIFEROL 1,000 UNITS TABLET 2000 UNITS PO (08:41)
[2021-09-18] MEDS: ROFLUMILAST 500 MCG TABLET PO (08:41)
[2021-09-18] MEDS: AMIODARONE HCL 200 MG TABLET PO ×2 (08:42→16:51)
[2021-09-18] MEDS: TAMSULOSIN HCL 0.4 MG CAPSULE PO (08:42)
[2021-09-18] MEDS: FLUTICASONE PROPIONATE 0.05% NA SPR 16 GM BTL (*BKC) 1 SPRAY NASAL (08:42)
[2021-09-18] MEDS: metFORMIN HCL 500 MG TABLET PO ×2 (08:42→16:52)
[2021-09-18] MEDS: ASPIRIN 81 MG ENTERIC TABLET PO (08:42)
[2021-09-18] MEDS: SILDENAFIL CITRATE 20 MG TABLET PO (08:42)
[2021-09-18] MEDS: FOLIC ACID 1 MG TABLET PO (08:42)
--- NOTE | 2021-09-18 08:58 | P.DS_ITS ---
DS: Admitting Diagnosis Discharge Date 09/18/2021 Admitting Diagnosis CHF exacerbation, leg weakness, COPD exacerbation, anemia, type 2 diabetes, ELIZABETH, persistent atrial fibrillation, hypertension, hypoxemia, pulmonary hypertension, hyponatremia, orthostatic hypotension, SIADH. DS: Discharge Diagnosis Discharge Diagnosis (1) CHF exacerbation: Qualifiers: Heart failure type: systolic Qualified Code(s): I50.23 - Acute on chronic systolic (congestive) heart failure Code(s): I50.9 - Heart failure, unspecified Status: Acute Assessment and Plan: CXR showed findings consistent with CHF exacerbation. * He is euvolemic at this time * Lasix held in light of hyponatremia. * Giving Lasix only p.r.n., when he has complaints increased SOB. * when we have him on daily scheduled Lasix, his sodium levels drop significantly and concerningly * Echo 08/29/21 showed normal EF 60-65% with abnormal diastolic function. * Monitor strict intake and output and daily weights * Continue elevating feet legs, daily weights, fluid restriction, diurese as needed. (2) Leg weakness: Qualifiers: Laterality: bilateral Qualified Code(s): R29.898 - Other symptoms and signs involving the musculoskeletal system Code(s): R29.898 - Other symptoms and signs involving the musculoskeletal system Status: Acute Assessment and Plan: Suspect a combination of anemia, vascular insufficiency, diabetic neuropathy, neurogenic claudication due to spinal stenosis * Ankle-brachial index for peripheral arterial disease 08/23 normal * Venous Doppler for possible hematoma left thigh 08/24 NEGATIVE * CT lumbar spine showed L4-L5 moderate to severe central canal stenosis. unable to obtain follow-up MRI due to pacemaker. No signs/symptoms to suggest cord compression. Neurovascularly intact. * B12 and folate within normal limits. RPR nonreactive. * outpatient nerve conduction study and neurology vs neurosurgery follow up * May also be related to sodium fluctuation, significant muscle wasting from lack of use including bed rest and refusal of therapy * replenish electrolytes PRN * Patient has been walking a lot more this past week and tolerating longer distances. (3) COPD exacerbation: Code(s): J44.1 - Chronic obstructive pulmonary disease with (acute) exacerbation Status: Chronic Assessment and Plan: He does have chronic respiratory failure and is on 2-4L supplemental O2 * appreciate pulmonology consultation * Completed 7 days of p.o. prednisone. Discontinued 08/31 * Completed 7 days of IV ceftriaxone and azithromycin 08/29 * O2 sats are consistent with his baseline. Currently maintaining adequate O2 sats on 3L per nasal cannula * Scheduled nebulized breathing treatments. Continue xopenex and ipratropium * Cornet valve to mobilize secretions * Discussed case with air director, Dr. Santana on 09/09. No further changes from pulmonary standpoint. Follow-up as an outpatient. * COPD seems to be optimized, except for physical conditioning, but refused to participate in PT/OT on 09/08, 09/13 and 09/14. last participated on 09/15. Encouraged to participate today. * ordered sputum culture today. * Ready for discharge on air director recommendations and new BIPAP settings. (4) Anemia: Qualifiers: Anemia type: unspecified type Qualified Code(s): D64.9 - Anemia, unspecified Code(s): D64.9 - Anemia, unspecified Status: Acute Assessment and Plan: Recent onset of microcytosis * He is on anticoagulation which would increase his risk for blood loss
--- NOTE | 2021-09-18 08:58 | PM.DS ---
DS: Admitting Diagnosis Discharge Date 09/18/2021 Admitting Diagnosis CHF exacerbation, leg weakness, COPD exacerbation, anemia, type 2 diabetes, ELIZABETH, persistent atrial fibrillation, hypertension, hypoxemia, pulmonary hypertension, hyponatremia, orthostatic hypotension, SIADH. DS: Discharge Diagnosis Discharge Diagnosis (1) CHF exacerbation: Qualifiers: Heart failure type: systolic Qualified Code(s): I50.23 - Acute on chronic systolic (congestive) heart failure Code(s): I50.9 - Heart failure, unspecified Status: Acute Assessment and Plan: CXR showed findings consistent with CHF exacerbation. He is euvolemic at this time Lasix held in light of hyponatremia. Giving Lasix only p.r.n., when he has complaints increased SOB. when we have him on daily scheduled Lasix, his sodium levels drop significantly and concerningly Echo 08/29/21 showed normal EF 60-65% with abnormal diastolic function. Monitor strict intake and output and daily weights Continue elevating feet legs, daily weights, fluid restriction, diurese as needed. (2) Leg weakness: Qualifiers: Laterality: bilateral Qualified Code(s): R29.898 - Other symptoms and signs involving the musculoskeletal system Code(s): R29.898 - Other symptoms and signs involving the musculoskeletal system Status: Acute Assessment and Plan: Suspect a combination of anemia, vascular insufficiency, diabetic neuropathy, neurogenic claudication due to spinal stenosis Ankle-brachial index for peripheral arterial disease 08/23 normal Venous Doppler for possible hematoma left thigh 08/[address] lumbar spine showed L4-L5 moderate to severe central canal stenosis. unable to obtain follow-up MRI due to pacemaker. No signs/symptoms to suggest cord compression. Neurovascularly intact. B12 and folate within normal limits. RPR nonreactive. outpatient nerve conduction study and neurology vs neurosurgery follow up May also be related to sodium fluctuation, significant muscle wasting from lack of use including bed rest and refusal of therapy replenish electrolytes PRN Patient has been walking a lot more this past week and tolerating longer distances. (3) COPD exacerbation: Code(s): J44.1 - Chronic obstructive pulmonary disease with (acute) exacerbation Status: Chronic Assessment and Plan: He does have chronic respiratory failure and is on 2-4L supplemental O2 appreciate pulmonology consultation Completed 7 days of p.o. prednisone. Discontinued 08/31 Completed 7 days of IV ceftriaxone and azithromycin 08/29 O2 sats are consistent with his baseline. Currently maintaining adequate O2 sats on 3L per nasal cannula Scheduled nebulized breathing treatments. Continue xopenex and ipratropium Cornet valve to mobilize secretions Discussed case with structural draftsman, Dr. Santana on 09/09. No further changes from pulmonary standpoint. Follow-up as an outpatient. COPD seems to be optimized, except for physical conditioning, but refused to participate in PT/OT on 09/08, 09/13 and 09/14. last participated on 09/15. Encouraged to participate today. ordered sputum culture today. Ready for discharge on structural draftsman recommendations and new BIPAP settings. (4) Anemia: Qualifiers: Anemia type: unspecified type Qualified Code(s): D64.9 - Anemia, unspecified Code(s): D64.9 - Anemia, unspecified Status: Acute Assessment and Plan: Recent onset of microcytosis He is on anticoagulation which would increase his risk for blood loss 08/23 Anemia parameters consistent with iron deficiency. Started on ferrous sulfate which was discontinued per Nephrology. 08/24 GI consulted recommended EGD and colonoscopy which was delayed due to respiratory illness 09/04 EGD and colonoscopy performed without evidence of bleeding. Polypectomy performed therefore Xarelto was held for 3 days and resumed on 09/08 Continue lucrecia
--- NOTE | 2021-09-18 09:24 | PCRCNOTE ---
Faxed updated [facility] settings to [facility] per Dr. Santana's and Tatum Handley's request. Christelle Barlow to go to patient's home this afternoon post-discharge to make the changes.
[2021-09-18 12:07] LABS: Glucose Point of Care 101 mg/dl (65-105)
--- NOTE | 2021-09-18 13:01 | HOMEO2EVAL ---
Evaluation was performed at [facility] Home Oxygen Evaluation RC: Home Oxygen (O2) Evaluation Start: 09/18/21 10:08 Freq: STAT Status: Active Protocol: RPE Activity Type Activity Date Activity User E-Sign Co-Sign Detail Recorded Client Recorded Date Recorded By Document 09/18/21 11:30 [email or web address] [email or web address] 09/18/21 13:01 DJO Document 09/18/21 11:35 [email or web address] [email or web address] 09/18/21 13:01 DJO Document 09/18/21 11:40 [email or web address] [email or web address] 09/18/21 13:01 DJO Document 09/18/21 11:45 [email or web address] [email or web address] 09/18/21 13:01 DJO Document 09/18/21 11:50 [email or web address] [email or web address] 09/18/21 13:01 DJO Document 09/18/21 11:55 [email or web address] [email or web address] 09/18/21 13:01 DJO Document 09/18/21 12:10 [email or web address] [email or web address] 09/18/21 13:01 DJO 09/18/21 09/18/21 09/18/21 11:30 11:35 11:40 Home O2 Evaluation Test Phase Resting Resting Resting Oxygen Delivery Room Air Nasal Cannula Nasal Cannula Oxygen Flow Rate (L/min) 1 2 Pulse Oximetry (90-100 %) 86 L 88 L 90 Pulse Rate (60-100 beats/min) 92 93 91 Activity Tolerance Treatment Charges O2 Evaluation - Inpatient 09/18/21 09/18/21 09/18/21 11:45 11:50 11:55 Home O2 Evaluation Test Phase Exercise Exercise Exercise Oxygen Delivery Nasal Cannula Nasal Cannula Nasal Cannula Oxygen Flow Rate (L/min) 2 3 4 Pulse Oximetry (90-100 %) 85 L 88 L 90 Pulse Rate (60-100 beats/min) 107 H 109 H 111 H Activity Tolerance Poor Treatment Charges 09/18/21 12:10 Home O2 Evaluation Test Phase Resting Oxygen Delivery Nasal Cannula Oxygen Flow Rate (L/min) 2 Pulse Oximetry (90-100 %) 90 Pulse Rate (60-100 beats/min) Activity Tolerance Treatment Charges
--- NOTE | 2021-09-18 13:07 | PCRCNOTE ---
HOME OXYGEN EVAL COMPLETE, 2 L AT REST AND 4L WITH ACTIVITY. PT HAS HOME O2 WITH [facility]. PT HAD O2 IN ROOM TO DISCHARGE WITH. drumbi PHONE NUMBER [phone].
[2021-09-18] MEDS: HYDROcodone/acetaminophen (*CRX) 5-325 MG TABLET 1 TAB PO (14:33)
[2021-09-18] MEDS: RIVAROXABAN 20 MG TABLET PO (16:52)
[2021-09-18 18:01] LABS: Glucose Point of Care 102 mg/dl (65-105)
== END 2021-09-18 19:15 | disposition home health service (06) | DRG 190 ==
LOC: ANHED 20:38 → ANH3MED 23:29
PROVIDERS: Emergency Medicine; Internal Medicine; Internal Medicine Critical Care Medicine; Internal Medicine Gastroenterology; Internal Medicine Nephrology; Internal Medicine Pulmonary Disease; Nurse Practitioner Adult Health; Physician Assistant; Admitting Provider Internal Medicine; Emergency Provider Emergency Medicine; PCP Internal Medicine; Visit Provider Nurse Practitioner
PROC: 0DJ08ZZ Inspection of Upper Intestinal Tract, Via Natural or Artificial Opening Endoscopic (ICD-10-PCS; CPT 43235; principal; 2021-09-04 11:00)
DX: J44.1 Chronic obstructive pulmonary disease with (acute) exacerbation (principal); I50.23 Acute on chronic systolic (congestive) heart failure; I13.0 Hypertensive heart and chronic kidney disease with heart failure and stage 1 through stage 4 chronic kidney disease, or unspecified chronic kidney disease; B18.1 Chronic viral hepatitis B without delta-agent; F10.988 Alcohol use, unspecified with other alcohol-induced disorder; J96.12 Chronic respiratory failure with hypercapnia; J96.11 Chronic respiratory failure with hypoxia; I48.19 Other persistent atrial fibrillation; E22.2 Syndrome of inappropriate secretion of antidiuretic hormone; I95.1 Orthostatic hypotension; B18.2 Chronic viral hepatitis C; Z23 Encounter for immunization; Z20.822 Contact with and (suspected) exposure to COVID-19; Z99.81 Dependence on supplemental oxygen; R29.898 Other symptoms and signs involving the musculoskeletal system; G47.33 Obstructive sleep apnea (adult) (pediatric); I27.20 Pulmonary hypertension, unspecified; E11.36 Type 2 diabetes mellitus with diabetic cataract; H25.9 Unspecified age-related cataract; E11.51 Type 2 diabetes mellitus with diabetic peripheral angiopathy without gangrene; E11.22 Type 2 diabetes mellitus with diabetic chronic kidney disease; N18.30 Chronic kidney disease, stage 3 unspecified; I27.81 Cor pulmonale (chronic); D50.9 Iron deficiency anemia, unspecified; K21.9 Gastro-esophageal reflux disease without esophagitis; K31.7 Polyp of stomach and duodenum; K57.30 Diverticulosis of large intestine without perforation or abscess without bleeding; K63.5 Polyp of colon; K62.1 Rectal polyp; I25.10 Atherosclerotic heart disease of native coronary artery without angina pectoris; N40.1 Benign prostatic hyperplasia with lower urinary tract symptoms; R35.1 Nocturia; G62.1 Alcoholic polyneuropathy; K74.60 Unspecified cirrhosis of liver; K76.9 Liver disease, unspecified; E03.9 Hypothyroidism, unspecified; Z71.89 Other specified counseling; Z79.01 Long term (current) use of anticoagulants; Z79.82 Long term (current) use of aspirin; Z79.84 Long term (current) use of oral hypoglycemic drugs; Z79.899 Other long term (current) drug therapy; Z86.010 Personal history of colon polyps; Z86.718 Personal history of other venous thrombosis and embolism; Z87.891 Personal history of nicotine dependence; Z95.0 Presence of cardiac pacemaker; Z95.828 Presence of other vascular implants and grafts
CPT/HCPCS: 36415; 36600; 71046; 72131; 73030; 80048; 80053; 80069; 81050; 82274; 82533; 82570; 82607; 82728; 82746; 82805; 82948; 83540; 83550; 83880; 83930; 83935; 84100; 84155; 84156; 84165; 84166; 84295; 84300; 84439; 84443; 84480; 84484; 84540; 85014; 85018; 85025; 85027; 85046; 85055; 85610; 85730; 86592; 87040; 87070; 87081; 87205; 87804; 88305; 90471; 90653; 90732; 92610; 93005; 93922; 93970; 94002; 94003; 94618; 94640; 94762; 96365; 96366; 96367; 96368; 96375; 96376; 97110; 97116; 97161; 97164; 97165; 97168; 97530; 97535; 99285; A9270; C8929; C9803; G0008; G0378; J0290; J0456; J0696; J1580; J1756; J1815; J1940; J2060; J2597; J2704; J2920; J7040; J7070; J7120; J7512; U0003; U0005